=== PATIENT | male | born 1945 | race Caucasian/White ===

== ENCOUNTER 2021-01-10 19:06 | Inpatient (IN) | payer OTHER, SELFPAY ==
[2021-01-10] VITALS (9 sets, daily range): BP systolic 100–138; BP diastolic 41–70; PULSE 28–33; RESP 16–27; TEMP 36.7–37.2; O2SAT 91–95; BMI 32.1; BMI 32.8
--- NOTE | ~2021-01-10 | FL_ITS ---
EXAMINATION: XR FLUOROSCOPY WITH IMAGES CLINICAL INFORMATION: Fluoroscopy guidance for pacemaker placement. COMPARISON: Previous chest x-ray from yesterday TECHNIQUE: Fluoroscopy performed by Magaly Carmona MD. Fluoroscopy time: 247 seconds Dose: 102.58 mGy Images: 4 FINDINGS: Initial images demonstrate a left central venogram with opacification of the axillary and cephalic veins and some of the left subclavian vein which are patent. Final image demonstrates 2 pacemaker leads. One lead projects over the ventricular apex. The atrial lead is not well visualized. FL/FL guidance in OR IMPRESSION: Fluoroscopy guidance for pacemaker placement.
--- NOTE | ~2021-01-10 | CT_ITS ---
EXAMINATION: CT HEAD W/O IV CONTRAST CT CERVICAL SPINE W/O IV CONTRAST CLINICAL INFORMATION: 75-year-old male status post fall. Trauma. COMPARISON: None TECHNIQUE: Head - Contiguous axial imaging of the head was performed from the skull base to the vertex without the administration of intravenous contrast, and axial images are reconstructed at 2 mm and 5 mm slice thickness. Cervical spine - A volumetric, helical CT acquisition of the cervical spine was obtained without contrast; in addition to the standard set of axial images, multiplanar reformatted images were provided in the coronal and sagittal imaging planes. This CT examination was performed using dose optimization techniques as appropriate, variously including the following: *Automated exposure control *Adjustment of mA and/or kV according to patient size (this includes techniques or standardized protocols for targeted exams where dose is matched to indication/reason for exam; i.e. extremities or head) *Use of iterative reconstruction technique DLP: 1211 mGy-cm (total) FINDINGS: HEAD: No acute findings. No intracranial hemorrhage, extra-axial fluid collection, focal mass effect or midline shift. Atherosclerotic calcification of proximal intradural segments of vertebral arteries and cavernous carotid arteries. Mild patchy hypoattenuation in supratentorial white matter and old small lacunar infarct in the left gangliocapsular region. Findings compatible with sequela of chronic mild microangiopathy. The dawn-white matter differentiation is maintained. No acute major vessel territory infarction. Mild volume loss of brain parenchyma with commensurate prominence of ventricles and sulci; no hydrocephalus. Brainstem and cerebellum are unremarkable. The calvarium is intact. Mastoid air cells and middle ear cavities are well aerated. Temporomandibular joints are normal. Secretions within the right maxillary sinus. No air-fluid levels within paranasal sinuses. Prior ocular lens replacements. CERVICAL SPINE: No acute abnormalities in the cervical spine. The craniocervical junction is normal. The occipital condyles, dens and atlantodental articulation are intact. There is degenerative osseous spurring at the atlantodental articulation. The vertebral body heights are maintained. No fractures in anterior or posterior elements. No prevertebral soft tissue swelling. Multilevel facet osteoarthritis. The facet joints are ankylosed on the right at C2-C3. There is approximately 0.2 cm degenerative anterolisthesis of C3 on C4. At C5-C6 and C6-C7, there is severe degenerative disc disease (as manifest by severe loss of disc height, endplate irregularity, sclerosis and osteophyte formation). Mild canal stenosis caused by posterior disc osteophyte complexes at C5-C6 and C6-C7. Multilevel uncovertebral joint hypertrophy with varying degrees of neural foraminal stenosis at C3-C4, C4-C5, C5-C6 and C6-C7, worst on the left at C6-C7 and worst on the right at C4-C5 and C5-C6. Thyroid gland is normal. Interlobular septal thickening (interstitial edema) in the visualized lung apices. Foci venous gas and lower neck likely from recent intravenous line placement. CT/CT cervical spine wo con IMPRESSION: * No acute intracranial pathology. * No fractures in the degenerated cervical spine. Degenerative disc disease is severe at C5-C6 and C6-C7. * Interlobular septal thickening (interstitial edema) is present within the visualized lung apices.
--- NOTE | ~2021-01-10 | XR_ITS ---
EXAMINATION: XR CHEST CLINICAL INFORMATION: New permacath, pacemaker placement COMPARISON: None TECHNIQUE: Frontal view of the chest was obtained. FINDINGS: The lungs are hypo-expanded with increased reticular markings in both lungs, likely chronic renal disease. There are pacer electrodes in the right atrium and right ventricle. Mild spondylosis seen throughout the dorsal spine. No lytic process. XR/XR chest 1V IMPRESSION: Hypo-expanded lungs with chronic reticular interstitial markings in both lungs. No acute infiltrate seen.
--- NOTE | ~2021-01-10 | XR_ITS ---
EXAMINATION: XR CHEST CLINICAL INFORMATION: Follow-up new pacemaker lead placement COMPARISON: 01/11/2021 TECHNIQUE: Frontal view of the chest was obtained. FINDINGS: Left-sided pacemaker is present with lead tips overlying the right atrium and right ventricle. Multiple presumably external leads overlie the chest. Lung volumes are symmetric. No focal consolidation is seen. No evidence of pneumothorax, pleural effusion, or pulmonary edema. Cardiac size is within normal limits. Calcification is present at the aortic arch. No acute osseous findings are seen. XR/XR chest 1V IMPRESSION: Left-sided pacemaker lead tips overlie the right atrium and right ventricle. No acute cardiopulmonary findings.
--- NOTE | ~2021-01-10 | XR_ITS ---
EXAMINATION: PORTABLE CHEST 1 VIEW CLINICAL INFORMATION: bradycardia . COMPARISON: No recent pertinent prior studies are available for comparison. TECHNIQUE: Portable frontal view of the chest was obtained. FINDINGS: The lungs are well expanded. Chronic appearing reticular markings but no superimposed focal infiltrate, effusion, edema, or pneumothorax. Cardiac and mediastinal silhouettes are within normal limits for size with mild vascular calcification in aorta. No acute bony abnormality seen. XR/XR chest 1V IMPRESSION: No evidence of acute disease.
--- NOTE | 2021-01-10 19:16 | ECG_ITS ---
Test Reason : MARQUISE Blood Pressure : / mmHG Vent. Rate : 031 BPM Atrial Rate : 031 BPM P-R Int : 000 ms QRS Dur : 136 ms QT Int : 592 ms P-R-T Axes : 052 110 020 degrees QTc Int : 425 ms Complete heart block Possible Inferior infarct , age undetermined Abnormal ECG No previous ECGs available Referred By: Claudio Tran Electronically Signed By:EDDIE PORTILLO
--- NOTE | 2021-01-10 19:16 | ED_ITS ---
HPI - Arrhythmia/Palpitations General Chief Complaint: Arrhythmia/Palpitations Stated Complaint: LOW HEART RATE Time Seen by Provider: 01/10/21 19:16 Source: patient Mode of arrival: EMS Limitations: no limitations History of Present Illness HPI narrative: Patient's history of hypertension coronary artery disease chronic renal disease and diabetes on metoprolol 25 mg been having near-syncope episode/dizziness for last 6 months noticed heart rate of 26 about 8 weeks ago which lasted for about 24 hours with near-syncope episodes, had a Holter monitor about 6 weeks ago for 24 hours which was negative, seen media associate at [facility] plan to have pacemaker after proper diagnosis been made. Since yesterday evening patient been feeling lightheaded dizzy checked his heart rate was in 30s today just prior to arrival patient had a syncope episode fell down and hit his head to the chair and broke the chair. No chest pain no vomiting no shortness of breath no fever or chills no history of seizures patient is on Flomax and metoprolol 25 mg daily on arrival his EKG showed complete heart block with heart rate of 31 with right bundle-branch block left posterior fascicular block no acute ST T wave changes with wide QRS complexes Related Data Home Medications Medication Instructions Recorded Confirmed atorvastatin 1 tab PO DAILY 01/10/21 01/10/21 finasteride 1 tab PO DAILY 01/10/21 01/10/21 insulin glargine [Lantus Solostar 22 unit SUBCUT BEDTIME 01/10/21 01/10/21 U-100 Insulin] losartan 1 tab PO DAILY 01/10/21 01/10/21 metformin 2 tab PO BID 01/10/21 01/10/21 metoprolol tartrate 1 tab PO BID 01/10/21 01/10/21 nitroglycerin 0.4 tab SUBLINGUAL NEEDED PRN 01/10/21 01/10/21 sitagliptin [Januvia] 1 tab PO DAILY 01/10/21 01/10/21 tamsulosin 1 cap PO DAILY 01/10/21 01/10/21 Allergies Allergy/AdvReac Type Severity Reaction Status Date / Time No Known Allergies Allergy Verified 01/10/21 19:52 [No Known Allergies*] Review of Systems Review of Systems: Constitutional : No Weight loss, No Fever, No Chills ENT/Mouth : No sore throat, No Rhinorrhea Eyes: No Eye Pain, No Swelling Cardiovascular : No Chest Pain, no palpitations Respiratory : No Cough, No Sputum, no shortness of breath Gastrointestinal : no Nausea, No Vomiting, No Diarrhea, No abdominal Pain, no black stools Genitourinary : No Dysuria, No Urinary Frequency Musculoskeletal : No joint pain, No Myalgias, No Joint Swelling Skin : No Skin Lesions, No rash Neuro : No Weakness, No Numbness, ++ Dizziness, No Headache Psych : No Anxiety/Panic, No Depression Heme/Lymph: No Bruising, No Lymphadenopathy Endocrine : No Polyuria, No Polydipsia All other systems reviewed and are negative [facility] Past Medical History Medical History Diabetes High cholesterol History of acute myocardial infarction HTN (hypertension) Kidney disease, chronic, stage III (GFR 30-59 ml/min) Surgical History History of tonsillectomy Social History Social History Household Members: Spouse Household Members Other:: Housing: House Do you presently have visiting nurse or other home services: No Alcohol intake: never Smoking Status: Never smoker Use of substances other than those prescribed or required for medical reasons: No Currently Displaying Signs/Symptoms of Drug Intoxication Withdrawal: No Have you been hit, kicked, punched, or otherwise hurt by someone within the past year? If so, by whom?: No Do you feel safe in your current relationship?: No Is there a partner from a previous relationship who is making you feel unsafe now?: No Are you made to feel afraid or neglected: No Spiritual Healthcare Practices: NONE Advance Directives: No Advance Directives Information Provided: Yes Do you have thoughts of harming others: None Do you have a plan to hurt others: No Plan Recently lost weight without trying: No Nutrition Risks: No Nutritional Risk Physical Exam Vital Signs: Vital Signs: Last Vital Signs Temp 97.3 F 01/11/21 00:00 Pulse 25 L 01/11/21 00:00 Resp 24 H 01/11/21 00:00 BP 113/41 L 01/11/21 00:00 Pulse Ox 96 01/11/21 00:00 Oxygen Flow Rate 2 01/10/21 19:20 Body Mass Index 32.1 Appearance: Alert. Oriented X3. No acute distress. Eyes: PERRLA, No Nystagmus ENT: Pharynx normal. Oral Mucosa moist Neck: Normal inspection. Neck supple. CVS: Bradycardia heart rate 31 beats per minute, no murmur rub or gallop, no S3-S4, Respiratory: No respiratory distress. Equal air entry bilateral, no wheezing/rales/rhonchi Abdomen: Soft and nontender. Bowel sounds are present, no mass palpable, no CVA tenderness Skin: Skin warm and dry. Normal skin color. Normal skin turgor. Extremities: No lower extremity edema. No calf tenderness Neuro: Oriented X 3. No motor deficit. No sensory deficit.No cerebellar signs , cranial nerves II-XII intact MDM - Arrhythmia/Palpitations MDM Narrative Medical decision making narrative: Patient with syncope episode with complete heart block with blood pressure maintained last blood pressure was 113/54 pa tient denies any chest pain alert oriented x3. No response to IV atropine glucagon and calcium gluconate, Case discussed with cardiology Dr. Cavazos plan to admit to ICU and plan for pacemaker placement in the morning this time patient's vitals are stable only external pacer were applied will hold off for temporary intravenous pacemaker for now Medical Records Attestation: I reviewed the patient's medical records. Lab Data Attestation: I reviewed the patient's lab results. Result diagrams: 01/10/21 19:25 01/10/21 19:25 Labs: Lab Results 01/10/21 01/10/21 01/10/21 Range/Units 19:25 19:25 19:25 WBC 16.3 H (4.8-10.8) X10*3/uL RBC 4.28 L (4.60-5.80) X10*6/uL Hgb 13.0 L (14.0-18.0) g/dl Hct 40.4 L (42-52) % MCV 94.4 (80-98) fL MCH 30.4 (27.0-33.0) pg MCHC 32.2 (31.0-36.0) g/dl RDW 13.6 (11.0-16.0) % Plt Count 143 L (160-400) X10*3/uL MPV 12.4 (9.4-12.4) fL Immature Gran % (Auto) 1.0 H (0.0-0.4) % Neut % (Auto) 62.4 (45-73) % Lymph % (Auto) 26.7 (20-40) % [place] % (Auto) 8.4 (2-11) % Eos % (Auto) 0.9 (0-4) % Baso % (Auto) 0.6 (0-2) % Lymph # (Auto) 4.4 (1.2-4.9) X10*3/uL [place] # (Auto) 1.4 H (0.1-1.2) X10*3/uL Eos # (Auto) 0.2 (0.0-0.4) X10*3/uL Baso # (Auto) 0.1 (0.0-0.2) X10*3/uL Abs Immat Gran (auto) 0.16 H (0.00-0.03) X10*3/uL Absolute Neuts (auto) 10.2 H (2.0-8.3) X10*3/uL Absolute Nucleated RBC 0.000 (0.0-0.012) X10*3/uL Nucleated RBC % (auto) 0.0 (0.0-0.2) /100WBC PT 11.7 (10.8-13.0) SEC INR 1.0 (0.9-1.1) APTT 30.4 (24.1-38.0) SEC Sodium 135 (135-145) mmol/L Potassium 5.0 (3.3-5.1) mmol/L Chloride 101 (96-108) mmol/L Carbon Dioxide 22 (22-29) mmol/L Anion Gap 17 (12-20) BUN 35 H (9-16) mg/dL Creatinine 1.64 H (0.5-1.4) mg/dL Estim Creat Clear Calc 42.9 Estimated GFR 41 Random Glucose 345 H (60-115) mg/dL Calcium 9.0 (8.4-10.2) mg/dL Magnesium 1.9 (1.6-2.6) mg/dL Total Bilirubin (0.0-1.0) mg/dL Direct Bilirubin (0.0-0.5) mg/dL AST (5-37) U/L ALT (0-40) U/L Alkaline Phosphatase (39-117) U/L Troponin I High Sens (<3.5-35.0) ng/L B-Natriuretic Peptide (<100) pg/mL Total Protein (6.5-8.0) g/dL Albumin (3.5-5.0) g/dL COVID-19 (FELIPE) (Negative) COVID-19 Clin Com 01/10/21 01/10/21 01/10/21 Range/Units 19:25 19:25 19:25 WBC (4.8-10.8) X10*3/uL RBC (4.60-5.80) X10*6/uL Hgb (14.0-18.0) g/dl Hct (42-52) % MCV (80-98) fL MCH (27.0-33.0) pg MCHC (31.0-36.0) g/dl RDW (11.0-16.0) % Plt Count (160-400) X10*3/uL MPV (9.4-12.4) fL Immature Gran % (Auto) (0.0-0.4) % Neut % (Auto) (45-73) % Lymph % (Auto) (20-40) % [place] % (Auto) (2-11) % Eos % (Auto) (0-4) % Baso % (Auto) (0-2) % Lymph # (Auto) (1.2-4.9) X10*3/uL [place] # (Auto) (0.1-1.2) X10*3/uL Eos # (Auto) (0.0-0.4) X10*3/uL Baso # (Auto) (0.0-0.2) X10*3/uL Abs Immat Gran (auto) (0.00-0.03) X10*3/uL Absolute Neuts (auto) (2.0-8.3) X10*3/uL Absolute Nucleated RBC (0.0-0.012) X10*3/uL Nucleated RBC % (auto) (0.0-0.2) /100WBC PT (10.8-13.0) SEC INR (0.9-1.1) APTT (24.1-38.0) SEC Sodium (135-145) mmol/L Potassium (3.3-5.1) mmol/L Chloride (96-108) mmol/L Carbon Dioxide (22-29) mmol/L Anion Gap (12-20) BUN (9-16) mg/dL Creatinine (0.5-1.4) mg/dL Estim Creat Clear Calc Estimated GFR Random Glucose (60-115) mg/dL Calcium (8.4-10.2) mg/dL Magnesium (1.6-2.6) mg/dL Total Bilirubin 0.9 (0.0-1.0) mg/dL Direct Bilirubin 0.3 (0.0-0.5) mg/dL AST 37 (5-37) U/L ALT 72 H (0-40) U/L Alkaline Phosphatase 97 (39-117) U/L Troponin I High Sens 19.9 (<3.5-35.0) ng/L B-Natriuretic Peptide 399 H (<100) pg/mL Total Protein 6.9 (6.5-8.0) g/dL Albumin 4.0 (3.5-5.0) g/dL COVID-19 (FELIPE) (Negative) COVID-19 Clin Com 01/10/21 Range/Units 20:05 WBC (4.8-10.8) X10*3/uL RBC (4.60-5.80) X10*6/uL Hgb (14.0-18.0) g/dl Hct (42-52) % MCV (80-98) fL MCH (27.0-33.0) pg MCHC (31.0-36.0) g/dl RDW (11.0-16.0) % Plt Count (160-400) X10*3/uL MPV (9.4-12.4) fL Immature Gran % (Auto) (0.0-0.4) % Neut % (Auto) (45-73) % Lymph % (Auto) (20-40) % [place] % (Auto) (2-11) % Eos % (Auto) (0-4) % Baso % (Auto) (0-2) % Lymph # (Auto) (1.2-4.9) X10*3/uL [place] # (Auto) (0.1-1.2) X10*3/uL Eos # (Auto) (0.0-0.4) X10*3/uL Baso # (Auto) (0.0-0.2) X10*3/uL Abs Immat Gran (auto) (0.00-0.03) X10*3/uL Absolute Neuts (auto) (2.0-8.3) X10*3/uL Absolute Nucleated RBC (0.0-0.012) X10*3/uL Nucleated RBC % (auto) (0.0-0.2) /100WBC PT (10.8-13.0) SEC INR (0.9-1.1) APTT (24.1-38.0) SEC Sodium (135-145) mmol/L Potassium (3.3-5.1) mmol/L Chloride (96-108) mmol/L Carbon Dioxide (22-29) mmol/L Anion Gap (12-20) BUN (9-16) mg/dL Creatinine (0.5-1.4) mg/dL Estim Creat Clear Calc Estimated GFR Random Glucose (60-115) mg/dL Calcium (8.4-10.2) mg/dL Magnesium (1.6-2.6) mg/dL Total Bilirubin (0.0-1.0) mg/dL Direct Bilirubin (0.0-0.5) mg/dL AST (5-37) U/L ALT (0-40) U/L Alkaline Phosphatase (39-117) U/L Troponin I High Sens (<3.5-35.0) ng/L B-Natriuretic Peptide (<100) pg/mL Total Protein (6.5-8.0) g/dL Albumin (3.5-5.0) g/dL COVID-19 (FELIPE) Negative (Negative) COVID-19 Clin Com See Note Imaging Data CT scan - head: Radiologist's impression: CT/CT head/brain wo con IMPRESSION: * No acute intracranial pathology. * No fractures in the degenerated cervical spine. Degenerative disc disease is severe at C5-C6 and C6-C7. * Interlobular septal thickening (interstitial edema) is present within the visualized lung apices. ECG Data Attestation: I personally reviewed and interpreted this ECG as follows: Interpretation: Complete heart block with ventricular rate of 31 beats per minute wide QRS complex is no acute ischemic changes, right bundle branch block Critical Care Time Critical Care Time Critical Care Time: Yes Total Critical Care Time: 50 Attestation: I spent 50 minutes of critical care, with interventions, assessments, speaking to patient, consultants, and family. Discharge Plan Discharge Clinical Impression: CHB (complete heart block) Kidney disease, chronic, stage III (GFR 30-59 ml/min) Qualifiers: Chronic kidney disease stage 3 subtype: stage 3b (GFR 30-44) Qualified Code(s): N18.32 - Chronic kidney disease, stage 3b Patient Disposition: Admitted As Inpatient Interventions: Admission Worksheet (ED) Last Done: 01/10/21 22:54 Discharge Date/Time: 01/10/21 22:55
[2021-01-10] MEDS: Calcium Gluconate/NaCl,Iso-Osm 2 GM/100 ML PLAST..BAG IV (19:38)
[2021-01-10] MEDS: Atropine Sulfate 1 MG/10 ML SYRINGE IVPUSH (19:38)
[2021-01-10 19:53] LABS: MANUAL DIFF FLAG NO
[2021-01-10 19:56] LABS: Basophils Absolute Auto 0.1 X10*3/uL (0.0-0.2); Basophils Percent Auto 0.6 % (0-2); Eosinophils Absolute Auto 0.2 X10*3/uL (0.0-0.4); Eosinophils Percent Auto 0.9 % (0-4); Hematocrit 40.4 % (42-52); Imm Gran Abs Auto 0.16 X10*3/uL (0.00-0.03); Lymphocytes Absolute Auto 4.4 X10*3/uL (1.2-4.9); Lymphocytes Percent Auto 26.7 % (20-40); Mean Corpuscular HGB Conc 32.2 g/dl (31.0-36.0); Mean Corpuscular Hemoglobin 30.4 pg (27.0-33.0); Mean Corpuscular Volume 94.4 fL (80-98); Mean Platelet Volume 12.4 fL (9.4-12.4); Monocytes Absolute Auto 1.4 X10*3/uL (0.1-1.2); Monocytes Percent Auto 8.4 % (2-11); Neutrophils Absolute Auto 10.2 X10*3/uL (2.0-8.3); Neutrophils Percent Auto 62.4 % (45-73); Platelet Count 143 X10*3/uL (160-400); Red Blood Count 4.28 X10*6/uL (4.60-5.80); Red Cell Distribution Width 13.6 % (11.0-16.0); White Blood Count 16.3 X10*3/uL (4.8-10.8)
--- NOTE | 2021-01-10 19:57 | PC.NURSE ---
Patient arrived via ambulance in complete heart block. Patient was having shortness of breath and was placed on oxygen 2l. Pacer pads placed on patient upon arrival. Patient line and lab'd. Medicated per emar with gulcagon 1 mg, atropine 1mg and calcium gluconate 2 gm at 50 ml/hr.
[2021-01-10 20:02] LABS: Prothrombin Time 11.7 SEC (10.8-13.0)
[2021-01-10 20:05] LABS: Partial Thromboplastin Time 30.4 SEC (24.1-38.0)
[2021-01-10 20:20] LABS: Alanine Aminotransferase 72 U/L (0-40); Alkaline Phosphatase 97 U/L (39-117); Anion Gap 17 (12-20); Aspartate Amino Transferase 37 U/L (5-37); Bilirubin Direct 0.3 mg/dL (0.0-0.5); Bilirubin Total 0.9 mg/dL (0.0-1.0); Blood Urea Nitrogen 35 mg/dL (9-16); Carbon Dioxide 22 mmol/L (22-29); Chloride 101 mmol/L (96-108); Creatinine Clr Calc Pharmacy 42.9; Estimated Glomerular Filt Rate 41; Glucose Random 345 mg/dL (60-115); Magnesium 1.9 mg/dL (1.6-2.6); Sodium 135 mmol/L (135-145); Total Protein 6.9 g/dL (6.5-8.0)
[2021-01-10 20:27] LABS: Troponin-I High Sensitivity 19.9 ng/L (<3.5-35.0)
[2021-01-10 20:28] LABS: COVID-19 Test Negative (Negative)
--- NOTE | 2021-01-10 20:45 | P.HPCC_ITS ---
History of Present Illness Date of Service: 01/10/21 Chief Complaint: syncope Patient is a 75-year-old male with a past medical history of DM2 on insulin and Januvia, CKD 3, HTN and HLD who had a OH approximately 14 years ago. He takes 81 mg aspirin daily but is not otherwise anticoagulated. Patient was BIBJulieta johansen after he had a syncopal episode at home. Patient states back in July, he noticed his heart rate was very slow, in the 30s or 40s, he was asymptomatic, it happened on a few occasions and then it stopped. He noticed this because he does monitor his pulse on his wrist. He was fine for couple of months and then it started again yesterday. He states his rate was in the 30s most of the afte rnoon but then it went up to the 70s for the evening, he was afraid to laid down to go to sleep so he slept in a recliner. And then when he woke up today it was back in the 30s. He states he was sitting down, he stood up to walk to the kitchen to get himself some water to take his medication and he felt dizzy and the next thing he knew he was on the ground. His states that he passed out and hit the back of his head hit a wooden chair, breaking the chair before he hit the ground. That is when she called 911. Pt denies headache, blurry vision, chest pain, shortness of breath, abdominal pain, bloody or black stools, blood in his urine, lower extremity swelling, joint pain or fevers. Labs are significant for a white blood cell count of 16.3, platelets 143, 35, creatinine 1.6 for, glucose 345 and ALT 72. Troponin was negative and the EKG showed marked sinus bradycardia, 3rd degree block with QRS 0.14, RBBB. Covid negative. Chest x-ray showed no acute process. HR 28-31, BP 113/54, O2 94% on 2L NC, afebrile. PE revealed bilateral 1+pitting edema, no JVD, pt speaking in short sentences but otherwise comfortable. Small abrasion on lower left occipital lobe. Will get head and neck CT as well as BNP. Patient will be brought to the ICU for overnight monitoring and likely PPM to be placed tomorrow by Dr Carmona. Assessment and plan discussed and confirmed with Dr. Carmona. Review of Systems Review of Systems: Yes all other systems are reviewed and are negative Neurologic: Denies Abnormal speech present [facility] Past Medical History Medical History Diabetes High cholesterol History of acute myocardial infarction HTN (hypertension) Kidney disease, chronic, stage III (GFR 30-59 ml/min) Surgical History Surgical History History of tonsillectomy Social History Social History Household Members: Spouse Household Members Other:: Housing: House Do you presently have visiting nurse or other home services: No Alcohol intake: never Smoking Status: Never smoker service: No Current occupational status: retired [email or web address] Allergies Allergy/AdvReac Type Severity Reaction Status Date / Time No Known Allergies Allergy Verified 01/10/21 19:52 [No Known Allergies*] Active Medications: Current Medications Generic Name Dose Route Start Last Admin Trade Name Juanq PRN Reason Stop Dose Admin Calcium Gluconate 2 gm in 100 mls @ 50 mls/hr 01/10/21 19:38 01/10/21 19:38 Calcium Gluconate IV 01/10/21 21:37 50 mls/hr ONCE ONE Administration Dopamine HCl/Dextrose 400 mg in 250 mls @ 7.178 mls/hr 01/10/21 20:45 IVCONT .Q24H MISTY Protocol 2 MCG/KG/MIN Home Medications Medication Instructions Recorded Confirmed Last Taken Type atorvastatin 1 tab PO DAILY 01/10/21 01/10/21 1 Day Ago History ~01/09/21 finasteride 1 tab PO DAILY 01/10/21 01/10/21 1 Day Ago History ~01/09/21 insulin glargine [Lantus Solostar 22 unit SUBCUT BEDTIME 01/10/21 01/10/21 1 Day Ago History U-100 Insulin] ~01/09/21 losartan 1 tab PO DAILY 01/10/21 01/10/21 1 Day Ago History ~01/09/21 metformin 2 tab PO BID 01/10/21 01/10/21 01/10/21 17:00 History metoprolol tartrate 1 tab PO BID 01/10/21 01/10/21 1 Day Ago History ~01/09/21 nitroglycerin 0.4 tab SUBLINGUAL NEEDED PRN 01/10/21 01/10/21 Unknown History sitagliptin [Januvia] 1 tab PO DAILY 01/10/21 01/10/21 1 Day Ago History ~01/09/21 tamsulosin 1 cap PO DAILY 01/10/21 01/10/21 1 Day Ago History ~01/09/21 Physical Exam Vital Signs: Vital Signs: Last Vital Signs Temp 98.1 F 01/10/21 19:20 Pulse 32 L 01/10/21 19:55 Resp 17 01/10/21 19:55 BP 113/54 L 01/10/21 20:23 Pulse Ox 95 01/10/21 19:55 Oxygen Flow Rate 2 01/10/21 19:20 Body Mass Index 32.1 Const: General: cooperative, healthy appearing, comfortable and no acute distress Nutritional Appearance: obese Orientation/consciousness: patient oriented x3 Limitations: no limitations HENMT: Head: Yes normal to inspection, Yes No palpable skull fracture present, Yes atraumatic, Yes abrasion (left lower occ lobe ), No Pittman's sign, No hematoma, No laceration, No raccoon eyes, No scalp tenderness and No Temporal artery tenderness present Ears: hearing grossly normal bilaterally, TM normal on the right and left TM abnormal (cerumen impaction) Eyes: General: appearance normal, both eyes and all related structures Pupils: Equal, round and reactive pupils present EOM: EOMs intact bilaterally Neck: Neck: Yes normal visual inspection, Yes full ROM, Yes supple and No tender Resp: Effort & Inspection: abnormal respiratory pattern (Speaking in short sentences) Auscultation: clear to auscultation bilaterally Cardio: Rate: bradycardic Rhythm: regular rhythm Heart sounds: normal S1 and S2 GI: Inspection: Yes obesity Palpation (GI): Soft to palpation and nontender Neuro: General: patient oriented x3 and Unable to assess gait Cranial nerves: Yes CN's II-XII intact bilaterally and Yes Equal, round and reactive pupils present Cognition (Neuro): normal cognition Speech: No Abnormal speech present Gait exam (Neuro): Unable to assess gait Extrem: General: Yes pedal edema (1+ pitting bilaterally) Psych: Appearance: grossly normal Results Labs CBC and Chem 7: 01/11/21 05:29 01/11/21 06:25 Labs: Laboratory Results - last 24 hr 01/10/21 01/10/21 01/10/21 19:25 19:25 19:25 MCV 94.4 MCH 30.4 MCHC 32.2 RDW 13.6 Plt Count 143 L MPV 12.4 Immature Gran % (Auto) 1.0 H Neut % (Auto) 62.4 Lymph % (Auto) 26.7 [place] % (Auto) 8.4 Eos % (Auto) 0.9 Baso % (Auto) 0.6 Lymph # (Auto) 4.4 [place] # (Auto) 1.4 H Eos # (Auto) 0.2 Baso # (Auto) 0.1 Abs Immat Gran (auto) 0.16 H Absolute Neuts (auto) 10.2 H Absolute Nucleated RBC 0.000 Nucleated RBC % (auto) 0.0 PT 11.7 INR 1.0 APTT 30.4 Anion Gap 17 Estim Creat Clear Calc 42.9 Estimated GFR 41 Random Glucose 345 H Calcium 9.0 Magnesium 1.9 Total Bilirubin Direct Bilirubin AST ALT Alkaline Phosphatase Troponin I High Sens Total Protein Albumin COVID-19 (FELIPE) COVID-Mobile Ads 01/10/21 01/10/21 01/10/21 19:25 19:25 20:05 MCV MCH MCHC RDW Plt Count MPV Immature Gran % (Auto) Neut % (Auto) Lymph % (Auto) [place] % (Auto) Eos % (Auto) Baso % (Auto) Lymph # (Auto) [place] # (Auto) Eos # (Auto) Baso # (Auto) Abs Immat Gran (auto) Absolute Neuts (auto) Absolute Nucleated RBC Nucleated RBC % (auto) PT INR APTT Anion Gap Estim Creat Clear Calc Estimated GFR Random Glucose Calcium Magnesium Total Bilirubin 0.9 Direct Bilirubin 0.3 AST 37 ALT 72 H Alkaline Phosphatase 97 Troponin I High Sens 19.9 Total Protein 6.9 Albumin 4.0 COVID-19 (FELIPE) Negative COVIDFamily-Mingle See Note Imaging Radiologist's Impressions: Impressions Chest X-Ray 01/10/21 19:17 IMPRESSION: No evidence of acute disease. Assessment and Plan (1) Kidney disease, chronic, stage III (GFR 30-59 ml/min): Status: Acute (2) HTN (hypertension): Status: Acute (3) History of acute myocardial infarction: Status: Acute (4) High cholesterol: Status: Acute (5) Diabetes: Status: Acute (6) RBBB (right bundle branch block): Status: Acute (7) CHB (complete heart block): Status: Acute dobutamine drip overnight, lasix, PPM to be placed tomorrow by Dr Carmona
[2021-01-10 21:13] LABS: B Type Natriuretic Peptide 399 pg/mL (<100)
[2021-01-10] MEDS: Acetaminophen 325 MG TABLET 650 MG PO (21:26)
[2021-01-10] MEDS: Furosemide 40 MG/4 ML VIAL IVPUSH (21:27)
[2021-01-10] MEDS: DOPamine HCL/D5W 400 MG/250 ML PLAST..BAG 7.18 MG IVCONT (21:39)
[2021-01-10 22:04] LABS: Glucose Urine UA 100 MG/DL (NEG); Leukocyte Esterase Urine NEG (NEG); Nitrite Urine NEG (NEG); PH 5.5 (5.0-8.0); Specific Gravity - Urine 1.025 (1.005-1.025); Urine Blood NEG (NEG); Urine Ketones NEG (NEG); Urine Protein NEG (NEG-TRACE)
[2021-01-10 22:06] LABS: Appearance Urine CLEAR; Color Urine YELLOW
[2021-01-10] MEDS: LORazepam 2 MG/ML VIAL 0.25 MG IVPUSH (23:24)
[2021-01-11] VITALS (25 sets, daily range): BP systolic 89–153; BP diastolic 32–83; PULSE 27–105; RESP 12–27; TEMP 36.1–37.1; O2SAT 87–97; BMI 32.8
--- NOTE | 2021-01-11 02:17 | PC.NURSE ---
PT TO ICU FROM ED AT 2210 IN NO ACUTE DISTRESS. PT ALERT AND ORIENTED X3. DENIES COMPLAINTS. FOLLOWS COMMANDS. IS ANXIOUS AND WORRIED ABOUT5 SURGERY FOR PERMANENT PACEMAKER WHICH WILL BE DONE TOMORROW. LETY LORD AT BEDSIDE AND SPOKE TO PT EXPLAINING PACER INSERTION. MONITOR SHOWS COMPLETE HEART BLOCK, HR 28-32 WITH OCC WIDE COMPLEX ESCAPE BEATS. POP DAVIDSON ORDERED ATIVAN 0.25 MG IV FOR ANXIETY WHICH WAS GIVEN WITH GOOD EFFECT. ALLISON DRAINING CLEAR YELLOW URINE, 20-40 ML/HR. POP DAVIDSON AWARE OF URINE OUTPUT. DOPAMINE DRIP AT 2 MCG/KG/MIN ON ARRIVAL TO UNIT BUT THEN INCREASED TO 4 MCG ORDERED. BP BORDERLINE LOW. O2 SAT 88-94%. O2 INCREASED TO 5L VIA NC TO MAINTAIN O2 SAT >90%.
--- NOTE | 2021-01-11 05:41 | PC.NURSE ---
PT SLEPT ON AND OFF IN NAPS. PT NOTICED TO HAVE HYPOPNEA. O2 SAT RANGED FROM 87-94%. O2 TITRATED TO 5L NC. RESP RATE FLUCTUATED FROM 15-29 AND O2 SATS DROPPED WITH THE LOWER RESP RATE. PT CONTINUES TO BE ORIENTED X3. U/O IS 30-75 ML/HR. PT DENIES DIZZINES OR SHORTNESS OF BREATH AT REST. MONITOR CONTINUES TO SHOW MOBITZ 2/COMPLETE HEART BLOCK. PACER PADS ARE ON PT. HE JUST HAD A SHORT RUN OF VENTRICULAR STANDSTILL WITH 4 P WAVES NOTED WITH NO CONDUCTION. PT SLEPT THROUGH THIS. HE DENIED DIZZINESS. RHYTHM BROKE TO NSR IMMEDIATELY FOLLOWING WITH HEART RATE UP 70'S FOR A FEW MINUTES. CURRENTLY IN MOBITZ 2 HB RATE 50-[address] BRIDGES HERE AND AWARE OF RHYTHM. BP STABLE 135/73.
[2021-01-11 05:55] LABS: Basophils Absolute Auto 0.1 X10*3/uL (0.0-0.2); Basophils Percent Auto 0.6 % (0-2); Eosinophils Absolute Auto 0.1 X10*3/uL (0.0-0.4); Eosinophils Percent Auto 0.4 % (0-4); Hematocrit 41.3 % (42-52); Hemoglobin 13.6 g/dl (14.0-18.0); Imm Gran Abs Auto 0.14 X10*3/uL (0.00-0.03); Imm Gran Pct Auto 0.8 % (0.0-0.4); Lymphocytes Absolute Auto 4.2 X10*3/uL (1.2-4.9); Lymphocytes Percent Auto 23.6 % (20-40); MANUAL DIFF FLAG SCAN; Mean Corpuscular HGB Conc 32.9 g/dl (31.0-36.0); Mean Corpuscular Hemoglobin 30.9 pg (27.0-33.0); Mean Corpuscular Volume 93.9 fL (80-98); Mean Platelet Volume 12.3 fL (9.4-12.4); Monocytes Absolute Auto 1.8 X10*3/uL (0.1-1.2); Monocytes Percent Auto 10.2 % (2-11); Neutrophils Absolute Auto 11.5 X10*3/uL (2.0-8.3); Neutrophils Percent Auto 64.4 % (45-73); Platelet Count 129 X10*3/uL (160-400); Red Cell Distribution Width 13.6 % (11.0-16.0); SCAN SMEAR FLAG 1; White Blood Count 17.9 X10*3/uL (4.8-10.8)
[2021-01-11 06:06] LABS: Prothrombin Time 11.3 SEC (10.8-13.0)
[2021-01-11 06:09] LABS: Partial Thromboplastin Time 29.5 SEC (24.1-38.0)
[2021-01-11 06:29] LABS: SLIDE REVIEW VERIFIED
[2021-01-11 07:06] LABS: Anion Gap 16 (12-20); Blood Urea Nitrogen 41 mg/dL (9-16); Calcium 9.1 mg/dL (8.4-10.2); Carbon Dioxide 20 mmol/L (22-29); Chloride 105 mmol/L (96-108); Creatinine Clr Calc Pharmacy 46.6; Estimated Glomerular Filt Rate 44; Glucose Random 230 mg/dL (60-115); Phosphorus 4.1 mg/dL (2.7-4.5); Sodium 136 mmol/L (135-145)
--- NOTE | 2021-01-11 07:29 | PM.CCPN ---
Subjective Subjective Date of Service: 01/11/21 Interval History: A 75-year-old male presents due to syncope and prior to this has had a significant fatigability and weakness and exertional dyspnea and was noted to be in complete heart block with a escape mechanism represented by right bundle branch block and right axis so presumably bifascicular block and average heart rate is about 30 but periodically has pauses up to 5 seconds Underlying hypertensive and diabetic Physical Exam Vital Signs: Vital Signs: Last Vital Signs Temp 98.2 F 01/11/21 07:00 Pulse 67 01/11/21 07:00 Resp 18 01/11/21 07:00 BP 138/72 01/11/21 07:00 Pulse Ox 91 L 01/11/21 06:00 Oxygen Flow Rate 2 01/10/21 19:20 Body Mass Index 32.8 Const: Other: Awake and alert no focal neurologic issues Skin normal with no livedo no acrocyanosis and he had minimal urine output and by calculation stage II renal failure which could be driven in large part by a compromised cardiac output Chest x-ray is clear Bedside echo demonstrating globally normal systolic wall motion of the left ventricle with greater than 60% ejection fraction and no primary valve or pericardial disease Objective Data Labs CBC & Chem 7: 01/11/21 05:29 01/11/21 06:25 Labs: Laboratory Results - last 24 hr 01/10/21 01/10/21 01/10/21 19:25 19:25 19:25 WBC 16.3 H RBC 4.28 L Hgb 13.0 L Hct 40.4 L MCV 94.4 MCH 30.4 MCHC 32.2 RDW 13.6 Plt Count 143 L MPV 12.4 Immature Gran % (Auto) 1.0 H Neut % (Auto) 62.4 Lymph % (Auto) 26.7 [place] % (Auto) 8.4 Eos % (Auto) 0.9 Baso % (Auto) 0.6 Lymph # (Auto) 4.4 [place] # (Auto) 1.4 H Eos # (Auto) 0.2 Baso # (Auto) 0.1 Abs Immat Gran (auto) 0.16 H Absolute Neuts (auto) 10.2 H Absolute Nucleated RBC 0.000 Nucleated RBC % (auto) 0.0 Smear Tech's Comments PT 11.7 INR 1.0 APTT 30.4 Sodium 135 Potassium 5.0 Chloride 101 Carbon Dioxide 22 Anion Gap 17 BUN 35 H Creatinine 1.64 H Estim Creat Clear Calc 42.9 Estimated GFR 41 Random Glucose 345 H Calcium 9.0 Phosphorus Magnesium 1.9 Total Bilirubin Direct Bilirubin AST ALT Alkaline Phosphatase Troponin I High Sens B-Natriuretic Peptide Total Protein Albumin Urine Color Urine Appearance Urine pH Ur Specific [place] Urine Protein Urine Glucose (UA) Urine Ketones Urine Blood Urine Nitrite Ur Leukocyte Esterase COVID-19 (FELIPE) COVID-19 Clin Com 01/10/21 01/10/21 01/10/21 19:25 19:25 19:25 WBC RBC Hgb Hct MCV MCH MCHC RDW Plt Count MPV Immature Gran % (Auto) Neut % (Auto) Lymph % (Auto) [place] % (Auto) Eos % (Auto) Baso % (Auto) Lymph # (Auto) [place] # (Auto) Eos # (Auto) Baso # (Auto) Abs Immat Gran (auto) Absolute Neuts (auto) Absolute Nucleated RBC Nucleated RBC % (auto) Smear Tech's Comments PT INR APTT Sodium Potassium Chloride Carbon Dioxide Anion Gap BUN Creatinine Estim Creat Clear Calc Estimated GFR Random Glucose Calcium Phosphorus Magnesium Total Bilirubin 0.9 Direct Bilirubin 0.3 AST 37 ALT 72 H Alkaline Phosphatase 97 Troponin I High Sens 19.9 B-Natriuretic Peptide 399 H Total Protein 6.9 Albumin 4.0 Urine Color Urine Appearance Urine pH Ur Specific [place] Urine Protein Urine Glucose (UA) Urine Ketones Urine Blood Urine Nitrite Ur Leukocyte Esterase COVID-19 (FELIPE) COVID-19 [employer] Com 01/10/21 01/10/21 01/11/21 20:05 21:58 05:29 WBC 17.9 H RBC 4.40 L Hgb 13.6 L Hct 41.3 L MCV 93.9 MCH 30.9 MCHC 32.9 RDW 13.6 Plt Count 129 L MPV 12.3 Immature Gran % (Auto) 0.8 H Neut % (Auto) 64.4 Lymph % (Auto) 23.6 [place] % (Auto) 10.2 Eos % (Auto) 0.4 Baso % (Auto) 0.6 Lymph # (Auto) 4.2 [place] # (Auto) 1.8 H Eos # (Auto) 0.1 Baso # (Auto) 0.1 Abs Immat Gran (auto) 0.14 H Absolute Neuts (auto) 11.5 H Absolute Nucleated RBC 0.000 Nucleated RBC % (auto) 0.0 Smear Tech's Comments VERIFIED PT INR APTT Sodium Potassium Chloride Carbon Dioxide Anion Gap BUN Creatinine Estim Creat Clear Calc Estimated GFR Random Glucose Calcium Phosphorus Magnesium Total Bilirubin Direct Bilirubin AST ALT Alkaline Phosphatase Troponin I High Sens B-Natriuretic Peptide Total Protein Albumin Urine Color YELLOW Urine Appearance CLEAR Urine pH 5.5 Ur Specific [place] 1.025 Urine Protein NEG Urine Glucose (UA) 100 H Urine Ketones NEG Urine Blood NEG Urine Nitrite NEG Ur Leukocyte Esterase NEG COVID-19 (FELIPE) Negative COVID-19 Clin Com See Note 01/11/21 01/11/21 05:29 06:25 WBC RBC Hgb Hct MCV MCH MCHC RDW Plt Count MPV Immature Gran % (Auto) Neut % (Auto) Lymph % (Auto) [place] % (Auto) Eos % (Auto) Baso % (Auto) Lymph # (Auto) [place] # (Auto) Eos # (Auto) Baso # (Auto) Abs Immat Gran (auto) Absolute Neuts (auto) Absolute Nucleated RBC Nucleated RBC % (auto) Smear Tech's Comments PT 11.3 INR 1.0 APTT 29.5 Sodium 136 Potassium 5.0 Chloride 105 Carbon Dioxide 20 L Anion Gap 16 BUN 41 H Creatinine 1.53 H Estim Creat Clear Calc 46.6 Estimated GFR 44 Random Glucose 230 H Calcium 9.1 Phosphorus 4.1 Magnesium 2.0 Total Bilirubin Direct Bilirubin AST ALT Alkaline Phosphatase Troponin I High Sens B-Natriuretic Peptide Total Protein Albumin Urine Color Urine Appearance Urine pH Ur Specific [place] Urine Protein Urine Glucose (UA) Urine Ketones Urine Blood Urine Nitrite Ur Leukocyte Esterase COVID-19 (FELIPE) COVID-19 Clin Com Progress Note: A&P Assessment and plan (1) CHB (complete heart block): Status: Acute (2) RBBB (right bundle branch block): Status: Acute (3) Kidney disease, chronic, stage III (GFR 30-59 ml/min): Status: Acute (4) HTN (hypertension): Status: Acute (5) High cholesterol: Status: Acute (6) Diabetes: Status: Acute (7) Symptomatic bradycardia: Status: Acute (8) Bifascicular block: Status: Acute Assessment and Plan: Maintain the external pacing pads as safety backup currently remains on dopamine which is probably not accomplishing much at this point because his heart block is likely below the AV lillian level but going for permanent dual-chamber pacemaker today and probably will utilize Ancef as a prophylactic antibiotic
--- NOTE | 2021-01-11 07:30 | CA_ITS ---
Transthoracic Echocardiogram Patient (Last, First, Middle): Eduardo Tracy R Gender: Male Date of : 1945 Age: 75 Procedure Date: 01/11/2021 Procedure Type: Transthoracic Echocardiogram Location: ICU Height: 172.72 cm Weight: 97.98 kg BSA: 2.11 m2 Heart Rate: bpm BP: 135 / 73 mmHg Roll Forming Machine Operator: Referring MD: Suly Seo PA-C Symptoms: brian with previous [place] Study Quality: Fair ECG Rhythm: Heart block Conclusions: - The left ventricular systolic function is normal. The visually estimated ejection fraction is between 55-60%. - Evidence suggests grade II (moderate) diastolic dysfunction. - The basal inferior and basal inferolateral segments are akinetic. - No obvious valvular pathology seen on this study. Findings Left Ventricle Normal left ventricular cavity size. There is moderately increased left ventricular wall thickness. The left ventricular systolic function is normal. The visually estimated ejection fraction is between 55-60%. There is evidence of regional wall motion abnormalities. E/E prime ratio is >15, consistent with elevated filling pressures. Evidence suggests grade II (moderate) diastolic dysfunction. Wall Motion Rest Echo Findings The basal inferior and basal inferolateral segments are akinetic. Right Ventricle Normal right ventricular cavity size and systolic function. Atria The left atrium is mildly dilated. The right atrium is normal in size. Aortic Valve The aortic valve structure and function is likely normal. There is no aortic valve stenosis. There is no aortic valve regurgitation. Mitral Valve The mitral valve appears normal. There is trace mitral valve regurgitation. There is no mitral valve stenosis. Pulmonic Valve The pulmonic valve was not well visualized. Tricuspid Valve There is trace tricuspid valve regurgitation. The pulmonary artery systolic pressure is normal. Great Vessels Top normal ascending aortic size at 3.9 cm. Venous The inferior vena cava is normal in size and collapses greater than 50% with inspiration. Pericardium/Pleural There is no evidence of pericardial effusion. Prior Study Comparison No prior study available for comparison. Recommendations, Care & Conclusions No obvious valvular pathology seen on this study. Measurements 2D Linear Measurements IVSd: 1.50 0.6-0.9/0.6-1.0 cm LVIDd: 5.25 3.9-5.3/4.2-5.9 cm LVIDd Index: 2.49 2.4-3.2/2.2-3.1 cm/m2 LVIDs: 3.70 2.0-3.6 cm LVPWd: 1.52 0.7-1.1 cm Ao Root: 3.90 2.1-3.5 cm LA Diam: 3.90 2.7-3.8/3.0-4.0 cm LAIDs Index: 1.85 1.5-2.3 cm/m2 LV Mass: 437.74 67-162/88-224 g LV Mass Index: 207.46 43-95/49-115 g/m2 LVOT Diam: 2.10 3.0+(-)1.3 cm 2D Systolic Function EF 4C: 59.40 >55% EF 2C: 58.00 >55% EF BiP: 59.50 >55% Mitral Valve MV Pk E: 1.04 MV PK A: 0.67 MV Decel Time: 258.00 E/A: 1.60 E'Lateral: 7.18 E'Medial: 4.35 E/E' Med: 23.90 E/E' Lat: 14.50 PHT: 76.00 MVA PHT: 2.89 Decel [place]: 4.03 Aortic Valve AoV Pk Cristi: 1.44 AoV Mn Cristi: 0.90 AoV VTI: 0.34 AoV Pk Grad: 8.00 Aov Mn Grad: 4.00 KEILY Cont.VTI: 2.71 LVOT LVOT Pk Cristi: 1.10 LVOT Mn Cristi: 0.70 LVOT VTI: 0.27 LVOT Pk Grad: 5.00 LVOT Mn Grad: 2.00 LVOT Diam: 2.10 LVOT Area: 3.46 Diastolic Function MV Pk E: 1.04 MV Pk A: 0.67 E/A: 1.60 E'Medial: 4.35 E/E' Med: 23.90 E' Laterial: 7.18 E/E' Lat: 14.50 Tricuspid Valve TR Pk Cristi: 1.68 TR Pk Grad: 11.00 Great Vessels Aorta Ao Root-2D: 3.90 2.0-3.7 cm Ao Asc: 3.90 2.1-3.4 cm Pulmonary Valve PV Pk Cristi: 1.14 Peak PV Grad: 5.00 Updated in Other Vendor System with Status of Final Raymon Cavazos MD electronically signed on 01/11/2021 1:11:05 PM with status of Final
--- NOTE | 2021-01-11 08:41 | P.CONAN_ITS ---
[facility] Active Problems Active Problems: All Active Problems (Updated 01/11/21 @ 07:33 by Magaly vogel MD) Bifascicular block (Acute) Symptomatic bradycardia (Acute) CHB (complete heart block) (Acute) Sinus bradycardia (Acute) RBBB (right bundle branch block) (Acute) Kidney disease, chronic, stage III (GFR 30-59 ml/min) (Acute) HTN (hypertension) (Acute) History of acute myocardial infarction (Acute) High cholesterol (Acute) Diabetes (Acute) Past Medical History Medical History Diabetes High cholesterol History of acute myocardial infarction HTN (hypertension) Kidney disease, chronic, stage III (GFR 30-59 ml/min) Surgical History Surgical History History of tonsillectomy Social History Social History Household Members: Spouse Household Members Other:: Housing: House Do you presently have visiting nurse or other home services: No Alcohol intake: never Smoking Status: Never smoker Use of substances other than those prescribed or required for medical reasons: No Currently Displaying Signs/Symptoms of Drug Intoxication Withdrawal: No Have you been hit, kicked, punched, or otherwise hurt by someone within the past year? If so, by whom?: No Do you feel safe in your current relationship?: No Is there a partner from a previous relationship who is making you feel unsafe now?: No Are you made to feel afraid or neglected: No Spiritual Healthcare Practices: NONE Advance Directives: No Advance Directives Information Provided: Yes Do you have thoughts of harming others: None Do you have a plan to hurt others: No Plan Recently lost weight without trying: No Nutrition Risks: No Nutritional Risk Meds Allergies Allergy/AdvReac Type Severity Reaction Status Date / Time No Known Allergies Allergy Verified 01/10/21 19:52 [No Known Allergies*] Active Medications: Current Medications Generic Name Dose Route Start Last Admin Trade Name Freq PRN Reason Stop Dose Admin Dopamine HCl/Dextrose 400 mg in 250 mls @ 14.356 mls/hr 01/10/21 20:45 01/11/21 00:00 IVCONT 4 mcg/kg/min .[id number] MISTY 14.36 mls/hr Titration Protocol 4 MCG/KG/MIN Home Medications Medication Instructions Recorded Confirmed Last Taken Type atorvastatin 1 tab PO DAILY 01/10/21 01/10/21 1 Day Ago History ~01/09/21 finasteride 1 tab PO DAILY 01/10/21 01/10/21 1 Day Ago History ~01/09/21 insulin glargine [Lantus Solostar 22 unit SUBCUT BEDTIME 01/10/21 01/10/21 1 Day Ago History U-100 Insulin] ~01/09/21 losartan 1 tab PO DAILY 01/10/21 01/10/21 1 Day Ago History ~01/09/21 metformin 2 tab PO BID 01/10/21 01/10/21 01/10/21 17:00 History metoprolol tartrate 1 tab PO BID 01/10/21 01/10/21 1 Day Ago History ~01/09/21 nitroglycerin 0.4 tab SUBLINGUAL NEEDED PRN 01/10/21 01/10/21 Unknown History sitagliptin [Januvia] 1 tab PO DAILY 01/10/21 01/10/21 1 Day Ago History ~01/09/21 tamsulosin 1 cap PO DAILY 01/10/21 01/10/21 1 Day Ago History ~01/09/21 Exam Exam Date and Time: January 11, 2021 0841 Height,Weight and Vital Signs: Height 5 ft 8 in Weight 98 kg Last Vital Signs Temp 97.9 F 01/11/21 08:00 Pulse 71 01/11/21 08:00 Resp 24 H 01/11/21 08:00 BP 153/75 H 01/11/21 08:00 Pulse Ox 94 01/11/21 08:00 Oxygen Flow Rate 2 01/10/21 19:20 Pertinent Lab Results Pertinent Lab Results: Laboratory Tests 01/10/21 01/10/21 01/10/21 19:25 19:25 19:25 WBC 16.3 H RBC 4.28 L Hgb 13.0 L Hct 40.4 L MCV 94.4 MCH 30.4 MCHC 32.2 RDW 13.6 Plt Count 143 L MPV 12.4 Immature Gran % (Auto) 1.0 H Neut % (Auto) 62.4 Lymph % (Auto) 26.7 [place] % (Auto) 8.4 Eos % (Auto) 0.9 Baso % (Auto) 0.6 Lymph # (Auto) 4.4 [place] # (Auto) 1.4 H Eos # (Auto) 0.2 Baso # (Auto) 0.1 Abs Immat Gran (auto) 0.16 H Absolute Neuts (auto) 10.2 H Absolute Nucleated RBC 0.000 Nucleated RBC % (auto) 0.0 Smear Tech's Comments PT 11.7 INR 1.0 APTT 30.4 Sodium 135 Potassium 5.0 Chloride 101 Carbon Dioxide 22 Anion Gap 17 BUN 35 H Creatinine 1.64 H Estim Creat Clear Calc 42.9 Estimated GFR 41 Random Glucose 345 H Calcium 9.0 Phosphorus Magnesium 1.9 Total Bilirubin Direct Bilirubin AST ALT Alkaline Phosphatase Troponin I High Sens B-Natriuretic Peptide Total Protein Albumin Urine Color Urine Appearance Urine pH Ur Specific [place] Urine Protein Urine Glucose (UA) Urine Ketones Urine Blood Urine Nitrite Ur Leukocyte Esterase COVID-19 (FELIPE) COVID-[employer] 01/10/21 01/10/21 01/10/21 19:25 19:25 19:25 WBC RBC Hgb Hct MCV MCH MCHC RDW Plt Count MPV Immature Gran % (Auto) Neut % (Auto) Lymph % (Auto) [place] % (Auto) Eos % (Auto) Baso % (Auto) Lymph # (Auto) [place] # (Auto) Eos # (Auto) Baso # (Auto) Abs Immat Gran (auto) Absolute Neuts (auto) Absolute Nucleated RBC Nucleated RBC % (auto) Smear Tech's Comments PT INR APTT Sodium Potassium Chloride Carbon Dioxide Anion Gap BUN Creatinine Estim Creat Clear Calc Estimated GFR Random Glucose Calcium Phosphorus Magnesium Total Bilirubin 0.9 Direct Bilirubin 0.3 AST 37 ALT 72 H Alkaline Phosphatase 97 Troponin I High Sens 19.9 B-Natriuretic Peptide 399 H Total Protein 6.9 Albumin 4.0 Urine Color Urine Appearance Urine pH Ur Specific [place] Urine Protein Urine Glucose (UA) Urine Ketones Urine Blood Urine Nitrite Ur Leukocyte Esterase COVID-19 (FELIPE) [employer] 01/10/21 01/10/21 01/11/21 20:05 21:58 05:29 WBC 17.9 H RBC 4.40 L Hgb 13.6 L Hct 41.3 L MCV 93.9 MCH 30.9 MCHC 32.9 RDW 13.6 Plt Count 129 L MPV 12.3 Immature Gran % (Auto) 0.8 H Neut % (Auto) 64.4 Lymph % (Auto) 23.6 [place] % (Auto) 10.2 Eos % (Auto) 0.4 Baso % (Auto) 0.6 Lymph # (Auto) 4.2 [place] # (Auto) 1.8 H Eos # (Auto) 0.1 Baso # (Auto) 0.1 Abs Immat Gran (auto) 0.14 H Absolute Neuts (auto) 11.5 H Absolute Nucleated RBC 0.000 Nucleated RBC % (auto) 0.0 Smear Tech's Comments VERIFIED PT INR APTT Sodium Potassium Chloride Carbon Dioxide Anion Gap BUN Creatinine Estim Creat Clear Calc Estimated GFR Random Glucose Calcium Phosphorus Magnesium Total Bilirubin Direct Bilirubin AST ALT Alkaline Phosphatase Troponin I High Sens B-Natriuretic Peptide Total Protein Albumin Urine Color YELLOW Urine Appearance CLEAR Urine pH 5.5 Ur Specific [place] 1.025 Urine Protein NEG Urine Glucose (UA) 100 H Urine Ketones NEG Urine Blood NEG Urine Nitrite NEG Ur Leukocyte Esterase NEG COVID-19 (FELIPE) Negative COVID-19 Clin Com See Note 01/11/21 01/11/21 05:29 06:25 WBC RBC Hgb Hct MCV MCH MCHC RDW Plt Count MPV Immature Gran % (Auto) Neut % (Auto) Lymph % (Auto) [place] % (Auto) Eos % (Auto) Baso % (Auto) Lymph # (Auto) [place] # (Auto) Eos # (Auto) Baso # (Auto) Abs Immat Gran (auto) Absolute Neuts (auto) Absolute Nucleated RBC Nucleated RBC % (auto) Smear Tech's Comments PT 11.3 INR 1.0 APTT 29.5 Sodium 136 Potassium 5.0 Chloride 105 Carbon Dioxide 20 L Anion Gap 16 BUN 41 H Creatinine 1.53 H Estim Creat Clear Calc 46.6 Estimated GFR 44 Random Glucose 230 H Calcium 9.1 Phosphorus 4.1 Magnesium 2.0 Total Bilirubin Direct Bilirubin AST ALT Alkaline Phosphatase Troponin I High Sens B-Natriuretic Peptide Total Protein Albumin Urine Color Urine Appearance Urine pH Ur Specific [place] Urine Protein Urine Glucose (UA) Urine Ketones Urine Blood Urine Nitrite Ur Leukocyte Esterase COVID-19 (FELIPE) COVID-19 Clin Com Airway Mallampati Class: II TM Dist: >3cm Neck ROM: Full Assessment and Plan Assessment Anesthesia Assessment: Anesthesia Plan Discussed and Chart Reviewed Final Anesthetic Review NPO: Yes ASA Class: III and Emergency Final Preanesthetic Review: No Changes in Pt Med Stat, Meds/Allgs Chart Reviewed, Consent Obtained/Reviewed and Anes Risks/Benef Reviewed Patient Risk: Intermediate Procedure Risk: Low Assessment/Block/Sedation in SS: Assess/Block/Sedation-SS Anesthetic Plan Anesthetic Plan: MAC: Disposition: Standard PACU
--- NOTE | 2021-01-11 11:28 | PM.CNCAR ---
History of Present Illness History of Present Illness Date of Service: 01/11/21 Consult reason: other (Heart block) Chief complaint: Bradycardia with need for PPM Narrative: This is a cardiology consultation regarding complete heart block. Patient goes to [facility]. It appears that he has been having episodes of falling down for many months now. He underwent Holter monitoring that was unremarkable. He even has a plan for implantable loop recorder coming up in the next few days. In the interim, he was not feeling good and was dizzy and fall, syncope, that led to hospitalization. He was found to have complete heart block and was admitted. Overnight, he has been in varying degrees of heart block and sometimes sinus as well. Currently he seems to be in sinus rhythm with episodes of second-degree heart block. Otherwise no anginal-type chest pains. He does not have any acute shortness of breath but with moderate to severe exertion he may feel short of breath. He states that he was told to have myocardial infarction many years ago but details are not clear. He denies any history of cardiac catheterization. Review of Systems Review of Systems: Yes all other systems are reviewed and are negative Cardiovascular: Cardiovascular: Reports as per HPI, Reports no additional cardiovascular complaints, Denies acrocyanosis, Denies cool extremities, Denies painful fingertips, Denies chest pain, Denies chest pain at rest, Denies diaphoresis, Denies syncope, Denies irregular heart rhythm, Denies claudication, Denies leg edema, Reports lightheadedness, Denies palpitations and Denies dyspnea Respiratory: Respiratory: Denies dyspnea Neurologic: Denies syncope Endocrine: Endocrine: Denies palpitations [facility] Past Medical History Medical History Diabetes High cholesterol History of acute myocardial infarction HTN (hypertension) Kidney disease, chronic, stage III (GFR 30-59 ml/min) Surgical History Surgical History History of tonsillectomy Social History Social History Household Members: Spouse Household Members Other:: Housing: House Do you presently have visiting nurse or other home services: No Alcohol intake: never Smoking Status: Never smoker Use of substances other than those prescribed or required for medical reasons: No Currently Displaying Signs/Symptoms of Drug Intoxication Withdrawal: No Have you been hit, kicked, punched, or otherwise hurt by someone within the past year? If so, by whom?: No Do you feel safe in your current relationship?: No Is there a partner from a previous relationship who is making you feel unsafe now?: No Are you made to feel afraid or neglected: No Spiritual Healthcare Practices: NONE Advance Directives: No Advance Directives Information Provided: Yes Do you have thoughts of harming others: None Do you have a plan to hurt others: No Plan Recently lost weight without trying: No Nutrition Risks: No Nutritional Risk Meds Allergies Allergy/AdvReac Type Severity Reaction Status Date / Time No Known Allergies Allergy Verified 01/10/21 19:52 [No Known Allergies*] Active Medications: Current Medications Generic Name Dose Route Start Last Admin Trade Name Freq PRN Reason Stop Dose Admin Dopamine HCl/Dextrose 400 mg in 250 mls @ 14.356 mls/hr 01/10/21 20:45 01/11/21 00:00 IVCONT 4 mcg/kg/min .[id number] MISTY 14.36 mls/hr Titration Protocol 4 MCG/KG/MIN Home Medications Medication Instructions Recorded Confirmed Last Taken Type atorvastatin 1 tab PO DAILY 01/10/21 01/10/21 1 Day Ago History ~01/09/21 finasteride 1 tab PO DAILY 01/10/21 01/10/21 1 Day Ago History ~01/09/21 insulin glargine [Lantus Solostar 22 unit SUBCUT BEDTIME 01/10/21 01/10/21 1 Day Ago History U-100 Insulin] ~01/09/21 losartan 1 tab PO DAILY 01/10/21 01/10/21 1 Day Ago History ~01/09/21 metformin 2 tab PO BID 01/10/21 01/10/21 01/10/21 17:00 History metoprolol tartrate 1 tab PO BID 01/10/21 01/10/21 1 Day Ago History ~01/09/21 nitroglycerin 0.4 tab SUBLINGUAL NEEDED PRN 01/10/21 01/10/21 Unknown History sitagliptin [Januvia] 1 tab PO DAILY 01/10/21 01/10/21 1 Day Ago History ~01/09/21 tamsulosin 1 cap PO DAILY 01/10/21 01/10/21 1 Day Ago History ~01/09/21 Physical Exam Vital Signs: Vital Signs: Last Vital Signs Temp 97.9 F 01/11/21 09:59 Pulse 66 01/11/21 09:59 Resp 18 01/11/21 09:59 BP 130/73 01/11/21 09:59 Pulse Ox 95 01/11/21 09:59 Oxygen Flow Rate 2 01/10/21 19:20 Body Mass Index 32.8 Const: General: cooperative, comfortable and no acute distress Orientation/consciousness: patient oriented x3 HENMT: Other: Unremarkable Neck: Neck: Yes normal visual inspection Chest: Chest palpation & inspection: normal inspection of the chest Resp: Auscultation: clear to auscultation bilaterally, no crackles and no wheezes Cardio: Jugular venous distension: no JVD Palpation: normal PMI Heart sounds: S1 normal heart sound present, S2 normal heart sound present, no gallops, no murmurs and no rubs GI: Palpation (GI): Soft to palpation Back/Spine/Pelvis: Other: unremarkable Skin: General skin exam: no rashes or lesions noted Neuro: General: patient oriented x3 Extrem: General: Yes no clubbing, cyanosis or edema Psych: Mental Status: mental status grossly normal Results Labs and Meds Result diagrams: 01/11/21 05:29 01/11/21 06:25 Lab results: Laboratory Results - last 24 hr 01/10/21 01/10/21 01/10/21 19:25 19:25 19:25 WBC 16.3 H RBC 4.28 L Hgb 13.0 L Hct 40.4 L MCV 94.4 MCH 30.4 MCHC 32.2 RDW 13.6 Plt Count 143 L MPV 12.4 Immature Gran % (Auto) 1.0 H Neut % (Auto) 62.4 Lymph % (Auto) 26.7 Lee % (Auto) 8.4 Eos % (Auto) 0.9 Baso % (Auto) 0.6 Lymph # (Auto) 4.4 Lee # (Auto) 1.4 H Eos # (Auto) 0.2 Baso # (Auto) 0.1 Abs Immat Gran (auto) 0.16 H Absolute Neuts (auto) 10.2 H Absolute Nucleated RBC 0.000 Nucleated RBC % (auto) 0.0 Smear Tech's Comments PT 11.7 INR 1.0 APTT 30.4 Sodium 135 Potassium 5.0 Chloride 101 Carbon Dioxide 22 Anion Gap 17 BUN 35 H Creatinine 1.64 H Estim Creat Clear Calc 42.9 Estimated GFR 41 Random Glucose 345 H Calcium 9.0 Phosphorus Magnesium 1.9 Total Bilirubin Direct Bilirubin AST ALT Alkaline Phosphatase Troponin I High Sens B-Natriuretic Peptide Total Protein Albumin Urine Color Urine Appearance Urine pH Ur Specific Avery Urine Protein Urine Glucose (UA) Urine Ketones Urine Blood Urine Nitrite Ur Leukocyte Esterase COVID-19 ([facility]ELIPE) COVID-19 Epoch 01/10/21 01/10/21 01/10/21 19:25 19:25 19:25 WBC RBC Hgb Hct MCV MCH MCHC RDW Plt Count MPV Immature Gran % (Auto) Neut % (Auto) Lymph % (Auto) Lee % (Auto) Eos % (Auto) Baso % (Auto) Lymph # (Auto) Lee # (Auto) Eos # (Auto) Baso # (Auto) Abs Immat Gran (auto) Absolute Neuts (auto) Absolute Nucleated RBC Nucleated RBC % (auto) Smear Tech's Comments PT INR APTT Sodium Potassium Chloride Carbon Dioxide Anion Gap BUN Creatinine Estim Creat Clear Calc Estimated GFR Random Glucose Calcium Phosphorus Magnesium Total Bilirubin 0.9 Direct Bilirubin 0.3 AST 37 ALT 72 H Alkaline Phosphatase 97 Troponin I High Sens 19.9 B-Natriuretic Peptide 399 H Total Protein 6.9 Albumin 4.0 Urine Color Urine Appearance Urine pH Ur Specific Avery Urine Protein Urine Glucose (UA) Urine Ketones Urine Blood Urine Nitrite Ur Leukocyte Esterase COVID-19 (FELIPE) COVID-19 Epoch 01/10/21 01/10/21 01/11/21 20:05 21:58 05:29 WBC 17.9 H RBC 4.40 L Hgb 13.6 L Hct 41.3 L MCV 93.9 MCH 30.9 MCHC 32.9 RDW 13.6 Plt Count 129 L MPV 12.3 Immature Gran % (Auto) 0.8 H Neut % (Auto) 64.4 Lymph % (Auto) 23.6 Lee % (Auto) 10.2 Eos % (Auto) 0.4 Baso % (Auto) 0.6 Lymph # (Auto) 4.2 Lee # (Auto) 1.8 H Eos # (Auto) 0.1 Baso # (Auto) 0.1 Abs Immat Gran (auto) 0.14 H Absolute Neuts (auto) 11.5 H Absolute Nucleated RBC 0.000 Nucleated RBC % (auto) 0.0 Smear Tech's Comments VERIFIED PT INR APTT Sodium Potassium Chloride Carbon Dioxide Anion Gap BUN Creatinine Estim Creat Clear Calc Estimated GFR Random Glucose Calcium Phosphorus Magnesium Total Bilirubin Direct Bilirubin AST ALT Alkaline Phosphatase Troponin I High Sens B-Natriuretic Peptide Total Protein Albumin Urine Color YELLOW Urine Appearance CLEAR Urine pH 5.5 Ur Specific Avery 1.025 Urine Protein NEG Urine Glucose (UA) 100 H Urine Ketones NEG Urine Blood NEG Urine Nitrite NEG Ur Leukocyte Esterase NEG COVID-19 (FELIPE) Negative COVID-19 Clin Com See Note 01/11/21 01/11/21 05:29 06:25 WBC RBC Hgb Hct MCV MCH MCHC RDW Plt Count MPV Immature Gran % (Auto) Neut % (Auto) Lymph % (Auto) Lee % (Auto) Eos % (Auto) Baso % (Auto) Lymph # (Auto) Lee # (Auto) Eos # (Auto) Baso # (Auto) Abs Immat Gran (auto) Absolute Neuts (auto) Absolute Nucleated RBC Nucleated RBC % (auto) Smear Tech's Comments PT 11.3 INR 1.0 APTT 29.5 Sodium 136 Potassium 5.0 Chloride 105 Carbon Dioxide 20 L Anion Gap 16 BUN 41 H Creatinine 1.53 H Estim Creat Clear Calc 46.6 Estimated GFR 44 Random Glucose 230 H Calcium 9.1 Phosphorus 4.1 Magnesium 2.0 Total Bilirubin Direct Bilirubin AST ALT Alkaline Phosphatase Troponin I High Sens B-Natriuretic Peptide Total Protein Albumin Urine Color Urine Appearance Urine pH Ur Specific Avery Urine Protein Urine Glucose (UA) Urine Ketones Urine Blood Urine Nitrite Ur Leukocyte Esterase COVID-19 (FELIPE) COVID-19 Clin Com ECG Attestation: I personally reviewed and interpreted this ECG as follows: Interpretation: Admission EKG reviewed and shows complete heart block with a ventricular rate of 31/min. No prior EKGs for comparison. Imaging Radiologist's impression: Impressions Chest X-Ray 01/10/21 19:17 IMPRESSION: No evidence of acute disease. Cervical Spine CT 01/10/21 20:24 IMPRESSION: * No acute intracranial pathology. * No fractures in the degenerated cervical spine. Degenerative disc disease is severe at C5-C6 and C6-C7. * Interlobular septal thickening (interstitial edema) is present within the visualized lung apices. Head CT 01/10/21 20:24 IMPRESSION: * No acute intracranial pathology. * No fractures in the degenerated cervical spine. Degenerative disc disease is severe at C5-C6 and C6-C7. * Interlobular septal thickening (interstitial edema) is present within the visualized lung apices. Assessment and Plan (1) CHB (complete heart block): Status: Acute Patient is in complete heart block which is most likely the reason why he has been having recurrent falls and possibly syncopal episodes in the last few months. He is on a small dose of beta-saira but that does not explain the extent of conduction system disease. He has already been set up to have a pacemaker today through the mixing machine tender. That seems appropriate. 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
--- NOTE | 2021-01-11 11:59 | W.PM.OPN ---
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 manifested by syncope and symptomatic bradycardia with CHF Procedure performed was a [employer] permanent dual-chamber pacemaker insertion After sterile preparation and draping in the usual fashion I 1st did a 15 cc IV contrast injection performing a left subclavian venogram without complication Then made careful incision and dissection down to the level of the prepectoral fascia and partially creating the pocket along the plane of the prepectoral fascia and securing all bleeders then under fluoroscopic guidance I gained separate entry x2 and into the subclavian venous system passing retrograde with Seldinger technique to J-shaped guidewires to the right atrium in good position Then I used 6 [place] introducer through which I passed an active fixation right ventricular lead to the right ventricular apex with the screw was deployed noting that it was well tethered and we had excellent sensing at 10 mV no diaphragm capture at 10 volts lead impedance 630 Ohms capture threshold 0.5 volts so that lead was sewn in tethered to the floor of the pocket on the pectoral muscle then using another 6 [place] introducer I passed an active fixation right atrial lead to the right atrial appendage with screw was deployed and again well tethered excellent injury current lead impedance 900 Ohms sensing 2.9 mV capture 0.5 volts and no diaphragm capture at 10 volts so that lead was sewn in tethered to the pectoral muscle in the floor of the pocket I then completed creating the pocket along the plane of the prepectoral fascia and I fastened both wires to the 2 ports in the pacemaker generator and they were both well tethered with no change in impedance and wired generator is were placed in the pocket and the wound was closed in 3 layers covered with sterile dressing and the patient was awake comfortable without complaint removed from the table in good condition and awaiting postoperative chest x-ray
--- NOTE | 2021-01-11 12:40 | MHC.CM.PN ---
Pt is presently in the OR undergoing a dual chamber pacer placement and unavailable for CM assessment: Call placed to pt's spouse Francesca to obtain information on pt's functional status, care needs, services, etc: message left requesting a callback. It is expected that pt will return to home with spouse. A referral will be made to [facility] as a precaution for skilled RN visits (surgical site assessment/med changes). This may be cancelled if needed. CM to await callback from Francesca or pt's return to ICU following PACU stay.
[2021-01-11 17:51] LABS: Glucose, Whole Blood 234 mg/dL (60-115)
[2021-01-11] MEDS: Insulin Lispro 100 UNIT/ML 3 ML VIAL SUBCUT ×2 (18:06→21:53)
--- NOTE | 2021-01-11 20:06 | PC.NURSE ---
ASSUMED CARE AT 0700. PATIENT ALERT AND ORIENTED, THOUGH SLOW TO RESPOND, ANSWERS QUESTIONS APPROPRIATELY, FOLLOWS COMMANDS, RINGS FOR ASSISTANCE BUT INCONSISTENTLY DUE TO URINARY URGENCY. INITIALLY IN AND OUT OF SINUS RHYTHM INTO MOBITZ 2, SINUS BRADYCARDIA DIPPING INTO 30'S BUT NOT SUSTAINED, RIGHT BUNDLE BRANCH BLOCK; ON DOPAMIN GTT AT 4, WHICH WAS NOT TITRATED, PER MD. PATIENT DENIED ANY CHEST DISCOMFORT OR DIFFICULTY BREATHING, WAS ON 6 LPM NASAL CANNULA (NOT ON HOME OXYGEN), BREATHING SHALLOW BUT EASILY, DRY COUGH NOTED PATIENT REPORTED WAS ONLY OCCURING THIS MORNING ABOUT 2 HOURS, MD AWARE. PATIENT HAD ECHOCARDIOGRAM THIS MORNING. PACER PLACED ABOUT 1200 TODAY, AND PATIENT RETURNED FROM OR WITH RHYTHM ON MONITOR 100% V-PACED, GOOD SENSING AND CAPTURE; PATIENT DOES ENDORSE LIGHT-HEADEDNESS. PATIENT OOB TO CHAIR PER MD, AND PATIENT ALLISON CATHETER D/C'S PER MD. PATIENT LIGHTHEADEDNESS CONTINUED THROUGH TRANSFER AND WHILE SITTING. [id number], STANDS TO VOID, 1-ASSIST CONTACT GUARD. PATIENT USED INCENTIVE SPIROMETER WITH GOOD TECHNIQUE, 1500 CCS. LS DIM AT BASES, CONTINUED ON ROOM AIR AFTER PACER PLACEMENT WITH SPO2 90-92%. AFTER ALLISON DISCONTINED AT 1300, PATIENT WAS ABLE TO VOID IN URINAL, BUT FREQUENCY, HESITANCY, AND URGENCY EXHIBITED, WHICH PATIENT SAYS IS ONGOING FROM BEFORE HIS ADMISSION. SKIN IS INTACT EXCEPT FOR TWO ABRASIONS: BACK OF LEFT SIDE OF HEAD AND RIGHT ELBOW. PATIENT IS DIABETIC, WAS NPO THIS MORNING AND MD HAD HELD INSULIN COVERAGE, RANDOM GLU WAS 230 AND MD AWARE. GOOD APPETITE FOR LUNCH AND LATE DINNER. SLIDING SCALE STARTED THIS EVENING.
[2021-01-11 21:31] LABS: Glucose, Whole Blood 234 mg/dL (60-115)
[2021-01-11] MEDS: LORazepam 2 MG/ML VIAL 0.5 MG IVPUSH (21:53)
[2021-01-12] VITALS (11 sets, daily range): BP systolic 115–152; BP diastolic 59–90; PULSE 77–96; RESP 14–22; TEMP 36.4; O2SAT 89–99
[2021-01-12 05:33] LABS: MANUAL DIFF FLAG NO
[2021-01-12 05:36] LABS: Basophils Absolute Auto 0.1 X10*3/uL (0.0-0.2); Basophils Percent Auto 0.5 % (0-2); Eosinophils Absolute Auto 0.3 X10*3/uL (0.0-0.4); Eosinophils Percent Auto 3.3 % (0-4); Hematocrit 38.7 % (42-52); Hemoglobin 12.9 g/dl (14.0-18.0); Imm Gran Abs Auto 0.09 X10*3/uL (0.00-0.03); Imm Gran Pct Auto 0.9 % (0.0-0.4); Lymphocytes Percent Auto 28.8 % (20-40); Mean Corpuscular HGB Conc 33.3 g/dl (31.0-36.0); Mean Corpuscular Hemoglobin 30.8 pg (27.0-33.0); Mean Corpuscular Volume 92.4 fL (80-98); Mean Platelet Volume 12.1 fL (9.4-12.4); Monocytes Absolute Auto 1.2 X10*3/uL (0.1-1.2); Monocytes Percent Auto 11.3 % (2-11); Neutrophils Absolute Auto 5.8 X10*3/uL (2.0-8.3); Neutrophils Percent Auto 55.2 % (45-73); Platelet Count 100 X10*3/uL (160-400); Red Blood Count 4.19 X10*6/uL (4.60-5.80); Red Cell Distribution Width 13.4 % (11.0-16.0); White Blood Count 10.4 X10*3/uL (4.8-10.8)
[2021-01-12 05:47] LABS: Partial Thromboplastin Time 28.8 SEC (24.1-38.0)
[2021-01-12 05:57] LABS: Anion Gap 15 (12-20); Blood Urea Nitrogen 26 mg/dL (9-16); Calcium 8.6 mg/dL (8.4-10.2); Carbon Dioxide 22 mmol/L (22-29); Chloride 106 mmol/L (96-108); Creatinine Clr Calc Pharmacy 64.2; Estimated Glomerular Filt Rate > 60; Glucose Random 183 mg/dL (60-115); Magnesium 1.9 mg/dL (1.6-2.6); Phosphorus 3.1 mg/dL (2.7-4.5); Potassium 4.3 mmol/L (3.3-5.1); Sodium 139 mmol/L (135-145)
[2021-01-12] MEDS: Insulin Lispro 100 UNIT/ML 3 ML VIAL SUBCUT (07:35)
[2021-01-12 07:36] LABS: Glucose, Whole Blood 172 mg/dL (60-115)
--- NOTE | 2021-01-12 09:14 | PM.DS ---
DS: Providers Provider Date of Service: 01/12/21 Date of admission: 01/10/21 20:43 Date of discharge: 01/12/21 Primary care physician: Candido Good MD Admitting clinician: Magaly Carmona Attending physician on admission: Magaly Carmona Consults: 01/11/21 08:39 Consult to Cardiology Routine Consulting Provider: Raymon Cavazos Reason for consultation: Complete heart block Has provider been notified: Yes Attending physician on discharge: Magaly Carmona Discharging clinician: Magaly Carmona DS: Diagnosis Discharge Diagnosis (1) Kidney disease, chronic, stage III (GFR 30-59 ml/min): Status: Acute Problem details: Acute stage II renal failure resolved with restitution of AV synchrony from the permanent dual-chamber pacemaker (2) HTN (hypertension): Status: Acute Problem details: Stable in hospital currently 134/90 and will resume home medication (3) History of acute myocardial infarction: Status: Acute (4) High cholesterol: Status: Acute (5) Diabetes: Status: Acute Problem details: To resume home medication (6) RBBB (right bundle branch block): Status: Acute (7) CHB (complete heart block): Status: Acute Problem details: Resolved by insertion of permanent dual-chamber pacemaker DS: Medications Discharge Medications Home Medications: Home Medications Medication Instructions Recorded Confirmed Januvia 1 tab PO DAILY 01/10/21 01/10/21 Lantus Solostar U-100 Insulin 22 unit SUBCUT BEDTIME 01/10/21 01/10/21 atorvastatin 1 tab PO DAILY 01/10/21 01/10/21 finasteride 1 tab PO DAILY 01/10/21 01/10/21 losartan 1 tab PO DAILY 01/10/21 01/10/21 metformin 2 tab PO BID 01/10/21 01/10/21 metoprolol tartrate 1 tab PO BID 01/10/21 01/10/21 nitroglycerin 0.4 tab SUBLINGUAL NEEDED PRN 01/10/21 01/10/21 tamsulosin 1 cap PO DAILY 01/10/21 01/10/21 DS: Summary Hospital Course Hospital Course: 75-year-old male admitted for syncope but has had considerable easy fatigability weakness and and exertional dyspnea and presented in complete heart block and his escape QRS with bifascicular block morphology and therefore symptomatic bradycardia was the issue the also creating an acute stage II renal failure issue based on low cardiac output and he had a dual-chamber [employer] pacemaker placed with atrial wire in the right atrial appendage and ventricular wire in the right ventricular apex with excellent capture and sensing and is now in sinus rhythm with the more rare atrial pacing and overwhelming percentage of the time ventricular pacing but occasional has one-to-one [place] conduction Status at Discharge Cognitive/behavioral status at discharge: Excellent cognitive function Functional status at discharge: independent ambulation Overall status at discharge: patient is back to baseline Time Spent with Patient Time attestation: Total time spent providing and/or coordinating discharge services: 35 minutes Discharge coordination time: Greater than 30 minutes Specific discharge activities: Only limitation is not to stretch his left arm to use his right arm for such activity and he was instructed not to remove the dressing for 2 full weeks and not to wet the wound so all care regarding his face and head will be done at the sink and he could shower and rinse normally below the level of the wound Physical Exam Vital Signs: Vital Signs: Last Vital Signs Temp 97.6 F 01/12/21 08:00 Pulse 93 01/12/21 08:00 Resp 20 01/12/21 08:00 BP 135/66 01/12/21 08:00 Pulse Ox 94 01/12/21 08:00 Oxygen Flow Rate 2 01/10/21 19:20 Body Mass Index 32.8 Awake alert and nonfocal neurologically Good bilateral carotid upstrokes no neck vein distension no gallops or murmurs Abdomen benign soft no organomegaly Skin intact no livedo no acrocyanosis no edema Chest clear bilaterally with no adventitious sounds DS: Data Data Completed and Pending Labs on day of discharge: Laboratory Results - last 24 hr 01/11/21 01/11/21 01/12/21 17:47 21:27 05:11 WBC 10.4 RBC 4.19 L Hgb 12.9 L Hct 38.7 L MCV 92.4 MCH 30.8 MCHC 33.3 RDW 13.4 Plt Count 100 L MPV 12.1 Immature Gran % (Auto) 0.9 H Neut % (Auto) 55.2 Lymph % (Auto) 28.8 [place] % (Auto) 11.3 H Eos % (Auto) 3.3 Baso % (Auto) 0.5 Lymph # (Auto) 3.0 [place] # (Auto) 1.2 Eos # (Auto) 0.3 Baso # (Auto) 0.1 Abs Immat Gran (auto) 0.09 H Absolute Neuts (auto) 5.8 Absolute Nucleated RBC 0.000 Nucleated RBC % (auto) 0.0 PT INR APTT Sodium Potassium Chloride Carbon Dioxide Anion Gap BUN Creatinine Estim Creat Clear Calc Estimated GFR POC Glucose 234 H 234 H Random Glucose Calcium Phosphorus Magnesium 01/12/21 01/12/21 01/12/21 05:11 05:11 07:30 WBC RBC Hgb Hct MCV MCH MCHC RDW Plt Count MPV Immature Gran % (Auto) Neut % (Auto) Lymph % (Auto) [place] % (Auto) Eos % (Auto) Baso % (Auto) Lymph # (Auto) [place] # (Auto) Eos # (Auto) Baso # (Auto) Abs Immat Gran (auto) Absolute Neuts (auto) Absolute Nucleated RBC Nucleated RBC % (auto) PT 12.0 INR 1.0 APTT 28.8 Sodium 139 Potassium 4.3 Chloride 106 Carbon Dioxide 22 Anion Gap 15 BUN 26 H Creatinine 1.11 Estim Creat Clear Calc 64.2 Estimated GFR > 60 POC Glucose 172 H Random Glucose 183 H Calcium 8.6 Phosphorus 3.1 Magnesium 1.9 Discharge Plan Discharge Anticipated Discharge Date/Time: 01/12/21 09:20 Patient Disposition: Home, Self-Care Discharge Diagnosis: Complete heart block Symptomatic bradycardia Status post insertion permanent dual-chamber pacemaker Referrals: Candido Good MD [Primary Care Provider] - 1 Week Discharge Medications: Continued atorvastatin 80 mg tablet 1 tab PO DAILY RF: 0 Lantus Solostar U-100 Insulin 100 unit/mL (3 mL) insulin pen 22 unit subcut BEDTIME RF: 0 Januvia 100 mg tablet 1 tab PO DAILY RF: 0 losartan 25 mg tablet 1 tab PO DAILY RF: 0 metoprolol tartrate 25 mg tablet 1 tab PO BID RF: 0 tamsulosin 0.4 mg capsule 1 cap PO DAILY RF: 0 finasteride 5 mg tablet 1 tab PO DAILY RF: 0 metformin 500 mg tablet 2 tab PO BID RF: 0 nitroglycerin 0.4 mg tablet, sublingual 0.4 tab sublingual NEEDED PRN (Reason: Chest Pain) RF: 0 Discharge Orders: Discharge Order (Routine); Ordered 01/12/21 Ordered By: Magaly Carmona Activity on Discharge: As tolerated Stand Alone Forms: Patient Portal Discharge page Care Plan Goals: Will obey the limitations at home regarding the wound and the extended use of left arm and will see his bi data architect at [facility] after 2 weeks to remove skin adam at which point he could resume normal hygiene in the shower Health Concerns: If he has any symptoms such as palpitations or any return of that sense of fatigability or any discomfort that potentially could be related to the device he should just simply call over to the hospital looking for me Plan of Treatment: Restore his home medications for his hyperlipidemia and hypertension and diabetes Assessment: Pacemaker follow-up through [facility] and his primary bi data architect
--- NOTE | 2021-01-12 12:22 | HO.POSTANES ---
Post Anesthesia Evaluation Post Anesthesia Evaluation Vital Signs: Vital Signs Temp Pulse Resp BP Pulse Ox 01/12/21 10:00 87 20 131/75 94 01/12/21 09:00 91 20 143/90 H 94 01/12/21 08:00 97.6 F 93 20 135/66 94 01/12/21 07:00 83 17 152/89 H 95 01/12/21 06:00 83 19 136/75 89 L 01/12/21 05:00 77 16 141/73 H 89 L 01/12/21 04:00 85 18 136/74 97 01/12/21 03:00 83 19 136/79 99 01/12/21 02:00 89 18 127/78 95 01/12/21 01:00 90 14 118/59 L 94 Anesthesia: Monitored Mental Status: Awake Pain Control: Satisfactory Nausea/Vomiting: None Hydration: Adequate Anesthesia-Related Issues: No Anes. Related Issues
== END 2021-01-12 11:18 | disposition home or self-care (01) | DRG 171 ==
LOC: HO.ED 21:03 → HO.ICU 21:03
PROVIDERS: Internal Medicine Cardiovascular Disease; Admitting Provider Physician Assistant; Emergency Provider Internal Medicine; PCP Internal Medicine; Visit Provider Physician Assistant
PROC: 0JH606Z Insertion of Pacemaker, Dual Chamber into Chest Subcutaneous Tissue and Fascia, Open Approach (ICD-10-PCS; principal; 2021-01-11 09:20)
DX: I44.2 Atrioventricular block, complete (principal); E11.22 Type 2 diabetes mellitus with diabetic chronic kidney disease; I45.10 Unspecified right bundle-branch block; E78.5 Hyperlipidemia, unspecified; I25.2 Old myocardial infarction; I12.9 Hypertensive chronic kidney disease with stage 1 through stage 4 chronic kidney disease, or unspecified chronic kidney disease; N18.32 Chronic kidney disease, stage 3b; I25.10 Atherosclerotic heart disease of native coronary artery without angina pectoris; Z20.822 Contact with and (suspected) exposure to COVID-19; Z79.4 Long term (current) use of insulin; Z79.899 Other long term (current) drug therapy
CPT/HCPCS: 36415; 70450; 71045; 72125; 80048; 80076; 81003; 82947; 83735; 83880; 84100; 84484; 85025; 85610; 85730; 87635; 93005; 93306; 94002; 94003; 96365; 96366; 96375; 99285; 99291; C1785; C1892; J0461; J0610; J0690; J1265; J1610; J1940; J2060; J2370; J3010; Q9967

== ENCOUNTER 2021-08-16 12:18 | Emergency (ER) | payer OTHER, SELFPAY ==
--- NOTE | ~2021-08-16 | US_ITS ---
EXAMINATION: US VENOUS WITH DOPPLER UPPER EXTREMITY, LEFT CLINICAL INFORMATION: Swelling and erythema COMPARISON: None TECHNIQUE: Ultrasound of the upper extremity is performed using compression sonography and color and pulse Doppler flow with assessment of augmentation of flow. There is also imaging and Doppler assessment of the jugular and subclavian veins. Spectral analysis with color-flow imaging is performed. FINDINGS: Echogenic material suggesting thrombosis found within the brachial veins mid and proximal segment. The remainder of the veins otherwise are patent. Left IJ, left subclavian, left axillary, left cephalic vein, basilic, ulnar and radial and distal brachial veins otherwise are patent. US/US venous duplex UE LT IMPRESSION: Positive DVT. Thromboses of the proximal and mid left brachial vein.
--- NOTE | ~2021-08-16 | XR_ITS ---
EXAMINATION: XR CHEST CLINICAL INFORMATION: Shortness of breath COMPARISON: 01/12/2021 TECHNIQUE: Frontal view of the chest was obtained. FINDINGS: The heart is mildly enlarged. The aorta is unfolded. Patient status post median sternotomy. Left chest wall dual-lead pacemaker present. Some bibasilar scarring is again noted. No infiltrates, effusions or suspicious lung masses are seen. XR/XR chest 1V IMPRESSION: No acute intrathoracic disease.
[2021-08-16 12:22] VITALS: BP 141/63; PULSE 72; RESP 18; TEMP 36.6; O2SAT 96; BMI 30.1
[2021-08-16 18:30] LABS: MANUAL DIFF FLAG NO
[2021-08-16 18:31] LABS: Basophils Percent Auto 0.3 % (0-2); Eosinophils Absolute Auto 0.3 X10*3/uL (0.0-0.4); Eosinophils Percent Auto 2.3 % (0-4); Hematocrit 29.1 % (42.0-52.0); Hemoglobin 9.3 g/dl (14.0-18.0); Imm Gran Abs Auto 0.08 X10*3/uL (0.00-0.03); Imm Gran Pct Auto 0.7 % (0.0-0.4); Lymphocytes Absolute Auto 2.6 X10*3/uL (1.2-4.9); Lymphocytes Percent Auto 22.1 % (20-40); Mean Corpuscular Hemoglobin 29.5 pg (27.0-33.0); Mean Corpuscular Volume 92.4 fL (80.0-98.0); Monocytes Absolute Auto 1.3 X10*3/uL (0.1-1.2); Monocytes Percent Auto 11.2 % (2-11); Neutrophils Absolute Auto 7.4 x10*3/uL (2.0-8.3); Neutrophils Percent Auto 63.4 % (45-73); Platelet Count 141 X10*3/uL (160-400); Red Blood Count 3.15 X10*6/uL (4.60-5.80); Red Cell Distribution Width 13.9 % (11.0-16.0); White Blood Count 11.7 X10*3/uL (4.8-10.8)
[2021-08-16 18:58] LABS: Lactic Acid 1.2 mmol/L (0.5-2.0)
[2021-08-16 19:05] LABS: Alanine Aminotransferase 16 U/L (0-40); Albumin Level 3.6 g/dL (3.5-5.0); Alkaline Phosphatase 128 U/L (39-117); Anion Gap 14 (12-20); Aspartate Amino Transferase 16 U/L (5-37); Bilirubin Total 0.8 mg/dL (0.0-1.0); Blood Urea Nitrogen 23 mg/dL (9-16); Calcium 8.9 mg/dL (8.4-10.2); Carbon Dioxide 25 mmol/L (22-29); Chloride 104 mmol/L (96-108); Creatinine Clr Calc Pharmacy 54.2; Estimated Glomerular Filt Rate 56; Glucose Random 137 mg/dL (60-115); Potassium 4.8 mmol/L (3.3-5.1); Sodium 138 mmol/L (135-145); Total Protein 6.7 g/dL (6.5-8.0)
[2021-08-16 19:11] LABS: Troponin-I High Sensitivity 11.1 ng/L (<3.5-35.0)
[2021-08-16 20:00] LABS: COVID-19 Test Negative (Negative)
--- NOTE | 2021-08-16 20:19 | ED.GENADULT ---
HPI - General Adult General Chief complaint: Skin/Abscess/Foreign Body Stated complaint: arm swelling Time Seen by Provider: 08/16/21 16:50 Source: patient Mode of arrival: ambulatory Limitations: no limitations History of Present Illness HPI narrative: 75-year-old male who presents emergency department for evaluation of left arm swelling, redness and increased warmth x4 days. 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 He had a vein harvested from his left arm. He states that he has followed up with his providers and they did stop his Lasix recently but advised him to continue to wear compression stockings to his lower extremities. He states that on Thursday ( 4 days prior to evaluation ) he noticed redness of his left forearm. He states that gradually, the redness is proceeded to his elbow and his left arm has become swollen. He states that he has some very mild pain which she describes as a pressure/burning sensation which is 2/10. He denied fever, chills, fatigue, loss of appetite, chest pain, shortness of breath. States that he has an occasional cough. States that he still has swelling of his lower extremities despite wearing the compression stockings. The patient states that He has been taking Eliquis since his CABG. Related Data Home Medications Medication Instructions Recorded Confirmed atorvastatin 80 mg tablet 1 tab PO DAILY 01/10/21 01/10/21 finasteride 5 mg tablet 1 tab PO DAILY 01/10/21 01/10/21 insulin glargine 100 unit/mL (3 22 unit SUBCUT BEDTIME 01/10/21 01/10/21 mL) subcutaneous pen (Lantus Solostar U-100 Insulin) losartan 25 mg tablet 1 tab PO DAILY 01/10/21 01/10/21 metformin 500 mg tablet 2 tab PO BID 01/10/21 01/10/21 metoprolol tartrate 25 mg tablet 1 tab PO BID 01/10/21 01/10/21 nitroglycerin 0.4 mg sublingual 0.4 tab SUBLINGUAL NEEDED PRN 01/10/21 01/10/21 tablet sitagliptin 100 mg tablet (Januvia) 1 tab PO DAILY 01/10/21 01/10/21 tamsulosin 0.4 mg capsule 1 cap PO DAILY 01/10/21 01/10/21 Previous Rx's Medication Instructions Recorded cephalexin 500 mg capsule 500 mg PO QID 7 Days #28 cap 08/16/21 enoxaparin 120 mg/0.8 mL 130 mg (0.8667 mL) SUBCUT DAILY 7 08/16/21 subcutaneous syringe (Lovenox) Days #6.067 ml Allergies Allergy/AdvReac Type Severity Reaction Status Date / Time No Known Allergies Allergy Verified 01/10/21 19:52 [No Known Allergies*] Review of Systems Review of Systems: Yes all other systems are reviewed and are negative [facility] Past Medical History [facility] Narrative: Social history: He denies tobacco use, he rarely drinks alcohol, he denies drug use. Medical History Diabetes High cholesterol History of acute myocardial infarction HTN (hypertension) Kidney disease, chronic, stage III (GFR 30-59 ml/min) Surgical History History of tonsillectomy Social History Social History Household Members: Spouse Household Members Other:: Housing: House Do you presently have visiting nurse or other home services: No Alcohol intake: never Advance Directives: No Advance Directives Information Provided: Yes service: No Current occupational status: retired Physical Exam Vital Signs: Vital Signs: Last Vital Signs Temp 97.9 F 08/16/21 12:22 Pulse 72 08/16/21 12:22 Resp 18 08/16/21 12:22 BP 141/63 H 08/16/21 12:22 Pulse Ox 96 08/16/21 12:22 BMI result Body Mass Index 30.1 Const: General: cooperative and no acute distress Orientation/consciousness: oriented to person and oriented to place Limitations: no limitations HENMT: Head: Yes normal to inspection, Yes normocephalic and Yes atraumatic Ears: external ears normal General nose exam: Normal external nose present Face and sinus: Yes normal facial exam Mouth: Normal oral and palatal mucosa present Throat: Yes posterior oropharynx normal Eyes: General: appearance normal, both eyes and all related structures Pupils: Equal, round and reactive pupils present Neck: Neck: Yes normal visual inspection, Yes no lymphadenopathy, Yes trachea midline and Yes supple Chest: Chest palpation & inspection: normal inspection of the chest and normal palpation of entire chest wall Resp: Effort & Inspection: normal respiratory effort and able to speak in complete sentences Auscultation: clear to auscultation bilaterally Cardio: Rate: regular rate Rhythm: regular rhythm Heart sounds: S1 normal heart sound present, S2 normal heart sound present and no murmurs GI: Other: There is a small nonhealing wound in his abdomen which patient states has been there since surgery, also has a right-sided abrasion which does not appear to be infected, he states that this was secondary to medical tape. Inspection: Yes normal to inspection Palpation (GI): Soft to palpation, nontender and no guarding Auscultation: normal bowel sounds : General: Yes no CVA tenderness Back/Spine/Pelvis: Back: no CVA tenderness Skin: General skin exam: no rashes or lesions noted Neuro: General: oriented to person and oriented to place Cranial nerves: Yes CN's II-XII intact bilaterally and Yes Equal, round and reactive pupils present Cognition (Neuro): normal cognition Motor exam (neuro): 5/5 motor strength present throughout Extrem: Other: Patient's left hand and forearm are swollen to approximately 2 times the size of the right, there is erythema from the wrist to the elbow which is warm to the touch, there is some slight skin breakdown on the dorsal aspect of the distal forearm, there is no purulent drainage. The patient's extremities neurovascular intact Psych: Appearance: grossly normal Speech and movement: Normal speech and movement present Affect: normal affect Attitude: cooperative Thought process: Normal thought process present Thought content: Normal thought content present Course Course Course Narrative: 75-year-old male who presents emergency department for evaluation of 4 days of swelling of his left upper extremity with erythema increased warmth. He has had no systemic symptoms. He has had no chest pain, shortness of breath or dyspnea on exertion. The patient had a 4 vessel CABG on and is on Eliquis. He does have lower extremity swelling and this is been treated with diuretics, he is now off diuretics And is wearing compressive stockings. Differential includes was not limited to cellulitis and upper extremity DVT. 1824: Laboratory [place] [address], the patient is anemic with an H&H of 9.3 and 29 and is thrombocytopenic with a platelet count of 141. the anemia is new compared to previous values however the thrombocytopenia is old. Doppler ultrasound did reveal a thrombus of the proximal and mid left brachial veins. The patient was treated with Ancef 1 g IV for possible cellulitis. I did discuss the patient's upper extremity thrombus with the covering oncologist, Dr. Denis. he recommended that we continue the patient on Eliquis and start the patient on Lovenox 1.5 milligrams/kilogram ( 130 mg ). He also recommended patient follow-up with the marine radio installer and servicer on Thursday for further evaluation and determination of treatment. Patient was given his 1st dose a Lovenox 130 mg subcutaneously and given a prescription for Lovenox 130 mg once a day for 1 week. Will also be started on cephalexin 500 mg 3 times a day for 7 days for possible cellulitis. Patient was given printed and verbal instructions and discharged home. Medical Decision Making Lab Data Result diagrams: 08/16/21 18:24 08/16/21 18:24 Labs: Lab Results 08/16/21 08/16/21 08/16/21 Range/Units 18:24 18:24 18:24 WBC 11.7 H (4.8-10.8) X10*3/uL RBC 3.15 L (4.60-5.80) X10*6/uL Hgb 9.3 L (14.0-18.0) g/dl Hct 29.1 L (42.0-52.0) % MCV 92.4 (80.0-98.0) fL MCH 29.5 (27.0-33.0) pg MCHC 32.0 (31.0-36.0) g/dl RDW 13.9 (11.0-16.0) % Plt Count 141 L (160-400) X10*3/uL MPV 11.0 (9.4-12.4) fL Immature Gran % (Auto) 0.7 H (0.0-0.4) % Neut % (Auto) 63.4 (45-73) % Lymph % (Auto) 22.1 (20-40) % Whitman % (Auto) 11.2 H (2-11) % Eos % (Auto) 2.3 (0-4) % Baso % (Auto) 0.3 (0-2) % Lymph # (Auto) 2.6 (1.2-4.9) X10*3/uL Whitman # (Auto) 1.3 H (0.1-1.2) X10*3/uL Eos # (Auto) 0.3 (0.0-0.4) X10*3/uL Baso # (Auto) 0.0 (0.0-0.2) X10*3/uL Abs Immat Gran (auto) 0.08 H (0.00-0.03) X10*3/uL Absolute Neuts (auto) 7.4 (2.0-8.3) x10*3/uL Absolute Nucleated RBC 0.000 (0.0-0.012) X10*3/uL Nucleated RBC % (auto) 0.0 (0.0-0.2) /100WBC Sodium 138 (135-145) mmol/L Potassium 4.8 (3.3-5.1) mmol/L Chloride 104 (96-108) mmol/L Carbon Dioxide 25 (22-29) mmol/L Anion Gap 14 (12-20) BUN 23 H (9-16) mg/dL Creatinine 1.26 (0.5-1.4) mg/dL Estim Creat Clear Calc 54.2 Estimated GFR 56 Random Glucose 137 H (60-115) mg/dL Lactic Acid 1.2 (0.5-2.0) mmol/L Calcium 8.9 (8.4-10.2) mg/dL Total Bilirubin 0.8 (0.0-1.0) mg/dL AST 16 D (5-37) U/L ALT 16 (0-40) U/L Alkaline Phosphatase 128 H D (39-117) U/L Troponin I High Sens (<3.5-35.0) ng/L Total Protein 6.7 (6.5-8.0) g/dL Albumin 3.6 (3.5-5.0) g/dL COVID-19 (FELIPE) (Negative) COVID-19 Clin Com 08/16/21 08/16/21 Range/Units 18:24 19:04 WBC (4.8-10.8) X10*3/uL RBC (4.60-5.80) X10*6/uL Hgb (14.0-18.0) g/dl Hct (42.0-52.0) % MCV (80.0-98.0) fL MCH (27.0-33.0) pg MCHC (31.0-36.0) g/dl RDW (11.0-16.0) % Plt Count (160-400) X10*3/uL MPV (9.4-12.4) fL Immature Gran % (Auto) (0.0-0.4) % Neut % (Auto) (45-73) % Lymph % (Auto) (20-40) % Whitman % (Auto) (2-11) % Eos % (Auto) (0-4) % Baso % (Auto) (0-2) % Lymph # (Auto) (1.2-4.9) X10*3/uL Whitman # (Auto) (0.1-1.2) X10*3/uL Eos # (Auto) (0.0-0.4) X10*3/uL Baso # (Auto) (0.0-0.2) X10*3/uL Abs Immat Gran (auto) (0.00-0.03) X10*3/uL Absolute Neuts (auto) (2.0-8.3) x10*3/uL Absolute Nucleated RBC (0.0-0.012) X10*3/uL Nucleated RBC % (auto) (0.0-0.2) /100WBC Sodium (135-145) mmol/L Potassium (3.3-5.1) mmol/L Chloride (96-108) mmol/L Carbon Dioxide (22-29) mmol/L Anion Gap (12-20) BUN (9-16) mg/dL Creatinine (0.5-1.4) mg/dL Estim Creat Clear Calc Estimated GFR Random Glucose (60-115) mg/dL Lactic Acid (0.5-2.0) mmol/L Calcium (8.4-10.2) mg/dL Total Bilirubin (0.0-1.0) mg/dL AST (5-37) U/L ALT (0-40) U/L Alkaline Phosphatase (39-117) U/L Troponin I High Sens 11.1 (<3.5-35.0) ng/L Total Protein (6.5-8.0) g/dL Albumin (3.5-5.0) g/dL COVID-19 (FELIPE) Negative (Negative) COVID-19 Clin Com See Note Discharge Plan Discharge Clinical Impression: Cellulitis of arm, left Acute deep vein thrombosis of upper extremity Qualifiers: Affected thrombotic vein of extremity: brachial Laterality: left Qualified Code(s): I82.622 - Acute embolism and thrombosis of deep veins of left upper extremity Patient Disposition: Home, Self-Care Instructions: Cellulitis (ED), Deep Vein Thrombosis (ED) Additional Instructions: Your blood work did reveal that you are anemic and your platelet count is low, this low platelet count is not new. The duplex ultrasound of your left upper extremity did reveal a blood clot in the brachial vein of your arm. This is concerning especially since you are taking Eliquis. I discussed your presentation with our covering oncologist, Dr. Denis who recommended that we keep you on Eliquis and also start Lovenox. You were treated with Lovenox 130 mg subcutaneously this evening. You need to stay on Eliquis and give yourself Lovenox shots every evening between 8 and 9:00 p.m. until you are re-evaluated by the marine radio installer and servicer. I am also concerned that she may have an infection (cellulitis) of your left arm therefore I am prescribing Keflex (cephalexin) 500 mg 4 times a day for 7 days. If your insurance does not cover the Lovenox then you need to return to the emergency department tomorrow at 6:00 p.m., show this note to the triage nurse. You should be brought back to the [facility] side of the emergency department the provider should order Lovenox 130 mg subcutaneously. Follow-up with our on-call marine radio installer and servicer on Thursday. Please return to the emergency department if your symptoms get worse or if you develop any symptoms that are concerning to you. Prescriptions: New cephalexin 500 mg capsule 500 mg PO QID 7 Days Qty: 28 RF: 0 enoxaparin [Lovenox] 120 mg/0.8 mL syringe 130 mg subcut DAILY 7 Days Qty: 6.067 RF: 0 No Action atorvastatin 80 mg tablet 1 tab PO DAILY RF: 0 Lantus Solostar U-100 Insulin 100 unit/mL (3 mL) insulin pen 22 unit subcut BEDTIME RF: 0 Januvia 100 mg tablet 1 tab PO DAILY RF: 0 losartan 25 mg tablet 1 tab PO DAILY RF: 0 metoprolol tartrate 25 mg tablet 1 tab PO BID RF: 0 tamsulosin 0.4 mg capsule 1 cap PO DAILY RF: 0 finasteride 5 mg tablet 1 tab PO DAILY RF: 0 metformin 500 mg tablet 2 tab PO BID RF: 0 nitroglycerin 0.4 mg tablet, sublingual 0.4 tab sublingual NEEDED PRN (Reason: Chest Pain) RF: 0
[2021-08-16 20:37] LABS: Hematocrit 28.9 % (42.0-52.0); Hemoglobin 9.1 g/dl (14.0-18.0); Mean Corpuscular HGB Conc 31.5 g/dl (31.0-36.0); Mean Corpuscular Hemoglobin 29.1 pg (27.0-33.0); Mean Corpuscular Volume 92.3 fL (80.0-98.0); Mean Platelet Volume 10.9 fL (9.4-12.4); Platelet Count 141 X10*3/uL (160-400); Red Blood Count 3.13 X10*6/uL (4.60-5.80); Red Cell Distribution Width 13.9 % (11.0-16.0); White Blood Count 11.7 X10*3/uL (4.8-10.8)
[2021-08-16 20:42] LABS: INTERNATIONAL NORM RATIO 1.4 (0.9-1.1)
[2021-08-16 20:45] LABS: Partial Thromboplastin Time 44.5 SEC (24.1-38.0)
[2021-08-16] MEDS: Enoxaparin Sodium 150 MG/ML SYRINGE 130 MG SUBCUT (21:45)
--- NOTE | 2021-08-16 22:03 | PC.NURSE ---
EKG CANCELLED BY DR MITCHELL.
== END 2021-08-16 22:07 | disposition home or self-care (01) ==
PROVIDERS: Emergency Provider Emergency Medicine Emergency Medical Services; PCP Internal Medicine
DX: I82.622 Acute embolism and thrombosis of deep veins of left upper extremity (principal); L03.114 Cellulitis of left upper limb; R60.0 Localized edema; Z20.822 Contact with and (suspected) exposure to COVID-19; Z79.899 Other long term (current) drug therapy
CPT/HCPCS: 36415; 71045; 80053; 83605; 84484; 85025; 85027; 85610; 85730; 87040; 87635; 93971; 96365; 96372; 99284; J0690; J1650

== ENCOUNTER → 2021-08-20 10:39 | Outpatient (BNV) | payer OTHER, SELFPAY | PROVIDERS: PCP Internal Medicine; Visit Provider Internal Medicine Medical Oncology | DX: Z86.718 Personal history of other venous thrombosis and embolism (principal) | CPT/HCPCS: 99204; 99213; 99214 ==

== ENCOUNTER 2021-10-01 13:39 | Outpatient (REF) | payer OTHER, SELFPAY ==
--- NOTE | ~2021-10-01 | US_ITS ---
EXAMINATION: US VENOUS WITH DOPPLER UPPER EXTREMITY, LEFT CLINICAL INFORMATION: This is a 76-year-old male with history of deep vein thrombosis in the proximal mid brachial vein. COMPARISON: Comparison is made to a previous study dated 08/16/2021 which demonstrated deep vein thrombosis in the proximal and mid left brachial vein. TECHNIQUE: Ultrasound of the upper extremity is performed using compression sonography and color and pulse Doppler flow with assessment of augmentation of flow. There is also imaging and Doppler assessment of the jugular and subclavian veins. Spectral analysis with color-flow imaging is performed. FINDINGS: Respiratory variation, normal compression, and augmented flow are noted throughout the upper extremity including the axillary, brachial, cubital, and radial and ulnar veins. There is normal flow in the internal jugular and subclavian veins. There is no visible deep or superficial thrombophlebitis. US/US venous duplex UE LT IMPRESSION: No DVT demonstrated in the left upper extremity
== END 2021-10-01 13:40 | disposition home or self-care (01) ==
LOC: HO.US 13:39
PROVIDERS: PCP Internal Medicine; Visit Provider Internal Medicine Medical Oncology
DX: I82.622 Acute embolism and thrombosis of deep veins of left upper extremity (principal)
CPT/HCPCS: 93971

== ENCOUNTER 2022-05-15 12:49 | Inpatient (IN) | payer OTHER, SELFPAY ==
--- NOTE | ~2022-05-15 | CT_ITS ---
EXAMINATION: CT ANGIOGRAM HEAD CT ANGIOGRAM NECK CLINICAL INFORMATION: Reason for Exam multiple TIAs COMPARISON: Same day noncontrast head CT, CT head without contrast 01/10/2021 TECHNIQUE: Initial noncontrast wellhead pumper imaging of the head and neck was performed. Comparison is made with noncontrast head CT from earlier today. Test bolus sequences followed by intravenous administration 70 mL of Omnipaque 350. Helical imaging was performed in the axial plane from the aortic arch to the skull vertex. Delayed postcontrast imaging of the head was also performed. The data was processed at the radiologic technologist's workstation for generation of MIP sequences. Angled MIPs and volume rendered reformatted images were also generated at an offline 3D workstation. Stenoses are assessed in accordance with NASCET criteria unless otherwise indicated. DLP: 1438 mGy-cm This CT examination was performed using dose optimization techniques as appropriate, variously including the following: *Automated exposure control. *Adjustment of mA and/or kV according to patient size (this includes techniques or standardized protocols for targeted exams where dose is matched to indication/reason for exam; i.e. extremities or head). *Use of iterative reconstruction technique. FINDINGS: CT Head: There is no evidence of acute intracranial hemorrhage or edematous territorial infarction. A few foci of hypoattenuation in the periventricular and deep white matter are consistent with mild microangiopathy. Chronic lacunar infarct in the left basal ganglia. Corbett-white matter differentiation is preserved. Proportional prominence of the ventricles and sulcal spaces. No evidence for obstructive hydrocephalus. No abnormal mass effect or midline shift. No extra-axial fluid collections. No pathologic intra-axial enhancement or regional oligemia. No acute soft tissue or osseous abnormalities. Minimal scattered paranasal sinus mucosal thickening. CT Neck: The thyroid gland and remaining cervical soft tissues are within normal limits. Moderate to severe multilevel cervical spondylosis. Small retrodental pannus. Periapical lucency involving the left maxillary lateral incisor. CT Upper Chest: The visualized lung apices and upper mediastinum are within normal limits. Median sternotomy wires. Partially visualized left chest wall pacemaker leads. Neck CTA: Aortic Arch: Normal contour and caliber. Classic 3 vessel branching pattern of the aortic arch. Great Vessel Origins: No significant stenosis of the branch origins. Evaluation of the proximal arch vessels in the upper chest is limited due to motion. Right Common Carotid Artery: No focal stenosis or occlusion. Cervical Right Internal Carotid Artery: Calcific atherosclerotic disease of the carotid bulb and proximal internal carotid artery causing less than 50% stenosis. Multifocal calcified atherosclerotic disease of the distal cervical right ICA without significant stenosis. Left Common Carotid Artery: No focal stenosis or occlusion. Cervical Left Internal Carotid Artery: Mild calcific atherosclerotic disease of the carotid bulb and proximal internal carotid artery without flow-limiting stenosis. There is also calcified atherosclerotic disease of the distal cervical left ICA without significant narrowing. Cervical Right Vertebral Artery: No focal stenosis or occlusion. Cervical Left Vertebral Artery: The vessel origin is not well visualized and may be moderately stenotic related to atherosclerotic disease. No focal stenosis or occlusion. Brain CTA: Intracranial Internal Carotid Arteries: Calcific atherosclerotic disease of the intracranial internal carotid arteries without occlusion or flow-limiting stenosis. Right Anterior Cerebral Artery: Normal A1 segment. Normal opacification of the distal CLAUDIO segments. Left Anterior Cerebral Artery: Normal A1 segment. Normal opacification of the distal CLAUDIO segments. Anterior Communicating Artery: Normal. Right Middle Cerebral Artery: Normal M1 segment of the MCA without focal stenosis or occlusion. Normal arborization of the distal segments. Left Middle Cerebral Artery: Normal M1 segment of the MCA without focal stenosis or occlusion. Normal arborization of the distal segments. Right Vertebral Artery: Multifocal calcified atherosclerosis without significant vessel narrowing. Left Vertebral Artery: Calcified atherosclerosis of the proximal V4 segment. No significant arterial narrowing. Basilar Artery: Normal without focal stenosis or occlusion. Normal appearance of the proximal superior cerebellar arteries. Right Posterior Cerebral Artery: Normal P1 segment. Normal opacification of the distal PRODUCT ARCHITECT segments. Left Posterior Cerebral Artery: Normal P1 segment. Normal opacification of the distal PRODUCT ARCHITECT segments. Normal opacification of the superior sagittal, straight, transverse, and sigmoid sinuses. CT/CT angio head neck IMPRESSION: No arterial high grade stenosis or large vessel occlusion in the head or neck.
--- NOTE | ~2022-05-15 | CT_ITS ---
EXAMINATION: CT HEAD WITHOUT CONTRAST (STROKE PROTOCOL) CLINICAL INFORMATION: Stroke protocol. Abnormal speech. COMPARISON: Previous head CT January 2021. TECHNIQUE: Contiguous axial imaging was performed from the skull base to vertex without intravenous administration of contrast. This CT examination was performed using dose optimization techniques as appropriate, variously including the following: *Automated exposure control *Adjustment of mA and/or kV according to patient size (this includes techniques or standardized protocols for targeted exams where dose is matched to indication/reason for exam; i.e. extremities or head) *Use of iterative reconstruction technique DLP: 655 mGy-cm. FINDINGS: There is no evidence of an extra-axial collection. There is no evidence of intra-axial or extra-axial hemorrhage. The ventricles and extra-axial CSF spaces are slightly prominent suggestive of mild generalized atrophy. There is nonspecific periventricular white matter disease. There may be an old small left basal ganglia lacunar infarct. This is unchanged. No mass, mass effect or acute infarct is seen. There is atherosclerotic disease. Review of bone windows is normal. No skull fracture is seen. Visualized paranasal sinuses, mastoid air cells and middle ears are clear. CT/CT head for stroke IMPRESSION: Mild generalized atrophy and nonspecific periventricular white matter disease. This critical result was discussed with Dr. Bains at 1348 hours on 05/15/2022. It was ascertained that the content and urgency of the report was understood at the time of direct communication.
[2022-05-15 12:59] VITALS: BP 134/72; PULSE 76; RESP 16; TEMP 36.6; O2SAT 96; BMI 29.9
[2022-05-15 15:04] VITALS: BP 125/77; PULSE 75; RESP 22; O2SAT 96
--- NOTE | 2022-05-15 15:31 | ECG_ITS ---
Test Reason : weakness Blood Pressure : / mmHG Vent. Rate : 065 BPM Atrial Rate : 065 BPM P-R Int : 260 ms QRS Dur : 190 ms QT Int : 492 ms P-R-T Axes : 032 -69 090 degrees QTc Int : 511 ms Atrial-sensed ventricular-paced rhythm with prolonged AV conduction Abnormal ECG When compared with ECG of 10-JAN-2021 19:13, Atrial-sensed ventricular-paced rhythm is now Present Referred By: Nathaly Queen Electronically Signed By:RULA STANLEY
--- NOTE | 2022-05-15 15:32 | ED_ITS ---
HPI - General Adult General Chief complaint: General Medical Stated complaint: quest of stroke Time Seen by Provider: 05/15/22 14:47 Source: patient Mode of arrival: ambulatory Limitations: no limitations History of Present Illness HPI narrative: Patient comes to the emergency room accompanied by his complaining of 2 episodes of difficulty finding words, slurred speech, had right arm numbness and tingling. Patient states that the 1st time that this happened was 2 weeks ago while they were in a restaurant. Patient states that his symptoms resolved within an hour prior to leaving the restaurant. Patient was asymptomatic for 2 weeks. Then this morning at 01:00 (14 hours ago), patient was in the couch, had numbness and tingling of his right arm, patient was trying to sleep. Patient was sitting in the couch, his went to check on him and tried talking to him. Patient's noticed that the patient had significantly slurred speech and had difficulty finding words. Patient decided to sleep it off. Later this morning, patient woke up without any symptoms. By this time, patient has no neurological symptoms or deficits. Patient does have a significant cardiac history. Patient states that approximately 2 weeks ago he was at [place], an ultrasound of his carotids were done, states that he was told that his carotid arteries are clean. Patient states that he is taking 2 baby aspirins daily. Patient mentioned that 2 months ago he was taken off Eliquis. Patient was taking it for a DVT in his right upper extremity. Related Data Home Medications Medication Instructions Recorded Confirmed atorvastatin 80 mg tablet 1 tab PO DAILY 01/10/21 05/15/22 finasteride 5 mg tablet 1 tab PO DAILY 01/10/21 05/15/22 insulin glargine 100 unit/mL (3 22 unit subcut BEDTIME 01/10/21 05/15/22 mL) subcutaneous pen (Lantus Solostar U-100 Insulin) metformin 500 mg tablet 2 tab PO BIDAC 01/10/21 05/15/22 metoprolol tartrate 25 mg tablet 1 tab PO BID 01/10/21 05/15/22 sitagliptin 100 mg tablet (Januvia) 1 tab PO DAILY 01/10/21 05/15/22 tamsulosin 0.4 mg capsule 1 cap PO DAILY 01/10/21 05/15/22 aspirin 81 mg tablet 81 mg PO BID 08/20/21 05/15/22 ascorbic acid (vitamin C) 500 mg 500 mg PO DAILY 02/10/22 05/15/22 tablet (Vitamin C) Previous Rx's Medication Instructions Recorded ferrous sulfate 142 mg (45 mg 142 mg PO BID #60 tabs 04/07/22 iron) tablet,extended release (Slow Fe) Allergies Allergy/AdvReac Type Severity Reaction Status Date / Time No Known Allergies Allergy Verified 02/10/22 14:31 [No Known Allergies*] Review of Systems Review of Systems: Constitutional : No Weight loss, No Fever, No Chills, No Night Sweats, No Fatigue, No Malaise ENT/Mouth : No Hearing loss, No Ear Pain, No Nasal Congestion, No Sinus Pain, No Hoarseness, No sore throat, No Rhinorrhea, No Swallowing Difficulty Eyes: No Eye Pain, No Swelling, No Redness, No Foreign Body, No Discharge, No Vision Changes Cardiovascular : No Chest Pain, No SOB, No Dyspnea on Exertion, No Orthopnea, No Edema, No Palpitations Respiratory : No Cough, No Sputum, No Wheezing, No Smoke Exposure, No Dyspnea Gastrointestinal : No Nausea, No Vomiting, No Diarrhea, No Constipation, No abdominal Pain, No Hematochezia, No Melena Genitourinary : no irregular bleeding, No Dysuria, No Urinary Frequency, No Hematuria, No Urinary Incontinence, No Urgency, No Flank Pain, No Urinary Flow Changes, No Hesitancy Musculoskeletal : No joint pain, No Myalgias, No Joint Swelling Skin : No Skin Lesions, No rash Neuro : Over the last 2 weeks, patient has had intermittent difficulty finding words, slurred speech, numbness tingling and weakness in the right upper extrem ity, and headaches Psych : No Anxiety/Panic, No Depression, No SI/HI/AH/VH, No Social Issues, Heme/Lymph: No Bruising, No Bleeding,No Lymphadenopathy Endocrine : No Polyuria, No Polydipsia, No Temperature Intolerance [facility] Past Medical History Medical History (Updated 05/15/22 @ 18:29 by Nathaly Queen MD) CHB (complete heart block) Deep vein thrombosis (DVT) of axillary vein of left upper extremity Diabetes High cholesterol History of acute myocardial infarction HTN (hypertension) Kidney disease, chronic, stage III (GFR 30-59 ml/min) Surgical History History of tonsillectomy S/P quadruple vessel bypass Family History Family History Mother Breast cancer metastasized to brain Diabetes Sister Diabetes Brother Diabetes Sister Diabetes Sister Diabetes Brother Diabetes Maternal Uncle Diabetes Maternal Aunt Diabetes Maternal Aunt Diabetes Maternal Uncle Diabetes Social History Social History (Updated 02/10/22 @ 14:31 by Abbi Ruiz CMA) Household Members: Spouse Household Members Other:: Housing: House Are you a primary critical care clinical nurse specialist to a significant other at home: No Do you presently have visiting nurse or other home services: No Alcohol intake: never Patient Tobacco Use Status: Never used Tobacco Advance Directives: No Advance Directives Information Provided: No service: Yes ([employer]) Current occupational status: retired Physical Exam ED Vital Signs: Vital Signs - 24 hr 05/15/22 12:59 05/15/22 15:04 05/15/22 16:35 Temperature 98 F 98.5 F Pulse Rate 76 75 67 Respiratory Rate 16 22 H 16 Blood Pressure 134/72 125/77 145/71 H Pulse Oximetry 96 96 95 Oxygen Delivery Method Room Air Room Air BMI result Body Mass Index 29.9 Const Other: Appearance: Alert. Oriented X3. No acute distress. Eyes: Pupils equal, round and reactive to light. ENT: Pharynx normal. Neck: Normal inspection. Neck supple. No lymph nodes noted. No crepitus CVS: Normal heart rate and rhythm. Pulses normal. Normal S1 and S2 Respiratory: No respiratory distress. Breath sounds normal. No Wheezing. No rales Abdomen: Soft and nontender. No rigidity. No distention. Skin: Skin warm and dry. Normal skin color. Normal skin turgor. Extremities: No lower extremity edema. No Lacerations. No Rash Neuro: Oriented X 3. No motor deficit. No sensory deficit. Moving all extremities. No slurred speech. CN 2 through 12 grossly intact Psych: calm, cooperative, normal affect NIH Stroke Scale Level of Consciousness: Alert Level of Consciousness Questions: Answers both questions correctly Level of Consciousness Commands: Performs both tasks correctly Best Gaze: Normal Visual: No visual loss Facial Palsy: Normal Motor Arm (Right): No drift Motor Arm (Left): No drift Motor Leg (Right): No drift Motor Leg (Left): No drift Limb Ataxia: Absent Sensory: Normal Best Language: No aphasia Dysarthia: Normal Extinction and Inattention: No abnormality Score: 0 Course Course Course Narrative: At this time, patient does not have any symptoms. NIH score is 0 for stroke. Given his history, seems that patient has been having multiple TIAs. Head CT which was done in the waiting room is relatively negative. However, I discussed with the patient that he needs more workup and admission. Patient agrees with plan Of patient's labs are pending. There were no acute abnormalities on patient's labs. CTA of head and neck is still pending. Patient remains asymptomatic. I discussed the patient with Dr. Cortez, patient being admitted for further evaluation Medical Decision Making Lab Data Result diagrams: 05/15/22 16:07 05/15/22 16:07 Labs: Lab Results 05/15/22 05/15/22 05/15/22 Range/Units 16:01 16:07 16:07 WBC 10.3 (4.8-10.8) X10*3/uL RBC 4.22 L (4.60-5.80) X10*6/uL Hgb 12.6 L (14.0-18.0) g/dl Hct 38.3 L (42.0-52.0) % MCV 90.8 (80.0-98.0) fL MCH 29.9 (27.0-33.0) pg MCHC 32.9 (31.0-36.0) g/dl RDW 14.2 (11.0-16.0) % Plt Count 108 L (160-400) X10*3/uL MPV 11.2 (9.4-12.4) fL Immature Gran % (Auto) 0.8 H (0.0-0.4) % Neut % (Auto) 53.6 (45-73) % Lymph % (Auto) 31.0 (20-40) % [place] % (Auto) 12.0 H (2-11) % Eos % (Auto) 1.7 (0-4) % Baso % (Auto) 0.9 (0-2) % Lymph # (Auto) 3.2 (1.2-4.9) X10*3/uL [place] # (Auto) 1.2 (0.1-1.2) X10*3/uL Eos # (Auto) 0.2 (0.0-0.4) X10*3/uL Baso # (Auto) 0.1 (0.0-0.2) X10*3/uL Abs Immat Gran (auto) 0.08 H (0.00-0.03) X10*3/uL Absolute Neuts (auto) 5.5 (2.0-8.3) x10*3/uL Absolute Nucleated RBC 0.000 (0.0-0.012) X10*3/uL Nucleated RBC % (auto) 0.0 (0.0-0.2) /100WBC PT 11.4 (10.0-13.1) SEC INR 1.0 (0.9-1.1) Sodium (135-145) mmol/L Potassium (3.3-5.1) mmol/L Chloride (96-108) mmol/L Carbon Dioxide (22-29) mmol/L Anion Gap (12-20) BUN (9-16) mg/dL Creatinine (0.5-1.4) mg/dL Estim Creat Clear Calc Estimated GFR Random Glucose (60-115) mg/dL Calcium (8.4-10.2) mg/dL Total Bilirubin (0.0-1.0) mg/dL Direct Bilirubin (0.0-0.5) mg/dL AST (5-37) U/L ALT (0-40) U/L Alkaline Phosphatase (39-117) U/L Troponin I High Sens (<3.5-35.0) ng/L Total Protein (6.5-8.0) g/dL Albumin (3.5-5.0) g/dL Urine Color Urine Appearance Urine pH (5.0-9.0) Ur Specific [place] (1.005-1.025) Urine Protein (Neg-Trace) mg/dL Urine Glucose (UA) (Negative) mg/dL Urine Ketones (Negative) mg/dL Urine Blood (Negative) Urine Nitrite (Negative) Ur Leukocyte Esterase (Negative) Urine RBC (0-2) /HPF Urine WBC (0-5) /HPF Ur Squamous Epith Cells (0-2) /HPF Urine Bacteria (None Seen) Hyaline Casts (0-2) /LPF COVID-19 (FELIPE) Negative (Negative) COVID-19 Clin Com See Note 05/15/22 05/15/22 05/15/22 Range/Units 16:07 16:07 16:44 WBC (4.8-10.8) X10*3/uL RBC (4.60-5.80) X10*6/uL Hgb (14.0-18.0) g/dl Hct (42.0-52.0) % MCV (80.0-98.0) fL MCH (27.0-33.0) pg MCHC (31.0-36.0) g/dl RDW (11.0-16.0) % Plt Count (160-400) X10*3/uL MPV (9.4-12.4) fL Immature Gran % (Auto) (0.0-0.4) % Neut % (Auto) (45-73) % Lymph % (Auto) (20-40) % [place] % (Auto) (2-11) % Eos % (Auto) (0-4) % Baso % (Auto) (0-2) % Lymph # (Auto) (1.2-4.9) X10*3/uL [place] # (Auto) (0.1-1.2) X10*3/uL Eos # (Auto) (0.0-0.4) X10*3/uL Baso # (Auto) (0.0-0.2) X10*3/uL Abs Immat Gran (auto) (0.00-0.03) X10*3/uL Absolute Neuts (auto) (2.0-8.3) x10*3/uL Absolute Nucleated RBC (0.0-0.012) X10*3/uL Nucleated RBC % (auto) (0.0-0.2) /100WBC PT (10.0-13.1) SEC INR (0.9-1.1) Sodium 137 (135-145) mmol/L Potassium 4.5 (3.3-5.1) mmol/L Chloride 104 (96-108) mmol/L Carbon Dioxide 23 (22-29) mmol/L Anion Gap 15 (12-20) BUN 18 H (9-16) mg/dL Creatinine 1.09 (0.5-1.4) mg/dL Estim Creat Clear Calc 61.6 Estimated GFR > 60 Random Glucose 222 H D (60-115) mg/dL Calcium 9.0 (8.4-10.2) mg/dL Total Bilirubin 0.9 (0.0-1.0) mg/dL Direct Bilirubin 0.3 (0.0-0.5) mg/dL AST 15 (5-37) U/L ALT 15 (0-40) U/L Alkaline Phosphatase 77 (39-117) U/L Troponin I High Sens 21.8 D (<3.5-35.0) ng/L Total Protein 6.9 (6.5-8.0) g/dL Albumin 3.8 (3.5-5.0) g/dL Urine Color Yellow Urine Appearance Clear Urine pH 5.5 (5.0-9.0) Ur Specific [place] 1.010 (1.005-1.025) Urine Protein Negative (Neg-Trace) mg/dL Urine Glucose (UA) Negative (Negative) mg/dL Urine Ketones Negative (Negative) mg/dL Urine Blood Negative (Negative) Urine Nitrite Negative (Negative) Ur Leukocyte Esterase Trace H (Negative) Urine RBC 0-2 (0-2) /HPF Urine WBC 0-5 (0-5) /HPF Ur Squamous Epith Cells 0-2 (0-2) /HPF Urine Bacteria None Seen (None Seen) Hyaline Casts 0-2 (0-2) /LPF COVID-19 (FELIPE) (Negative) COVID-19 Clin Com Discharge Plan Discharge Clinical Impression: Brain TIA Patient Disposition: Admitted As Inpatient Prescriptions: No Action atorvastatin 80 mg tablet 1 tab PO DAILY insulin glargine [Lantus Solostar U-100 Insulin] 100 unit/mL (3 mL) insulin pen 22 unit subcut BEDTIME Januvia 100 mg tablet 1 tab PO DAILY metoprolol tartrate 25 mg tablet 1 tab PO BID tamsulosin 0.4 mg capsule 1 cap PO DAILY finasteride 5 mg tablet 1 tab PO DAILY metformin 500 mg tablet 2 tab PO BIDAC aspirin 81 mg Tablet 81 mg PO BID ascorbic acid (vitamin C) [Vitamin C] 500 mg Tablet 500 mg PO DAILY Slow Fe 142 mg (45 mg iron) Tablet Extended Release 142 mg PO BID Qty: 60 4RF
[2022-05-15 16:17] LABS: Hemoglobin 12.6 g/dl (14.0-18.0); PLT CLUMP 1; SCAN SMEAR FLAG 1
[2022-05-15 16:19] LABS: Basophils Absolute Auto 0.1 X10*3/uL (0.0-0.2); Basophils Percent Auto 0.9 % (0-2); Eosinophils Absolute Auto 0.2 X10*3/uL (0.0-0.4); Eosinophils Percent Auto 1.7 % (0-4); Hematocrit 38.3 % (42.0-52.0); Imm Gran Abs Auto 0.08 X10*3/uL (0.00-0.03); Imm Gran Pct Auto 0.8 % (0.0-0.4); Lymphocytes Absolute Auto 3.2 X10*3/uL (1.2-4.9); Mean Corpuscular HGB Conc 32.9 g/dl (31.0-36.0); Mean Corpuscular Hemoglobin 29.9 pg (27.0-33.0); Mean Corpuscular Volume 90.8 fL (80.0-98.0); Mean Platelet Volume 11.2 fL (9.4-12.4); Monocytes Absolute Auto 1.2 X10*3/uL (0.1-1.2); Neutrophils Absolute Auto 5.5 x10*3/uL (2.0-8.3); Neutrophils Percent Auto 53.6 % (45-73); Red Blood Count 4.22 X10*6/uL (4.60-5.80); Red Cell Distribution Width 14.2 % (11.0-16.0)
[2022-05-15 16:22] LABS: Prothrombin Time 11.4 SEC (10.0-13.1)
[2022-05-15 16:23] LABS: Platelet Count 108 X10*3/uL (160-400); White Blood Count 10.3 X10*3/uL (4.8-10.8)
[2022-05-15 16:24] LABS: MANUAL DIFF FLAG NO
[2022-05-15 16:35] VITALS: BP 145/71; PULSE 67; RESP 16; TEMP 36.9; O2SAT 95
[2022-05-15 16:39] LABS: Alanine Aminotransferase 15 U/L (0-40); Albumin Level 3.8 g/dL (3.5-5.0); Alkaline Phosphatase 77 U/L (39-117); Anion Gap 15 (12-20); Aspartate Amino Transferase 15 U/L (5-37); Bilirubin Direct 0.3 mg/dL (0.0-0.5); Bilirubin Total 0.9 mg/dL (0.0-1.0); Blood Urea Nitrogen 18 mg/dL (9-16); Carbon Dioxide 23 mmol/L (22-29); Chloride 104 mmol/L (96-108); Creatinine Clr Calc Pharmacy 61.6; Estimated Glomerular Filt Rate > 60; Glucose Random 222 mg/dL (60-115); Potassium 4.5 mmol/L (3.3-5.1); Sodium 137 mmol/L (135-145); Total Protein 6.9 g/dL (6.5-8.0)
[2022-05-15 16:40] LABS: Troponin-I High Sensitivity 21.8 ng/L (<3.5-35.0)
--- NOTE | 2022-05-15 16:40 | PHA.MEDREC ---
Pharmacy Consult ? Medication Reconciliation Pharmacy has completed the medication reconciliation. Patient's had list of medication. List matched claim history. Pat Cobian, WilmanD
[2022-05-15 16:41] LABS: COVID-19 Test Negative (Negative)
[2022-05-15 16:58] LABS: Appearance Urine Clear; Color Urine Yellow; Glucose Urine UA Negative (Negative); Leukocyte Esterase Urine Trace (Negative); Nitrite Urine Negative (Negative); PH 5.5 (5.0-9.0); Urine Blood Negative (Negative); Urine Ketones Negative (Negative); Urine Protein Negative (Neg-Trace)
[2022-05-15 17:07] LABS: Bacteria Urine None Seen (None Seen); Hyaline Casts Urine 0-2 /LPF (0-2); RBC Urine 0-2 /HPF (0-2); Squamous Epithelial Cell Urine 0-2 /HPF (0-2); WBC Urine 0-5 /HPF (0-5)
--- NOTE | 2022-05-15 18:37 | P.HPHOSP_ITS ---
History of Present Illness Date of Service: 05/15/22 Attending physician on admission: Ashlee Cortez Chief Complaint: Word-finding difficulty 76-year-old gentleman with past medical history of diabetes mellitus on insulin and Januvia, chronic kidney disease stage III, hypertension, hyperlipidemia, history of coronary artery disease presented to [facility] With 2 episodes of transient neurological deficit 1st episode happened 2 weeks ago while patient was in restaurant with his when he had difficulty finding words associated with slow speech and right arm numbness and tingling symptom lasted within an hour and resolved without any treatment patient remained asymptomatic for last 2 weeks 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 are as prior to presentation to the ER patient was sitting on the couch noted to have right arm numbness and tingling his went to check on him and she noted that patient had C slurred speech and difficulty finding word patient decided to sleep it off patient woke up this morning without recurrent symptoms but decided to come to the emergency room for further evaluation and treatment, of note patient recently stopped Eliquis after 6 months use for a DVT of upper extremity patient recently had a carotid artery ultrasound 2 weeks ago at [facility] and was told that is carotid arteries are clean, at present patient offers no acute complaints of headache dizziness weakness numbness, speech impairment a CT head in the emergency room was unremarkable patient is currently undergoing head and neck CTA. 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 no dizziness CVS no chest pain, no palpitation GI no nausea, no vomiting Skin no rash Yes all other systems are reviewed and are negative [facility] Medical History CHB (complete heart block) Deep vein thrombosis (DVT) of axillary vein of left upper extremity Diabetes High cholesterol History of acute myocardial infarction HTN (hypertension) Kidney disease, chronic, stage III (GFR 30-59 ml/min) Family History Mother Breast cancer metastasized to brain Diabetes Sister Diabetes Brother Diabetes Sister Diabetes Sister Diabetes Brother Diabetes Maternal Uncle Diabetes Maternal Aunt Diabetes Maternal Aunt Diabetes Maternal Uncle Diabetes Surgical History History of tonsillectomy S/P quadruple vessel bypass Social History Household Members: Spouse Household Members Other:: Housing: House Are you a primary director of career resources to a significant other at home: No Do you presently have visiting nurse or other home services: No Alcohol intake: never Patient Tobacco Use Status: Never used Tobacco Advance Directives: No Advance Directives Information Provided: No service: Yes ([employer]) Current occupational status: retired Meds Allergies Allergy/AdvReac Type Severity Reaction Status Date / Time No Known Allergies Allergy Verified 02/10/22 14:31 [No Known Allergies*] Active Medications: Current Medications Acetaminophen (Acetaminophen 325 Mg Tablet) 650 mg PO Q6H PRN PRN Reason: Pain, Mild (Pain Scale 1-3) Ascorbic Acid (Ascorbic Acid 500 Mg Tablet) 500 mg PO DAILY [facility] Atorvastatin Calcium (Atorvastatin Calcium 80 Mg Tablet) 80 mg PO DAILY [facility] Dextrose (Dextrose 50 % 25 Gm/50 Ml Syringe) 25 gm IVPUSH Q15M PRN; Protocol PRN Reason: per Hypoglycemia Standing Ord. Finasteride (Finasteride 5 Mg Tablet) 5 mg PO DAILY [facility] Glucose (Glucose Gel 15 Gm Gel..Gram.) 15 gm PO Q15M PRN; Protocol PRN Reason: per Hypoglycemia Standing Ord. Insulin Human Lispro (Insulin Lispro 100 Unit/Ml 3 Ml Vial) 0 unit SUBCUT QIDACHS [facility]; Protocol Melatonin (Melatonin 3 Mg Tablet) 3 mg PO BEDTIME PRN PRN Reason: Insomnia Metoprolol Tartrate (Metoprolol Tartrate 25 Mg Tablet) 25 mg PO BID [facility]; Protocol Non-Formulary Medication (Aspirin) 81 mg PO BID [facility] Non-Formulary Medication (Ferrous Sulfate [Slow Fe]) 142 mg PO BID [facility] Ondansetron HCl (Ondansetron Hcl 4 Mg/2 Ml Vial) 4 mg IVPUSH Q8H PRN PRN Reason: Nausea and Vomiting Pharmacy Consult (Consult Rx Perform Med Rec) 1 each MISCELLANE ONCE PRN PRN Reason: Consult order Sitagliptin Phosphate (Sitagliptin Phosphate 100 Mg Tablet) 100 mg PO DAILY [facility] Sodium Chloride (0.9 % Sodium Chloride Flush 3 Ml Syringe) 3 ml IVFLUSH QSHIFT [facility] Tamsulosin HCl (Tamsulosin Hcl 0.4 Mg Capsule) 0.4 mg PO DAILY [facility] Home Medications Medication Instructions Recorded Confirmed Last Taken Type atorvastatin 80 mg tablet 1 tab PO DAILY 01/10/21 05/15/22 05/15/22 History finasteride 5 mg tablet 1 tab PO DAILY 01/10/21 05/15/22 05/15/22 History insulin glargine 100 unit/mL (3 22 unit subcut BEDTIME 01/10/21 05/15/22 05/14/22 History mL) subcutaneous pen (Lantus Solostar U-100 Insulin) metformin 500 mg tablet 2 tab PO BIDAC 01/10/21 05/15/22 05/15/22 History metoprolol tartrate 25 mg tablet 1 tab PO BID 01/10/21 05/15/22 05/15/22 History sitagliptin 100 mg tablet (Januvia) 1 tab PO DAILY 01/10/21 05/15/22 05/15/22 History tamsulosin 0.4 mg capsule 1 cap PO DAILY 01/10/21 05/15/22 05/15/22 History aspirin 81 mg tablet 81 mg PO BID 08/20/21 05/15/22 05/15/22 History ascorbic acid (vitamin C) 500 mg 500 mg PO DAILY 02/10/22 05/15/22 05/15/22 History tablet (Vitamin C) Physical Exam Vital Signs and Narrative: Vital Signs: Last Vital Signs Temp 98.5 F 05/15/22 16:35 Pulse 67 05/15/22 16:35 Resp 16 05/15/22 16:35 BP 145/71 H 05/15/22 16:35 Pulse Ox 95 05/15/22 16:35 O2 Del Method 05/15/22 16:35 BMI result Body Mass Index 29.9 Const: Other: General awake ,alert x 3, in no acute distress. HEENT:PERRLA ,EOMI Neck supple no JVD. CVS regular rate rhythm, Respiratory lungs clear to auscultation, no respiratory distress, no wheeze, no rhonchi. Gastrointestinal abdomen soft, nontender, bowel sounds audible, no guarding , no rigidity. Extremities no edema. Neuro nonfocal , moving all 4 extremity, speech clear. Skin no rash Psych appropriate affect Results Labs CBC and Chem 7: 05/15/22 16:07 05/15/22 16:07 Labs: Laboratory Results - last 24 hr 05/15/22 05/15/22 05/15/22 16:01 16:07 16:07 MCV 90.8 MCH 29.9 MCHC 32.9 RDW 14.2 Plt Count 108 L MPV 11.2 Immature Gran % (Auto) 0.8 H Neut % (Auto) 53.6 Lymph % (Auto) 31.0 [place] % (Auto) 12.0 H Eos % (Auto) 1.7 Baso % (Auto) 0.9 Lymph # (Auto) 3.2 [place] # (Auto) 1.2 Eos # (Auto) 0.2 Baso # (Auto) 0.1 Abs Immat Gran (auto) 0.08 H Absolute Neuts (auto) 5.5 Absolute Nucleated RBC 0.000 Nucleated RBC % (auto) 0.0 PT 11.4 INR 1.0 Anion Gap Estim Creat Clear Calc Estimated GFR Random Glucose Calcium Total Bilirubin Direct Bilirubin AST ALT Alkaline Phosphatase Total Protein Albumin Urine Color Urine Appearance Urine pH Ur Specific [place] Urine Protein Urine Glucose (UA) Urine Ketones Urine Blood Urine Nitrite Ur Leukocyte Esterase Urine RBC Urine WBC Ur Squamous Epith Cells Urine Bacteria Hyaline Casts COVID-19 (FELIPE) Negative COVID-19 Clin Com See Note 05/15/22 05/15/22 16:07 16:44 MCV MCH MCHC RDW Plt Count MPV Immature Gran % (Auto) Neut % (Auto) Lymph % (Auto) [place] % (Auto) Eos % (Auto) Baso % (Auto) Lymph # (Auto) [place] # (Auto) Eos # (Auto) Baso # (Auto) Abs Immat Gran (auto) Absolute Neuts (auto) Absolute Nucleated RBC Nucleated RBC % (auto) PT INR Anion Gap 15 Estim Creat Clear Calc 61.6 Estimated GFR > 60 Random Glucose 222 H D Calcium 9.0 Total Bilirubin 0.9 Direct Bilirubin 0.3 AST 15 ALT 15 Alkaline Phosphatase 77 Total Protein 6.9 Albumin 3.8 Urine Color Yellow Urine Appearance Clear Urine pH 5.5 Ur Specific [place] 1.010 Urine Protein Negative Urine Glucose (UA) Negative Urine Ketones Negative Urine Blood Negative Urine Nitrite Negative Ur Leukocyte Esterase Trace H Urine RBC 0-2 Urine WBC 0-5 Ur Squamous Epith Cells 0-2 Urine Bacteria None Seen Hyaline Casts 0-2 COVID-19 (FELIPE) COVID-19 Clin Com Imaging Radiologist's Impressions: Impressions Head CT 05/15/22 13:28 IMPRESSION: Mild generalized atrophy and nonspecific periventricular white matter disease. This critical result was discussed with Dr. Bains at 1348 hours on 05/15/2022. It was ascertained that the content and urgency of the report was understood at the time of direct communication. Assessment and Plan (1) Brain TIA: Status: Acute (2) HTN (hypertension): Status: Acute (3) High cholesterol: Status: Acute (4) Diabetes: Status: Acute Plan 76-year-old gentleman with past medical history significant for coronary artery disease status post CABG, history of hypertension, diabetes mellitus type 2, chronic kidneys disease stage III, hyperlipidemia, recently diagnose left upper extremity DVT for is stopped using Eliquis 2 months ago, history of complete heart block status post pacemaker placement presented to [facility] with 2 episodes of transient ischemic attack with right upper extremity numbness tingling and word-finding difficulty with slurred speech both episodes resolved without treatment patient presented to ER today for further evaluation and treatment. TIA All symptoms of slurred speech work finding and right upper extremity numbness tingling resolved 1st episode happened 2 weeks ago, PCP ordered carotid ultrasound at [facility] as per patient it was a negative study Second episode happened 14 hours prior to presentation, CT head negative Continue close neuro checks, continue aspirin and statin Due to multiple risk factors for stroke including hypertension hyperlipidemia and diabetes CTA head and neck obtained report pending Neuro eval History of upper extremity DVT Stopped Eliquis couple months ago currently on aspirin b.i.d. Diabetes mellitus type 2 on insulin continue Lantus dose reduced, continue Januvia added insulin sliding scale and diabetic diet Coronary artery disease stable denies chest pain continue home meds History of complete heart block status post pacemaker placement continue tele monitor, EKG showed prolonged QTC, atrial sensed ventricular paced rhythm with prolonged AV conduction will review EKG with cardio DVT prophylaxis with Lovenox Code status full code Patient will need 2 night inpatient stay due to recurrent episode of neurological deficit with slurred speech and weakness will need further workup in neuro evaluation. Quality Stroke Does the patient have a stroke diagnosis?: No VTE Prior VTE?: No VTE Risk Level:: Medical - moderate - high VTE Device Contraindication: Treatment Not Indicated VTE Drug Contraindication: N/A - Med Ordered
[2022-05-15] MEDS: iohexoL 350 MG/ML 100 ML INFUS..BTL IV (18:47)
[2022-05-15 18:48] LABS: Glucose, Whole Blood 109 mg/dL (60-115)
[2022-05-15 20:34] LABS: Glucose, Whole Blood 227 mg/dL (60-115)
[2022-05-15] MEDS: Insulin Lispro 100 UNIT/ML 3 ML VIAL SUBCUT (20:37)
[2022-05-15] MEDS: Metoprolol Tartrate 25 MG TABLET PO (20:37)
[2022-05-15] MEDS: Insulin Glargine,Hum.rec.anlog 100 UNIT/ML 10 ML VIAL 16 UNIT SUBCUT (20:38)
[2022-05-15 20:39] VITALS: BP 135/93; PULSE 70; RESP 18; O2SAT 96
[2022-05-15 23:30] VITALS: BP 147/77; PULSE 63; RESP 16; TEMP 36.3; O2SAT 94
[2022-05-16] VITALS (7 sets, daily range): BP systolic 123–153; BP diastolic 66–83; PULSE 57–88; RESP 14–24; TEMP 36.1–37; O2SAT 94–98; BMI 32.8
[2022-05-16 07:12] LABS: Glucose, Whole Blood 145 mg/dL (60-115)
--- NOTE | 2022-05-16 08:36 | PC.NURSE ---
Dr. Velasquez notified about patients HR of [address] Velasquez instructed to give medication.
--- NOTE | 2022-05-16 08:52 | PC.NURSE ---
Dr. Velasquez notified about patients low platelet count and aspirin
[2022-05-16] MEDS: Ascorbic Acid 500 MG TABLET PO (08:54)
[2022-05-16] MEDS: Tamsulosin HCL 0.4 MG CAPSULE PO (08:54)
[2022-05-16] MEDS: Ferrous Sulfate 324 MG TABLET.DR PO (08:54)
[2022-05-16] MEDS: Atorvastatin Calcium 80 MG TABLET PO (08:55)
[2022-05-16] MEDS: Metoprolol Tartrate 25 MG TABLET PO ×2 (08:55→20:09)
[2022-05-16] MEDS: 0.9 % Sodium Chloride Flush 3 ML SYRINGE IVFLUSH ×3 (08:55→22:01)
[2022-05-16] MEDS: SITagliptin Phosphate 100 MG TABLET PO (08:57)
[2022-05-16] MEDS: Finasteride 5 MG TABLET PO (08:57)
--- NOTE | 2022-05-16 11:55 | PM.NEUROCN ---
History of Present Illness Data of Consult Service Date: 05/16/22 Primary Care Provider: Candido Good III, MD [facility] Reason for consult: Slurred speech and numbness 76 years old man with underlying history of right bundle branch block anemia and hypertension who came to hospital with ?TIAs?. He said that the 1st episode happened 2 weeks ago and then he had 2 more episodes. He reported that during the episode his speech was slurred and he had some numbness on right side of his body in specially in arm. Each episode lasted few minutes. There was no confusion or headache. Review of Systems Review of Systems: No recent cold or flu-like illness or headache PMFSH Past Medical History Medical History CHB (complete heart block) Deep vein thrombosis (DVT) of axillary vein of left upper extremity Diabetes High cholesterol History of acute myocardial infarction HTN (hypertension) Kidney disease, chronic, stage III (GFR 30-59 ml/min) Family History Family History Mother Breast cancer metastasized to brain Diabetes Sister Diabetes Brother Diabetes Sister Diabetes Sister Diabetes Brother Diabetes Maternal Uncle Diabetes Maternal Aunt Diabetes Maternal Aunt Diabetes Maternal Uncle Diabetes Surgical History Surgical History History of tonsillectomy S/P quadruple vessel bypass Social History Social History Household Members: Spouse Household Members Other:: Housing: House Are you a primary care aid to a significant other at home: No Do you presently have visiting nurse or other home services: No Alcohol intake: never Patient Tobacco Use Status: Never used Tobacco Advance Directives: No Advance Directives Information Provided: No 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 Meds Allergies Allergy/AdvReac Type Severity Reaction Status Date / Time No Known Allergies Allergy Verified 02/10/22 14:31 [No Known Allergies*] Active Medications: Current Medications Acetaminophen (Acetaminophen 325 Mg Tablet) 650 mg PO Q6H PRN PRN Reason: Pain, Mild (Pain Scale 1-3) Ascorbic Acid (Ascorbic Acid 500 Mg Tablet) 500 mg PO DAILY [facility] Last Admin: 05/16/22 08:54 Dose: 500 mg Aspirin (Aspirin 81 Mg Tab.Chew) 81 mg PO BID [facility] Last Admin: 05/16/22 11:50 Dose: Not Given Atorvastatin Calcium (Atorvastatin Calcium 80 Mg Tablet) 80 mg PO DAILY [facility] Last Admin: 05/16/22 08:55 Dose: 80 mg Dextrose (Dextrose 50 % 25 Gm/50 Ml Syringe) 25 gm IVPUSH Q15M PRN; Protocol PRN Reason: per Hypoglycemia Standing Ord. Ferrous Sulfate (Ferrous Sulfate 324 Mg Tablet.Dr) 324 mg PO DAILY [facility] Last Admin: 05/16/22 08:54 Dose: 324 mg Finasteride (Finasteride 5 Mg Tablet) 5 mg PO DAILY [facility] Last Admin: 05/16/22 08:57 Dose: 5 mg Glucose (Glucose Gel 15 Gm Gel..Gram.) 15 gm PO Q15M PRN; Protocol PRN Reason: per Hypoglycemia Standing Ord. Insulin Glargine (Insulin Glargine,Hum.Rec.Anlog 100 Unit/Ml 10 Ml Vial) 16 unit SUBCUT BEDTIME [facility] Last Admin: 05/15/22 20:38 Dose: 16 unit Insulin Human Lispro (Insulin Lispro 100 Unit/Ml 3 Ml Vial) 0 unit SUBCUT QIDACHS [facility]; Protocol Last Admin: 05/16/22 07:15 Dose: Not Given Melatonin (Melatonin 3 Mg Tablet) 3 mg PO BEDTIME PRN PRN Reason: Insomnia Metoprolol Tartrate (Metoprolol Tartrate 25 Mg Tablet) 25 mg PO BID [facility]; Protocol Last Admin: 05/16/22 08:55 Dose: 25 mg Ondansetron HCl (Ondansetron Hcl 4 Mg/2 Ml Vial) 4 mg IVPUSH Q8H PRN PRN Reason: Nausea and Vomiting Pharmacy Consult (Consult Rx Perform Med Rec) 1 each MISCELLANE ONCE PRN PRN Reason: Consult order Sitagliptin Phosphate (Sitagliptin Phosphate 100 Mg Tablet) 100 mg PO DAILY [facility] Last Admin: 05/16/22 08:57 Dose: 100 mg Sodium Chloride (0.9 % Sodium Chloride Flush 3 Ml Syringe) 3 ml IVFLUSH QSHIFT [facility] Last Admin: 05/16/22 08:55 Dose: 3 ml Tamsulosin HCl (Tamsulosin Hcl 0.4 Mg Capsule) 0.4 mg PO DAILY [facility] Last Admin: 05/16/22 08:54 Dose: 0.4 mg Home Medications Medication Instructions Recorded Confirmed Last Taken Type atorvastatin 80 mg tablet 1 tab PO DAILY 01/10/21 05/15/22 05/15/22 History finasteride 5 mg tablet 1 tab PO DAILY 01/10/21 05/15/22 05/15/22 History insulin glargine 100 unit/mL (3 22 unit subcut BEDTIME 01/10/21 05/15/22 05/14/22 History mL) subcutaneous pen (Lantus Solostar U-100 Insulin) metformin 500 mg tablet 2 tab PO BIDAC 01/10/21 05/15/22 05/15/22 History metoprolol tartrate 25 mg tablet 1 tab PO BID 01/10/21 05/15/22 05/15/22 History sitagliptin 100 mg tablet (Januvia) 1 tab PO DAILY 01/10/21 05/15/22 05/15/22 History tamsulosin 0.4 mg capsule 1 cap PO DAILY 01/10/21 05/15/22 05/15/22 History aspirin 81 mg tablet 81 mg PO BID 08/20/21 05/15/22 05/15/22 History ascorbic acid (vitamin C) 500 mg 500 mg PO DAILY 02/10/22 05/15/22 05/15/22 History tablet (Vitamin C) Physical Exam Vital Signs: Vital Signs: Last Vital Signs Temp 97.9 F 05/16/22 10:27 Pulse 60 05/16/22 10:27 Resp 14 05/16/22 10:27 BP 136/83 05/16/22 10:27 Pulse Ox 98 05/16/22 10:27 O2 Del Method 05/16/22 10:27 BMI result Body Mass Index 29.9 Neuro: Other: He is alert and awake with normal spontaneity of speech fluency comprehension and anxious affect. There is mild head and speech tremor and mild hand tremor. [id number] testing revealed tremor. Deep tendon reflexes are absent with flexor plantars. Pupils are equal and reactive to light and extraocular muscles are intact. Visual flores are full to confrontation. Face is symmetrical. Tongue is midline. Results Labs CBC & Chem 7: 05/15/22 16:07 05/15/22 16:07 Labs: Short CBC 05/15/22 Range/Units 16:07 WBC 10.3 (4.8-10.8) X10*3/uL Hgb 12.6 L (14.0-18.0) g/dl Hct 38.3 L (42.0-52.0) % Plt Count 108 L (160-400) X10*3/uL BMP 05/15/22 16:07 Sodium 137 Potassium 4.5 Chloride 104 Carbon Dioxide 23 BUN 18 H Creatinine 1.09 Calcium 9.0 Liver Function 05/15/22 Range/Units 16:07 Total Bilirubin 0.9 (0.0-1.0) mg/dL Direct Bilirubin 0.3 (0.0-0.5) mg/dL AST 15 (5-37) U/L ALT 15 (0-40) U/L Alkaline Phosphatase 77 (39-117) U/L Albumin 3.8 (3.5-5.0) g/dL Urine 05/15/22 Range/Units 16:44 Urine Color Yellow Urine Appearance Clear Urine pH 5.5 (5.0-9.0) Ur Specific [place] 1.010 (1.005-1.025) Urine Protein Negative (Neg-Trace) mg/dL Urine Glucose (UA) Negative (Negative) mg/dL Mild diffuse cerebral atrophy and mild microvascular ischemic changes with no significant vascular stenosis noted on CTA. Assessment and Plan (1) Tremor: Status: Acute (2) Brain TIA: Status: Acute 76 years old man with reported few episodes of slurred speech and right-sided numbness. His examination revealed speech and body tremor, which probably was old. He denied any use of alcohol in the past. Tremor might be genetic type. These type of symptoms can come from vascular disease resulting in microvascular ischemic lesions. Mainstay of management is anti-platelet agent, blood pressure control and statin. If he was on baby aspirin daily, I would suggest clopidogrel 75 mg for few weeks and then going back to 1 of these agents. And noncontrast MRI of brain can help to figure out if he had any acute lesions. Procedures Date of Service Date of Service: 05/16/22
[2022-05-16 13:28] LABS: Glucose, Whole Blood 113 mg/dL (60-115)
--- NOTE | 2022-05-16 16:17 | HO.PM.IMPN ---
Subjective Subjective Date of Service: 05/16/22 Interval History: tia Review of Systems seems improving denies any chest pain or sob or abd pain Physical Exam Vital Signs: Vital Signs: Last Vital Signs Temp 97.9 F 05/16/22 10:27 Pulse 60 05/16/22 10:27 Resp 14 05/16/22 10:27 BP 136/83 05/16/22 10:27 Pulse Ox 98 05/16/22 10:27 O2 Del Method 05/16/22 10:27 BMI result Body Mass Index 29.9 Appearance: Alert.? Oriented X3.? not in distress.? cvs: [id number], [id number] , no murmur res: clear to auscultation ,no rhonchii or wheezing abd: no rebound or guarding ,nt, bs present. ext pulses present , no cyanosis. neuro: axo3 , nonfocal. Objective Data Active Medications Acetaminophen (Acetaminophen 325 Mg Tablet) 650 mg PO Q6H PRN PRN Reason: Pain, Mild (Pain Scale 1-3) Ascorbic Acid (Ascorbic Acid 500 Mg Tablet) 500 mg PO DAILY REPLACED BY [facility] Last Admin: 05/16/22 08:54 Dose: 500 mg Documented By: JACKY Aspirin (Aspirin 81 Mg Tab.Chew) 81 mg PO BID REPLACED BY [facility] Last Admin: 05/16/22 11:50 Dose: Not Given Documented By: KRISTIE Non-Admin Reason: low platelets Atorvastatin Calcium (Atorvastatin Calcium 80 Mg Tablet) 80 mg PO DAILY REPLACED BY [facility] Last Admin: 05/16/22 08:55 Dose: 80 mg Documented By: JACKY Dextrose (Dextrose 50 % 25 Gm/50 Ml Syringe) 25 gm IVPUSH Q15M PRN; Protocol PRN Reason: per Hypoglycemia Standing Ord. Ferrous Sulfate (Ferrous Sulfate 324 Mg Tablet.) 324 mg PO DAILY REPLACED BY [facility] Last Admin: 05/16/22 08:54 Dose: 324 mg Documented By: JACKY Finasteride (Finasteride 5 Mg Tablet) 5 mg PO DAILY REPLACED BY [facility] Last Admin: 05/16/22 08:57 Dose: 5 mg Documented By: JACKY Glucose (Glucose Gel 15 Gm Gel..Gram.) 15 gm PO Q15M PRN; Protocol PRN Reason: per Hypoglycemia Standing Ord. Insulin Glargine (Insulin Glargine,Hum.Rec.Anlog 100 Unit/Ml 10 Ml Vial) 16 unit SUBCUT BEDTIME REPLACED BY [facility] Last Admin: 05/15/22 20:38 Dose: 16 unit Documented By: JUS Insulin Human Lispro (Insulin Lispro 100 Unit/Ml 3 Ml Vial) 0 unit SUBCUT QIDACHS REPLACED BY [facility]; Protocol Last Admin: 05/16/22 13:33 Dose: Not Given Documented By: KRISTIE Non-Admin Reason: No Insulin Coverage Melatonin (Melatonin 3 Mg Tablet) 3 mg PO BEDTIME PRN PRN Reason: Insomnia Metoprolol Tartrate (Metoprolol Tartrate 25 Mg Tablet) 25 mg PO BID REPLACED BY [facility]; Protocol Last Admin: 05/16/22 08:55 Dose: 25 mg Documented By: JACKY Ondansetron HCl (Ondansetron Hcl 4 Mg/2 Ml Vial) 4 mg IVPUSH Q8H PRN PRN Reason: Nausea and Vomiting Pharmacy Consult (Consult Rx Perform Med Rec) 1 each MISCELLANE ONCE PRN PRN Reason: Consult order Sitagliptin Phosphate (Sitagliptin Phosphate 100 Mg Tablet) 100 mg PO DAILY REPLACED BY [facility] Last Admin: 05/16/22 08:57 Dose: 100 mg Documented By: JACKY Sodium Chloride (0.9 % Sodium Chloride Flush 3 Ml Syringe) 3 ml IVFLUSH QSHIFT REPLACED BY [facility] Last Admin: 05/16/22 08:55 Dose: 3 ml Documented By: JACKY Tamsulosin HCl (Tamsulosin Hcl 0.4 Mg Capsule) 0.4 mg PO DAILY REPLACED BY [facility] Last Admin: 05/16/22 08:54 Dose: 0.4 mg Documented By: JACKY Labs CBC & Chem 7: 05/15/22 16:07 05/15/22 16:07 Labs: Laboratory Results - last 24 hr 05/15/22 05/15/22 05/15/22 16:01 16:07 16:07 MCV 90.8 MCH 29.9 MCHC 32.9 RDW 14.2 Plt Count 108 L MPV 11.2 Immature Gran % (Auto) 0.8 H Neut % (Auto) 53.6 Lymph % (Auto) 31.0 [place] % (Auto) 12.0 H Eos % (Auto) 1.7 Baso % (Auto) 0.9 Lymph # (Auto) 3.2 [place] # (Auto) 1.2 Eos # (Auto) 0.2 Baso # (Auto) 0.1 Abs Immat Gran (auto) 0.08 H Absolute Neuts (auto) 5.5 Absolute Nucleated RBC 0.000 Nucleated RBC % (auto) 0.0 PT 11.4 INR 1.0 Anion Gap Estim Creat Clear Calc Estimated GFR POC Glucose Random Glucose Calcium Total Bilirubin Direct Bilirubin AST ALT Alkaline Phosphatase Total Protein Albumin Urine Color Urine Appearance Urine pH Ur Specific [place] Urine Protein Urine Glucose (UA) Urine Ketones Urine Blood Urine Nitrite Ur Leukocyte Esterase Urine RBC Urine WBC Ur Squamous Epith Cells Urine Bacteria Hyaline Casts COVID-19 (FELIPE) Negative COVID-19 Clin Com See Note 05/15/22 05/15/22 05/15/22 16:07 16:44 18:44 MCV MCH MCHC RDW Plt Count MPV Immature Gran % (Auto) Neut % (Auto) Lymph % (Auto) [place] % (Auto) Eos % (Auto) Baso % (Auto) Lymph # (Auto) [place] # (Auto) Eos # (Auto) Baso # (Auto) Abs Immat Gran (auto) Absolute Neuts (auto) Absolute Nucleated RBC Nucleated RBC % (auto) PT INR Anion Gap 15 Estim Creat Clear Calc 61.6 Estimated GFR > 60 POC Glucose 109 Random Glucose 222 H D Calcium 9.0 Total Bilirubin 0.9 Direct Bilirubin 0.3 AST 15 ALT 15 Alkaline Phosphatase 77 Total Protein 6.9 Albumin 3.8 Urine Color Yellow Urine Appearance Clear Urine pH 5.5 Ur Specific [place] 1.010 Urine Protein Negative Urine Glucose (UA) Negative Urine Ketones Negative Urine Blood Negative Urine Nitrite Negative Ur Leukocyte Esterase Trace H Urine RBC 0-2 Urine WBC 0-5 Ur Squamous Epith Cells 0-2 Urine Bacteria None Seen Hyaline Casts 0-2 COVID-19 (FELIPE) COVID-19 Clin Com 05/15/22 05/16/22 05/16/22 20:31 07:08 13:22 MCV MCH MCHC RDW Plt Count MPV Immature Gran % (Auto) Neut % (Auto) Lymph % (Auto) [place] % (Auto) Eos % (Auto) Baso % (Auto) Lymph # (Auto) [place] # (Auto) Eos # (Auto) Baso # (Auto) Abs Immat Gran (auto) Absolute Neuts (auto) Absolute Nucleated RBC Nucleated RBC % (auto) PT INR Anion Gap Estim Creat Clear Calc Estimated GFR POC Glucose 227 H 145 H 113 Random Glucose Calcium Total Bilirubin Direct Bilirubin AST ALT Alkaline Phosphatase Total Protein Albumin Urine Color Urine Appearance Urine pH Ur Specific [place] Urine Protein Urine Glucose (UA) Urine Ketones Urine Blood Urine Nitrite Ur Leukocyte Esterase Urine RBC Urine WBC Ur Squamous Epith Cells Urine Bacteria Hyaline Casts COVID-19 (FELIPE) COVID-19 Clin Com Assessment and Plan (1) Brain TIA: Status: Acute (2) Abnormal EKG: Status: Acute Plan 76-year-old gentleman with past medical history significant for coronary artery disease status post CABG, history of hypertension, diabetes mellitus type 2, chronic kidneys disease stage III, hyperlipidemia, recently diagnose left upper extremity DVT for is stopped using Eliquis 2 months ago, history of complete heart block status post pacemaker placement presented to [facility] with 2 episodes of transient ischemic attack with right upper extremity numbness tingling and word-finding difficulty with slurred speech both episodes resolved without treatment patient presented to ER today for further evaluation and treatment. TIA All symptoms of slurred speech work finding and right upper extremity numbness tingling resolved 1st episode happened 2 weeks ago, PCP ordered carotid ultrasound at [place] as per patient it was a negative study Second episode happened 14 hours prior to presentation, CT head negative Continue close neuro checks, continue aspirin and statin Due to multiple risk factors for stroke including hypertension hyperlipidemia and diabetes CTA head and neck noted and reviewed by neuro. Neuro eval noted -added plavix ( for few weeks ), mri can not be done to pacemaker information is not available. Pt eval History of upper extremity DVT Stopped Eliquis couple months ago currently on aspirin b.i.d. Diabetes mellitus type 2 on insulin continue Lantus dose reduced, continue Januvia added insulin sliding scale and diabetic diet Coronary artery disease stable denies chest pain continue home meds History of complete heart block status post pacemaker placement continue tele monitor, EKG showed prolonged QTC, atrial sensed ventricular paced rhythm with prolonged AV conduction will review EKG with cardio DVT prophylaxis with Lovenox Code status full code need for inaptient: tia workup, abnormal cardiac recoding/ekg ( has hx of chb)-cardiology eval and workup Quality Stroke Does the patient have a stroke diagnosis?: No VTE Prior VTE?: No VTE Risk Level:: Medical - moderate - high VTE Device Contraindication: Treatment Not Indicated VTE Drug Contraindication: N/A - Med Ordered
[2022-05-16] MEDS: Famotidine 20 MG TABLET PO (16:50)
[2022-05-16] MEDS: Clopidogrel Bisulfate 75 MG TABLET PO (16:50)
[2022-05-16 17:56] LABS: Glucose, Whole Blood 180 mg/dL (60-115)
[2022-05-16] MEDS: Insulin Lispro 100 UNIT/ML 3 ML VIAL SUBCUT ×2 (18:14→20:09)
[2022-05-16 20:05] LABS: Glucose, Whole Blood 224 mg/dL (60-115)
[2022-05-16] MEDS: Insulin Glargine,Hum.rec.anlog 100 UNIT/ML 10 ML VIAL 16 UNIT SUBCUT (20:09)
[2022-05-17 03:28] VITALS: BP 118/61; PULSE 64; RESP 20; TEMP 37; O2SAT 96
[2022-05-17 07:32] VITALS: BP 107/69; PULSE 62; RESP 20; TEMP 36.3; O2SAT 96
[2022-05-17 07:41] LABS: Glucose, Whole Blood 148 mg/dL (60-115)
[2022-05-17 08:02] LABS: Glucose, Whole Blood 165 mg/dL (60-115)
[2022-05-17 08:13] LABS: Hematocrit 42.7 % (42.0-52.0); Hemoglobin 14.4 g/dl (14.0-18.0); Mean Corpuscular HGB Conc 33.7 g/dl (31.0-36.0); Mean Corpuscular Hemoglobin 30.6 pg (27.0-33.0); Mean Corpuscular Volume 90.9 fL (80.0-98.0); Mean Platelet Volume 11.2 fL (9.4-12.4); Platelet Count 114 X10*3/uL (160-400); Red Cell Distribution Width 14.3 % (11.0-16.0); White Blood Count 10.5 X10*3/uL (4.8-10.8)
--- NOTE | 2022-05-17 08:36 | MHC.CM.PN ---
CM met with Patient at bedside. 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 Home no services is the goal and CM has initiated and will follow for dc planning. Patient has received Covid vax X4 and his PCP is Dr. Candido Good.
[2022-05-17] MEDS: Insulin Lispro 100 UNIT/ML 3 ML VIAL SUBCUT ×3 (08:46→17:38)
[2022-05-17] MEDS: Famotidine 20 MG TABLET PO (08:47)
[2022-05-17] MEDS: Ferrous Sulfate 324 MG TABLET.DR PO (08:47)
[2022-05-17] MEDS: 0.9 % Sodium Chloride Flush 3 ML SYRINGE IVFLUSH ×2 (08:47→17:38)
[2022-05-17] MEDS: Ascorbic Acid 500 MG TABLET PO (08:47)
[2022-05-17] MEDS: SITagliptin Phosphate 100 MG TABLET PO (08:47)
[2022-05-17] MEDS: Aspirin 81 MG TAB.CHEW PO (08:47)
[2022-05-17] MEDS: Atorvastatin Calcium 80 MG TABLET PO (08:47)
[2022-05-17] MEDS: Finasteride 5 MG TABLET PO (08:47)
[2022-05-17] MEDS: Clopidogrel Bisulfate 75 MG TABLET PO (08:48)
[2022-05-17] MEDS: Metoprolol Tartrate 25 MG TABLET PO (08:48)
[2022-05-17] MEDS: Tamsulosin HCL 0.4 MG CAPSULE PO (08:48)
[2022-05-17 10:20] VITALS: BP 107/69; PULSE 62; O2SAT 96
--- NOTE | 2022-05-17 10:52 | PM.DS ---
DS: Providers Provider Date of Service: 05/17/22 Date of admission: 05/15/22 18:31 Primary care physician: Candido Good III, MD Consults: 05/15/22 18:36 Consult to Neurology Routine Consulting Provider: [facility] Reason for consultation: tia Has provider been notified: No DS: Diagnosis Discharge Diagnosis (1) Brain TIA: Status: Acute (2) Abnormal EKG: Status: Acute (3) Thrombocytopenia: Status: Acute (4) Anemia: Status: Acute DS: Summary Hospital Course Hospital Course: 76-year-old gentleman with past medical history of diabetes mellitus on insulin and Januvia, chronic kidney disease stage III, hypertension, hyperlipidemia, history of coronary artery disease presented to [facility] With 2 episodes of transient neurological deficit 1st episode happened 2 weeks ago while patient was in restaurant with his when he had difficulty finding words associated with slow speech and right arm numbness and tingling symptom lasted within an hour and resolved without any treatment patient remained asymptomatic for last 2 weeks 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 are as prior to presentation to the ER patient was sitting on the couch noted to have right arm numbness and tingling his went to check on him and she noted that patient had C slurred speech and difficulty finding word patient decided to sleep it off patient woke up this morning without recurrent symptoms but decided to come to the emergency room for further evaluation and treatment, of note patient recently stopped Eliquis after 6 months use for a DVT of upper extremity patient recently had a carotid artery ultrasound 2 weeks ago at [place] and was told that is carotid arteries are clean, at present patient offers no acute complaints of headache dizziness weakness numbness, speech impairment a CT head in the emergency room was unremarkable patient is currently undergoing head and neck CTA. Hospital course: possible TIA -seems symptoms improved now on neurologically at his baseline. Seen by neurology: Possible TIA -recommended to add Plavix (for few weeks)in addition to aspirin-and follow-up outpatient with Neurology for further use of dual antiplatelet therapy adjustment. Monitor CBC closely while patient on dual antiplatelet therapy because has anemia/thrombocytopenia. Patient MRI needed to be done outpatient once his pacemaker information is available with PCP/neurology. plan: Continue aspirin and Plavix until seen by Neurology and then in few weeks patient might need adjustment to 1 antiplatelet agent. he was asprin bid -we will switch to daily since now on dual antiplatelet therapy and has anemia/thrombocytopenia. Monitor CBC closely while patient on dual antiplatelet therapy because has anemia/thrombocytopenia. MRI requested while inpatient but patient currently defers MRI outpatient with pcp /neurology. If any new symptom of weakness numbness or any new neurological issues please go to nearest emergency room for further evaluation. Above management discussed with the patient in detail length she understand and in agreement with the above plan, time spent 50 minutes and 50% time spent on counseling. Time Spent with Patient Time attestation: Total time spent providing and/or coordinating discharge services: Discharge coordination time: Greater than 30 minutes Quality: Safe Use of Opioids Does Pt have an Active Cancer Diagnosis on the Problem List?: No Quality: Stroke Does the patient have a stroke diagnosis?: Yes Reason for No Anti-thrombotic at DC: N/A - Med Ordered Reason for No Anticoagulant at DC: N/A - Med Ordered Reason Not Initiating IV-Tpa: Drug treatment not indicated Reason for No Anti-thrombotic by Day Two: N/A - Med Ordered Reason for No Statin at DC: N/A - Med Ordered Physical Exam Vital Signs: Vital Signs: Last Vital Signs Temp 97.4 F 05/17/22 07:32 Pulse 62 05/17/22 10:20 Resp 20 05/17/22 07:32 BP 107/69 05/17/22 10:20 Pulse Ox 96 05/17/22 10:20 O2 Del Method 05/17/22 07:32 BMI result Body Mass Index 32.8 Appearance: Alert.? Oriented X3.? not in distress.? cvs: rrr, [id number] , no murmur res: clear to auscultation ,no rhonchii or wheezing abd: no rebound or guarding ,nt, bs present. ext pulses present , no cyanosis. neuro: axo3 , nonfocal. DS: Data Data Completed and Pending Completed studies during hospitalization [Text1]: Procedures Insertion of Pacemaker Lead into Right Atrium, Percutaneous Approach (01/10/21) Insertion of Pacemaker Lead into Right Ventricle, Percutaneous Approach (01/10/21) Insertion of Pacemaker, Dual Chamber into Chest Subcutaneous Tissue and Fascia, Open Approach (01/10/21) Labs on day of discharge: Laboratory Results - last 24 hr 05/16/22 05/16/22 05/16/22 13:22 17:52 20:03 WBC RBC Hgb Hct MCV MCH MCHC RDW Plt Count MPV Absolute Nucleated RBC Nucleated RBC % (auto) POC Glucose 113 180 H 224 H 05/17/22 05/17/22 05/17/22 07:37 07:44 07:57 WBC 10.5 RBC 4.70 Hgb 14.4 Hct 42.7 MCV 90.9 MCH 30.6 MCHC 33.7 RDW 14.3 Plt Count 114 L MPV 11.2 Absolute Nucleated RBC 0.000 Nucleated RBC % (auto) 0.0 POC Glucose 148 H 165 H Additional Comments Additional comments: CT/CT angio head neck IMPRESSION: ? No arterial high grade stenosis or large vessel occlusion in the head or neck. ? CT/CT head for stroke IMPRESSION: Mild generalized atrophy and nonspecific periventricular white matter disease. Discharge Plan Discharge Patient Disposition: Home, Self-Care Discharge Diagnosis: TIA Referrals: Candido Good III, MD [Primary Care Provider] - 1 Week Sofia Pedersen MD [Physician] - 2 Weeks (follow up outpatiently) Discharge Medications: New clopidogrel 75 mg Tablet 75 mg PO DAILY Qty: 30 0RF aspirin 81 mg Tablet,Chewable 81 mg PO DAILY Qty: 30 0RF omeprazole 20 mg capsule,delayed release(DR/EC) 20 mg PO DAILY Qty: 30 0RF Continued atorvastatin 80 mg tablet 1 tab PO DAILY insulin glargine [Lantus Solostar U-100 Insulin] 100 unit/mL (3 mL) insulin pen 22 unit subcut BEDTIME Januvia 100 mg tablet 1 tab PO DAILY metoprolol tartrate 25 mg tablet 1 tab PO BID tamsulosin 0.4 mg capsule 1 cap PO DAILY finasteride 5 mg tablet 1 tab PO DAILY metformin 500 mg tablet 2 tab PO BIDAC ascorbic acid (vitamin C) [Vitamin C] 500 mg Tablet 500 mg PO DAILY Slow Fe 142 mg (45 mg iron) Tablet Extended Release 142 mg PO BID Qty: 60 4RF Discontinued aspirin 81 mg Tablet 81 mg PO BID Discharge Orders: Discharge Order (Routine); Ordered 05/17/22 Ordered By: Joe Llamas Diet: Advance to usual diet Activity on Discharge: As tolerated Stand Alone Forms: Patient Portal Discharge page Other Ambulatory Orders: Complete Blood Count no Diff (Routine) Timeframe: 1 Week Facility: [facility] - Location: Laboratory Ordered By: Markell Velasquez Care Plan Goals: possible TIA -seems symptoms improved now on neurologically at his baseline. Seen by neurology: Possible TIA -recommended to add Plavix (for few weeks)in addition to aspirin-and follow-up outpatient with Neurology for further use of dual antiplatelet therapy adjustment. Monitor CBC closely while patient on dual antiplatelet therapy because has anemia/thrombocytopenia. patient wants to go home and do MRI outpatient . Health Concerns: If any new symptom of weakness numbness or any new neurological issues please go to nearest emergency room for further evaluation. Plan of Treatment: Continue aspirin and Plavix until seen by Neurology and then in few weeks patient might need adjustment to 1 antiplatelet agent. Monitor CBC closely while patient on dual antiplatelet therapy because has anemia/thrombocytopenia. Assessment: as above. Discharge Date/Time: 05/17/22 18:20
[2022-05-17 11:11] VITALS: BP 100/60; PULSE 60; RESP 20; TEMP 36.4; O2SAT 93
[2022-05-17 11:17] LABS: Glucose, Whole Blood 154 mg/dL (60-115)
[2022-05-17 15:36] VITALS: BP 121/57; PULSE 66; RESP 17; TEMP 37.1; O2SAT 98
[2022-05-17 16:02] LABS: Glucose, Whole Blood 169 mg/dL (60-115)
--- NOTE | 2022-05-17 16:30 | P.PNIM_ITS ---
Subjective Subjective Date of Service: 05/17/22 Interval History: tia Review of Systems seems improving Physical Exam Vital Signs: Vital Signs: Last Vital Signs Temp 98.7 F 05/17/22 15:36 Pulse 66 05/17/22 15:36 Resp 17 05/17/22 15:36 BP 121/57 L 05/17/22 15:36 Pulse Ox 98 05/17/22 15:36 O2 Del Method 05/17/22 15:36 BMI result Body Mass Index 32.8 Objective Data Active Medications Acetaminophen (Acetaminophen 325 Mg Tablet) 650 mg PO Q6H PRN PRN Reason: Pain, Mild (Pain Scale 1-3) Ascorbic Acid (Ascorbic Acid 500 Mg Tablet) 500 mg PO DAILY [facility] Last Admin: 05/17/22 08:47 Dose: 500 mg Documented By: OSVALDO Aspirin (Aspirin 81 Mg Tab.Chew) 81 mg PO DAILY [facility] Last Admin: 05/17/22 08:47 Dose: 81 mg Documented By: OSVALDO Atorvastatin Calcium (Atorvastatin Calcium 80 Mg Tablet) 80 mg PO DAILY [facility] Last Admin: 05/17/22 08:47 Dose: 80 mg Documented By: OSVALDO Clopidogrel Bisulfate (Clopidogrel Bisulfate 75 Mg Tablet) 75 mg PO DAILY [facility] Last Admin: 05/17/22 08:48 Dose: 75 mg Documented By: OSVALDO Dextrose (Dextrose 50 % 25 Gm/50 Ml Syringe) 25 gm IVPUSH Q15M PRN; Protocol PRN Reason: per Hypoglycemia Standing Ord. Famotidine (Famotidine 20 Mg Tablet) 20 mg PO DAILY [facility] Last Admin: 05/17/22 08:47 Dose: 20 mg Documented By: OSVALDO Ferrous Sulfate (Ferrous Sulfate 324 Mg Tablet.Dr) 324 mg PO DAILY [facility] Last Admin: 05/17/22 08:47 Dose: 324 mg Documented By: OSVALDO Finasteride (Finasteride 5 Mg Tablet) 5 mg PO DAILY [facility] Last Admin: 05/17/22 08:47 Dose: 5 mg Documented By: OSVALDO Glucose (Glucose Gel 15 Gm Gel..Gram.) 15 gm PO Q15M PRN; Protocol PRN Reason: per Hypoglycemia Standing Ord. Insulin Glargine (Insulin Glargine,Hum.Rec.Anlog 100 Unit/Ml 10 Ml Vial) 16 unit SUBCUT BEDTIME [facility] Last Admin: 05/16/22 20:09 Dose: 16 unit Documented By: DALJIT Insulin Human Lispro (Insulin Lispro 100 Unit/Ml 3 Ml Vial) 0 unit SUBCUT QIDACHS [facility]; Protocol Last Admin: 05/17/22 12:39 Dose: 2 unit Documented By: UNIQUE Melatonin (Melatonin 3 Mg Tablet) 3 mg PO BEDTIME PRN PRN Reason: Insomnia Metoprolol Tartrate (Metoprolol Tartrate 25 Mg Tablet) 25 mg PO BID [facility]; Protocol Last Admin: 05/17/22 08:48 Dose: 25 mg Documented By: OSVALDO Ondansetron HCl (Ondansetron Hcl 4 Mg/2 Ml Vial) 4 mg IVPUSH Q8H PRN PRN Reason: Nausea and Vomiting Pharmacy Consult (Consult Rx Perform Med Rec) 1 each MISCELLANE ONCE PRN PRN Reason: Consult order Sitagliptin Phosphate (Sitagliptin Phosphate 100 Mg Tablet) 100 mg PO DAILY [facility] Last Admin: 05/17/22 08:47 Dose: 100 mg Documented By: OSVALDO Sodium Chloride (0.9 % Sodium Chloride Flush 3 Ml Syringe) 3 ml IVFLUSH QSHIFT [facility] Last Admin: 05/17/22 08:47 Dose: 3 ml Documented By: OSVALDO Tamsulosin HCl (Tamsulosin Hcl 0.4 Mg Capsule) 0.4 mg PO DAILY [facility] Last Admin: 05/17/22 08:48 Dose: 0.4 mg Documented By: OSVALDO Labs CBC & Chem 7: 05/17/22 07:44 05/15/22 16:07 Labs: Laboratory Results - last 24 hr 05/16/22 05/16/22 05/17/22 17:52 20:03 07:37 MCV MCH MCHC RDW Plt Count MPV Absolute Nucleated RBC Nucleated RBC % (auto) POC Glucose 180 H 224 H 148 H 05/17/22 05/17/22 05/17/22 07:44 07:57 11:09 MCV 90.9 MCH 30.6 MCHC 33.7 RDW 14.3 Plt Count 114 L MPV 11.2 Absolute Nucleated RBC 0.000 Nucleated RBC % (auto) 0.0 POC Glucose 165 H 154 H 05/17/22 15:57 MCV MCH MCHC RDW Plt Count MPV Absolute Nucleated RBC Nucleated RBC % (auto) POC Glucose 169 H Quality Stroke Does the patient have a stroke diagnosis?: Yes Reason for No Anti-thrombotic by Day Two: N/A - Med Ordered VTE Prior VTE?: No VTE Risk Level:: Medical - moderate - high VTE Device Contraindication: Treatment Not Indicated VTE Drug Contraindication: N/A - Med Ordered
== END 2022-05-17 18:20 | disposition home or self-care (01) | DRG 47 ==
LOC: HO.ED 18:29 → HO.EDOVER 18:36 → HO.IMC 05-16 18:05
PROVIDERS: Admitting Provider Hospitalist; Emergency Provider Emergency Medicine; PCP Internal Medicine; Visit Provider Internal Medicine
DX: G45.9 Transient cerebral ischemic attack, unspecified (principal); I44.2 Atrioventricular block, complete; E11.22 Type 2 diabetes mellitus with diabetic chronic kidney disease; I12.9 Hypertensive chronic kidney disease with stage 1 through stage 4 chronic kidney disease, or unspecified chronic kidney disease; N18.30 Chronic kidney disease, stage 3 unspecified; I25.2 Old myocardial infarction; E78.00 Pure hypercholesterolemia, unspecified; I25.10 Atherosclerotic heart disease of native coronary artery without angina pectoris; R25.1 Tremor, unspecified; R94.31 Abnormal electrocardiogram [ECG] [EKG]; Z20.822 Contact with and (suspected) exposure to COVID-19; Z86.718 Personal history of other venous thrombosis and embolism; Z95.0 Presence of cardiac pacemaker; Z79.4 Long term (current) use of insulin; Z79.02 Long term (current) use of antithrombotics/antiplatelets; Z79.82 Long term (current) use of aspirin; Z79.84 Long term (current) use of oral hypoglycemic drugs; Z79.899 Other long term (current) drug therapy
CPT/HCPCS: 36415; 70450; 70496; 70498; 80048; 80076; 81001; 81003; 82947; 84484; 85025; 85027; 85610; 87635; 93005; 97161; 99219; 99285; Q9967

== ENCOUNTER 2022-07-01 15:15 | Emergency (ER) | payer OTHER, SELFPAY ==
--- NOTE | 2022-07-01 | ECG_ITS ---
Test Reason : ? stroke Blood Pressure : / mmHG Vent. Rate : 084 BPM Atrial Rate : 084 BPM P-R Int : 000 ms QRS Dur : 192 ms QT Int : 454 ms P-R-T Axes : 000 -73 087 degrees QTc Int : 536 ms Ventricular-paced rhythm Abnormal ECG When compared with ECG of 15-MAY-2022 16:28, Vent. rate has increased BY 19 BPM Referred By: Nathaly Queen Electronically Signed By:OSEI LUTZ MD
--- NOTE | ~2022-07-01 | CT_ITS ---
EXAMINATION: CT HEAD WITHOUT CONTRAST CLINICAL INFORMATION: TIA COMPARISON: CT head 05/15/2022 TECHNIQUE: Contiguous axial imaging was performed from the skull base to vertex without intravenous administration of contrast. Coronal and sagittal reformatted images are performed at the CT scanner. [This CT examination was performed using dose optimization techniques as appropriate, variously including the following: *Automated exposure control *Adjustment of mA and/or kV according to patient size (this includes techniques or standardized protocols for targeted exams where dose is matched to indication/reason for exam; i.e. extremities or head) *Use of iterative reconstruction technique] DLP: 675 mGy-cm. FINDINGS: There is no evidence of acute intracranial hemorrhage or acute territorial infarction. Old small lacunar ganglia lacunar infarct. No abnormal mass-effect or midline shift is seen. Corbett to white matter differentiation is well preserved. No extra-axial fluid collections are identified. There is generalized global volume loss. There is moderate prominence of the ventricles and the sulci . There is mild hypodensity of the periventricular white matter due to chronic small vessel ischemic disease. There are vascular calcifications of the internal carotid arteries bilaterally. There is no osseous abnormality. The mastoid air cells and visualized portions of the paranasal sinuses are well-aerated. CT/CT head/brain wo IV con IMPRESSION: No acute intracranial pathology.
[2022-07-01 15:32] VITALS: BP 138/63; BP 180/100; PULSE 60; PULSE 81; RESP 16; TEMP 36.8; O2SAT 96; BMI 31.2
--- NOTE | 2022-07-01 15:34 | MHC.STROKE ---
Addendum entered by Shefali Jerry RN 07/01/22 16:19: I WALKED THE PATIENT TO THE BATHROOM, GAIT STEADY, NO RETURN OF SYMPTOMS. I CALLED DR PINEDO AND HE SAW THE PATIENT ON 05/16/22 WHEN HE WAS IN [facility], THEN IN THE OFFICE 06/10/22. I PUT THE OFFICE NOTE WITH DR HUFF AND PUT IT IN THE CHART. IT DOES REFER TO AN MRI AT [place] IN SEP 2021. DR PINEDO WILL SEE HIM AGAIN IN THE OFFICE, I INSTRUCTED THE TO CALL. HE WILL RECEIVE A CT HEAD, LABS PENDING, OBSERVE FOR ANY RETURN OF SYMPTOMS AND THEN IT WILL BE DECIDED IF HE CAN BE DISCHARGED HOME. HE HAS CHRONIC MICROVASCULAR DISEASE AND IS ON DUAL ANTIPLATELET THERAPY. MONITOR BP, GLUCOSE, AND MAINTAIN CURRENT ACTIVITY LEVEL. HE DID PASS THE SWALLOW SCREEN. AND I ANSWERED ALL OF THEIR QUESTIONS. THE IS CONCERNED ABOUT THE SLURRED SPEECH AND THE LEFT LEG WEAKNESS. I DID PROVIDE REASSURANCE THAT THESE SYMPTOMS RESOLVED AND COMMENDED HER FOR CALLING 911. SHE NEEDS SUPPORT AND ENCOURAGEMENT. I DID REASSURE HER AND HER AND SHE WILL TAKE ALL MEDICATIONS PRESCRIBED AND FOLLOW UP WITH DR. PINEDO INSTRUCTED. Original Note: 1508 EMS PRE-NOTIFICATION CALLED IN STROKE ALERT TIA, SYMPTOMS RESOLVED. ONSET 1415 DIZZINESS, APHASIA, LEFT SIDED WEAKNESS WHILE LEAVING CARDIAC REHAB AT [facility]. ARRIVED 1515. SEEN BY PROVIDER NIHAA = 0 SYMPTOMS RESOLVED. HE HAD A SIMILAR EPISODE 05/15/22 ALTHOUGH HIS RIGHT SIDE WAS WEAK, ALSO HAD APHASIA, SLURRED SPEECH. AT THAT TIME HE HAD A CT AND CTA H/N. HE HAD A SIGNIFICANT PMH. CHB PACEMAKER, BBB, HTN, HLD, CRF, ANEMIA, DVT, TIA'S. I WILL CONTINUE TO FOLLOW.
[2022-07-01 15:37] LABS: Glucose, Whole Blood 119 mg/dL (60-115)
[2022-07-01 15:48] LABS: Basophils Absolute Auto 0.1 X10*3/uL (0.0-0.2); Basophils Percent Auto 0.8 % (0-2); Eosinophils Absolute Auto 0.2 X10*3/uL (0.0-0.4); Eosinophils Percent Auto 2.4 % (0-4); Hematocrit 41.2 % (42.0-52.0); Hemoglobin 13.7 g/dl (14.0-18.0); INTERNATIONAL NORM RATIO 0.9 (0.9-1.1); Imm Gran Abs Auto 0.09 X10*3/uL (0.00-0.03); Lymphocytes Absolute Auto 2.8 X10*3/uL (1.2-4.9); Lymphocytes Percent Auto 30.6 % (20-40); MANUAL DIFF FLAG SCAN; Mean Corpuscular HGB Conc 33.3 g/dl (31.0-36.0); Mean Corpuscular Hemoglobin 31.1 pg (27.0-33.0); Mean Corpuscular Volume 93.4 fL (80.0-98.0); Monocytes Absolute Auto 0.9 X10*3/uL (0.1-1.2); Monocytes Percent Auto 9.7 % (2-11); Neutrophils Absolute Auto 5.1 x10*3/uL (2.0-8.3); Neutrophils Percent Auto 55.5 % (45-73); PLT CLUMP 1; Prothrombin Time 10.7 SEC (10.0-13.1); Red Blood Count 4.41 X10*6/uL (4.60-5.80); Red Cell Distribution Width 13.5 % (11.0-16.0); SCAN SMEAR FLAG 1
[2022-07-01 15:52] LABS: White Blood Count 9.2 X10*3/uL (4.8-10.8)
--- NOTE | 2022-07-01 16:03 | ED_ITS ---
HPI - Neuro Symptoms/Deficit General Chief Complaint: Stroke Stated Complaint: STROKE ALERT, APHAGIA,DIZZY,L LEG WEAK EARLIER Time Seen by Provider: 07/01/22 15:23 Source: patient, family and EMS Mode of arrival: EMS Limitations: no limitations History of Present Illness HPI Narrative: Patient comes to the emergency room complaining of 1 episode of aphasia that started around 14:15, self resolved within 10 minutes. By the time patient arrived to emergency room, he was asymptomatic and remains so. Patient has been evaluated for TIAs in the past. Patient takes Plavix and aspirin daily, complaint with his medication. Related Data Home Medications Medication Instructions Recorded Confirmed atorvastatin 80 mg tablet 1 tab PO DAILY 01/10/21 05/15/22 finasteride 5 mg tablet 1 tab PO DAILY 01/10/21 05/15/22 insulin glargine 100 unit/mL (3 22 unit subcut BEDTIME 01/10/21 05/15/22 mL) subcutaneous pen (Lantus Solostar U-100 Insulin) metformin 500 mg tablet 2 tab PO BIDAC 01/10/21 05/15/22 metoprolol tartrate 25 mg tablet 1 tab PO BID 01/10/21 05/15/22 sitagliptin 100 mg tablet (Januvia) 1 tab PO DAILY 01/10/21 05/15/22 tamsulosin 0.4 mg capsule 1 cap PO DAILY 01/10/21 05/15/22 ascorbic acid (vitamin C) 500 mg 500 mg PO DAILY 02/10/22 05/15/22 tablet (Vitamin C) Previous Rx's Medication Instructions Recorded ferrous sulfate 142 mg (45 mg 142 mg PO BID #60 tabs 04/07/22 iron) tablet,extended release (Slow Fe) aspirin 81 mg chewable tablet 81 mg PO DAILY #30 tabs 05/17/22 clopidogrel 75 mg tablet 75 mg PO DAILY #30 tabs 05/17/22 omeprazole 20 mg capsule,delayed 20 mg PO DAILY #30 caps 05/17/22 release Allergies Allergy/AdvReac Type Severity Reaction Status Date / Time No Known Allergies Allergy Verified 02/10/22 14:31 [No Known Allergies*] Review of Systems Review of Systems: Constitutional : No Weight loss, No Fever, No Chills, No Night Sweats, No Fatigue, No Malaise ENT/Mouth : No Hearing loss, No Ear Pain, No Nasal Congestion, No Sinus Pain, No Hoarseness, No sore throat, No Rhinorrhea, No Swallowing Difficulty Eyes: No Eye Pain, No Swelling, No Redness, No Foreign Body, No Discharge, No Vision Changes Cardiovascular : No Chest Pain, No SOB, No Dyspnea on Exertion, No Orthopnea, No Edema, No Palpitations Respiratory : No Cough, No Sputum, No Wheezing, No Smoke Exposure, No Dyspnea Gastrointestinal : No Nausea, No Vomiting, No Diarrhea, No Constipation, No abdominal Pain, No Hematochezia, No Melena Genitourinary : no irregular bleeding, No Dysuria, No Urinary Frequency, No Hematuria, No Urinary Incontinence, No Urgency, No Flank Pain, No Urinary Flow Changes, No Hesitancy Musculoskeletal : No joint pain, No Myalgias, No Joint Swelling Skin : No Skin Lesions, No rash Neuro : No Weakness, No Numbness, No Paresthesias, No Loss of Consciousness, no headache, patient states that he had sudden onset of dizziness, Ghias she lightheadedness, left-sided weakness and difficulty speaking, symptoms lasted for 10 minutes Psych : No Anxiety/Panic, No Depression, No SI/HI/AH/VH, No Social Issues, Heme/Lymph: No Bruising, No Bleeding,No Lymphadenopathy Endocrine : No Polyuria, No Polydipsia, No Temperature Intolerance PMFSH Past Medical History Medical History Abnormal EKG CHB (complete heart block) Deep vein thrombosis (DVT) of axillary vein of left upper extremity Diabetes High cholesterol History of acute myocardial infarction HTN (hypertension) Kidney disease, chronic, stage III (GFR 30-59 ml/min) Surgical History History of tonsillectomy S/P quadruple vessel bypass Family History Family History Mother Breast cancer metastasized to brain Diabetes Sister Diabetes Brother Diabetes Sister Diabetes Sister Diabetes Brother Diabetes Maternal Uncle Diabetes Maternal Aunt Diabetes Maternal Aunt Diabetes Maternal Uncle Diabetes Social History Social History Household Members: Spouse Household Members Other:: Housing: House Are you a primary healthcare customer service to a significant other at home: No Do you presently have visiting nurse or other home services: No Alcohol intake: current Alcohol intake frequency: holidays/special occasions only Patient Tobacco Use Status: Never used Tobacco Use of substances other than those prescribed or required for medical reasons: No Advance Directives: No Advance Directives Information Provided: Yes service: Yes ([employer]) Current occupational status: retired Physical Exam Vital Signs: Vital Signs: Last Vital Signs Temp 98.2 F 07/01/22 15:32 Pulse 72 07/01/22 16:40 Resp 18 07/01/22 16:40 BP 143/71 H 07/01/22 16:40 Pulse Ox 94 07/01/22 16:40 O2 Del Method 07/01/22 16:40 BMI result Body Mass Index 31.2 Const: Other: Appearance: Alert. Oriented X3. No acute distress. Eyes: Pupils equal, round and reactive to light. ENT: Pharynx normal. Neck: Normal inspection. Neck supple. No lymph nodes noted. No crepitus CVS: Normal heart rate and rhythm. Pulses normal. Normal S1 and S2 Respiratory: No respiratory distress. Breath sounds normal. No Wheezing. No rales Abdomen: Soft and nontender. No rigidity. No distention. Skin: Skin warm and dry. Normal skin color. Normal skin turgor. Extremities: No lower extremity edema. No Lacerations. No Rash Neuro: Oriented X 3. No motor deficit. No sensory deficit. Moving all extremities. No slurred speech. CN 2 through 12 grossly intact Psych: calm, cooperative, normal affect Course Course Course Narrative: NIH score is 0 Patient had a CTA done on May 15, no acute abnormalities. An MRI was not done because patient has a pacemakerJai Meehan from the stroke team is at bedside, who discussed the patient with Dr. Pedersen who is familiar with Mr. Tracy. On patient's prior admission, patient had a thorough workup. The diagnosis at this time is chronic microvascular disease, patient is already on aspirin and Plavix, no need for further workup if today's CT scan is unremarkable, at this time no need to do a CTA CT scan does not show any acute abnormalities, old lacunar infarcts. Patient is aware that he tested positive for COVID-19. Patient and his had a cough approximately 2-3 weeks ago. Patient states that he thought it was a regular cold and he no longer has any upper respiratory symptoms, patient feeling well otherwise. At this time patient is out of the window of treatment for paxlovid MDM - Neuro Symptoms/Deficit Lab Data Result diagrams: 07/01/22 15:25 07/01/22 16:35 Labs: Lab Results 07/01/22 07/01/22 07/01/22 Range/Units 15:25 15:25 15:25 WBC 9.2 (4.8-10.8) X10*3/uL RBC 4.41 L (4.60-5.80) X10*6/uL Hgb 13.7 L (14.0-18.0) g/dl Hct 41.2 L (42.0-52.0) % MCV 93.4 (80.0-98.0) fL MCH 31.1 (27.0-33.0) pg MCHC 33.3 (31.0-36.0) g/dl RDW 13.5 (11.0-16.0) % Plt Count 99 L (160-400) X10*3/uL MPV 11.9 (9.4-12.4) fL Immature Gran % (Auto) 1.0 H (0.0-0.4) % Neut % (Auto) 55.5 (45-73) % Lymph % (Auto) 30.6 (20-40) % [place] % (Auto) 9.7 (2-11) % Eos % (Auto) 2.4 (0-4) % Baso % (Auto) 0.8 (0-2) % Lymph # (Auto) 2.8 (1.2-4.9) X10*3/uL [place] # (Auto) 0.9 (0.1-1.2) X10*3/uL Eos # (Auto) 0.2 (0.0-0.4) X10*3/uL Baso # (Auto) 0.1 (0.0-0.2) X10*3/uL Abs Immat Gran (auto) 0.09 H (0.00-0.03) X10*3/uL Absolute Neuts (auto) 5.1 (2.0-8.3) x10*3/uL Absolute Nucleated RBC 0.000 (0.0-0.012) X10*3/uL Nucleated RBC % (auto) 0.0 (0.0-0.2) /100WBC Smear Tech's Comments VERIFIED PT 10.7 (10.0-13.1) SEC INR 0.9 (0.9-1.1) Sodium (135-145) mmol/L Potassium (3.3-5.1) mmol/L Chloride (96-108) mmol/L Carbon Dioxide (22-29) mmol/L Anion Gap (12-20) BUN (9-16) mg/dL Creatinine (0.5-1.4) mg/dL Estim Creat Clear Calc Estimated GFR POC Glucose (60-115) mg/dL Random Glucose (60-115) mg/dL Calcium (8.4-10.2) mg/dL Magnesium (1.6-2.6) mg/dL Total Bilirubin (0.0-1.0) mg/dL Direct Bilirubin (0.0-0.5) mg/dL AST (5-37) U/L ALT (0-40) U/L Alkaline Phosphatase (39-117) U/L Troponin I High Sens 7.8 D (<3.5-35.0) ng/L Total Protein (6.5-8.0) g/dL Albumin (3.5-5.0) g/dL Urine Color Urine Appearance Urine pH (5.0-9.0) Ur Specific [place] (1.005-1.025) Urine Protein (Neg-Trace) mg/dL Urine Glucose (UA) (Negative) mg/dL Urine Ketones (Negative) mg/dL Urine Blood (Negative) Urine Nitrite (Negative) Ur Leukocyte Esterase (Negative) Urine RBC (0-2) /HPF Urine WBC (0-5) /HPF Ur Squamous Epith Cells (0-2) /HPF Urine Bacteria (None Seen) Hyaline Casts (0-2) /LPF Urine Opiates Screen (Not Detect) Urine Fentanyl Screen (Not Detect) Ur Barbiturates Screen (Not Detect) Ur Phencyclidine Scrn (Not Detect) Ur Amphetamines Screen (Not Detect) U Benzodiazepines Scrn (Not Detect) Urine Cocaine Screen (Not Detect) U Marijuana (THC) Screen (Not Detect) Ethyl Alcohol mg/dL COVID-19 (FELIPE) (Negative) COVID-19 Clin Com 07/01/22 07/01/22 07/01/22 Range/Units 15:33 15:45 16:35 WBC (4.8-10.8) X10*3/uL RBC (4.60-5.80) X10*6/uL Hgb (14.0-18.0) g/dl Hct (42.0-52.0) % MCV (80.0-98.0) fL MCH (27.0-33.0) pg MCHC (31.0-36.0) g/dl RDW (11.0-16.0) % Plt Count (160-400) X10*3/uL MPV (9.4-12.4) fL Immature Gran % (Auto) (0.0-0.4) % Neut % (Auto) (45-73) % Lymph % (Auto) (20-40) % [place] % (Auto) (2-11) % Eos % (Auto) (0-4) % Baso % (Auto) (0-2) % Lymph # (Auto) (1.2-4.9) X10*3/uL [place] # (Auto) (0.1-1.2) X10*3/uL Eos # (Auto) (0.0-0.4) X10*3/uL Baso # (Auto) (0.0-0.2) X10*3/uL Abs Immat Gran (auto) (0.00-0.03) X10*3/uL Absolute Neuts (auto) (2.0-8.3) x10*3/uL Absolute Nucleated RBC (0.0-0.012) X10*3/uL Nucleated RBC % (auto) (0.0-0.2) /100WBC Smear Tech's Comments PT (10.0-13.1) SEC INR (0.9-1.1) Sodium 141 (135-145) mmol/L Potassium 4.5 (3.3-5.1) mmol/L Chloride 105 (96-108) mmol/L Carbon Dioxide 25 (22-29) mmol/L Anion Gap 16 (12-20) BUN 24 H (9-16) mg/dL Creatinine 1.17 (0.5-1.4) mg/dL Estim Creat Clear Calc 58.6 Estimated GFR > 60 POC Glucose 119 H (60-115) mg/dL Random Glucose 133 H D (60-115) mg/dL Calcium 9.6 D (8.4-10.2) mg/dL Magnesium 1.9 (1.6-2.6) mg/dL Total Bilirubin 0.7 (0.0-1.0) mg/dL Direct Bilirubin 0.3 (0.0-0.5) mg/dL AST 18 (5-37) U/L ALT 16 (0-40) U/L Alkaline Phosphatase 80 (39-117) U/L Troponin I High Sens (<3.5-35.0) ng/L Total Protein 7.4 (6.5-8.0) g/dL Albumin 4.2 (3.5-5.0) g/dL Urine Color Urine Appearance Urine pH (5.0-9.0) Ur Specific [place] (1.005-1.025) Urine Protein (Neg-Trace) mg/dL Urine Glucose (UA) (Negative) mg/dL Urine Ketones (Negative) mg/dL Urine Blood (Negative) Urine Nitrite (Negative) Ur Leukocyte Esterase (Negative) Urine RBC (0-2) /HPF Urine WBC (0-5) /HPF Ur Squamous Epith Cells (0-2) /HPF Urine Bacteria (None Seen) Hyaline Casts (0-2) /LPF Urine Opiates Screen (Not Detect) Urine Fentanyl Screen (Not Detect) Ur Barbiturates Screen (Not Detect) Ur Phencyclidine Scrn (Not Detect) Ur Amphetamines Screen (Not Detect) U Benzodiazepines Scrn (Not Detect) Urine Cocaine Screen (Not Detect) U Marijuana (THC) Screen (Not Detect) Ethyl Alcohol < 10 mg/dL COVID-19 (FELIPE) Positive A (Negative) COVID-19 Clin Com See Note 07/01/22 07/01/22 Range/Units 17:45 17:45 WBC (4.8-10.8) X10*3/uL RBC (4.60-5.80) X10*6/uL Hgb (14.0-18.0) g/dl Hct (42.0-52.0) % MCV (80.0-98.0) fL MCH (27.0-33.0) pg MCHC (31.0-36.0) g/dl RDW (11.0-16.0) % Plt Count (160-400) X10*3/uL MPV (9.4-12.4) fL Immature Gran % (Auto) (0.0-0.4) % Neut % (Auto) (45-73) % Lymph % (Auto) (20-40) % [place] % (Auto) (2-11) % Eos % (Auto) (0-4) % Baso % (Auto) (0-2) % Lymph # (Auto) (1.2-4.9) X10*3/uL [place] # (Auto) (0.1-1.2) X10*3/uL Eos # (Auto) (0.0-0.4) X10*3/uL Baso # (Auto) (0.0-0.2) X10*3/uL Abs Immat Gran (auto) (0.00-0.03) X10*3/uL Absolute Neuts (auto) (2.0-8.3) x10*3/uL Absolute Nucleated RBC (0.0-0.012) X10*3/uL Nucleated RBC % (auto) (0.0-0.2) /100WBC Smear Tech's Comments PT (10.0-13.1) SEC INR (0.9-1.1) Sodium (135-145) mmol/L Potassium (3.3-5.1) mmol/L Chloride (96-108) mmol/L Carbon Dioxide (22-29) mmol/L Anion Gap (12-20) BUN (9-16) mg/dL Creatinine (0.5-1.4) mg/dL Estim Creat Clear Calc Estimated GFR POC Glucose (60-115) mg/dL Random Glucose (60-115) mg/dL Calcium (8.4-10.2) mg/dL Magnesium (1.6-2.6) mg/dL Total Bilirubin (0.0-1.0) mg/dL Direct Bilirubin (0.0-0.5) mg/dL AST (5-37) U/L ALT (0-40) U/L Alkaline Phosphatase (39-117) U/L Troponin I High Sens (<3.5-35.0) ng/L Total Protein (6.5-8.0) g/dL Albumin (3.5-5.0) g/dL Urine Color Yellow Urine Appearance Clear Urine pH 6.0 (5.0-9.0) Ur Specific [place] <= 1.005 (1.005-1.025) Urine Protein Negative (Neg-Trace) mg/dL Urine Glucose (UA) Negative (Negative) mg/dL Urine Ketones Negative (Negative) mg/dL Urine Blood Negative (Negative) Urine Nitrite Negative (Negative) Ur Leukocyte Esterase Trace H (Negative) Urine RBC 0-2 (0-2) /HPF Urine WBC 0-5 (0-5) /HPF Ur Squamous Epith Cells 0-2 (0-2) /HPF Urine Bacteria None Seen (None Seen) Hyaline Casts 0-2 (0-2) /LPF Urine Opiates Screen Not Detected (Not Detect) Urine Fentanyl Screen Not Detected (Not Detect) Ur Barbiturates Screen Not Detected (Not Detect) Ur Phencyclidine Scrn Not Detected (Not Detect) Ur Amphetamines Screen Not Detected (Not Detect) U Benzodiazepines Scrn Not Detected (Not Detect) Urine Cocaine Screen Not Detected (Not Detect) U Marijuana (THC) Screen Not Detected (Not Detect) Ethyl Alcohol mg/dL COVID-19 (FELIPE) (Negative) COVID-19 Clin Com NIH Stroke Scale Level of Consciousness: Alert Level of Consciousness Questions: Answers both questions correctly Level of Consciousness Commands: Performs both tasks correctly Best Gaze: Normal Visual: No visual loss Facial Palsy: Normal Motor Arm (Right): No drift Motor Arm (Left): No drift Motor Leg (Right): No drift Motor Leg (Left): No drift Limb Ataxia: Absent Sensory: Normal Best Language: No aphasia Dysarthia: Normal Extinction and Inattention: No abnormality Score: 0 Discharge Plan Discharge Clinical Impression: COVID-19, History of TIAs Patient Disposition: Home, Self-Care Instructions: COVID-19 (Coronavirus Disease 2019) (ED), Transient Ischemic Attack (ED) Additional Instructions: Please follow-up with your primary care physician tomorrow. If you have any worsening or new symptoms, please return to the emergency room or call 911 Prescriptions: No Action atorvastatin 80 mg tablet 1 tab PO DAILY insulin glargine [Lantus Solostar U-100 Insulin] 100 unit/mL (3 mL) insulin pen 22 unit subcut BEDTIME Januvia 100 mg tablet 1 tab PO DAILY metoprolol tartrate 25 mg tablet 1 tab PO BID tamsulosin 0.4 mg capsule 1 cap PO DAILY finasteride 5 mg tablet 1 tab PO DAILY metformin 500 mg tablet 2 tab PO BIDAC ascorbic acid (vitamin C) [Vitamin C] 500 mg Tablet 500 mg PO DAILY Slow Fe 142 mg (45 mg iron) Tablet Extended Release 142 mg PO BID Qty: 60 4RF clopidogrel 75 mg Tablet 75 mg PO DAILY Qty: 30 0RF aspirin 81 mg Tablet,Chewable 81 mg PO DAILY Qty: 30 0RF omeprazole 20 mg capsule,delayed release(DR/EC) 20 mg PO DAILY Qty: 30 0RF
[2022-07-01 16:06] LABS: COVID-19 Test Positive (Negative)
[2022-07-01 16:07] LABS: Troponin-I High Sensitivity 7.8 ng/L (<3.5-35.0)
[2022-07-01 16:18] LABS: Mean Platelet Volume 11.9 fL (9.4-12.4); Platelet Count 99 X10*3/uL (160-400); SLIDE REVIEW VERIFIED
[2022-07-01 16:40] VITALS: BP 143/71; PULSE 72; RESP 18; O2SAT 94
--- NOTE | 2022-07-01 16:42 | PC.NURSE ---
Pt is alert and oriented, speaking in complete clear sentences, skin WDP. No neuro deficits noted at this time. at bedside.
[2022-07-01 17:04] LABS: Alanine Aminotransferase 16 U/L (0-40); Albumin Level 4.2 g/dL (3.5-5.0); Alkaline Phosphatase 80 U/L (39-117); Anion Gap 16 (12-20); Aspartate Amino Transferase 18 U/L (5-37); Bilirubin Direct 0.3 mg/dL (0.0-0.5); Bilirubin Total 0.7 mg/dL (0.0-1.0); Blood Urea Nitrogen 24 mg/dL (9-16); Calcium 9.6 mg/dL (8.4-10.2); Carbon Dioxide 25 mmol/L (22-29); Chloride 105 mmol/L (96-108); Creatinine Clr Calc Pharmacy 58.6; Estimated Glomerular Filt Rate > 60; Ethanol < 10 mg/dL; Glucose Random 133 mg/dL (60-115); Magnesium 1.9 mg/dL (1.6-2.6); Potassium 4.5 mmol/L (3.3-5.1); Sodium 141 mmol/L (135-145); Total Protein 7.4 g/dL (6.5-8.0)
[2022-07-01 17:52] LABS: Appearance Urine Clear; Color Urine Yellow; Glucose Urine UA Negative (Negative); Leukocyte Esterase Urine Trace (Negative); Nitrite Urine Negative (Negative); Specific Gravity - Urine <= 1.005 (1.005-1.025); UMIC TRIGGER UACC YES; Urine Blood Negative (Negative); Urine Ketones Negative (Negative); Urine Protein Negative (Neg-Trace)
[2022-07-01 17:54] LABS: Bacteria Urine None Seen (None Seen); Hyaline Casts Urine 0-2 /LPF (0-2); RBC Urine 0-2 /HPF (0-2); Squamous Epithelial Cell Urine 0-2 /HPF (0-2); WBC Urine 0-5 /HPF (0-5)
[2022-07-01 18:06] LABS: Amphetamine Screen Urine Not Detected (Not Detect); Barbiturates, Urine Not Detected (Not Detect); Benzodiazepines Screen Urine Not Detected (Not Detect); Cannabinoid Screen Urine Not Detected (Not Detect); Cocaine Screen Urine Not Detected (Not Detect); Fentanyl, urine Not Detected (Not Detect); Opiate Screen Urine Not Detected (Not Detect); Phencyclidine Screen Urine Not Detected (Not Detect)
[2022-07-01 19:34] VITALS: BP 148/77; PULSE 70; RESP 18; TEMP 36.9; O2SAT 97
== END 2022-07-01 19:42 | disposition home or self-care (01) ==
PROVIDERS: Emergency Provider Emergency Medicine; PCP Internal Medicine
DX: U07.1 COVID-19 (principal); R29.700 NIHSS score 0; R05.9 Cough, unspecified; R51.9 Headache, unspecified; R07.89 Other chest pain; Z79.899 Other long term (current) drug therapy
CPT/HCPCS: 70450; 80048; 80076; 80307; 81001; 82077; 82947; 83735; 84484; 85025; 85610; 87635; 93005; 99285

== ENCOUNTER 2024-05-28 12:04 | Emergency (ER) | payer BC, SELFPAY ==
--- NOTE | ~2024-05-28 | XR_ITS ---
EXAMINATION: XR CHEST CLINICAL INFORMATION: Weakness. COMPARISON: Chest radiograph dated 08/16/2021. TECHNIQUE: 2 views of the chest were obtained. FINDINGS: No focal airspace consolidation. No pleural effusion or pneumothorax. Stable cardiomediastinal silhouette. Sternal wires and left chest wall pacer in unchanged position. XR/XR chest 2V IMPRESSION: No acute cardiopulmonary findings. Electronically signed by: Beltran Malone MD 05/28/2024 02:16 PM EDT
--- NOTE | ~2024-05-28 | XR_ITS ---
EXAMINATION: XR ELBOW, RIGHT CLINICAL INFORMATION: Right elbow pain with movement. COMPARISON: None available. TECHNIQUE: AP, lateral, and oblique views of the right elbow. FINDINGS: Corticated ossification adjacent to the medial epicondyle measuring up to 0.5 cm, consistent with a remote avulsion injury. No acute fracture. No dislocation. Tiny ulnotrochlear marginal osteophytes. No osseous erosion. No significant joint effusion. Mild posterior soft tissue swelling. XR/XR elbow RT 2V IMPRESSION: 1. Mild posterior soft tissue swelling. No acute fracture or dislocation. 2. Mild ulnotrochlear osteoarthritis. 3. Remote avulsion injury at the medial epicondyle. Electronically signed by: Beltran Malone MD 05/28/2024 02:27 PM EDT
[2024-05-28 12:07] VITALS: BP 116/53; PULSE 78; RESP 18; TEMP 36.2; O2SAT 97; BMI 30.4
--- NOTE | 2024-05-28 12:07 | ED_ITS ---
HPI - General Adult General Chief complaint: General Medical Stated complaint: Knee problems Time Seen by Provider: 05/28/24 12:36 Source: patient, family and RN notes reviewed Mode of arrival: ambulatory Limitations: no limitations History of Present Illness ED Provider: Irma Chan PA-C HPI narrative: This is a 78-year-old male, with a history of TIA, OK, CKD, are BB, on Eliquis, who presents emergency department with complaints of atraumatic right arm pain/redness, and lower extremity weakness for the last 3-4 days. Patient states that over the last 3-4 days he has noticed some increased pain in his right elbow which causes him difficulty getting him self out of the chair. He reports generalized weakness. He denies any fevers, chills, headaches, dizziness, blurred vision, chest pain, shortness of breath, abdominal pain, nausea, vomiting or diarrhea. He denies any numbness, tingling. He denies any recent falls. MD complaint: Right arm pain Onset (ago): day(s) Associated symptoms: denies other symptoms Treatments prior to arrival: none Related Data Home Medications ?Medication ?Instructions ?Recorded ?Confirmed atorvastatin 80 mg tablet 1 tab PO DAILY 01/10/21 02/08/24 finasteride 5 mg tablet 1 tab PO DAILY 01/10/21 02/08/24 insulin glargine 100 unit/mL (3 22 unit subcut BEDTIME 01/10/21 02/08/24 mL) subcutaneous pen (Lantus Solostar U-100 Insulin) metformin 500 mg tablet 2 tab PO BIDAC 01/10/21 02/08/24 metoprolol tartrate 25 mg tablet 1 tab PO BID 01/10/21 02/08/24 sitagliptin phosphate 100 mg 1 tab PO DAILY 01/10/21 02/08/24 tablet (Januvia) tamsulosin 0.4 mg capsule 1 cap PO DAILY 01/10/21 02/08/24 apixaban 5 mg tablet (Eliquis) 5 mg PO BID 02/09/23 02/08/24 Previous Rx's ?Medication ?Instructions ?Recorded aspirin 81 mg chewable tablet 81 mg PO DAILY #30 tabs 05/17/22 ferrous sulfate 140 mg (45 mg 140 mg PO DAILY #90 tabs 08/06/23 iron) tablet,extended release (Slow Release Iron) ascorbic acid (vitamin C) 500 mg 500 mg PO DAILY #60 tabs 09/09/23 tablet (Vitamin C) cephalexin 250 mg capsule 250 mg PO QID 5 days #20 caps 05/28/24 doxycycline hyclate 100 mg tablet 100 mg PO BID 5 days #10 tabs 05/28/24 Allergies Allergy/AdvReac Type Severity Reaction Status Date / Time No Known Allergies Allergy Verified 05/28/24 12:13 [No Known Allergies*] Review of Systems 2 Review of Systems: Yes all other systems are reviewed and are negative Constitutional: Constitutional: Reports as per [facility] Past Medical History Attestation statement: The following information was validated with the patient. 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 CHB (complete heart block) History of acute myocardial infarction Diabetes High cholesterol HTN (hypertension) Kidney disease, chronic, stage III (GFR 30-59 ml/min) Surgical History S/P quadruple vessel bypass History of tonsillectomy Family History Family History Mother Breast cancer metastasized to brain Diabetes Sister Diabetes Brother Diabetes Sister Diabetes Sister Diabetes Brother Diabetes Maternal Uncle Diabetes Maternal Aunt Diabetes Maternal Aunt Diabetes Maternal Uncle Diabetes Social History Social History Household Members: Spouse Household Members Other:: Housing: House Are you a primary career resource specialist to a significant other at home: No Do you presently have visiting nurse or other home services: No Alcohol intake: current Alcohol intake frequency: holidays/special occasions only Patient Tobacco Use Status: Never used Tobacco Advance Directives: No Advance Directives Information Provided: No Do you have a plan to hurt others: No 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 Physical Exam ED Vital Signs: Vital Signs - 24 hr 05/28/24 12:07 05/28/24 14:19 Temperature 97.2 F 97.9 F Pulse Rate 78 78 Respiratory Rate 18 16 Blood Pressure 116/53 L 106/44 L Pulse Oximetry 97 96 Oxygen Delivery Method Room Air Room Air BMI result Body Mass Index 30.4 Const General: cooperative, comfortable and no acute distress Orientation/consciousness: patient oriented x3 Limitations: no limitations HENMT Head: Yes normal to inspection, Yes normocephalic and Yes atraumatic Ears: hearing grossly normal bilaterally General nose exam: Normal external nose present Face and sinus: Yes normal facial exam Mouth: Normal oral and palatal mucosa present, oropharynx normal and moist mucous membranes Throat: Yes posterior oropharynx normal Eyes General: appearance normal, both eyes and all related structures Eyelids: Yes eyelids normal Conjunctivae: conjunctivae normal Sclerae: sclerae normal Pupils: Equal, round and reactive pupils present EOM: EOMs intact bilaterally Neck Neck: Yes normal visual inspection, Yes full ROM, Yes no lymphadenopathy and Yes no meningeal signs Lymphatic: no lymphadenopathy noted Chest Chest palpation & inspection: normal inspection of the chest Resp Effort & Inspection: normal respiratory effort and able to speak in complete sentences Auscultation: clear to auscultation bilaterally, no crackles, no rales, no rhonchi and no wheezes Cardio Rate: regular rate Rhythm: regular rhythm Heart sounds: S1 normal heart sound present and S2 normal heart sound present GI Inspection: Yes normal to inspection Skin General skin exam: no rashes or lesions noted Trauma: no lacerations or abrasions Wounds: no wounds Neuro General: patient oriented x3, moves all extremities, no meningeal signs and CN's II-XI intact bilaterally Cranial nerves: Yes CN's II-XII intact bilaterally and Yes Equal, round and reactive pupils present Cognition (Neuro): normal cognition Gait exam (Neuro): Normal gait present Motor exam (neuro): 5/5 motor strength present throughout, Pronator motor function not present and no tremor noted Coordination: [id number] test normal Romberg Test: Negative Extrem Other: Right olecranon, is erythematous, edematous, with mild faint erythema spreading proximally 8 8 cm circumferentially. Full range of motion of the arm without difficulty. Strong radial pulse. Sensation intact. No open wounds, no bony step-off or deformity noted. No peripheral edema. No calf tenderness. General: Yes normal to inspection Right upper extremity: normal to inspection Left upper extremity: normal to inspection Right lower extremity: normal to inspection Left lower extremity: normal to inspection NIH Stroke Scale Internal: Initial- Upon Arrival Time: 12:11 Level of Consciousness: Alert Level of Consciousness Questions: Answers both questions correctly Level of Consciousness Commands: Performs both tasks correctly Best Gaze: Normal Visual: No visual loss Facial Palsy: Normal Motor Arm (Right): No drift Motor Arm (Left): No drift Motor Leg (Right): No drift Motor Leg (Left): No drift Limb Ataxia: Absent Sensory: Normal Best Language: No aphasia Dysarthia: Normal Extinction and Inattention: No abnormality Score: 0 Course Course Course Narrative: This is a rapid medical exam performed by Aundrea Camargo NP: Additional HPI, ROS, PE not included below will be deferred to primary provider. Patient is a 78-year-old male with history of afib, OK, DM, HTN, anemia, high cholesterol, CKD stage III, TIA, pacemaker presenting to the emergency department with complaint of bilateral knee pain, right arm soreness for the past 3 days. Denies fevers. BP 99/65 in triage, states BP was 101 systolic this am. NIHSS 0. Specifies right arm pain to elbow with movement. Plan: labs, viral swabs, tick panel, xray Reevaluation(s) Reevaluation #1: Labs returned, patient does have leukocytosis at 15.3, with left shift, chemistry revealing hyperglycemia at 2:48 a.m., creatinine 1.36, slightly above his baseline which is at 1.2. Urine with moderate leuk esterases however does appear to be contaminated, he has no urinary complaints. EKG similar to previous EKGs on file. Elbow x-ray shows soft tissue swelling, with mild ulnar trochlear osteoarthritis, and remote avulsion injury at the medial epicondyle. He had no trauma or injury to his elbow, this is likely a chronic finding. Discussed findings with patient and , outlined area of erythema on exam. Symptoms consistent with cellulitis, discharged on Keflex and doxycycline. Given strict return precautions. He understands and agrees with plan. Patient stable for discharge. Time: 15:22 Medical Decision Making Medical Decision Making MDM Narrative: This is a 78-year-old male, with a history of TIA, OK, CKD, complete heart block, who presents emergency department with complaints of right arm pain, redness for the last 3-4 days. On arrival, he is nontoxic appearing, vital signs within normal limits. Patient also reporting some generalized weakness in his lower extremities. He is alert and oriented x4, NIH score of 0. No focal deficits on examination. Differential diagnoses include cellulitis, septic arthritis-unlikely, bursitis, UTI, pneumonia, ACS-unlikely. He has no chest pain or shortness for breath. Plan: Labs, EKG, chest x-ray, elbow x-ray, urine Differential Diagnosis Differential Diagnoses: The differential diagnosis associated with the presentation includes See above Admission/Observation Consideration of admission/observation: Escalation of care including admission/observation considered Lab Data MDM Lab Attestation statement: I reviewed the patient's lab results. See course comment 05/28/24 12:46 05/28/24 12:46 Labs: Lab Results 05/28/24 Range/Units 12:46 WBC 15.3 H (4.8-10.8) X10*3/uL RBC 3.95 L (4.60-5.80) X10*6/uL Hgb 12.1 L (14.0-18.0) g/dl Hct 35.9 L (42.0-52.0) % MCV 90.9 (80.0-98.0) fL MCH 30.6 (27.0-33.0) pg MCHC 33.7 (31.0-36.0) g/dl RDW 13.2 (11.0-16.0) % Plt Count 155 L D (160-400) X10*3/uL MPV 11.1 (9.4-12.4) fL Immature Gran % (Auto) 0.9 H (0.0-0.4) % Neut % (Auto) 62.1 (45-73) % Lymph % (Auto) 18.1 L (20-40) % [place] % (Auto) 16.6 H (2-11) % Eos % (Auto) 1.8 (0-4) % Baso % (Auto) 0.5 (0-2) % Lymph # (Auto) 2.8 (1.2-4.9) X10*3/uL [place] # (Auto) 2.6 H (0.1-1.2) X10*3/uL Eos # (Auto) 0.3 (0.0-0.4) X10*3/uL Baso # (Auto) 0.1 (0.0-0.2) X10*3/uL Abs Immat Gran (auto) 0.14 H (0.00-0.03) X10*3/uL Absolute Neuts (auto) 9.5 H (2.0-8.3) x10*3/uL Absolute Nucleated RBC 0.000 (0.0-0.012) X10*3/uL Nucleated RBC % (auto) 0.0 (0.0-0.2) /100WBC Smear Tech's Comments VERIFIED Sodium 135 (135-145) mmol/L Potassium 4.8 (3.3-5.1) mmol/L Chloride 103 (96-108) mmol/L Carbon Dioxide 22 (22-29) mmol/L Anion Gap 15 (12-20) BUN 25 H (9-16) mg/dL Creatinine 1.36 (0.5-1.4) mg/dL Estim Creat Clear Calc 48.1 Estimated GFR 51 Random Glucose 248 H (60-115) mg/dL Calcium 9.3 (8.4-10.2) mg/dL Magnesium 1.9 (1.6-2.6) mg/dL Total Bilirubin 0.7 (0.0-1.0) mg/dL AST 15 (5-37) U/L ALT 14 (0-40) U/L Alkaline Phosphatase 98 (39-117) U/L Troponin I High Sens 9.7 (<3.5-35.0) ng/L Total Protein 7.3 (6.5-8.0) g/dL Albumin 3.7 (3.5-5.0) g/dL Urine Color Dark Yellow Urine Appearance Clear Urine pH 5.5 (5.0-9.0) Ur Specific [place] >= 1.030 H (1.005-1.025) Urine Protein 30 (1+) H (Neg-Trace) mg/dL Urine Glucose (UA) 100 H (Negative) mg/dL Urine Ketones Trace (Negative) mg/dL Urine Blood Negative (Negative) Urine Nitrite Negative (Negative) Ur Leukocyte Esterase Moderate (2+) H (Negative) Urine RBC 0-2 (0-2) /HPF Urine WBC 11-20 H (0-5) /HPF Ur Squamous Epith Cells 6-10 (0-2) /HPF Urine Bacteria Trace (None Seen) Hyaline Casts 6-10 (0-2) /LPF Influenza Type A (PCR) NEGATIVE (Negative) Influenza Type B (PCR) NEGATIVE (Negative) RSV RNA Qual (PCR) NEGATIVE (Negative) SARS-CoV-2 RNA (RT-PCR) NEGATIVE (Negative) Independent Interpretation I performed an independent interpretation of an: EKG Interpretation: EKG ventricular paced rhythm at 79 beats per minute, QT QTC 454/520, no ST elevation or depression. Radiology Impression Discussion of test interpretation with radiology: I have reviewed the radiologist's reading. Radiologist Impression: XR/XR elbow RT 2V IMPRESSION: 1. Mild posterior soft tissue swelling. No acute fracture or dislocation. 2. Mild ulnotrochlear osteoarthritis. 3. Remote avulsion injury at the medial epicondyle. Electronically signed by: Beltran Malone MD 05/28/2024 02:27 PM EDT RP Dictated By: Beltran Malone MD Independent Historian Clinical information obtained from an independent historian. History obtained from or confirmed by: Spouse Discharge Plan Discharge Clinical Impression: Cellulitis Patient Disposition: Home, Self-Care Instructions: Cellulitis (ED) Additional Instructions: Eduardo has evidence of a skin infection on the right side of his arm. Your chest x-ray does not show any pneumonia, your elbow x-ray shows soft tissue swelling, as well as osteoarthritis. There is also a bony fragment in your elbow however this does not appear to be a new injury or related to your symptoms. Please take prescribed antibiotics as directed. Finish the entire course even if your symptoms improve. You may take Tylenol as needed for pain. Please follow-up with the primary care physician regarding this visit, please return if any new or worsening symptoms occur including but not limited to chest pain, shortness of breath, changes in mentation, fevers not responding to Tylenol, worsening pain in your right elbow, worsening redness/swelling in the elbow. We also tested you for tick-borne illnesses, this does take several days for it to return, if these are positive we will give you a call. Prescriptions: New doxycycline hyclate 100 mg tablet 100 mg PO BID 5 Days Qty: 10 0RF cephalexin 250 mg capsule 250 mg PO QID 5 Days Qty: 20 0RF No Action Slow Release Iron 140 mg (45 mg iron) Tablet Extended Release 140 mg PO DAILY Qty: 90 4RF atorvastatin 80 mg tablet 1 tab PO DAILY insulin glargine [Lantus Solostar U-100 Insulin] 100 unit/mL (3 mL) insulin pen 22 unit subcut BEDTIME Januvia 100 mg tablet 1 tab PO DAILY metoprolol tartrate 25 mg tablet 1 tab PO BID tamsulosin 0.4 mg capsule 1 cap PO DAILY finasteride 5 mg tablet 1 tab PO DAILY metformin 500 mg tablet 2 tab PO BIDAC Eliquis 5 mg tablet 5 mg PO BID ascorbic acid (vitamin C) [Vitamin C] 500 mg Tablet 500 mg PO DAILY Qty: 60 4RF aspirin 81 mg Tablet,Chewable 81 mg PO DAILY Qty: 30 0RF Interventions: ED Discharge Assessment Last Done: 05/28/24 15:18 Discharge Date/Time: 05/28/24 15:20 Print Language: Vietnamese
[2024-05-28 13:01] LABS: Basophils Absolute Auto 0.1 X10*3/uL (0.0-0.2); Basophils Percent Auto 0.5 % (0-2); Eosinophils Absolute Auto 0.3 X10*3/uL (0.0-0.4); Eosinophils Percent Auto 1.8 % (0-4); Hematocrit 35.9 % (42.0-52.0); Hemoglobin 12.1 g/dl (14.0-18.0); Imm Gran Abs Auto 0.14 X10*3/uL (0.00-0.03); Imm Gran Pct Auto 0.9 % (0.0-0.4); Lymphocytes Absolute Auto 2.8 X10*3/uL (1.2-4.9); Lymphocytes Percent Auto 18.1 % (20-40); MANUAL DIFF FLAG SCAN; Mean Corpuscular HGB Conc 33.7 g/dl (31.0-36.0); Mean Corpuscular Hemoglobin 30.6 pg (27.0-33.0); Mean Corpuscular Volume 90.9 fL (80.0-98.0); Mean Platelet Volume 11.1 fL (9.4-12.4); Monocytes Absolute Auto 2.6 X10*3/uL (0.1-1.2); Monocytes Percent Auto 16.6 % (2-11); Neutrophils Absolute Auto 9.5 x10*3/uL (2.0-8.3); Neutrophils Percent Auto 62.1 % (45-73); Platelet Count 155 X10*3/uL (160-400); Red Blood Count 3.95 X10*6/uL (4.60-5.80); Red Cell Distribution Width 13.2 % (11.0-16.0); SCAN SMEAR FLAG 1; White Blood Count 15.3 X10*3/uL (4.8-10.8)
[2024-05-28 13:03] LABS: Appearance Urine Clear; Color Urine Dark Yellow; Glucose Urine UA 100 mg/dL (Negative); Leukocyte Esterase Urine Moderate (2+) (Negative); Nitrite Urine Negative (Negative); PH 5.5 (5.0-9.0); Specific Gravity - Urine >= 1.030 (1.005-1.025); UMIC TRIGGER UACC YES; Urine Blood Negative (Negative); Urine Ketones Trace mg/dL (Negative); Urine Protein 30 (1+) mg/dL (Neg-Trace)
[2024-05-28 13:16] LABS: Bacteria Urine Trace (None Seen); RBC Urine 0-2 /HPF (0-2); UACC Culture Trigger YES
[2024-05-28 13:18] LABS: SLIDE REVIEW VERIFIED
[2024-05-28 13:25] LABS: Alanine Aminotransferase 14 U/L (0-40); Albumin Level 3.7 g/dL (3.5-5.0); Alkaline Phosphatase 98 U/L (39-117); Anion Gap 15 (12-20); Aspartate Amino Transferase 15 U/L (5-37); Bilirubin Total 0.7 mg/dL (0.0-1.0); Blood Urea Nitrogen 25 mg/dL (9-16); Calcium 9.3 mg/dL (8.4-10.2); Carbon Dioxide 22 mmol/L (22-29); Chloride 103 mmol/L (96-108); Creatinine Clr Calc Pharmacy 48.1; Estimated Glomerular Filt Rate 51; Glucose Random 248 mg/dL (60-115); Magnesium 1.9 mg/dL (1.6-2.6); Potassium 4.8 mmol/L (3.3-5.1); Sodium 135 mmol/L (135-145); Total Protein 7.3 g/dL (6.5-8.0)
[2024-05-28 13:37] LABS: Influenza A PCR NEGATIVE (Negative); Influenza B PCR NEGATIVE (Negative); Resp Syncy Virus RNA Qual PCR NEGATIVE (Negative); SARS COV2 PCR INHOUSE NEGATIVE (Negative)
--- NOTE | 2024-05-28 13:54 | ECG_ITS ---
Test Reason : WEAKNESS Blood Pressure : / mmHG Vent. Rate : 079 BPM Atrial Rate : 340 BPM P-R Int : 000 ms QRS Dur : 188 ms QT Int : 454 ms P-R-T Axes : 000 -69 092 degrees QTc Int : 520 ms Ventricular-paced rhythm Abnormal ECG When compared with ECG of 01-JUL-2022 15:40, Vent. rate has decreased BY 5 BPM Referred By: Irma Chan Electronically Signed By:RULA STANLEY
[2024-05-28 14:00] LABS: Troponin-I High Sensitivity 9.7 ng/L (<3.5-35.0)
[2024-05-28 14:19] VITALS: BP 106/44; PULSE 78; RESP 16; TEMP 36.6; O2SAT 96
[2024-05-28 15:18] VITALS: BP 106/44; PULSE 78; RESP 16; TEMP 36.6; O2SAT 96
[2024-05-30 22:29] LABS: A. Phagocytphilium DNA,RT-PCR NOT DETECTED (NOT DETECTED); Babesia Microti DNA, RT-PCR NOT DETECTED (NOT DETECTED); Borrelia Miyamotoi,DNA RT-PCR NOT DETECTED (NOT DETECTED); E.Chaffeensis DNA RT-PCR NOT DETECTED (NOT DETECTED); Lyme(Borrelia ssp)DNA RT-PCR NOT DETECTED (NOT DETECTED)
== END 2024-05-28 15:20 | disposition home or self-care (01) ==
PROVIDERS: Physician Assistant Medical; Registered Nurse Emergency; Emergency Provider Emergency Medicine; PCP Internal Medicine
DX: L03.113 Cellulitis of right upper limb (principal); M79.601 Pain in right arm; E11.22 Type 2 diabetes mellitus with diabetic chronic kidney disease; I12.9 Hypertensive chronic kidney disease with stage 1 through stage 4 chronic kidney disease, or unspecified chronic kidney disease; N18.30 Chronic kidney disease, stage 3 unspecified; I82.622 Acute embolism and thrombosis of deep veins of left upper extremity; Z79.01 Long term (current) use of anticoagulants; Z79.899 Other long term (current) drug therapy; R29.700 NIHSS score 0; Z03.818 Encounter for observation for suspected exposure to other biological agents ruled out
CPT/HCPCS: 0241U; 36415; 71046; 73070; 80053; 81001; 81003; 83735; 84484; 85025; 87086; 87468; 87469; 87478; 87484; 87798; 93005; 99283; 99284

== ENCOUNTER 2024-05-31 16:56 | Emergency (ER) | payer BC, SELFPAY ==
--- NOTE | ~2024-05-31 | CT_ITS ---
EXAMINATION: CT HEAD WITHOUT CONTRAST CLINICAL INFORMATION: Leg weakness. Slow speech COMPARISON: CT head dated July 01, 2022. TECHNIQUE: Contiguous axial imaging was performed from the skull base to vertex without intravenous administration of contrast. This CT examination was performed using dose optimization techniques as appropriate, variously including the following: *Automated exposure control *Adjustment of mA and/or kV according to patient size (this includes techniques or standardized protocols for targeted exams where dose is matched to indication/reason for exam; i.e. extremities or head) *Use of iterative reconstruction technique DLP: 703 mGy-cm FINDINGS: There is no acute intracranial hemorrhage. There is no evidence of acute/subacute cerebral or cerebellar infarction. There is mild microvascular ischemic change. There is no midline shift or mass effect. No extra-axial fluid collection. The ventricles are normal in size. The orbits are within normal limits. The calvarium is intact. Visualized paranasal sinuses are clear. Mastoid air cells are well aerated. CT/CT head/brain wo IV con IMPRESSION: No acute intracranial pathology. Mild microvascular ischemic change. Electronically signed by: Liban Sosa DO 06/02/2024 04:19 PM EDT
[2024-05-31 17:50] VITALS: BP 119/60; PULSE 80; RESP 18; TEMP 36.9; O2SAT 97; BMI 29.8
[2024-05-31 18:52] LABS: Basophils Absolute Auto 0.1 X10*3/uL (0.0-0.2); Basophils Percent Auto 0.5 % (0-2); Eosinophils Absolute Auto 0.2 X10*3/uL (0.0-0.4); Eosinophils Percent Auto 1.6 % (0-4); Hematocrit 34.5 % (42.0-52.0); Hemoglobin 11.9 g/dl (14.0-18.0); Imm Gran Abs Auto 0.21 X10*3/uL (0.00-0.03); Imm Gran Pct Auto 1.4 % (0.0-0.4); Lymphocytes Absolute Auto 3.2 X10*3/uL (1.2-4.9); Lymphocytes Percent Auto 20.5 % (20-40); MANUAL DIFF FLAG SCAN; Mean Corpuscular HGB Conc 34.5 g/dl (31.0-36.0); Mean Corpuscular Volume 89.8 fL (80.0-98.0); Mean Platelet Volume 11.8 fL (9.4-12.4); Monocytes Absolute Auto 2.1 X10*3/uL (0.1-1.2); Monocytes Percent Auto 13.5 % (2-11); Neutrophils Absolute Auto 9.6 x10*3/uL (2.0-8.3); Neutrophils Percent Auto 62.5 % (45-73); Platelet Count 166 X10*3/uL (160-400); Red Blood Count 3.84 X10*6/uL (4.60-5.80); Red Cell Distribution Width 13.4 % (11.0-16.0); SCAN SMEAR FLAG 1; White Blood Count 15.4 X10*3/uL (4.8-10.8)
[2024-05-31 19:18] LABS: Erythrocyte Sedimentation Rate 88 MM/HR (0-15)
[2024-05-31 19:19] LABS: Alanine Aminotransferase 16 U/L (0-40); Albumin Level 3.4 g/dL (3.5-5.0); Alkaline Phosphatase 87 U/L (39-117); Anion Gap 11 (12-20); Aspartate Amino Transferase 14 U/L (5-37); Bilirubin Total 0.7 mg/dL (0.0-1.0); Blood Urea Nitrogen 22 mg/dL (9-16); C Reactive Protein 6.41 mg/dL (< or = 0.50); Calcium 9.5 mg/dL (8.4-10.2); Carbon Dioxide 24 mmol/L (22-29); Chloride 101 mmol/L (96-108); Creatinine Clr Calc Pharmacy 61.8; Estimated Glomerular Filt Rate > 60; Glucose Random 203 mg/dL (60-115); Magnesium 1.6 mg/dL (1.6-2.6); Potassium 5.3 mmol/L (3.3-5.1); Sodium 131 mmol/L (135-145)
[2024-05-31 20:03] LABS: SLIDE REVIEW VERIFIED
[2024-05-31 20:27] VITALS: BP 117/61; PULSE 80; RESP 16; TEMP 37.1; O2SAT 97
--- NOTE | 2024-05-31 20:42 | ED_ITS ---
HPI - Extremity Injury (Lower) General Chief Complaint: Extremity Injury, Lower Stated Complaint: unable to stand ,pain in both his knees Time Seen by Provider: 05/31/24 22:25 Source: patient and family () Mode of arrival: ambulatory Limitations: no limitations History of Present Illness ED Provider: Dr. Johan Sawyer HPI Narrative: 78-year-old male, with a history of TIA, [place], CKD, right bundle-branch block, DVT on Eliquis, myocardial infarction, thrombocytopenia who presents emergency department with complaint of bilateral knee pain and unable to stand and walk secondary to pain. His states that patient was had difficulty getting out of a chair and walking to the bathroom in his symptoms have gotten worse. Patient was seen here in the emergency department on 05/28/2024 (3 days prior) for right elbow soft tissue swelling and cellulitis. He was treated with doxycycline 100 mg b.i.d. x5 days and cephalexin 250 mg 4 times a day for 5 days. Patient states that the swelling and erythema of his elbow is improved significantly. He states he did have a fever last night of 100.2 degrees F. he denied cough, chest pain, shortness of breath or dyspnea on exertion. He denied nausea, vomiting or diarrhea. He denied rash, myalgias or arthralgias. He was not noted any recent tick bites. Related Data Home Medications ?Medication ?Instructions ?Recorded ?Confirmed atorvastatin 80 mg tablet 80 mg PO DAILY 01/10/21 06/01/24 finasteride 5 mg tablet 5 mg PO DAILY 01/10/21 06/01/24 insulin glargine 100 unit/mL (3 24 unit subcut BEDTIME 01/10/21 06/01/24 mL) subcutaneous pen (Lantus Solostar U-100 Insulin) metformin 500 mg tablet 2 tab PO BIDAC 01/10/21 06/01/24 metoprolol tartrate 25 mg tablet 25 mg PO BID 01/10/21 06/01/24 sitagliptin phosphate 100 mg 100 mg PO DAILY 01/10/21 06/01/24 tablet (Januvia) tamsulosin 0.4 mg capsule 0.8 mg PO DAILY 01/10/21 06/01/24 apixaban 5 mg tablet (Eliquis) 5 mg PO BID 02/09/23 06/01/24 losartan 25 mg tablet 25 mg PO DAILY 06/01/24 06/01/24 Previous Rx's ?Medication ?Instructions ?Recorded aspirin 81 mg chewable tablet 81 mg PO DAILY #30 tabs 05/17/22 ferrous sulfate 140 mg (45 mg 140 mg PO DAILY #90 tabs 08/06/23 iron) tablet,extended release (Slow Release Iron) ascorbic acid (vitamin C) 500 mg 500 mg PO DAILY #60 tabs 09/09/23 tablet (Vitamin C) doxycycline hyclate 100 mg tablet 100 mg PO BID 5 days #10 tabs 05/28/24 Allergies Allergy/AdvReac Type Severity Reaction Status Date / Time No Known Allergies Allergy Verified 05/31/24 17:53 [No Known Allergies*] Review of Systems 2 Review of Systems: Yes all other systems are reviewed and are negative [facility] Past Medical History [facility] Narrative: Social history: He was in his is here in the emergency department with him. He denies tobacco, alcohol and drug use. 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 CHB (complete heart block) History of acute myocardial infarction Diabetes High cholesterol HTN (hypertension) Kidney disease, chronic, stage III (GFR 30-59 ml/min) Surgical History S/P quadruple vessel bypass History of tonsillectomy Family History Family History Mother Breast cancer metastasized to brain Diabetes Sister Diabetes Brother Diabetes Sister Diabetes Sister Diabetes Brother Diabetes Maternal Uncle Diabetes Maternal Aunt Diabetes Maternal Aunt Diabetes Maternal Uncle Diabetes Social History Social History Household Members: Spouse Household Members Other:: Housing: House Are you a primary rn patient care to a significant other at home: No Do you presently have visiting nurse or other home services: No Alcohol intake: current Alcohol intake frequency: holidays/special occasions only Patient Tobacco Use Status: Never used Tobacco Smoked in Last 30 Days: No Use of substances other than those prescribed or required for medical reasons: No Advance Directives: No Advance Directives Information Provided: Yes service: Yes ([employer]) Current occupational status: retired Physical Exam 2 Vital Signs: Vital Signs: Last Vital Signs Temp 97.7 F 06/01/24 15:55 Pulse 70 06/01/24 15:55 Resp 20 06/01/24 15:55 BP 118/53 L 06/01/24 15:55 Pulse Ox 97 06/01/24 15:55 O2 Del Method Room Air 06/01/24 15:55 BMI result Body Mass Index 29.8 Vital signs did reveal an elevated blood pressure of 145/71 otherwise unremarkable Exam: General: Awake, alert in no distress Head: Normocephalic, atraumatic EENT: PERRL, Lids normal, sclera normal, conjunctiva normal, nose normal , ears normal, throat without erythema or exudates Neck: Supple, no adenopathy Lung: breath sounds symmetric, no wheezing, rales or rhonchi Chest: symmetric movement, nontender Heart: regular rate and rhythm, normal S1, S2 no murmurs or rubs Abdomen: soft, non-tender, nondistended, normal bowel sounds Back: no vertebral tenderness, no CVAT Extremities: Joint exam: Patient's right elbow revealed no increased warmth, there is a blue skin marker area which is large and there is no erythema noted or increased warmth noted within this blue marked area. Patient has no increased warmth over his fingers, wrists, elbows, feet, ankles or knees. Patient does have pain with flexion and extension of both knees. Neuro: General: Awake alert, no distress, normal saline Strength: Patient was able to hold both upper and lower extremities against gravity without any difficulty Cerebellar: Good [id number]-wshh-to-finger, limited heel to stoner secondary to pain in his knees, gait the patient was able to stand but appears to be unstable, he can take several steps but has difficulty secondary to his pain Psych: Pleasant, cooperative Course Course Course Narrative: Rapid medical exam performed by Cecy Franz PA-C. 78-year-old male presents with bilateral knee pain over the past few days. Patient states his knees have been extremely painful, he is having difficulty maneuvering position changes on his own. On exam, patient able to flex and extend from both knees, no overlying swelling or erythema. No fevers. To note, patient was recently treated for right elbow cellulitis, and had a tick panel obtained. He denies knowledge of being recently bitten by a tick. We will repeat screening labs and the tick panel, I reviewed the results, dependent upon his bacterial load, the testing could have yield a false negative Medications Administered Generic Name Dose Route Start Last Admin Trade Name Shannon PRN Reason Stop Dose Admin Apixaban 5 mg 06/01/24 09:00 06/01/24 08:55 Apixaban 5 Mg Tablet PO 5 mg BID MISTY Administration Ascorbic Acid 500 mg 06/01/24 09:00 06/01/24 08:56 Ascorbic Acid 500 Mg Tablet PO 500 mg DAILY MISTY Administration Aspirin 81 mg 06/01/24 09:00 06/01/24 08:57 Aspirin 81 Mg Tab.Chew PO 81 mg DAILY MISTY Administration Atorvastatin Calcium 80 mg 06/01/24 09:00 06/01/24 08:57 Atorvastatin Calcium 80 Mg Tablet PO 80 mg DAILY MISTY Administration Cephalexin HCl 250 mg 06/01/24 09:00 06/01/24 16:38 Cephalexin 250 Mg Capsule PO 06/03/24 23:59 250 mg QID MISTY Administration Doxycycline Monohydrate 100 mg 06/01/24 09:00 06/01/24 08:56 Doxycycline Monohydrate 100 Mg Capsule PO 06/09/24 08:59 100 mg BID MISTY Administration Finasteride 5 mg 06/01/24 09:00 06/01/24 09:38 Finasteride 5 Mg Tablet PO 5 mg DAILY MISTY Administration Insulin Glargine 24 unit 06/01/24 02:15 06/01/24 03:49 Insulin Glargine,Hum.Rec.Anlog 100 Unit/Ml 10 Ml Vial SUBCUT 24 unit BEDTIME MISTY Administration Losartan Potassium 25 mg 06/01/24 09:00 06/01/24 08:56 Losartan Potassium 25 Mg Tablet PO 25 mg DAILY MISTY Administration Protocol Metformin HCl 1,000 mg 06/01/24 08:00 06/01/24 16:38 Metformin Hcl 1,000 Mg Tablet PO 1,000 mg BIDWM MISTY Administration Metoprolol Tartrate 25 mg 06/01/24 02:15 06/01/24 08:57 Metoprolol Tartrate 25 Mg Tablet PO 25 mg BID MISTY Administration Protocol Sitagliptin Phosphate 100 mg 06/01/24 09:00 06/01/24 08:57 Sitagliptin Phosphate 100 Mg Tablet PO 100 mg DAILY MISTY Administration Tamsulosin HCl 0.4 mg 06/01/24 17:30 06/01/24 16:38 Tamsulosin Hcl 0.4 Mg Capsule PO 0.4 mg DAILY@1730 [facility] Administration Discontinued Medications Generic Name Dose Route Start Last Admin Trade Name Shannon PRN Reason Stop Dose Admin Apixaban 5 mg 06/01/24 02:05 06/01/24 03:49 Apixaban 5 Mg Tablet PO 06/01/24 02:06 5 mg ONCE ONE Administration Doxycycline Monohydrate 100 mg 06/01/24 09:00 06/01/24 08:56 Doxycycline Monohydrate 100 Mg Capsule PO 06/03/24 23:59 Not Given BID [facility] Prednisone 40 mg 05/31/24 22:58 05/31/24 23:49 Prednisone 20 Mg Tablet PO 05/31/24 22:59 40 mg ONCE ONE Administration Medical Decision Making Medical Decision Making [facility] Narrative: 78-year-old male, with a history of TIA, [place], CKD, right bundle-branch block, DVT on Eliquis, myocardial infarction, thrombocytopenia who presents emergency department with complaint of bilateral knee pain and unable to stand and walk secondary to pain x2 days to the point where he is having difficulty walking to the bathroom. Patient was seen 3 days prior and diagnosed with a right elbow cellulitis which is significantly improved on doxycycline and Keflex. Patient did have a fever of 100.2 degrees F last night. Patient has not noted any recent tick bites. Vital signs were unremarkable. Physical examination did reveal pain with movement of his knee joints bilaterally and difficulty standing and walking. There was no erythema or increased warmth to the right elbow. Neurologic exam was otherwise nonfocal. Differential diagnosis: ?Includes but is not limited to inflammatory arthritis, reactive arthritis, tick-borne illness, electrolyte abnormalities, anemia Course: 02:17 Start physician observation My interpretation patient's laboratory evaluation is as follows: Elevated WBC 20489 with elevated monocytes of 13.5 %. Chronic normocytic anemia with an H&H of 11.9 and 34.5. Normal platelet count of a 147637. Sodium was low 131. Potassium high 5.3. BUN elevated 22 with a normal creatinine of 1.05. Glucose elevated 203. CRP elevated 6.41. ESR elevated 88. The patient's tick-borne illness panel from 05/28/2024 was negative. Patient's presentation is consistent with a inflammatory arthritis from unclear etiology. I will start the patient on prednisone 40 mg once a day for 5 days taper by 1 pill every 2 days. I will also continue the patient's doxycycline for 8 more days. Patient's medications were reconciled in ordered by me. Since the patient is unable to walk, the patient will be placed in physician observation for PT evaluation and case management in the morning. At the end of my shift, the patient's care was turned over to my colleague, Dr. Marc Ellsworth. Admission/Observation Consideration of admission/observation: Escalation of care including admission/observation considered (yes) Lab Data [facility] Lab Attestation statement: I reviewed the patient's lab results. 05/31/24 18:13 05/31/24 18:13 Labs: Lab Results 05/31/24 06/01/24 06/01/24 Range/Units 18:13 03:44 07:43 WBC 15.4 H (4.8-10.8) X10*3/uL RBC 3.84 L (4.60-5.80) X10*6/uL Hgb 11.9 L (14.0-18.0) g/dl Hct 34.5 L (42.0-52.0) % MCV 89.8 (80.0-98.0) fL MCH 31.0 (27.0-33.0) pg MCHC 34.5 (31.0-36.0) g/dl RDW 13.4 (11.0-16.0) % Plt Count 166 (160-400) X10*3/uL MPV 11.8 (9.4-12.4) fL Immature Gran % (Auto) 1.4 H (0.0-0.4) % Neut % (Auto) 62.5 (45-73) % Lymph % (Auto) 20.5 (20-40) % Mcintosh % (Auto) 13.5 H (2-11) % Eos % (Auto) 1.6 (0-4) % Baso % (Auto) 0.5 (0-2) % Lymph # (Auto) 3.2 (1.2-4.9) X10*3/uL Mcintosh # (Auto) 2.1 H (0.1-1.2) X10*3/uL Eos # (Auto) 0.2 (0.0-0.4) X10*3/uL Baso # (Auto) 0.1 (0.0-0.2) X10*3/uL Abs Immat Gran (auto) 0.21 H (0.00-0.03) X10*3/uL Absolute Neuts (auto) 9.6 H (2.0-8.3) x10*3/uL Absolute Nucleated RBC 0.000 (0.0-0.012) X10*3/uL Nucleated RBC % (auto) 0.0 (0.0-0.2) /100WBC Smear Tech's Comments VERIFIED ESR 88 H (0-15) MM/HR Sodium 131 L (135-145) mmol/L Potassium 5.3 H (3.3-5.1) mmol/L Chloride 101 (96-108) mmol/L Carbon Dioxide 24 (22-29) mmol/L Anion Gap 11 L (12-20) BUN 22 H (9-16) mg/dL Creatinine 1.05 (0.5-1.4) mg/dL Estim Creat Clear Calc 61.8 Estimated GFR > 60 POC Glucose 267 H 283 H (60-115) mg/dL Random Glucose 203 H (60-115) mg/dL Calcium 9.5 (8.4-10.2) mg/dL Magnesium 1.6 (1.6-2.6) mg/dL Total Bilirubin 0.7 (0.0-1.0) mg/dL AST 14 (5-37) U/L ALT 16 (0-40) U/L Alkaline Phosphatase 87 (39-117) U/L C-Reactive Protein 6.41 H (< or = 0.50) mg/dL Total Protein 7.0 (6.5-8.0) g/dL Albumin 3.4 L (3.5-5.0) g/dL COVID-19 (FELIPE) (Negative) COVID-19 Clin Com 06/01/24 06/01/24 Range/Units 10:56 11:54 WBC (4.8-10.8) X10*3/uL RBC (4.60-5.80) X10*6/uL Hgb (14.0-18.0) g/dl Hct (42.0-52.0) % MCV (80.0-98.0) fL MCH (27.0-33.0) pg MCHC (31.0-36.0) g/dl RDW (11.0-16.0) % Plt Count (160-400) X10*3/uL MPV (9.4-12.4) fL Immature Gran % (Auto) (0.0-0.4) % Neut % (Auto) (45-73) % Lymph % (Auto) (20-40) % Mcintosh % (Auto) (2-11) % Eos % (Auto) (0-4) % Baso % (Auto) (0-2) % Lymph # (Auto) (1.2-4.9) X10*3/uL Mcintosh # (Auto) (0.1-1.2) X10*3/uL Eos # (Auto) (0.0-0.4) X10*3/uL Baso # (Auto) (0.0-0.2) X10*3/uL Abs Immat Gran (auto) (0.00-0.03) X10*3/uL Absolute Neuts (auto) (2.0-8.3) x10*3/uL Absolute Nucleated RBC (0.0-0.012) X10*3/uL Nucleated RBC % (auto) (0.0-0.2) /100WBC Smear Tech's Comments ESR (0-15) MM/HR Sodium (135-145) mmol/L Potassium (3.3-5.1) mmol/L Chloride (96-108) mmol/L Carbon Dioxide (22-29) mmol/L Anion Gap (12-20) BUN (9-16) mg/dL Creatinine (0.5-1.4) mg/dL Estim Creat Clear Calc Estimated GFR POC Glucose 262 H (60-115) mg/dL Random Glucose (60-115) mg/dL Calcium (8.4-10.2) mg/dL Magnesium (1.6-2.6) mg/dL Total Bilirubin (0.0-1.0) mg/dL AST (5-37) U/L ALT (0-40) U/L Alkaline Phosphatase (39-117) U/L C-Reactive Protein (< or = 0.50) mg/dL Total Protein (6.5-8.0) g/dL Albumin (3.5-5.0) g/dL COVID-19 (FELIPE) Negative (Negative) COVID-19 Clin Com See Note Independent Historian Clinical information obtained from an independent historian. History obtained from or confirmed by: Spouse Prescription Management I considered prescription management with: Antibiotic Discharge Plan Discharge Clinical Impression: Inflammatory arthritis, Unable to ambulate, Cellulitis of right elbow Prescriptions: No Action Slow Release Iron 140 mg (45 mg iron) Tablet Extended Release 140 mg PO DAILY Qty: 90 4RF atorvastatin 80 mg tablet 80 mg PO DAILY insulin glargine [Lantus Solostar U-100 Insulin] 100 unit/mL (3 mL) insulin pen 24 unit subcut BEDTIME Januvia 100 mg tablet 100 mg PO DAILY metoprolol tartrate 25 mg tablet 25 mg PO BID tamsulosin 0.4 mg capsule 0.8 mg PO DAILY finasteride 5 mg tablet 5 mg PO DAILY metformin 500 mg tablet 2 tab PO BIDAC Eliquis 5 mg tablet 5 mg PO BID ascorbic acid (vitamin C) [Vitamin C] 500 mg Tablet 500 mg PO DAILY Qty: 60 4RF aspirin 81 mg Tablet,Chewable 81 mg PO DAILY Qty: 30 0RF doxycycline hyclate 100 mg tablet 100 mg PO BID 5 Days Qty: 10 0RF losartan 25 mg tablet 25 mg PO DAILY Print Language: Ukrainian
[2024-05-31 22:28] VITALS: BP 137/62; PULSE 80; RESP 15; TEMP 36.9; O2SAT 96
--- NOTE | 2024-05-31 22:44 | MHC.EDTECH ---
at this time this tech assisted the pt out of his clothes and into a hospital gown, and placed him on the phototypesetting equipment monitor due to his report of weakness in his legs
[2024-05-31] MEDS: predniSONE 20 MG TABLET 40 MG PO (23:49)
[2024-06-01] VITALS (14 sets, daily range): BP systolic 118–145; BP diastolic 53–84; PULSE 69–82; RESP 13–25; TEMP 36.5–36.9; O2SAT 95–97
[2024-06-01 03:49] LABS: Glucose, Whole Blood 267 mg/dL (60-115)
[2024-06-01] MEDS: Metoprolol Tartrate 25 MG TABLET PO ×3 (03:49→21:50)
[2024-06-01] MEDS: Apixaban 5 MG TABLET PO ×3 (03:49→21:52)
[2024-06-01] MEDS: Insulin Glargine,Hum.rec.anlog 100 UNIT/ML 10 ML VIAL 24 UNIT SUBCUT ×2 (03:49→21:54)
[2024-06-01 07:47] LABS: Glucose, Whole Blood 283 mg/dL (60-115)
[2024-06-01] MEDS: metFORMIN HCl 1,000 MG TABLET 1000 MG PO ×2 (08:55→16:38)
[2024-06-01] MEDS: Ascorbic Acid 500 MG TABLET PO (08:56)
[2024-06-01] MEDS: Doxycycline Monohydrate 100 MG CAPSULE PO ×2 (08:56→21:49)
[2024-06-01] MEDS: Losartan Potassium 25 MG TABLET PO (08:56)
[2024-06-01] MEDS: cephALEXin 250 MG CAPSULE PO ×4 (08:56→21:51)
[2024-06-01] MEDS: Aspirin 81 MG TAB.CHEW PO (08:57)
[2024-06-01] MEDS: Atorvastatin Calcium 80 MG TABLET PO (08:57)
[2024-06-01] MEDS: SITagliptin Phosphate 100 MG TABLET PO (08:57)
[2024-06-01] MEDS: Finasteride 5 MG TABLET PO (09:38)
[2024-06-01 11:20] LABS: COVID-19 Test Negative (Negative); IDNOW Serial# 08D9AD1C
--- NOTE | 2024-06-01 11:26 | PHA.MEDREC ---
Addendum entered by Rah Moore 06/01/24 11:33: Reviewed Original Note: Pharmacy Consult ? Medication Reconciliation Pharmacy has completed the medication reconciliation. Spoke to patient to confirm med list. Patient had a list of medications. Patient states the Dr told him to stop taking Cephalexin 250 mg. Lantus is 24 units at bedtime
[2024-06-01 11:57] LABS: Glucose, Whole Blood 262 mg/dL (60-115)
--- NOTE | 2024-06-01 13:22 | MHC.CM.ED ---
Received case management consult overnight. Patient came to the ER due knee pain. Work up indicated inflammatory arthritis. Physical therapy eval completed. Short term rehab is recommended. Met with patient in regards to discharge planning. Patient lives with his , ambulates independently and had no services prior to coming to the hospital. PCP verified. Patient has a HCP at [facility]. T/W is attempting to obtain a copy. Patient is unsure if he wants to go to STR or home home with VNA. Patient will speak to his and have an answer for CM. List of facilities contracted with patient's insurance provided at this time. Patient aware CM will need 2-3 choices if STR is the choice. Continue to monitor for d/c needs.
[2024-06-01] MEDS: Tamsulosin HCL 0.4 MG CAPSULE PO (16:38)
--- NOTE | 2024-06-01 17:02 | PC.NURSE ---
Pt resting in bed, at bedside. Denies pain or complaints today. Reports feeling overall well. Plan per CM is STR.
[2024-06-01 17:03] LABS: A. Phagocytphilium DNA,RT-PCR NOT DETECTED (NOT DETECTED); Babesia Microti DNA, RT-PCR NOT DETECTED (NOT DETECTED); Borrelia Miyamotoi,DNA RT-PCR NOT DETECTED (NOT DETECTED); E.Chaffeensis DNA RT-PCR NOT DETECTED (NOT DETECTED); Lyme(Borrelia ssp)DNA RT-PCR NOT DETECTED (NOT DETECTED)
--- NOTE | 2024-06-01 19:12 | MHC.CM.ED ---
CM met with patient and his . They are agreeable to STR at this time. They would like something close. CM explained that referrals would be made locally that accept their insurance and then they could choose from any bed offers obtained. Pt has commercial Blue Cross HMO, not medicare. Pt worked for the [employer]. Has pension, not social security. They are aware that the insurance will need to authorize the rehab and that can take 24-48 hours. They are aware that the patient will remain in the ED. Referrals placed. CM will follow for discharge planning.
[2024-06-01 21:58] LABS: Glucose, Whole Blood 195 mg/dL (60-115)
[2024-06-02] VITALS (7 sets, daily range): BP systolic 112–150; BP diastolic 51–86; PULSE 66–88; RESP 16–18; TEMP 36.5–37.1; O2SAT 94–96
--- NOTE | 2024-06-02 07:00 | PC.NURSE ---
Report taken from Rosemarie Trevizo RN
[2024-06-02 07:55] LABS: Glucose, Whole Blood 206 mg/dL (60-115)
[2024-06-02] MEDS: Doxycycline Monohydrate 100 MG CAPSULE PO ×2 (08:36→21:22)
[2024-06-02] MEDS: metFORMIN HCl 1,000 MG TABLET 1000 MG PO ×2 (08:37→17:50)
[2024-06-02] MEDS: Metoprolol Tartrate 25 MG TABLET PO ×2 (08:37→21:22)
[2024-06-02] MEDS: Ascorbic Acid 500 MG TABLET PO (08:37)
[2024-06-02] MEDS: Apixaban 5 MG TABLET PO ×2 (08:37→21:23)
[2024-06-02] MEDS: cephALEXin 250 MG CAPSULE PO ×4 (08:37→21:22)
[2024-06-02] MEDS: Losartan Potassium 25 MG TABLET PO (08:37)
[2024-06-02] MEDS: SITagliptin Phosphate 100 MG TABLET PO (08:38)
[2024-06-02] MEDS: Aspirin 81 MG TAB.CHEW PO (08:38)
[2024-06-02] MEDS: Atorvastatin Calcium 80 MG TABLET PO (08:38)
--- NOTE | 2024-06-02 08:52 | MHC.CM.ED ---
Addendum entered by Susan Desai 06/02/24 09:13: Anticipated patient will be tranfer to [facility] via BLS tomorrow 06/03 at 3pm. Jojo ACOSTA booked. Med [facility] with chart. Patient, Francesca, Carly NUNEZ and Antonella LYONS aware. Original Note: Patient remains in ER. [facility] is able to offer a bed. This is 1st choice. [facility] has been asked to obtain insurance auth. Continue to monitor for d/c needs.
--- NOTE | 2024-06-02 09:42 | PC.NURSE ---
Per CM: [facility] tomorrow at 15:00
[2024-06-02] MEDS: Finasteride 5 MG TABLET PO (10:16)
[2024-06-02 13:21] LABS: Glucose, Whole Blood 179 mg/dL (60-115)
[2024-06-02] MEDS: Tamsulosin HCL 0.4 MG CAPSULE PO (17:50)
[2024-06-02 18:37] LABS: Glucose, Whole Blood 248 mg/dL (60-115)
--- NOTE | 2024-06-02 19:00 | PC.NURSE ---
Report given to Vaishali Arellano RN
--- NOTE | 2024-06-02 19:05 | PC.NURSE ---
received report from Carly Werner RN, assume care of pt at this time
[2024-06-02 20:50] LABS: Glucose, Whole Blood 281 mg/dL (60-115)
[2024-06-02] MEDS: Insulin Glargine,Hum.rec.anlog 100 UNIT/ML 10 ML VIAL 24 UNIT SUBCUT (21:23)
--- NOTE | 2024-06-02 23:45 | PC.NURSE ---
pt resting quietly on stretcher, eyes closed, resp with ease, no s/s of acute distress
[2024-06-03 06:14] VITALS: BP 119/65; PULSE 81; RESP 15; TEMP 37.1; O2SAT 93
--- NOTE | 2024-06-03 07:02 | PC.NURSE ---
report given to Mary NUNEZ
[2024-06-03 07:09] LABS: Glucose, Whole Blood 204 mg/dL (60-115)
[2024-06-03] MEDS: Losartan Potassium 25 MG TABLET PO (08:40)
[2024-06-03] MEDS: Finasteride 5 MG TABLET PO (08:40)
[2024-06-03] MEDS: Aspirin 81 MG TAB.CHEW PO (08:40)
[2024-06-03] MEDS: Apixaban 5 MG TABLET PO (08:40)
[2024-06-03] MEDS: Metoprolol Tartrate 25 MG TABLET PO (08:40)
[2024-06-03] MEDS: metFORMIN HCl 1,000 MG TABLET 1000 MG PO ×2 (08:40→17:00)
[2024-06-03] MEDS: Ascorbic Acid 500 MG TABLET PO (08:40)
[2024-06-03] MEDS: Doxycycline Monohydrate 100 MG CAPSULE PO (08:40)
[2024-06-03] MEDS: Atorvastatin Calcium 80 MG TABLET PO (08:40)
[2024-06-03] MEDS: cephALEXin 250 MG CAPSULE PO ×3 (08:40→17:00)
[2024-06-03 08:43] VITALS: BP 116/61; PULSE 85; RESP 16; TEMP 36.1; O2SAT 93
--- NOTE | 2024-06-03 08:50 | MHC.EDTECH ---
Patient had urine on the floor and he was wet with urine. Patient was clean and given breakfast.
[2024-06-03] MEDS: SITagliptin Phosphate 100 MG TABLET PO (09:02)
--- NOTE | 2024-06-03 09:27 | PC.NURSE ---
patient sat up this morning and at breakfast, medicated per NOV, takes meds whole with water. plan is to go to [facility] today at 1500. patient aware of plan. VSS, respirations equal and unlabored, skin dry and intact.
--- NOTE | 2024-06-03 15:13 | PC.NURSE ---
Report given to Nora (nurse) at [facility]
[2024-06-03 15:40] LABS: Glucose, Whole Blood 172 mg/dL (60-115)
[2024-06-03 15:41] VITALS: BP 112/63; PULSE 64; RESP 15; TEMP 36.2; O2SAT 97
--- NOTE | 2024-06-03 15:52 | MHC.EDTECH ---
This pct assumed care of Patient at 1500 ,vitals taken blood sugar check ,Patient was given a late lunch ate 100 % of meal and drank 360 ml fluids .
--- NOTE | 2024-06-03 16:28 | PC.NURSE ---
this nurse obtained report at 1500 from [facility], the patient is discharging back to [facility] via [facility]- [facility] already called report, pt a&o at this time, sitting up eating, pt denies pain/discomfort, vss, will continue to monitor
[2024-06-03] MEDS: Tamsulosin HCL 0.4 MG CAPSULE PO (17:00)
--- NOTE | 2024-06-03 17:02 | PC.NURSE ---
pt was medicated per orders, pt awaiting [facility] ride to facility, denies pain/discomfort, vss
[2024-06-03 17:21] VITALS: BP 114/68; PULSE 68; RESP 15; TEMP 36.2; O2SAT 98
== END 2024-06-03 17:22 | disposition other institution (70) ==
PROVIDERS: Physician Assistant Medical; Emergency Provider Emergency Medicine Emergency Medical Services; PCP Internal Medicine
DX: M17.0 Bilateral primary osteoarthritis of knee (principal); L03.113 Cellulitis of right upper limb; R26.81 Unsteadiness on feet; R47.02 Dysphasia; E11.9 Type 2 diabetes mellitus without complications; Z79.4 Long term (current) use of insulin; Z79.899 Other long term (current) drug therapy; Z11.52 Encounter for screening for COVID-19; Z86.718 Personal history of other venous thrombosis and embolism; Z79.01 Long term (current) use of anticoagulants
CPT/HCPCS: 36415; 70450; 80053; 82947; 83735; 85025; 85652; 86140; 87468; 87469; 87478; 87484; 87635; 87798; 97162; 99285

== ENCOUNTER 2024-09-06 17:07 | Inpatient (IN) | payer BC, SELFPAY ==
--- NOTE | ~2024-09-06 | XR_ITS ---
CLINICAL HISTORY: redness and swelling 3 view right elbow Comparison: CR/SR - XR ELBOW RT 2V - 05/28/24 12:32 EDT Findings: No acute fractures. Normal alignment. Mild degenerative changes of the elbow joint. Small enthesophyte of the posterior elbow. No joint effusion. No radiopaque foreign body. IMPRESSION: 1. No acute findings This document has been electronically signed by: Ana M Damon MD on 09/06/2024 19:04:45
--- NOTE | ~2024-09-06 | XR_ITS ---
CLINICAL HISTORY: fall 3 views of the right foot. COMPARISON: None FINDINGS: No ankle joint effusion. Atherosclerotic vascular calcifications. Normal tarsometatarsal alignment. Small ossification present along the lateral proximal aspect of the navicular with sharp margins, seen only on the AP imaging. No radiopaque foreign body. IMPRESSION: 1. Small ossification along the lateral aspect of the navicular suspicious for acute avulsion injury. By location this could represent an accessory ossicle however margins appear sharp favoring an acute avulsion injury. Recommend correlation with prior imaging, clinical history and point tenderness. This document has been electronically signed by: Carlos Alvarado MD on 09/08/2024 19:46:19
--- NOTE | ~2024-09-06 | CT_ITS ---
CLINICAL HISTORY: fall CT head without contrast Comparison: 06/02/2024 Findings: No new intra-axial mass, midline shift, hydrocephalus, or acute hemorrhage. No significant atrophy-like change or white matter disease. The visualized paranasal sinuses and mastoid air cells are normal. The orbits are within normal limits. No skull fracture. IMPRESSION: 1. No acute intracranial findings This document has been electronically signed by: Spencer Anderson MD on 09/08/2024 21:03:20
--- NOTE | ~2024-09-06 | XR_ITS ---
CLINICAL HISTORY: cough 1 view chest x-ray Comparison: 01/12/2021 Findings: There is left upper lobe consolidation with left pleural effusion, possible pneumonia or atelectasis. Normal size heart. No acute fracture. IMPRESSION: 1. Left upper lobe consolidation with left pleural effusion, differential considerations noted. This document has been electronically signed by: Spencer Anderson MD on 09/07/2024 19:33:57
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
--- NOTE | ~2024-09-06 | XR_ITS ---
CLINICAL HISTORY: redness and swelling 3 view left elbow Comparison: None Findings: Bones intact. No dislocations. There are calcifications adjacent to the medial epicondyle. No joint effusion. There is soft tissue edema of the elbow. No radiopaque foreign body. IMPRESSION: No acute fracture or aggressive lesion. This document has been electronically signed by: Ana M Damon MD on 09/06/2024 19:02:35
--- NOTE | 2024-09-06 18:05 | ED_ITS ---
HPI - General Adult General Chief complaint: General Medical Stated complaint: R/O Septic bursitis, sent by primary Time Seen by Provider: 09/06/24 20:47 Source: patient Limitations: no limitations History of Present Illness ED Provider: Cecy Leavitt PA-C HPI narrative: 78-year-old male with a history of diabetes, hyperlipidemia, hypertension, prior STEMI, chronic kidney disease, underlying global weakness with gait instability, chronic olecranon bilateral bursitis, presents with concerned for septic bursitis. Patient has had bursitis of both elbows for months. He was seen by his primary care provider today, they felt he needed a rule out for septic effusions. Patient denies pain, redness, swelling of the regions no fevers. In addition, his is concerned because his weakness is progressing. Patient can not get himself out of bed, up out of a chair. He needs assistance with all activities of daily living. Patient has been in and out of rehab over the past several months. Related Data Home Medications ?Medication ?Instructions ?Recorded ?Confirmed atorvastatin 80 mg tablet 80 mg PO DAILY 01/10/21 09/07/24 finasteride 5 mg tablet 5 mg PO DAILY 01/10/21 09/07/24 insulin glargine 100 unit/mL (3 24 unit subcut BEDTIME 01/10/21 09/07/24 mL) subcutaneous pen (Lantus Solostar U-100 Insulin) metformin 500 mg tablet 2 tab PO BIDAC 01/10/21 09/07/24 metoprolol tartrate 25 mg tablet 25 mg PO BID 01/10/21 09/07/24 sitagliptin phosphate 100 mg 100 mg PO DAILY 01/10/21 09/07/24 tablet (Januvia) apixaban 5 mg tablet (Eliquis) 5 mg PO BID 02/09/23 09/07/24 losartan 25 mg tablet 25 mg PO DAILY 06/01/24 09/07/24 Previous Rx's ?Medication ?Instructions ?Recorded aspirin 81 mg chewable tablet 81 mg PO DAILY #30 tabs 05/17/22 Allergies Allergy/AdvReac Type Severity Reaction Status Date / Time Seasonal Allergies Allergy Runny Nose Verified 09/08/24 08:17 Review of Systems 2 Review of Systems: Yes all other systems are reviewed and are negative Constitutional: Constitutional: Denies fatigue, Denies fever(s) and Reports weakness Cardiovascular: Cardiovascular: Denies chest pain and Denies dyspnea Respiratory: Respiratory: Denies cough and Denies dyspnea Gastrointestinal: Gastrointestinal: Denies abdominal pain, Denies diarrhea, Denies nausea and Denies vomiting Musculoskeletal: Musculoskeletal: Denies arthralgias and Denies joint swelling Integumentary/Breasts: Skin/Breast: Denies erythema Neurologic: Reports weakness Endocrine: Endocrine: Denies fatigue PMFSH Past Medical History Attestation statement: The following information was validated with the patient. 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 CHB (complete heart block) History of acute myocardial infarction Diabetes High cholesterol HTN (hypertension) Kidney disease, chronic, stage III (GFR 30-59 ml/min) Surgical History S/P quadruple vessel bypass History of tonsillectomy Family History Family History Mother Breast cancer metastasized to brain Diabetes Sister Diabetes Brother Diabetes Sister Diabetes Sister Diabetes Brother Diabetes Maternal Uncle Diabetes Maternal Aunt Diabetes Maternal Aunt Diabetes Maternal Uncle Diabetes Social History Social History Household Members: Spouse Household Members Other:: Housing: House Are you a primary patient centered care specialist to a significant other at home: No Do you presently have visiting nurse or other home services: No Alcohol intake: current Alcohol intake frequency: does not drink Patient Tobacco Use Status: Never used Tobacco Smoked in Last 30 Days: No Use of substances other than those prescribed or required for medical reasons: No Have you been hit, kicked, punched, or otherwise hurt by someone within the past year? If so, by whom?: No Do you feel safe in your current relationship?: Yes Is there a partner from a previous relationship who is making you feel unsafe now?: No Are you made to feel afraid or neglected: No [employer] Healthcare Practices: Evangelical Advance Directives: No Advance Directives Information Provided: No Do you have a plan to hurt others: No Plan Recently lost weight without trying: Yes How much weight loss: 14-23 pounds Eating poorly because of decreased appetite: Yes Nutrition screen score: 5 Nutrition Risks: Poor intake 0-25% >4 days Poor oral hygiene: No service: Yes Current occupational status: retired Physical Exam ED Vital Signs: Vital Signs - 24 hr 09/07/24 18:31 09/07/24 20:04 09/07/24 20:35 Temperature 101.5 F H 101.3 F H Pulse Rate 78 79 Respiratory Rate 16 18 Blood Pressure 123/58 L 122/69 Pulse Oximetry 94 Oxygen Delivery Method Room Air BMI result Body Mass Index 28.6 Const Other: Alert well-appearing Orientation/consciousness: patient oriented x3 Resp Effort & Inspection: normal respiratory effort Cardio Other: Normal peripheral perfusion Skin Other: Warm dry no rash Neuro Other: Patient's movements are slow and rigid, he has an underlying subtle resting tremor. General: patient oriented x3, no focal motor deficits and CN's II-XI intact bilaterally Extrem Other: Bilateral pronounced bursa bilateral elbows, some degree of erythema that appears chronic, the regions are not any warmer than the rest of the extremity, he has full flexion and extension from both elbows, the bursa are non tender to palpation Psych Other: Calm cooperative, somewhat of a flat affect Course Course Course Narrative: This is a rapid medical exam performed by Aundrea Camargo NP: Additional HPI, ROS, PE not included below will be deferred to primary provider. Patient is a 78-year-old male with history of afib, AR, DM, HTN, anemia, high cholesterol, CKD stage III, TIA, pacemaker presenting to the ED stating that his PCP sent him to rule out septic bursitis of left elbow. Unable to visualize in triage r/t multiple layers of clothing. Plan: labs, xrays Reevaluation(s) Reevaluation #1: 09/07/2024 0700 Aracelis Casillas PA-C ----> Observation continues. Case management continues to follow. Confirmed that neurology is aware of the consult being placed. Reevaluation #2: Patient is an overflow, he is pending PT case management. He just spiked a temperature 101.5 initiating sepsis protocol, repeating his labs, adding blood cultures, lactic acid, chest x-ray and viral swab. Giving Tylenol IV fluid and starting ceftriaxone. Nursing staff states the patient was complaining of a cough. He does not require weight based IV fluid resuscitation given his blood pressure is stable. We will give gentle fluid hydration, I see he has had an echo within the past few years his EF is preserved at 55-60% I have independently reviewed the following tests: Labs: No additional elevation in white blood cell count, no change in electrolytes, magnesium subtly low we will give p.o. magnesium, lactic acid 1.7, viral panel negative Chest x-ray:IMPRESSION: 1. Left upper lobe consolidation with left pleural effusion, differential considerations noted. This document has been electronically signed by: Spencer Anderson MD on 09/07/2024 19:33:57 Adding additional antibiotic coverage, the patient will be admitted. Covering with doxy instead of azithromycin given he has cardiac disease as well. I am d/c seeing the oral doxy, I was covering for suspect cellulitis, which again I have already classified that he has chronic olecranon bursitis, this is not the source of his fever clearly, his white count from yesterday was likely from this developing pneumonia. His pressures also down trending, when compared to yesterday. His fevers not responding to the Tylenol, however he can not have Toradol given his underlying chronic kidney disease Time: 18:37 Reevaluation #3: Any fluids and also medical I was called from staff in the overflow area as the patient had a witnessed fall by staff. Both the geotechnical laboratory technician and nurse witnessed the patient fall onto his right side. There was no head strike. He was of right hip pain but denies any pain to me. There is no shortening or rotation of the right lower extremity. He does have some guarding on palpation of the right hip. Plan for x-ray of the right hip and CT scan of the brain given the patient is on Eliquis. The patient is admitted, so the admitting team was also made aware of the fall Time: 17:33 Medications Administered Generic Name Dose Route Start Last Admin Trade Name Freq PRN Reason Stop Dose Admin Apixaban 5 mg 09/07/24 21:00 09/08/24 08:34 Apixaban 5 Mg Tablet PO 5 mg BID MISTY Administration Aspirin 81 mg 09/08/24 09:00 09/08/24 08:35 Aspirin 81 Mg Tab.Chew PO 81 mg DAILY MISTY Administration Atorvastatin Calcium 80 mg 09/08/24 09:00 09/08/24 08:36 Atorvastatin Calcium 80 Mg Tablet PO 80 mg DAILY MISTY Administration Finasteride 5 mg 09/08/24 09:00 09/08/24 08:36 Finasteride 5 Mg Tablet PO 5 mg DAILY MISTY Administration Doxycycline Hyclate 100 mg/ 250 mls @ 166.67 mls/hr 09/08/24 08:00 09/08/24 09:17 Sodium Chloride IV Infused Q12H MISTY Infusion Insulin Glargine 19 unit 09/07/24 21:00 09/07/24 21:30 Insulin Glargine,Hum.Rec.Anlog 100 Unit/Ml 10 Ml Vial SUBCUT 19 unit BEDTIME [facility] Administration Insulin Human Lispro 0 unit 09/07/24 21:00 09/08/24 16:58 Insulin Lispro 100 Unit/Ml 3 Ml Vial SUBCUT 2 unit QIDACHS [facility] Administration Protocol Losartan Potassium 25 mg 09/08/24 09:00 09/08/24 08:35 Losartan Potassium 25 Mg Tablet PO 25 mg DAILY [facility] Administration Protocol Metoprolol Tartrate 25 mg 09/07/24 21:00 09/08/24 08:35 Metoprolol Tartrate 25 Mg Tablet PO 25 mg BID [facility] Administration Protocol Sodium Chloride 3 ml 09/08/24 00:00 09/08/24 16:46 0.9 % Sodium Chloride Flush 3 Ml Syringe IVFLUSH 3 ml QSHIFT [facility] Administration Discontinued Medications Generic Name Dose Route Start Last Admin Trade Name Freq PRN Reason Stop Dose Admin Acetaminophen 975 mg 09/07/24 18:34 09/07/24 18:59 Acetaminophen 325 Mg Tablet PO 09/07/24 18:35 975 mg ONCE ONE Administration Ceftriaxone Sodium 2 gm 09/07/24 18:34 09/07/24 18:56 Ceftriaxone Sodium 2 Gm Vial IVPUSH 09/07/24 18:35 2 gm ONCE ONE Administration Doxycycline Monohydrate 100 mg 09/06/24 22:01 09/06/24 22:14 Doxycycline Monohydrate 100 Mg Capsule PO 09/06/24 22:02 100 mg ONCE ONE Administration Doxycycline Monohydrate 100 mg 09/07/24 16:40 09/07/24 16:57 Doxycycline Monohydrate 100 Mg Capsule PO 09/07/24 16:41 100 mg ONCE ONE Administration Sodium Chloride 500 mls @ 500 mls/hr 09/07/24 18:34 09/07/24 19:49 Ns IV 09/07/24 19:33 Infused .Q1H ONE Infusion Doxycycline Hyclate 100 mg/ 250 mls @ 166.67 mls/hr 09/07/24 20:14 09/07/24 21:24 Sodium Chloride IV 09/07/24 21:43 Not Given ONCE ONE Sodium Chloride 1,000 mls @ 999 mls/hr 09/07/24 20:30 09/07/24 22:48 Ns IV 09/07/24 21:30 Infused .Q1H1M MISTY Infusion Magnesium Sulfate 2 gm in 50 mls @ 25 mls/hr 09/07/24 20:27 09/07/24 23:43 Magnesium Sulfate/H2o IV 09/07/24 22:26 Infused ONCE ONE Infusion Doxycycline Hyclate 100 mg/ 250 mls @ 166.67 mls/hr 09/07/24 22:56 09/08/24 02:59 Sodium Chloride IV 09/08/24 00:25 Infused ONCE ONE Infusion Metformin HCl 1,000 mg 09/07/24 16:45 09/07/24 16:57 Metformin Hcl 1,000 Mg Tablet PO 1,000 mg BIDAC MISTY Administration Medical Decision Making Medical Decision Making MDM Narrative: 78-year-old male with a history of diabetes, hyperlipidemia, hypertension, prior STEMI, chronic kidney disease, underlying global weakness with gait instability, chronic olecranon bilateral bursitis, presents with concerned for septic bursitis. Patient has had bursitis of both elbows for months. He was seen by his primary care provider today, they felt he needed a rule out for septic effusions. Patient denies pain, redness, swelling of the regions no fevers. In addition, his is concerned because his weakness is progressing. Patient can not get himself out of bed, up out of a chair. He needs assistance with all activities of daily living. Patient has been in and out of rehab over the past several months. Problem: Age, diabetes, chronic kidney disease History: Per patient I have considered the following differential diagnoses: Acute on chronic bursitis, septic effusion, cellulitis, new diagnosis of Parkinson's Plan: In regard to the upper extremity complaint, I believe the bursa to be chronically inflamed. There was no evidence of septic effusion, x-rays were obtained of bilateral elbows, he has arthritis, there are no joint effusions. Screening labs including inflammatory markers were obtained from triage. He has a slight leukocytosis, his inflammatory markers are elevated, it could be just secondary to the inflammation, to err on the side of caution I am covering with doxycycline. To note again, he has no pain it would be odd for him to have an infection in the absence of pain. Given his age I am still covering with doxycycline. In regard to the weakness, the patient does have exam findings that are suspicious for potential Parkinson's, I spoke with the inpatient team, if we hold him as physician labs he can have a neurology consult in the morning. We will hold for case management PT in place a neurology consult. I have independently reviewed the following tests: Labs: Slight leukocytosis, not anemic, inflammatory markers are elevated, no electrolyte abnormality noted. X-ray right elbow: Findings: No acute fractures. Normal alignment. Mild degenerative changes of the elbow joint. Small enthesophyte of the posterior elbow. No joint effusion. No radiopaque foreign body. IMPRESSION: 1. No acute findings This document has been electronically signed by: Ana M Damon MD on 09/06/2024 19:04:45 X-ray left elbow:Findings: Bones intact. No dislocations. There are calcifications adjacent to the medial epicondyle. No joint effusion. There is soft tissue edema of the elbow. No radiopaque foreign body. IMPRESSION: No acute fracture or aggressive lesion. This document has been electronically signed by: Ana M Damon MD on 09/06/2024 19:02:35 Lab Data 09/08/24 05:25 09/08/24 05:25 Labs: Lab Results 09/06/24 09/07/24 09/07/24 Range/Units 18:30 16:36 18:47 WBC 13.8 H 12.6 H (4.8-10.8) X10*3/uL RBC 3.70 L 3.78 L (4.60-5.80) X10*6/uL Hgb 10.3 L 10.4 L (14.0-18.0) g/dl Hct 31.4 L 31.8 L (42.0-52.0) % MCV 84.9 84.1 (80.0-98.0) fL MCH 27.8 27.5 (27.0-33.0) pg MCHC 32.8 32.7 (31.0-36.0) g/dl RDW 16.5 H 16.4 H (11.0-16.0) % Plt Count 192 185 (160-400) X10*3/uL MPV 10.8 10.7 (9.4-12.4) fL Immature Gran % (Auto) 0.7 H 0.7 H (0.0-0.4) % Neut % (Auto) 69.2 67.0 (45-73) % Lymph % (Auto) 16.5 L 18.9 L (20-40) % [place] % (Auto) 11.9 H 10.6 (2-11) % Eos % (Auto) 1.1 2.2 (0-4) % Baso % (Auto) 0.6 0.6 (0-2) % Lymph # (Auto) 2.3 2.4 (1.2-4.9) X10*3/uL [place] # (Auto) 1.6 H 1.3 H (0.1-1.2) X10*3/uL Eos # (Auto) 0.2 0.3 (0.0-0.4) X10*3/uL Baso # (Auto) 0.1 0.1 (0.0-0.2) X10*3/uL Abs Immat Gran (auto) 0.09 H 0.09 H (0.00-0.03) X10*3/uL Absolute Neuts (auto) 9.6 H 8.4 H (2.0-8.3) x10*3/uL Absolute Nucleated RBC 0.000 0.000 (0.0-0.012) X10*3/uL Nucleated RBC % (auto) 0.0 0.0 (0.0-0.2) /100WBC Smear Tech's Comments VERIFIED ESR 90 H (0-15) MM/HR Sodium 136 134 L (135-145) mmol/L Potassium 4.8 4.8 (3.3-5.1) mmol/L Chloride 105 103 (96-108) mmol/L Carbon Dioxide 23 20 L (22-29) mmol/L Anion Gap 13 16 (12-20) BUN 22 H 16 (9-16) mg/dL Creatinine 0.89 0.79 (0.5-1.4) mg/dL Estim Creat Clear Calc 71.5 80.5 Estimated GFR > 60 > 60 POC Glucose 204 H (60-115) mg/dL Random Glucose 197 H 197 H (60-115) mg/dL Lactic Acid 1.7 (0.5-2.0) mmol/L Calcium 8.4 D 8.2 L (8.4-10.2) mg/dL Magnesium 1.5 L (1.6-2.6) mg/dL Total Bilirubin 0.5 0.5 (0.0-1.0) mg/dL AST 16 24 (5-37) U/L ALT 7 11 (0-40) U/L Alkaline Phosphatase 82 83 (39-117) U/L C-Reactive Protein 8.65 H (< or = 0.50) mg/dL Total Protein 6.9 6.8 (6.5-8.0) g/dL Albumin 3.1 L 2.9 L (3.5-5.0) g/dL Influenza Type A (PCR) (Negative) Influenza Type B (PCR) (Negative) RSV RNA Qual (PCR) (Negative) SARS-CoV-2 RNA (RT-PCR) (Negative) 09/07/24 09/07/24 Range/Units 18:56 20:57 WBC (4.8-10.8) X10*3/uL RBC (4.60-5.80) X10*6/uL Hgb (14.0-18.0) g/dl Hct (42.0-52.0) % MCV (80.0-98.0) fL MCH (27.0-33.0) pg MCHC (31.0-36.0) g/dl RDW (11.0-16.0) % Plt Count (160-400) X10*3/uL MPV (9.4-12.4) fL Immature Gran % (Auto) (0.0-0.4) % Neut % (Auto) (45-73) % Lymph % (Auto) (20-40) % [place] % (Auto) (2-11) % Eos % (Auto) (0-4) % Baso % (Auto) (0-2) % Lymph # (Auto) (1.2-4.9) X10*3/uL [place] # (Auto) (0.1-1.2) X10*3/uL Eos # (Auto) (0.0-0.4) X10*3/uL Baso # (Auto) (0.0-0.2) X10*3/uL Abs Immat Gran (auto) (0.00-0.03) X10*3/uL Absolute Neuts (auto) (2.0-8.3) x10*3/uL Absolute Nucleated RBC (0.0-0.012) X10*3/uL Nucleated RBC % (auto) (0.0-0.2) /100WBC Smear Tech's Comments ESR (0-15) MM/HR Sodium (135-145) mmol/L Potassium (3.3-5.1) mmol/L Chloride (96-108) mmol/L Carbon Dioxide (22-29) mmol/L Anion Gap (12-20) BUN (9-16) mg/dL Creatinine (0.5-1.4) mg/dL Estim Creat Clear Calc Estimated GFR POC Glucose 206 H (60-115) mg/dL Random Glucose (60-115) mg/dL Lactic Acid (0.5-2.0) mmol/L Calcium (8.4-10.2) mg/dL Magnesium (1.6-2.6) mg/dL Total Bilirubin (0.0-1.0) mg/dL AST (5-37) U/L ALT (0-40) U/L Alkaline Phosphatase (39-117) U/L C-Reactive Protein (< or = 0.50) mg/dL Total Protein (6.5-8.0) g/dL Albumin (3.5-5.0) g/dL Influenza Type A (PCR) NEGATIVE (Negative) Influenza Type B (PCR) NEGATIVE (Negative) RSV RNA Qual (PCR) NEGATIVE (Negative) SARS-CoV-2 RNA (RT-PCR) NEGATIVE (Negative) Discharge Plan Discharge Clinical Impression: Bilateral olecranon bursitis, Weakness, Sepsis, Pneumonia Patient Disposition: Admitted As Inpatient Interventions: Admission Worksheet (ED) Last Done: 09/08/24 16:12
[2024-09-06 18:10] VITALS: BP 115/46; PULSE 79; RESP 16; TEMP 37; O2SAT 94; BMI 28.6
[2024-09-06 18:40] LABS: Basophils Absolute Auto 0.1 X10*3/uL (0.0-0.2); Basophils Percent Auto 0.6 % (0-2); Eosinophils Absolute Auto 0.2 X10*3/uL (0.0-0.4); Eosinophils Percent Auto 1.1 % (0-4); Hematocrit 31.4 % (42.0-52.0); Hemoglobin 10.3 g/dl (14.0-18.0); Imm Gran Abs Auto 0.09 X10*3/uL (0.00-0.03); Imm Gran Pct Auto 0.7 % (0.0-0.4); Lymphocytes Absolute Auto 2.3 X10*3/uL (1.2-4.9); Lymphocytes Percent Auto 16.5 % (20-40); MANUAL DIFF FLAG SCAN; Mean Corpuscular HGB Conc 32.8 g/dl (31.0-36.0); Mean Corpuscular Hemoglobin 27.8 pg (27.0-33.0); Mean Corpuscular Volume 84.9 fL (80.0-98.0); Mean Platelet Volume 10.8 fL (9.4-12.4); Monocytes Absolute Auto 1.6 X10*3/uL (0.1-1.2); Monocytes Percent Auto 11.9 % (2-11); Neutrophils Absolute Auto 9.6 x10*3/uL (2.0-8.3); Neutrophils Percent Auto 69.2 % (45-73); Platelet Count 192 X10*3/uL (160-400); Red Cell Distribution Width 16.5 % (11.0-16.0); SCAN SMEAR FLAG 1; White Blood Count 13.8 X10*3/uL (4.8-10.8)
[2024-09-06 19:01] LABS: SLIDE REVIEW VERIFIED
[2024-09-06 19:10] LABS: Alanine Aminotransferase 7 U/L (0-40); Albumin Level 3.1 g/dL (3.5-5.0); Alkaline Phosphatase 82 U/L (39-117); Anion Gap 13 (12-20); Aspartate Amino Transferase 16 U/L (5-37); Bilirubin Total 0.5 mg/dL (0.0-1.0); Blood Urea Nitrogen 22 mg/dL (9-16); C Reactive Protein 8.65 mg/dL (< or = 0.50); Calcium 8.4 mg/dL (8.4-10.2); Carbon Dioxide 23 mmol/L (22-29); Chloride 105 mmol/L (96-108); Creatinine Clr Calc Pharmacy 71.5; Estimated Glomerular Filt Rate > 60; Glucose Random 197 mg/dL (60-115); Potassium 4.8 mmol/L (3.3-5.1); Sodium 136 mmol/L (135-145); Total Protein 6.9 g/dL (6.5-8.0)
[2024-09-06 19:56] LABS: Erythrocyte Sedimentation Rate 90 MM/HR (0-15)
[2024-09-06 21:20] VITALS: BP 124/60; PULSE 80; RESP 16; TEMP 36.5; O2SAT 96
[2024-09-06] MEDS: Doxycycline Monohydrate 100 MG CAPSULE PO (22:14)
--- NOTE | 2024-09-06 23:06 | PC.NURSE ---
pt changed over to hospital attire, fall risk socks in place, urinal at the bedside and call wheeler.
[2024-09-07] VITALS (8 sets, daily range): BP systolic 117–137; BP diastolic 58–69; PULSE 78–82; RESP 16–18; TEMP 37.2–38.6; O2SAT 93–95
--- NOTE | 2024-09-07 00:09 | PC.NURSE ---
Report given to RN, pt being taken to overflow, belonging list completed.
--- NOTE | 2024-09-07 09:15 | PHA.MEDREC ---
Pharmacy Consult ? Medication Reconciliation Pharmacy has completed the medication reconciliation. Spoke with patient who was able to name medications, frequencies and doses without being lead. OF NOTE: Eliquis, finasteride, metformin and metoprolol are overdue for refill however patient confirms to be taking them.
--- NOTE | 2024-09-07 10:15 | MHC.CM.PN ---
Patient sent to ER by PCP. The DX was assess left elbow for septic arthritis. Per ER provider no septic arthritis. S/S indicating possible Parkinsons disease noted. A Neurology consult and a PT eval have been ordered and are pending.
[2024-09-07 16:39] LABS: Glucose, Whole Blood 204 mg/dL (60-115)
[2024-09-07] MEDS: Doxycycline Monohydrate 100 MG CAPSULE PO (16:57)
[2024-09-07] MEDS: metFORMIN HCl 1,000 MG TABLET 1000 MG PO (16:57)
--- NOTE | 2024-09-07 16:59 | PC.NURSE ---
POC 204. NO SS. Per POP Castro, stick to ordered metformin and lantus tonight
[2024-09-07] MEDS: 0.9 % Sodium Chloride 500 ML IV (18:48)
[2024-09-07] MEDS: cefTRIAXone sodium 2 GM VIAL IVPUSH (18:56)
[2024-09-07] MEDS: Acetaminophen 325 MG TABLET 975 MG PO (18:59)
[2024-09-07 19:04] LABS: MANUAL DIFF FLAG NO
[2024-09-07 19:16] LABS: Basophils Absolute Auto 0.1 X10*3/uL (0.0-0.2); Basophils Percent Auto 0.6 % (0-2); Eosinophils Absolute Auto 0.3 X10*3/uL (0.0-0.4); Eosinophils Percent Auto 2.2 % (0-4); Hematocrit 31.8 % (42.0-52.0); Hemoglobin 10.4 g/dl (14.0-18.0); Imm Gran Abs Auto 0.09 X10*3/uL (0.00-0.03); Imm Gran Pct Auto 0.7 % (0.0-0.4); Lymphocytes Absolute Auto 2.4 X10*3/uL (1.2-4.9); Lymphocytes Percent Auto 18.9 % (20-40); Mean Corpuscular HGB Conc 32.7 g/dl (31.0-36.0); Mean Corpuscular Hemoglobin 27.5 pg (27.0-33.0); Mean Corpuscular Volume 84.1 fL (80.0-98.0); Mean Platelet Volume 10.7 fL (9.4-12.4); Monocytes Absolute Auto 1.3 X10*3/uL (0.1-1.2); Monocytes Percent Auto 10.6 % (2-11); Neutrophils Absolute Auto 8.4 x10*3/uL (2.0-8.3); Platelet Count 185 X10*3/uL (160-400); Red Blood Count 3.78 X10*6/uL (4.60-5.80); Red Cell Distribution Width 16.4 % (11.0-16.0); White Blood Count 12.6 X10*3/uL (4.8-10.8)
--- NOTE | 2024-09-07 19:19 | PC.NURSE ---
pt slept much of the morning and then had a family visit. this afternoon, pt had a couple episodes of coughing. when asked about it, this nurse also noticed that pt was warm. tempt taken 101.5 rectally. Gloria LORD notified and orders placed. 2 IVs placed bilat forearms. cultures drawn and labs drawn. abx given and fluids infusing. charge nurse in ED made aware of pts condition in overflow.
[2024-09-07 19:21] LABS: Lactic Acid 1.7 mmol/L (0.5-2.0)
[2024-09-07 19:24] LABS: Alanine Aminotransferase 11 U/L (0-40); Albumin Level 2.9 g/dL (3.5-5.0); Alkaline Phosphatase 83 U/L (39-117); Anion Gap 16 (12-20); Aspartate Amino Transferase 24 U/L (5-37); Bilirubin Total 0.5 mg/dL (0.0-1.0); Blood Urea Nitrogen 16 mg/dL (9-16); Calcium 8.2 mg/dL (8.4-10.2); Carbon Dioxide 20 mmol/L (22-29); Chloride 103 mmol/L (96-108); Creatinine Clr Calc Pharmacy 80.5; Estimated Glomerular Filt Rate > 60; Glucose Random 197 mg/dL (60-115); Magnesium 1.5 mg/dL (1.6-2.6); Potassium 4.8 mmol/L (3.3-5.1); Sodium 134 mmol/L (135-145); Total Protein 6.8 g/dL (6.5-8.0)
[2024-09-07 19:44] LABS: Influenza A PCR NEGATIVE (Negative); Influenza B PCR NEGATIVE (Negative); Resp Syncy Virus RNA Qual PCR NEGATIVE (Negative); SARS COV2 PCR INHOUSE NEGATIVE (Negative)
--- NOTE | 2024-09-07 20:08 | PC.NURSE ---
IVF and ABX completed, VSS, rectal temp 101.3 after tylenol. provider made aware
[2024-09-07 21:01] LABS: Glucose, Whole Blood 206 mg/dL (60-115)
[2024-09-07] MEDS: Magnesium Sulfate/H2O 2 GM/50 ML PIGGYBACK IV (21:29)
[2024-09-07] MEDS: 0.9 % Sodium Chloride 1,000 ML 999 ML IV (21:29)
[2024-09-07] MEDS: Metoprolol Tartrate 25 MG TABLET PO (21:30)
[2024-09-07] MEDS: Insulin Glargine,Hum.rec.anlog 100 UNIT/ML 10 ML VIAL 19 UNIT SUBCUT (21:30)
[2024-09-07] MEDS: Insulin Lispro 100 UNIT/ML 3 ML VIAL SUBCUT (21:30)
[2024-09-07] MEDS: Apixaban 5 MG TABLET PO (21:30)
--- NOTE | 2024-09-07 22:24 | PM.IMHP ---
History of Present Illness Date of Service: 09/07/24 Chief Complaint: Cough, fever This has a 78-year-old male with pertinent history of TIA, insulin-dependent diabetes mellitus, CKD stage 3, hypertension, hyperlipidemia, coronary artery disease, BPH, DVT on Eliquis who initially presented to the ER on 09/06 for evaluation of progressive weakness. He was pending case management in the ER when he developed fever and cough. Imaging with left-sided pneumonia. Patient met sepsis criteria and IV antibiotics initiated. Hospital medicine team consulted for admission. Patient states he has had cough for the last 2 days. It is productive with yellowish sputum production. States he has been progressively weak over the last few days and he is unable to perform activities of his daily living. Patient has had chronic olecranon bursitis and there was concern for septic bursitis which was ruled out in the ER. He was given IV ceftriaxone and doxycycline in the ER for left-sided pneumonia. Admits chills but denies palpitations, chest pain, abdominal pain, changes in urinary or bowel habits. Review of Systems Constitutional: Constitutional: Reports chills, Reports fatigue, Reports fever(s), Reports malaise, Reports poor appetite and Reports weakness Cardiovascular: Cardiovascular: Reports dyspnea on exertion Respiratory: Respiratory: Reports cough and Reports dyspnea on exertion Gastrointestinal: Gastrointestinal: Reports no additional gastrointestinal complaints Genitourinary: Genitourinary: Reports no additional male genitourinary complaints Neurologic: Reports weakness Endocrine: Endocrine: Reports fatigue [facility] 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 CHB (complete heart block) History of acute myocardial infarction Diabetes High cholesterol HTN (hypertension) Kidney disease, chronic, stage III (GFR 30-59 ml/min) Family History Mother Breast cancer metastasized to brain Diabetes Sister Diabetes Brother Diabetes Sister Diabetes Sister Diabetes Brother Diabetes Maternal Uncle Diabetes Maternal Aunt Diabetes Maternal Aunt Diabetes Maternal Uncle Diabetes Surgical History S/P quadruple vessel bypass History of tonsillectomy Social History Household Members: Spouse Household Members Other:: Housing: House Are you a primary critical care clinical nurse specialist to a significant other at home: No Do you presently have visiting nurse or other home services: No Alcohol intake: current Alcohol intake frequency: does not drink Patient Tobacco Use Status: Never used Tobacco Smoked in Last 30 Days: No Use of substances other than those prescribed or required for medical reasons: No Advance Directives: No Advance Directives Information Provided: No Do you have a plan to hurt others: No Plan service: Yes ([employer]) Current occupational status: retired [employer] Allergies Allergy/AdvReac Type Severity Reaction Status Date / Time No Known Allergies Allergy Verified 09/06/24 18:11 [No Known Allergies*] Active Medications: Current Medications Apixaban (Apixaban 5 Mg Tablet) 5 mg PO BID [facility] Last Admin: 09/07/24 21:30 Dose: 5 mg Aspirin (Aspirin 81 Mg Tab.Chew) 81 mg PO DAILY [facility] Atorvastatin Calcium (Atorvastatin Calcium 80 Mg Tablet) 80 mg PO DAILY [facility] Ceftriaxone Sodium (Ceftriaxone Sodium 1 Gm Vial) 1 gm IVPUSH Q24H [facility] Finasteride (Finasteride 5 Mg Tablet) 5 mg PO DAILY [facility] Glucose (Glucose Gel 15 Gm Gel..Gram.) 15 gm PO Q15M PRN; Protocol PRN Reason: per Hypoglycemia Standing Ord. Dextrose (D10) 250 mls @ 750 mls/hr IV Q15M PRN; Protocol PRN Reason: per Hypoglycemia Standing Ord. Magnesium Sulfate (Magnesium Sulfate/H2o) 2 gm in 50 mls @ 25 mls/hr IV ONCE ONE Stop: 09/07/24 22:26 Last Admin: 09/07/24 21:29 Dose: 25 mls/hr Doxycycline Hyclate 100 mg/ (Sodium Chloride) 250 mls @ 166.67 mls/hr IV Q12H [facility] Insulin Glargine (Insulin Glargine,Hum.Rec.Anlog 100 Unit/Ml 10 Ml Vial) 19 unit SUBCUT BEDTIME [facility] Last Admin: 09/07/24 21:30 Dose: 19 unit Insulin Human Lispro (Insulin Lispro 100 Unit/Ml 3 Ml Vial) 0 unit SUBCUT QIDACHS [facility]; Protocol Last Admin: 09/07/24 21:30 Dose: 4 unit Losartan Potassium (Losartan Potassium 25 Mg Tablet) 25 mg PO DAILY [facility]; Protocol Metoprolol Tartrate (Metoprolol Tartrate 25 Mg Tablet) 25 mg PO BID [facility]; Protocol Last Admin: 09/07/24 21:30 Dose: 25 mg Home Medications ?Medication ?Instructions ?Recorded ?Confirmed ?Last Taken ?Type atorvastatin 80 mg tablet 80 mg PO DAILY 01/10/21 09/07/24 05/15/22 History finasteride 5 mg tablet 5 mg PO DAILY 01/10/21 09/07/24 05/15/22 History insulin glargine 100 unit/mL (3 24 unit subcut BEDTIME 01/10/21 09/07/24 05/14/22 History mL) subcutaneous pen (Lantus Solostar U-100 Insulin) metformin 500 mg tablet 2 tab PO BIDAC 01/10/21 09/07/24 05/15/22 History metoprolol tartrate 25 mg tablet 25 mg PO BID 01/10/21 09/07/24 05/15/22 History sitagliptin phosphate 100 mg 100 mg PO DAILY 01/10/21 09/07/24 05/15/22 History tablet (Januvia) apixaban 5 mg tablet (Eliquis) 5 mg PO BID 02/09/23 09/07/24 Unknown History losartan 25 mg tablet 25 mg PO DAILY 06/01/24 09/07/24 Unknown History Physical Exam Vital Signs and Narrative: Vital Signs: Last Vital Signs Temp 101.3 F H 09/07/24 20:04 Pulse 79 09/07/24 20:35 Resp 18 09/07/24 20:35 BP 122/69 09/07/24 20:35 Pulse Ox 94 09/07/24 20:04 O2 Del Method Room Air 09/07/24 20:04 BMI result Body Mass Index 28.6 Elderly male lying in bed in no distress Neck supple, no JVD Regular rate and rhythm, S1-S2 heard Left-sided crackles present Abdomen soft nontender, no guarding, no rigidity Patient is awake, alert and oriented x3 ; no focal motor deficit Psych: Normal mood No pedal edema Results Labs 09/07/24 18:47 09/07/24 18:47 Labs: Laboratory Results - last 24 hr 09/07/24 09/07/24 09/07/24 16:36 18:47 18:56 MCV 84.1 MCH 27.5 MCHC 32.7 RDW 16.4 H Plt Count 185 MPV 10.7 Immature Gran % (Auto) 0.7 H Neut % (Auto) 67.0 Lymph % (Auto) 18.9 L Starke % (Auto) 10.6 Eos % (Auto) 2.2 Baso % (Auto) 0.6 Lymph # (Auto) 2.4 Starke # (Auto) 1.3 H Eos # (Auto) 0.3 Baso # (Auto) 0.1 Abs Immat Gran (auto) 0.09 H Absolute Neuts (auto) 8.4 H Absolute Nucleated RBC 0.000 Nucleated RBC % (auto) 0.0 Anion Gap 16 Estim Creat Clear Calc 80.5 Estimated GFR > 60 POC Glucose 204 H Random Glucose 197 H Lactic Acid 1.7 Calcium 8.2 L Magnesium 1.5 L Total Bilirubin 0.5 AST 24 ALT 11 Alkaline Phosphatase 83 Total Protein 6.8 Albumin 2.9 L Influenza Type A (PCR) NEGATIVE Influenza Type B (PCR) NEGATIVE RSV RNA Qual (PCR) NEGATIVE SARS-CoV-2 RNA (RT-PCR) NEGATIVE 09/07/24 20:57 MCV MCH MCHC RDW Plt Count MPV Immature Gran % (Auto) Neut % (Auto) Lymph % (Auto) Starke % (Auto) Eos % (Auto) Baso % (Auto) Lymph # (Auto) Starke # (Auto) Eos # (Auto) Baso # (Auto) Abs Immat Gran (auto) Absolute Neuts (auto) Absolute Nucleated RBC Nucleated RBC % (auto) Anion Gap Estim Creat Clear Calc Estimated GFR POC Glucose 206 H Random Glucose Lactic Acid Calcium Magnesium Total Bilirubin AST ALT Alkaline Phosphatase Total Protein Albumin Influenza Type A (PCR) Influenza Type B (PCR) RSV RNA Qual (PCR) SARS-CoV-2 RNA (RT-PCR) Assessment and Plan (1) Sepsis: Status: Acute (2) Pneumonia: Status: Acute Plan This has a 78-year-old male with pertinent history of TIA, insulin-dependent diabetes mellitus, CKD stage 3, hypertension, hyperlipidemia, coronary artery disease, BPH, DVT on Eliquis who initially presented to the ER on 09/06 for evaluation of progressive weakness. Developed sepsis due to pneumonia on 09/07 #. Sepsis due to left-sided pneumonia: Resuscitated with IV crystalloids. Lactic acid and blood culture obtained. Initiating IV ceftriaxone and IV doxycycline. Sputum culture pending #. Progressive debility and weakness: Obtaining B12. Appreciate PT eval. Neurology consulted from the ER to rule out reversible etiology #. Insulin-dependent diabetes mellitus: Initiating basal plus insulin regimen #. History of DVT: On Eliquis #. CAD/TIA: On aspirin and high-intensity statin #. BPH: On finasteride #. Hypertension: Continue home antihypertensives DVT prophylaxis: Eliquis Full code. Discussed with patient at bedside Admit as inpatient and will require two night minimum hospital stay for IV antibiotics (as above), which is not possible in a lesser acute setting. Quality Stroke Does the patient have a stroke diagnosis?: No VTE Prior VTE?: No VTE Risk Level:: Medical - moderate - high VTE Device Contraindication: Treatment Not Indicated VTE Drug Contraindication: N/A - Med Ordered
--- NOTE | 2024-09-07 22:42 | PC.NURSE ---
pt feels coolers to touch, oral temp now 98.9, face no longer flushed
[2024-09-07] MEDS: Doxycycline Hyclate 100 MG in 0.9 % Sodium Chloride 250 ML 166.67 MG IV (23:55)
[2024-09-08] VITALS (8 sets, daily range): BP systolic 116–166; BP diastolic 56–76; PULSE 60–106; RESP 16–18; TEMP 36.3–38.6; O2SAT 94–97; BMI 28.6
--- NOTE | 2024-09-08 04:27 | PC.NURSE ---
1 assist to the bathroom w/ walker for BM. ambulated well. assist back to bed
[2024-09-08 05:36] LABS: MANUAL DIFF FLAG NO
[2024-09-08 05:38] LABS: Basophils Absolute Auto 0.1 X10*3/uL (0.0-0.2); Basophils Percent Auto 0.6 % (0-2); Eosinophils Absolute Auto 0.4 X10*3/uL (0.0-0.4); Eosinophils Percent Auto 3.2 % (0-4); Hematocrit 30.7 % (42.0-52.0); Hemoglobin 9.8 g/dl (14.0-18.0); Imm Gran Pct Auto 0.9 % (0.0-0.4); Lymphocytes Absolute Auto 2.1 X10*3/uL (1.2-4.9); Lymphocytes Percent Auto 18.2 % (20-40); Mean Corpuscular HGB Conc 31.9 g/dl (31.0-36.0); Mean Corpuscular Hemoglobin 26.9 pg (27.0-33.0); Mean Corpuscular Volume 84.3 fL (80.0-98.0); Mean Platelet Volume 10.4 fL (9.4-12.4); Monocytes Absolute Auto 1.2 X10*3/uL (0.1-1.2); Monocytes Percent Auto 10.8 % (2-11); Neutrophils Absolute Auto 7.6 x10*3/uL (2.0-8.3); Neutrophils Percent Auto 66.3 % (45-73); Platelet Count 160 X10*3/uL (160-400); Red Blood Count 3.64 X10*6/uL (4.60-5.80); Red Cell Distribution Width 16.3 % (11.0-16.0); White Blood Count 11.4 X10*3/uL (4.8-10.8)
[2024-09-08 05:54] LABS: Anion Gap 12 (12-20); Blood Urea Nitrogen 15 mg/dL (9-16); Calcium 7.9 mg/dL (8.4-10.2); Carbon Dioxide 21 mmol/L (22-29); Chloride 106 mmol/L (96-108); Creatinine Clr Calc Pharmacy 77.6; Estimated Glomerular Filt Rate > 60; Glucose Random 191 mg/dL (60-115); Potassium 4.4 mmol/L (3.3-5.1); Sodium 135 mmol/L (135-145)
[2024-09-08 06:21] LABS: Vitamin B12 296 pg/mL (200-900)
[2024-09-08 07:25] LABS: Glucose, Whole Blood 160 mg/dL (60-115)
[2024-09-08] MEDS: 0.9 % Sodium Chloride Flush 3 ML SYRINGE IVFLUSH ×2 (07:49→16:46)
[2024-09-08] MEDS: Doxycycline Hyclate 100 MG in 0.9 % Sodium Chloride 250 ML 166.67 MG IV ×2 (07:50→20:05)
[2024-09-08] MEDS: Insulin Lispro 100 UNIT/ML 3 ML VIAL SUBCUT ×4 (07:51→21:23)
[2024-09-08] MEDS: Apixaban 5 MG TABLET PO ×2 (08:34→21:23)
[2024-09-08] MEDS: Aspirin 81 MG TAB.CHEW PO (08:35)
[2024-09-08] MEDS: Metoprolol Tartrate 25 MG TABLET PO ×2 (08:35→21:23)
[2024-09-08] MEDS: Losartan Potassium 25 MG TABLET PO (08:35)
[2024-09-08] MEDS: Atorvastatin Calcium 80 MG TABLET PO (08:36)
[2024-09-08] MEDS: Finasteride 5 MG TABLET PO (08:36)
--- NOTE | 2024-09-08 09:20 | MHC.CM.PN ---
Patient was unavailable, CM spoke with /HCP/Francesca at [phone]. Patient lives in a house with his , was active with [facility], and uses a walker to assist with mobility. Home/resume said services is the goal and CM has initiated and will follow for dc planning. PCP is Dr. Candido Good and Son/Yasmany will transport to home.
--- NOTE | 2024-09-08 10:48 | P.CNNE_ITS ---
History of Present Illness Data of Consult Service Date: 09/08/24 Primary Care Provider: Candido Good III, MD HPI Reason for consult: Difficulty walking 78 years old man with underlying history of cerebral atrophy and microvascular disease being treated for infection and complaining of lethargy and difficulty walking. I was asked to see if he had Parkinson's disease. I had seen him in the past for possible seizure disorder. 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 He also suffered from renal insufficiency. Review of Systems 2 Review of Systems: Recent cough and lethargy PMFSH Past Medical History 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 CHB (complete heart block) History of acute myocardial infarction Diabetes High cholesterol HTN (hypertension) Kidney disease, chronic, stage III (GFR 30-59 ml/min) Family History Family History Mother Breast cancer metastasized to brain Diabetes Sister Diabetes Brother Diabetes Sister Diabetes Sister Diabetes Brother Diabetes Maternal Uncle Diabetes Maternal Aunt Diabetes Maternal Aunt Diabetes Maternal Uncle Diabetes Surgical History Surgical History S/P quadruple vessel bypass History of tonsillectomy Social History Social History Household Members: Spouse Household Members Other:: Housing: House Are you a primary career resource specialist to a significant other at home: No Do you presently have visiting nurse or other home services: No Alcohol intake: current Alcohol intake frequency: does not drink Patient Tobacco Use Status: Never used Tobacco Smoked in Last 30 Days: No Use of substances other than those prescribed or required for medical reasons: No Have you been hit, kicked, punched, or otherwise hurt by someone within the past year? If so, by whom?: No Do you feel safe in your current relationship?: Yes Is there a partner from a previous relationship who is making you feel unsafe now?: No Are you made to feel afraid or neglected: No Adventism Healthcare Practices: Yarsanism Advance Directives: No Advance Directives Information Provided: No Do you have a plan to hurt others: No Plan Recently lost weight without trying: Yes How much weight loss: 14-23 pounds Eating poorly because of decreased appetite: Yes Nutrition screen score: 5 Nutrition Risks: Poor intake 0-25% >4 days Poor oral hygiene: No service: Yes Current occupational status: retired Meds Allergies Allergy/AdvReac Type Severity Reaction Status Date / Time Seasonal Allergies Allergy Runny Nose Verified 09/08/24 08:17 Active Medications: Current Medications Acetaminophen (Acetaminophen 325 Mg Tablet) 650 mg PO Q6H PRN PRN Reason: Pain, Mild 1-3,fever,headache Apixaban (Apixaban 5 Mg Tablet) 5 mg PO BID [facility] Last Admin: 09/08/24 08:34 Dose: 5 mg Aspirin (Aspirin 81 Mg Tab.Chew) 81 mg PO DAILY [facility] Last Admin: 09/08/24 08:35 Dose: 81 mg Atorvastatin Calcium (Atorvastatin Calcium 80 Mg Tablet) 80 mg PO DAILY [facility] Last Admin: 09/08/24 08:36 Dose: 80 mg Calcium Carbonate (Calcium Carbonate 750 Mg Tab.Chew) 750 mg PO Q4H PRN PRN Reason: Heartburn Ceftriaxone Sodium (Ceftriaxone Sodium 1 Gm Vial) 1 gm IVPUSH Q24H [facility] Finasteride (Finasteride 5 Mg Tablet) 5 mg PO DAILY [facility] Last Admin: 09/08/24 08:36 Dose: 5 mg Glucose (Glucose Gel 15 Gm Gel..Gram.) 15 gm PO Q15M PRN; Protocol PRN Reason: per Hypoglycemia Standing Ord. Dextrose (D10) 250 mls @ 750 mls/hr IV Q15M PRN; Protocol PRN Reason: per Hypoglycemia Standing Ord. Doxycycline Hyclate 100 mg/ (Sodium Chloride) 250 mls @ 166.67 mls/hr IV Q12H [facility] Last Infusion: 09/08/24 09:17 Dose: Infused Insulin Glargine (Insulin Glargine,Hum.Rec.Anlog 100 Unit/Ml 10 Ml Vial) 19 unit SUBCUT BEDTIME [facility] Last Admin: 09/07/24 21:30 Dose: 19 unit Insulin Human Lispro (Insulin Lispro 100 Unit/Ml 3 Ml Vial) 0 unit SUBCUT QIDACHS [facility]; Protocol Last Admin: 09/08/24 07:51 Dose: 2 unit Losartan Potassium (Losartan Potassium 25 Mg Tablet) 25 mg PO DAILY [facility]; Protocol Last Admin: 09/08/24 08:35 Dose: 25 mg Magnesium Hydroxide (Milk Of Magnesia 30 Ml Oral.Susp) 30 ml PO DAILY PRN PRN Reason: Constipation Melatonin (Melatonin 3 Mg Tablet) 6 mg PO BEDTIME PRN PRN Reason: Insomnia Metoprolol Tartrate (Metoprolol Tartrate 25 Mg Tablet) 25 mg PO BID [facility]; Protocol Last Admin: 09/08/24 08:35 Dose: 25 mg Ondansetron HCl (Ondansetron Hcl 4 Mg/2 Ml Vial) 4 mg IVPUSH Q8H PRN PRN Reason: Nausea and Vomiting Sodium Chloride (0.9 % Sodium Chloride Flush 3 Ml Syringe) 3 ml IVFLUSH QSHIFT [facility] Last Admin: 09/08/24 07:49 Dose: 3 ml Home Medications ?Medication ?Instructions ?Recorded ?Confirmed ?Last Taken ?Type atorvastatin 80 mg tablet 80 mg PO DAILY 01/10/21 09/07/24 05/15/22 History finasteride 5 mg tablet 5 mg PO DAILY 01/10/21 09/07/24 05/15/22 History insulin glargine 100 unit/mL (3 24 unit subcut BEDTIME 01/10/21 09/07/24 05/14/22 History mL) subcutaneous pen (Lantus Solostar U-100 Insulin) metformin 500 mg tablet 2 tab PO BIDAC 01/10/21 09/07/24 05/15/22 History metoprolol tartrate 25 mg tablet 25 mg PO BID 01/10/21 09/07/24 05/15/22 History sitagliptin phosphate 100 mg 100 mg PO DAILY 01/10/21 09/07/24 05/15/22 History tablet (Januvia) apixaban 5 mg tablet (Eliquis) 5 mg PO BID 02/09/23 09/07/24 Unknown History losartan 25 mg tablet 25 mg PO DAILY 06/01/24 09/07/24 Unknown History Physical Exam 2 Vital Signs: Vital Signs: Last Vital Signs Temp 97.4 F 09/08/24 04:28 Pulse 100 09/08/24 08:35 Resp 16 09/08/24 04:28 BP 166/56 H 09/08/24 08:35 Pulse Ox 94 09/08/24 04:28 O2 Del Method Room Air 09/08/24 04:28 BMI result Body Mass Index 28.6 Neuro: Other: He is alert and awake with normal spontaneity of speech fluency comprehension and affect. He recognize me. He was following commands. Visual flores are full. Face was symmetrical. No significant bradykinesia was noted. No cogwheeling rigidity was noted. No significant tremor was noted. He was able to get up though slowly in holding my hand stand up and was able to take couple of steps but feeling unsteady. Speech was normal. Results Labs 09/08/24 05:25 09/08/24 05:25 Labs: Short CBC 09/07/24 09/08/24 Range/Units 18:47 05:25 WBC 12.6 H 11.4 H (4.8-10.8) X10*3/uL Hgb 10.4 L 9.8 L (14.0-18.0) g/dl Hct 31.8 L 30.7 L (42.0-52.0) % Plt Count 185 160 (160-400) X10*3/uL BMP 09/07/24 09/08/24 18:47 05:25 Sodium 134 L 135 Potassium 4.8 4.4 Chloride 103 106 Carbon Dioxide 20 L 21 L BUN 16 15 Creatinine 0.79 0.82 Calcium 8.2 L 7.9 L Liver Function 09/07/24 Range/Units 18:47 Total Bilirubin 0.5 (0.0-1.0) mg/dL AST 24 (5-37) U/L ALT 11 (0-40) U/L Alkaline Phosphatase 83 (39-117) U/L Albumin 2.9 L (3.5-5.0) g/dL Head CT revealed moderately severe diffuse cerebral atrophy and microvascular ischemic changes. Assessment and Plan (1) Weakness: Status: Acute Probably infection related weakness and difficulty walking in his 78 years old man with underlying cerebral atrophy and microvascular disease of brain. I do not see overt parkinsonian symptoms. Treatment of underlying disease is recommended. Procedures Date of Service Date of Service: 09/08/24
[2024-09-08 11:45] LABS: Glucose, Whole Blood 152 mg/dL (60-115)
--- NOTE | 2024-09-08 11:57 | HO.PM.IMPN ---
Subjective Subjective Date of Service: 09/08/24 Interval History: seen and examined this morning follow up for pneumonia denies cough; weakness somewhat improved; no dyspnea had fever yesterday Review of Systems Review of Systems: Yes all other systems are reviewed and are negative Constitutional Constitutional: Denies chills and Denies fever(s) Cardiovascular Cardiovascular: Denies chest pain and Denies palpitations Respiratory Respiratory: Reports cough Endocrine Endocrine: Denies palpitations Physical Exam Vital Signs: Vital Signs: Last Vital Signs Temp 99.2 F 09/08/24 11:25 Pulse 86 09/08/24 11:25 Resp 16 09/08/24 11:25 BP 129/58 L 09/08/24 11:25 Pulse Ox 95 09/08/24 11:25 O2 Del Method Room Air 09/08/24 11:25 BMI result Body Mass Index 28.6 Const: General: cooperative, comfortable, no acute distress, alert and awake Nutritional Appearance: average body habitus Orientation/consciousness: patient oriented x3 Resp: Effort & Inspection: normal respiratory effort, able to speak in complete sentences, no respiratory distress and no use of accessory muscles Cardio: Rate: regular rate GI: Inspection: No distended Palpation (GI): Soft to palpation Neuro: General: patient oriented x3, moves all extremities and CN's II-XI intact bilaterally Extrem: General: Yes no pedal edema Objective Data Active Medications Acetaminophen (Acetaminophen 325 Mg Tablet) 650 mg PO Q6H PRN PRN Reason: Pain, Mild 1-3,fever,headache Apixaban (Apixaban 5 Mg Tablet) 5 mg PO BID [facility] Last Admin: 09/08/24 08:34 Dose: 5 mg Documented By: WON Aspirin (Aspirin 81 Mg Tab.Chew) 81 mg PO DAILY [facility] Last Admin: 09/08/24 08:35 Dose: 81 mg Documented By: WON Atorvastatin Calcium (Atorvastatin Calcium 80 Mg Tablet) 80 mg PO DAILY [facility] Last Admin: 09/08/24 08:36 Dose: 80 mg Documented By: WON Calcium Carbonate (Calcium Carbonate 750 Mg Tab.Chew) 750 mg PO Q4H PRN PRN Reason: Heartburn Ceftriaxone Sodium (Ceftriaxone Sodium 1 Gm Vial) 1 gm IVPUSH Q24H [facility] Finasteride (Finasteride 5 Mg Tablet) 5 mg PO DAILY [facility] Last Admin: 09/08/24 08:36 Dose: 5 mg Documented By: WON Glucose (Glucose Gel 15 Gm Gel..Gram.) 15 gm PO Q15M PRN; Protocol PRN Reason: per Hypoglycemia Standing Ord. Dextrose (D10) 250 mls @ 750 mls/hr IV Q15M PRN; Protocol PRN Reason: per Hypoglycemia Standing Ord. Doxycycline Hyclate 100 mg/ (Sodium Chloride) 250 mls @ 166.67 mls/hr IV Q12H [facility] Last Infusion: 09/08/24 09:17 Dose: Infused Documented By: WON Insulin Glargine (Insulin Glargine,Hum.Rec.Anlog 100 Unit/Ml 10 Ml Vial) 19 unit SUBCUT BEDTIME [facility] Last Admin: 09/07/24 21:30 Dose: 19 unit Documented By: ISAIAH Insulin Human Lispro (Insulin Lispro 100 Unit/Ml 3 Ml Vial) 0 unit SUBCUT QIDACHS [facility]; Protocol Last Admin: 09/08/24 11:48 Dose: 2 unit Documented By: WON Losartan Potassium (Losartan Potassium 25 Mg Tablet) 25 mg PO DAILY [facility]; Protocol Last Admin: 09/08/24 08:35 Dose: 25 mg Documented By: WON Magnesium Hydroxide (Milk Of Magnesia 30 Ml Oral.Susp) 30 ml PO DAILY PRN PRN Reason: Constipation Melatonin (Melatonin 3 Mg Tablet) 6 mg PO BEDTIME PRN PRN Reason: Insomnia Metoprolol Tartrate (Metoprolol Tartrate 25 Mg Tablet) 25 mg PO BID [facility]; Protocol Last Admin: 09/08/24 08:35 Dose: 25 mg Documented By: WON Ondansetron HCl (Ondansetron Hcl 4 Mg/2 Ml Vial) 4 mg IVPUSH Q8H PRN PRN Reason: Nausea and Vomiting Sodium Chloride (0.9 % Sodium Chloride Flush 3 Ml Syringe) 3 ml IVFLUSH QSHIFT [facility] Last Admin: 09/08/24 07:49 Dose: 3 ml Documented By: WON Labs 09/08/24 05:25 09/08/24 05:25 Labs: Laboratory Results - last 24 hr 09/07/24 09/07/24 09/07/24 16:36 18:47 18:56 MCV 84.1 MCH 27.5 MCHC 32.7 RDW 16.4 H Plt Count 185 MPV 10.7 Immature Gran % (Auto) 0.7 H Neut % (Auto) 67.0 Lymph % (Auto) 18.9 L Cache % (Auto) 10.6 Eos % (Auto) 2.2 Baso % (Auto) 0.6 Lymph # (Auto) 2.4 Cache # (Auto) 1.3 H Eos # (Auto) 0.3 Baso # (Auto) 0.1 Abs Immat Gran (auto) 0.09 H Absolute Neuts (auto) 8.4 H Absolute Nucleated RBC 0.000 Nucleated RBC % (auto) 0.0 Anion Gap 16 Estim Creat Clear Calc 80.5 Estimated GFR > 60 POC Glucose 204 H Random Glucose 197 H Lactic Acid 1.7 Calcium 8.2 L Magnesium 1.5 L Total Bilirubin 0.5 AST 24 ALT 11 Alkaline Phosphatase 83 Total Protein 6.8 Albumin 2.9 L Vitamin B12 Influenza Type A (PCR) NEGATIVE Influenza Type B (PCR) NEGATIVE RSV RNA Qual (PCR) NEGATIVE SARS-CoV-2 RNA (RT-PCR) NEGATIVE 09/07/24 09/08/24 09/08/24 20:57 05:25 07:21 MCV 84.3 MCH 26.9 L MCHC 31.9 RDW 16.3 H Plt Count 160 MPV 10.4 Immature Gran % (Auto) 0.9 H Neut % (Auto) 66.3 Lymph % (Auto) 18.2 L Cache % (Auto) 10.8 Eos % (Auto) 3.2 Baso % (Auto) 0.6 Lymph # (Auto) 2.1 Cache # (Auto) 1.2 Eos # (Auto) 0.4 Baso # (Auto) 0.1 Abs Immat Gran (auto) 0.10 H Absolute Neuts (auto) 7.6 Absolute Nucleated RBC 0.000 Nucleated RBC % (auto) 0.0 Anion Gap 12 Estim Creat Clear Calc 77.6 Estimated GFR > 60 POC Glucose 206 H 160 H Random Glucose 191 H Lactic Acid Calcium 7.9 L Magnesium Total Bilirubin AST ALT Alkaline Phosphatase Total Protein Albumin Vitamin B12 296 Influenza Type A (PCR) Influenza Type B (PCR) RSV RNA Qual (PCR) SARS-CoV-2 RNA (RT-PCR) 09/08/24 11:41 MCV MCH MCHC RDW Plt Count MPV Immature Gran % (Auto) Neut % (Auto) Lymph % (Auto) Cache % (Auto) Eos % (Auto) Baso % (Auto) Lymph # (Auto) Cache # (Auto) Eos # (Auto) Baso # (Auto) Abs Immat Gran (auto) Absolute Neuts (auto) Absolute Nucleated RBC Nucleated RBC % (auto) Anion Gap Estim Creat Clear Calc Estimated GFR POC Glucose 152 H Random Glucose Lactic Acid Calcium Magnesium Total Bilirubin AST ALT Alkaline Phosphatase Total Protein Albumin Vitamin B12 Influenza Type A (PCR) Influenza Type B (PCR) RSV RNA Qual (PCR) SARS-CoV-2 RNA (RT-PCR) Assessment and Plan (1) Pneumonia: Status: Acute Plan This has a 78-year-old male with pertinent history of TIA, insulin-dependent diabetes mellitus, CKD stage 3, hypertension, hyperlipidemia, coronary artery disease, BPH, DVT on Eliquis who initially presented to the ER on 09/06 for evaluation of progressive weakness. Developed sepsis due to pneumonia on 09/07 Sepsis due to left-sided pneumonia: met criteria with fever and white count. lactic acid normal continue IV ceftriaxone and IV doxycycline. Sputum culture pending blood cultures pending Progressive debility and weakness: B12 296 PT eval - home vs STR seen by neurology - no further work up needed weakness likely due to acute illness hypomagnesemia received IV magnesium Insulin-dependent diabetes mellitus: Initiating basal plus insulin regimen hold metformin, januvia History of DVT: continue Eliquis CAD/TIA: On aspirin and high-intensity statin chronic olectronon bursitis right elbow xray - no effusion or acute findings left elbow with - soft tissue swelling of the elbow outpatient follow up BPH: continue finasteride chronic iron def anemia H/h above transfusion threshold no evidence of acute bleed previously on iron suppplementation Hypertension: Continue metoprolol, losartan DVT prophylaxis: Eliquis Full code Requires ongoing inpatient stay for IV antibiotics (as above), which is not possible in a lesser acute setting. Quality Stroke Does the patient have a stroke diagnosis?: No VTE Prior VTE?: No VTE Risk Level:: Medical - moderate - high VTE Device Contraindication: Treatment Not Indicated VTE Drug Contraindication: N/A - Med Ordered
[2024-09-08 17:04] LABS: Glucose, Whole Blood 161 mg/dL (60-115)
--- NOTE | 2024-09-08 17:30 | PC.NURSE ---
Addendum entered by Peyton Penn 09/08/24 17:51: Pt also had yellow socks on all day and at time of incident, curtain was open, and there was adequate lighting. Original Note: Pt eating dinner while sitting on side of bed as he had been eating his meals all day (prefers to sit up right on side to eat). Tech was standing nearby patient with the patient next door. This RN was in front of patient area. Pt reached to grab his urinal next to his walker (in front of his food) and became off balance (per pt), fell out of the bed onto his right hip/ bottom. No head hit or LOC, was talking right away. Bed alarm and button were within reach. Patient seemed more confused than earlier. No obvious deformities to lower extremities, no rotation or shortening. Denies any CP, SOB or dizziness. Reports he thought he could reach it but became off balance. Vitals assessed and BGL all WNL. Providers alerted of situation. RN and tech able to get pt back into bed.
--- NOTE | 2024-09-08 17:32 | PC.NURSE ---
Pt neg for slurred speech, unilateral weakness in arms or legs (overall weak which has been ongoing), no facial droop.
--- NOTE | 2024-09-08 17:52 | PC.NURSE ---
[employer] alerted as well. Correct forms filled out. Pt remains alert and oriented, denying any complaints at this time. Will be taken to Xray shortly.
--- NOTE | 2024-09-08 18:39 | PC.NURSE ---
Pt feels warm to the touch, rectal temp assessed and is 101.5, medicated per MAR
[2024-09-08] MEDS: Acetaminophen 325 MG TABLET 650 MG PO (18:41)
[2024-09-08 19:47] LABS: Glucose, Whole Blood 260 mg/dL (60-115)
[2024-09-08] MEDS: cefTRIAXone sodium 1 GM VIAL IVPUSH (20:05)
[2024-09-08] MEDS: Insulin Glargine,Hum.rec.anlog 100 UNIT/ML 10 ML VIAL 19 UNIT SUBCUT (21:23)
[2024-09-09 03:29] VITALS: BP 130/72; PULSE 84; RESP 18; TEMP 37; O2SAT 94
[2024-09-09 07:05] VITALS: BP 123/58; PULSE 83; RESP 18; TEMP 36.8; O2SAT 94
[2024-09-09 07:23] LABS: Glucose, Whole Blood 146 mg/dL (60-115)
--- NOTE | 2024-09-09 07:51 | PM.EVENT ---
Event Note Date of Service: 09/09/24 Event Note: Patient is a 78-year-old man admitted to hospital for evaluation and treatment of pneumonia While in hospital, foot x-rays revealed small avulsion fracture of the medial navicular bone of the right foot Patient should be placed in a boot to be worn while weight-bearing Elevate to prevent/relieve swelling No further acute orthopedic intervention indicated at this time Patient may follow-up in our office outpatient upon discharge Continue with all other recommendations per Medicine Time Spent With Patient Time: Total time managing care of this patient today ____ minutes.
[2024-09-09] MEDS: Doxycycline Hyclate 100 MG in 0.9 % Sodium Chloride 250 ML 166.67 MG IV ×2 (08:35→20:12)
[2024-09-09] MEDS: Aspirin 81 MG TAB.CHEW PO (08:36)
[2024-09-09] MEDS: Apixaban 5 MG TABLET PO ×2 (08:36→19:59)
[2024-09-09] MEDS: Metoprolol Tartrate 25 MG TABLET PO ×2 (08:36→19:59)
[2024-09-09] MEDS: Losartan Potassium 25 MG TABLET PO (08:37)
[2024-09-09] MEDS: Finasteride 5 MG TABLET PO (08:37)
[2024-09-09] MEDS: Atorvastatin Calcium 80 MG TABLET PO (08:37)
[2024-09-09 08:39] VITALS: BP 123/58; PULSE 83; O2SAT 94
[2024-09-09] MEDS: 0.9 % Sodium Chloride Flush 3 ML SYRINGE IVFLUSH ×3 (08:49→20:02)
[2024-09-09 09:06] LABS: Hematocrit 30.7 % (42.0-52.0); Hemoglobin 9.7 g/dl (14.0-18.0); Mean Corpuscular HGB Conc 31.6 g/dl (31.0-36.0); Mean Corpuscular Hemoglobin 26.9 pg (27.0-33.0); Mean Platelet Volume 10.8 fL (9.4-12.4); Platelet Count 180 X10*3/uL (160-400); Red Blood Count 3.61 X10*6/uL (4.60-5.80); Red Cell Distribution Width 16.4 % (11.0-16.0); White Blood Count 13.2 X10*3/uL (4.8-10.8)
[2024-09-09 09:30] LABS: Anion Gap 11 (12-20); Blood Urea Nitrogen 13 mg/dL (9-16); Carbon Dioxide 21 mmol/L (22-29); Chloride 106 mmol/L (96-108); Creatinine Clr Calc Pharmacy 75.8; Estimated Glomerular Filt Rate > 60; Glucose Random 221 mg/dL (60-115); Potassium 4.3 mmol/L (3.3-5.1); Sodium 134 mmol/L (135-145)
--- NOTE | 2024-09-09 10:26 | MHC.CM.PN ---
PT recommending STR. CM reviewed recommendation w/ patient, who is agreeable to STR. Preference to [facility]. They have offered a bed and are going for auth. Will likely be ready for dc tomorrow. CM will continue to follow.
[2024-09-09 11:14] LABS: Glucose, Whole Blood 248 mg/dL (60-115)
[2024-09-09] MEDS: Insulin Lispro 100 UNIT/ML 3 ML VIAL SUBCUT ×3 (11:24→22:06)
--- NOTE | 2024-09-09 13:08 | HO.PM.IMPN ---
Subjective Subjective Date of Service: 09/09/24 Interval History: seen and examined this morning follow up for pneumonia Had fall last evening, hematoma right hip, imaging right foot showing avulsion fracture, pt denies pain has no specific complaints at the moment Review of Systems Review of Systems: Yes all other systems are reviewed and are negative Constitutional Constitutional: Denies chills and Denies fever(s) Cardiovascular Cardiovascular: Denies chest pain Physical Exam Vital Signs: Vital Signs: Last Vital Signs Temp 98.2 F 09/09/24 07:05 Pulse 83 09/09/24 08:39 Resp 18 09/09/24 07:05 BP 123/58 L 09/09/24 08:39 Pulse Ox 94 09/09/24 08:39 O2 Del Method Room Air 09/09/24 07:05 BMI result Body Mass Index 28.6 Const: General: cooperative, comfortable, no acute distress, alert and awake Nutritional Appearance: average body habitus Orientation/consciousness: patient oriented x3 Resp: Effort & Inspection: normal respiratory effort, able to speak in complete sentences, no respiratory distress and no use of accessory muscles Cardio: Rate: regular rate GI: Inspection: No distended Palpation (GI): Soft to palpation Skin: Other: bruise right hip Neuro: General: patient oriented x3, moves all extremities and CN's II-XI intact bilaterally Extrem: General: Yes no pedal edema Objective Data Active Medications Acetaminophen (Acetaminophen 325 Mg Tablet) 650 mg PO Q6H PRN PRN Reason: Pain, Mild 1-3,fever,headache Last Admin: 09/08/24 18:41 Dose: 650 mg Documented By: WON Apixaban (Apixaban 5 Mg Tablet) 5 mg PO BID [facility] Last Admin: 09/09/24 08:36 Dose: 5 mg Documented By: GEM Aspirin (Aspirin 81 Mg Tab.Chew) 81 mg PO DAILY [facility] Last Admin: 09/09/24 08:36 Dose: 81 mg Documented By: GEM Atorvastatin Calcium (Atorvastatin Calcium 80 Mg Tablet) 80 mg PO DAILY [facility] Last Admin: 09/09/24 08:37 Dose: 80 mg Documented By: GEM Calcium Carbonate (Calcium Carbonate 750 Mg Tab.Chew) 750 mg PO Q4H PRN PRN Reason: Heartburn Ceftriaxone Sodium (Ceftriaxone Sodium 1 Gm Vial) 1 gm IVPUSH Q24H [facility] Last Admin: 09/08/24 20:05 Dose: 1 gm Documented By: MANUELA Finasteride (Finasteride 5 Mg Tablet) 5 mg PO DAILY [facility] Last Admin: 09/09/24 08:37 Dose: 5 mg Documented By: GEM Glucose (Glucose Gel 15 Gm Gel..Gram.) 15 gm PO Q15M PRN; Protocol PRN Reason: per Hypoglycemia Standing Ord. Dextrose (D10) 250 mls @ 750 mls/hr IV Q15M PRN; Protocol PRN Reason: per Hypoglycemia Standing Ord. Doxycycline Hyclate 100 mg/ (Sodium Chloride) 250 mls @ 166.67 mls/hr IV Q12H [facility] Last Infusion: 09/09/24 10:23 Dose: Infused Documented By: GEM Insulin Glargine (Insulin Glargine,Hum.Rec.Anlog 100 Unit/Ml 10 Ml Vial) 19 unit SUBCUT BEDTIME [facility] Last Admin: 09/08/24 21:23 Dose: 19 unit Documented By: MANUELA Insulin Human Lispro (Insulin Lispro 100 Unit/Ml 3 Ml Vial) 0 unit SUBCUT QIDACHS [facility]; Protocol Last Admin: 09/09/24 11:24 Dose: 4 unit Documented By: GEM Losartan Potassium (Losartan Potassium 25 Mg Tablet) 25 mg PO DAILY [facility]; Protocol Last Admin: 09/09/24 08:37 Dose: 25 mg Documented By: GEM Magnesium Hydroxide (Milk Of Magnesia 30 Ml Oral.Susp) 30 ml PO DAILY PRN PRN Reason: Constipation Melatonin (Melatonin 3 Mg Tablet) 6 mg PO BEDTIME PRN PRN Reason: Insomnia Metoprolol Tartrate (Metoprolol Tartrate 25 Mg Tablet) 25 mg PO BID [facility]; Protocol Last Admin: 09/09/24 08:36 Dose: 25 mg Documented By: GEM Ondansetron HCl (Ondansetron Hcl 4 Mg/2 Ml Vial) 4 mg IVPUSH Q8H PRN PRN Reason: Nausea and Vomiting Sodium Chloride (0.9 % Sodium Chloride Flush 3 Ml Syringe) 3 ml IVFLUSH QSHIFT [facility] Last Admin: 09/09/24 08:49 Dose: 3 ml Documented By: GEM Labs 09/09/24 08:55 09/09/24 08:55 Labs: Laboratory Results - last 24 hr 09/08/24 09/08/24 09/09/24 16:47 19:38 07:09 MCV MCH MCHC RDW Plt Count MPV Absolute Nucleated RBC Nucleated RBC % (auto) Anion Gap Estim Creat Clear Calc Estimated GFR POC Glucose 161 H 260 H 146 H Random Glucose Calcium 09/09/24 09/09/24 08:55 11:08 MCV 85.0 MCH 26.9 L MCHC 31.6 RDW 16.4 H Plt Count 180 MPV 10.8 Absolute Nucleated RBC 0.000 Nucleated RBC % (auto) 0.0 Anion Gap 11 L Estim Creat Clear Calc 75.8 Estimated GFR > 60 POC Glucose 248 H Random Glucose 221 H Calcium 8.0 L Microbiology Microbiology Results: Microbiology 09/07/24 18:56 Blood Culture - Preliminary Blood - Venous No growth after 24 hours. 09/07/24 18:47 Blood Culture - Preliminary Blood - Venous No growth after 24 hours. Assessment and Plan (1) Pneumonia: Status: Acute (2) Sepsis: Status: Acute Plan This has a 78-year-old male with pertinent history of TIA, insulin-dependent diabetes mellitus, CKD stage 3, hypertension, hyperlipidemia, coronary artery disease, BPH, DVT on Eliquis who initially presented to the ER on 09/06 for evaluation of progressive weakness. Developed sepsis due to pneumonia on 09/07. had mechanical fall 1/2 resulting in bruising to right hip and possible navicular avulsion injury Sepsis due to left-sided pneumonia: met criteria with fever and white count. lactic acid normal continue IV ceftriaxone and IV doxycycline. blood cultures negative to date possible avulsion fracture of right foot pt denies pain and ambulating ortho rec offloading boot for long distances right hip bruising from mechanical fall follow CBC generalized weakness B12 296 PT eval - STR seen by neurology - no further work up needed weakness likely due to acute illness hypomagnesemia received IV magnesium, will check follow up Insulin-dependent diabetes mellitus: Initiating basal plus insulin regimen hold metformin, januvia History of DVT: continue Eliquis CAD/TIA: On aspirin and high-intensity statin chronic olectronon bursitis right elbow xray - no effusion or acute findings left elbow with - soft tissue swelling of the elbow outpatient follow up with ortho BPH: continue finasteride chronic iron def anemia H/h above transfusion threshold previously on iron supplementation Hypertension: Continue metoprolol, losartan DVT prophylaxis: Alvin Full code Requires ongoing inpatient stay for IV antibiotics (as above), which is not possible in a lesser acute setting. Quality Stroke Does the patient have a stroke diagnosis?: No VTE Prior VTE?: No VTE Risk Level:: Medical - moderate - high VTE Device Contraindication: Treatment Not Indicated VTE Drug Contraindication: N/A - Med Ordered
[2024-09-09 14:03] LABS: Magnesium 1.6 mg/dL (1.6-2.6)
--- NOTE | 2024-09-09 14:59 | MHC.CLN ---
RE: CONSULT PT WITH NONSIGNIFICANT 9% WT LOSS X 6 MONTHS PT REMAINS OVER WT FOR HT CURRENTLY WITH ACUTE ILLNESS PNA WITH POOR PO INTAKE DIET RX: 2000DM-APPROPRIATE RECOMMEND ADDING ENSURE MAX BID TO INCREASE KCALS SUPP PROVIDES 300KCALS, 60 G PROTEIN CONTINUE TO MONITOR PO INTAKE
[2024-09-09 15:12] VITALS: BP 125/60; PULSE 80; RESP 14; TEMP 37.4; O2SAT 94
[2024-09-09 16:09] LABS: Glucose, Whole Blood 269 mg/dL (60-115)
[2024-09-09 19:24] VITALS: BP 130/60; PULSE 79; RESP 16; TEMP 36.1; O2SAT 95
[2024-09-09] MEDS: cefTRIAXone sodium 1 GM VIAL IVPUSH (20:03)
[2024-09-09 21:00] LABS: Glucose, Whole Blood 206 mg/dL (60-115)
[2024-09-09] MEDS: Insulin Glargine,Hum.rec.anlog 100 UNIT/ML 10 ML VIAL 24 UNIT SUBCUT (22:06)
[2024-09-09 23:25] VITALS: BP 129/64; PULSE 82; RESP 17; TEMP 36; O2SAT 96
[2024-09-10 03:01] VITALS: BP 137/61; PULSE 59; RESP 16; TEMP 36.6; O2SAT 94
[2024-09-10 07:17] VITALS: BP 114/58; PULSE 97; RESP 18; TEMP 36.6; O2SAT 94
[2024-09-10 07:27] LABS: Glucose, Whole Blood 164 mg/dL (60-115)
[2024-09-10] MEDS: Insulin Lispro 100 UNIT/ML 3 ML VIAL SUBCUT ×2 (07:38→11:42)
[2024-09-10] MEDS: Doxycycline Hyclate 100 MG in 0.9 % Sodium Chloride 250 ML 166.67 MG IV (07:38)
[2024-09-10] MEDS: Atorvastatin Calcium 80 MG TABLET PO (09:36)
[2024-09-10] MEDS: Aspirin 81 MG TAB.CHEW PO (09:36)
[2024-09-10] MEDS: Apixaban 5 MG TABLET PO (09:36)
[2024-09-10] MEDS: Finasteride 5 MG TABLET PO (09:37)
[2024-09-10] MEDS: Metoprolol Tartrate 25 MG TABLET PO (09:37)
[2024-09-10] MEDS: Losartan Potassium 25 MG TABLET PO (09:37)
[2024-09-10 11:15] LABS: Glucose, Whole Blood 233 mg/dL (60-115)
--- NOTE | 2024-09-10 11:26 | PM.DS ---
DS: Providers Provider Date of Service: 09/10/24 Date of admission: 09/07/24 22:23 Date of discharge: 09/10/24 Primary care physician: Candido Good III, MD Consults: 09/06/24 22:34 Consult to Neurology Stat Consulting Provider: [facility] Reason for consultation: quesion new dx of Parkinson's Has provider been notified: Yes 09/08/24 09:54 Consult to Neurology Routine Consulting Provider: [facility] Reason for consultation: progressive weakness Has provider been notified: No 09/09/24 07:01 Consult to Orthopedics Routine Consulting Provider: [facility] Reason for consultation: avulsion fracture right foot Has provider been notified: No DS: Diagnosis Discharge Diagnosis (1) Pneumonia: Status: Acute (2) Sepsis: Status: Acute DS: Summary Hospital Course Hospital Course: History of presenting illness: Date of Service: 09/07/24 Chief Complaint: Cough, fever This has a 78-year-old male with pertinent history of TIA, insulin-dependent diabetes mellitus, CKD stage 3, hypertension, hyperlipidemia, coronary artery disease, BPH, DVT on Eliquis who initially presented to the ER on 09/06 for evaluation of progressive weakness. He was pending case management in the ER when he developed fever and cough. Imaging with left-sided pneumonia. Patient met sepsis criteria and IV antibiotics initiated. Hospital medicine team consulted for admission. Patient states he has had cough for the last 2 days. It is productive with yellowish sputum production. States he has been progressively weak over the last few days and he is unable to perform activities of his daily living. Patient has had chronic olecranon bursitis and there was concern for septic bursitis which was ruled out in the ER. He was given IV ceftriaxone and doxycycline in the ER for left-sided pneumonia. Admits chills but denies palpitations, chest pain, abdominal pain, changes in urinary or bowel habits. Hospital course: 78-year-old male with pertinent history of TIA, insulin-dependent diabetes mellitus, CKD stage 3, hypertension, hyperlipidemia, coronary artery disease, BPH, DVT on Eliquis who initially presented to the ER on 09/06 for evaluation of progressive weakness and admitted to hospital with a diagnosis of sepsis due to pneumonia, had mechanical fall 1/2 resulting in bruising to right hip and possible navicular avulsion injury right foot Sepsis due to left-sided pneumonia treated with IV ceftriaxone and IV doxycycline, blood culture showed no growth, patient improved clinically WBC trended down , afebrile, tolerating diet therefore being discharged to rehab facility on by mouth antibiotic to finish a total 5 day course of antibiotics, recommend to continue cough medications. possible avulsion fracture of right foot, patient denies pain with ambulation seen by orthopaedic surgery they recommend offloading boots for long distances. right hip bruising from mechanical fall stable hematocrit continue analgesics. generalized weakness likely due to infection, hypo magnesemia repleted, seen by PT they recommend short-term rehab, seen by Neurology no further workup needed weakness likely due to acute illness, Recommend ensure 1 can t.i.d. Insulin-dependent diabetes mellitus recommend to resume all home medications including metformin, Januvia and basal insulin. History of DVT recommend to continue Eliquis CAD/TIA On aspirin and high-intensity statin chronic olectronon bursitis , right elbow xray showed no effusion or acute findings, left elbow with soft tissue swelling of the elbow, outpatient follow up with ortho. BPH: continue finasteride chronic iron def anemia H/h above transfusion threshold previously on iron supplementation Hypertension: Continue metoprolol, and losartan. Time Attestation Discharge Coordination Time (in mins): 40 Quality: Safe Use of Opioids Does Pt have an Active Cancer Diagnosis on the Problem List?: No Quality: Stroke Does the patient have a stroke diagnosis?: No Physical Exam Vital Signs: Vital Signs: Last Vital Signs Temp 98 F 09/10/24 07:17 Pulse 97 09/10/24 07:17 Resp 18 09/10/24 07:17 BP 114/58 L 09/10/24 07:17 Pulse Ox 94 09/10/24 07:17 O2 Del Method Room Air 09/10/24 07:17 BMI result Body Mass Index 28.6 Const: Other: General awake ,jeovanny rt x 3, in no acut e distress. HEENT :PERRLA ,EOMI Neck supple no JVD. C VS regular rate r hythm, Respiratory lungs basilar rho nchi , no respirat ory distress, no r ales Gastrointesti nal abdomen soft, non tender, bowel sounds audible, no guarding , no rig idity. Extremities no edema. Neuro n on focal , moving all 4 extremity, s peech clear. Right hip bruise Psych appropriate affect DS: Data Data Completed and Pending Completed studies during hospitalization [Text1]: Procedures Insertion of Pacemaker Lead into Right Atrium, Percutaneous Approach (01/10/21) Insertion of Pacemaker Lead into Right Ventricle, Percutaneous Approach (01/10/21) Insertion of Pacemaker, Dual Chamber into Chest Subcutaneous Tissue and Fascia, Open Approach (01/10/21) Labs on day of discharge: Laboratory Results - last 24 hr 09/09/24 09/09/24 09/09/24 08:55 16:03 20:52 POC Glucose 269 H 206 H Magnesium 1.6 09/10/24 09/10/24 07:15 11:07 POC Glucose 164 H 233 H Magnesium Preliminary micro results at discharge 09/07/24 18:56 Blood Culture - Preliminary Blood - Venous No growth after 48 hours. 09/07/24 18:47 Blood Culture - Preliminary Blood - Venous No growth after 48 hours. Discharge Plan Discharge Anticipated Discharge Date/Time: 09/10/24 11:23 Patient Disposition: Xfer SNF Discharge Diagnosis: Sepsis due to pneumonia Referrals: Candido Good III, MD [Primary Care Provider] - 1 Week Discharge Medications: New cefuroxime axetil 500 mg tablet 500 mg PO Q12H Qty: 6 0RF doxycycline monohydrate 100 mg capsule 100 mg PO BID Qty: 4 0RF dextromethorphan-guaifenesin [Robitussin Cough-Chest Aj DM] 5-100 mg/5 mL liquid 10 ml PO Q8H Qty: 500 0RF Rx Instructions: x 3 days Continued atorvastatin 80 mg tablet 80 mg PO DAILY insulin glargine [Lantus Solostar U-100 Insulin] 100 unit/mL (3 mL) insulin pen 24 unit subcut BEDTIME Januvia 100 mg tablet 100 mg PO DAILY metoprolol tartrate 25 mg tablet 25 mg PO BID finasteride 5 mg tablet 5 mg PO DAILY metformin 500 mg tablet 2 tab PO BIDAC Eliquis 5 mg tablet 5 mg PO BID aspirin 81 mg Tablet,Chewable 81 mg PO DAILY Qty: 30 0RF losartan 25 mg tablet 25 mg PO DAILY Discharge Orders: Discharge Order (Routine); Ordered 09/10/24 Ordered By: Ashlee Cortez Diet: ensure tid Activity on Discharge: As tolerated Stand Alone Forms: Patient Portal Discharge page Print Language: Citizen Of [place] Care Plan Goals: Pneumonia take Ceftin x3 days and doxycycline x2 days Cough medication Ensure can t.i.d. Health Concerns: Diabetes mellitus DVT on Eliquis Plan of Treatment: Outpatient follow-up with primary care physician call for appointment Assessment: As above
--- NOTE | 2024-09-10 11:38 | MHC.CM.PN ---
Per MD patient medically cleared for dc to [facility] has obtained auth. S transport scheduled for 3pm. Patient, , MD and RN aware.
[2024-09-10] MEDS: guaiFENesin DM 200/20/10 ML 10 ML SYRUP PO (12:16)
== END 2024-09-10 15:26 | disposition skilled nursing facility (03) | DRG 720 ==
LOC: HO.ED 09-07 20:20 → HO.EDOVER 09-07 22:27 → HO.S3 09-08 17:12
PROVIDERS: Physician Assistant Medical; Registered Nurse Emergency; Admitting Provider Student in an Organized Health Care Education/Training Program; Emergency Provider Emergency Medicine; PCP Internal Medicine; Visit Provider Hospitalist
DX: A41.9 Sepsis, unspecified organism (principal); J18.9 Pneumonia, unspecified organism; E11.22 Type 2 diabetes mellitus with diabetic chronic kidney disease; D50.9 Iron deficiency anemia, unspecified; E78.5 Hyperlipidemia, unspecified; E83.42 Hypomagnesemia; G31.9 Degenerative disease of nervous system, unspecified; I12.9 Hypertensive chronic kidney disease with stage 1 through stage 4 chronic kidney disease, or unspecified chronic kidney disease; N40.0 Benign prostatic hyperplasia without lower urinary tract symptoms; I25.10 Atherosclerotic heart disease of native coronary artery without angina pectoris; M70.22 Olecranon bursitis, left elbow; M70.21 Olecranon bursitis, right elbow; S92.251A Displaced fracture of navicular [scaphoid] of right foot, initial encounter for closed fracture; W19.XXXA Unspecified fall, initial encounter; N18.30 Chronic kidney disease, stage 3 unspecified; Z86.718 Personal history of other venous thrombosis and embolism; Z20.822 Contact with and (suspected) exposure to COVID-19; Z79.01 Long term (current) use of anticoagulants; Z79.4 Long term (current) use of insulin; Z79.82 Long term (current) use of aspirin; Z79.84 Long term (current) use of oral hypoglycemic drugs; Z79.899 Other long term (current) drug therapy
CPT/HCPCS: 0241U; 36415; 70450; 71045; 73070; 73502; 73630; 80048; 80053; 82607; 82947; 83605; 83735; 85025; 85027; 85652; 86140; 87040; 97110; 97116; 97162; 99285; J0696; J3475

== ENCOUNTER → 2024-09-06 18:12 | Outpatient (BNV) | payer BC, SELFPAY | PROVIDERS: PCP Internal Medicine; Visit Provider Nuclear Medicine | DX: M70.21 Olecranon bursitis, right elbow (principal); M70.22 Olecranon bursitis, left elbow | CPT/HCPCS: 73080 ==

== ENCOUNTER → 2024-09-07 18:34 | Outpatient (BNV) | payer BC, SELFPAY | PROVIDERS: Emergency Provider Emergency Medicine; PCP Internal Medicine; Visit Provider Specialist | DX: R05.9 Cough, unspecified (principal) | CPT/HCPCS: 71045 ==

== ENCOUNTER 2024-09-07 22:23 | Outpatient (BNV) | payer BC, SELFPAY | END 2024-09-08 19:20 | PROVIDERS: Admitting Provider Student in an Organized Health Care Education/Training Program; Emergency Provider Emergency Medicine; PCP Internal Medicine; Visit Provider Radiology Diagnostic Radiology | DX: R53.1 Weakness (principal); W19.XXXA Unspecified fall, initial encounter | CPT/HCPCS: 70450; 73502; 73630 ==

== ENCOUNTER → 2024-09-07 22:23 | Outpatient (BNV) | payer BC, SELFPAY | PROVIDERS: Admitting Provider Student in an Organized Health Care Education/Training Program; Emergency Provider Emergency Medicine; PCP Internal Medicine; Visit Provider Student in an Organized Health Care Education/Training Program | DX: A41.9 Sepsis, unspecified organism (principal); J18.9 Pneumonia, unspecified organism; R53.1 Weakness; E83.42 Hypomagnesemia | CPT/HCPCS: 99223; 99232; 99239 ==

== ENCOUNTER → 2024-09-07 22:23 | Outpatient (BNV) | payer BC, SELFPAY | PROVIDERS: Admitting Provider Student in an Organized Health Care Education/Training Program; Emergency Provider Emergency Medicine; PCP Internal Medicine; Visit Provider Psychiatry & Neurology Neurology | DX: R53.1 Weakness (principal); G31.9 Degenerative disease of nervous system, unspecified | CPT/HCPCS: 99222 ==

== ENCOUNTER 2024-09-16 10:31 | Outpatient (REF) | payer BC, SELFPAY ==
--- NOTE | ~2024-09-16 | XR_ITS ---
EXAMINATION: XR FOOT 3 OR MORE VIEWS RIGHT HISTORY: S92.351A - Displaced fracture of fifth metatarsal bone, right foot, init... COMPARISON: Comparison is made with the prior examination dated 09/08/2024. FINDINGS: Three views of the right foot are submitted. Osseous mineralization is normal. Again seen is a tiny osseous density adjacent to the medial navicular bone which could represent an accessory ossicle or possibly a fracture fragment. The appearance is unchanged. The joint spaces are preserved. The vascular calcifications. XR/XR foot RT min 3V IMPRESSION: Tiny osseous density adjacent to the medial aspect of the navicular without change which could represent an accessory ossicle or possibly a fracture fragment. Clinical correlation is recommended. Electronically signed by: Luis Antonio Camejo MD 09/20/2024 09:47 AM EST
== END 2024-09-16 10:32 | disposition home or self-care (01) ==
LOC: HO.HOSX 10:31
DX: S92.351A Displaced fracture of fifth metatarsal bone, right foot, initial encounter for closed fracture (principal)
CPT/HCPCS: 73630

== ENCOUNTER 2024-09-16 14:14 | Outpatient (AMB) | payer BC, SELFPAY ==
--- NOTE | 2024-09-16 14:33 | A.OFFVIS_ITS ---
Vital Signs 09/16/24 14:35 Height 5 ft 8 in Weight 180 lb BMI 27.4 Intake Visit Reasons: FC - RT foot avulsion fx Intake Note: Eduardo 79 yr old male presents today for a new patient visit for his right foot. States he fell and doesn't recall DOI. States he was seen somewhere not sure if it was at his rehab home or at urgent care. Currently states he has no pain, numbness or tingling in toes. He was given a cam walker boot as needed but interferes with his mobility. He states due to his injury he is currently in a wheel chair . Roller Pneumatic: Roller Pneumatic Present (LIZ Núñez) Allergies Seasonal Allergies Allergy (Verified 09/16/24 14:36) Runny Nose HPI HPI FC - RT foot avulsion fx: Details: Eduardo 79 yr old male presents today for a new patient visit for his right foot. States he fell and doesn't recall DOI. Injury was confirmed on x-rays while the patient was admitted to the hospital, and he was placed in a walking boot at that time. States he was seen somewhere not sure if it was at his rehab home or at urgent care. Currently states he has no pain, numbness or tingling in toes. He was given a cam walker boot as needed but interferes with his mobility. He states due to his injury he is currently in a wheel chair . [facility] 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 CHB (complete heart block) History of acute myocardial infarction Diabetes High cholesterol HTN (hypertension) Kidney disease, chronic, stage III (GFR 30-59 ml/min) Surgical History S/P quadruple vessel bypass History of tonsillectomy Family History Mother Breast cancer metastasized to brain Diabetes Sister Diabetes Brother Diabetes Sister Diabetes Sister Diabetes Brother Diabetes Maternal Uncle Diabetes Maternal Aunt Diabetes Maternal Aunt Diabetes Maternal Uncle Diabetes Social History (Updated 09/16/24 @ 14:36 by SAHIL Garnica) Household Members: Spouse Household Members Other:: Housing: House Are you a primary ocular care technician to a significant other at home: No Do you presently have visiting nurse or other home services: No Alcohol intake: current Alcohol intake frequency: does not drink Patient Tobacco Use Status: Never used Tobacco service: Yes Current occupational status: retired Current occupation: rt hand Physical Exam Vital Signs: BMI result Body Mass Index 27.4 Extrem Other: Patient's R foot normal to inspection No erythema, ecchymosis, edema noted No lacerations, abrasions, open areas No evidence of infection Patient reports no tenderness to palpation of the right foot, lateral malleolus, medial malleolus, or any other aspect of the right foot and ankle Patient is able to dorsiflex and plantar flex the right foot fully and without difficulty Patient is able to who flex and extend the digits of the right foot without difficulty Distal sensation intact Capillary refill brisk Office Procedures AMB Fracture Care Details: Right navicular avulsion fracture Fracture Billing Code: Fracture Billing Code Results Reviewed Results Reviewed: X-rays obtained in the office today and independently reviewed by me, Elia Ponce PA-C, demonstrate nondisplaced avulsion fracture of the navicular bone of the right foot that appears chronic. No acute fracture or other bony abnormality noted. Assessment & Plan Assessment & Plan (1) Avulsion fracture of navicular bone of left foot: Code(s): S92.252A - Displaced fracture of navicular [scaphoid] of left foot, initial encounter for closed fracture Category: Medical Plan 1. Navicular bone avulsion fracture of right foot Unknown date of injury, chronic in appearance No pain or other symptoms at this time At this time, patient is educated that he can come out of the walking boot he has been wearing, and can weight bear in walk as tolerated Patient was educated that if he begins to experience increased pain in the right foot, he should go back to wearing the boot call us for another appointment Patient was amenable to this plan Patient will follow-up as needed with any acute concerns Orders: Orders XR foot RT min 3V 09/16/24 S92.351A - Displaced fracture of fifth metatarsal bone, right foot, initial encounter for closed fracture Coding Level of Care Code New Pt Level 3 (95081) Diagnoses Avulsion fracture of navicular bone of left foot S92.252A CPT Codes Fracture Care - Fracture Billing Code: Fracture Billing Code ([id number])
[2024-09-16 14:35] VITALS: BMI 27.4
== END 2024-09-16 14:54 | disposition home or self-care (01) ==
PROVIDERS: PCP Internal Medicine
DX: S92.252A Displaced fracture of navicular [scaphoid] of left foot, initial encounter for closed fracture (principal)
CPT/HCPCS: 99203

== ENCOUNTER → 2024-09-16 14:19 | Outpatient (BNV) | payer BC, SELFPAY | PROVIDERS: Visit Provider Radiology Diagnostic Radiology | DX: S92.351A Displaced fracture of fifth metatarsal bone, right foot, initial encounter for closed fracture (principal) | CPT/HCPCS: 73630 ==

== ENCOUNTER 2025-02-08 11:25 | Outpatient (REF) | payer BC, SELFPAY ==
--- NOTE | ~2025-02-08 | XR_ITS ---
Exam: 2 view bilateral knees. Technique: AP and lateral x-rays lower extremity joint, bilateral INDICATION: Knee pain. COMPARISON: None. Findings: LEFT KNEE: There is moderate arterial vascular calcification in the lower leg. There is moderate medial compartment and mild lateral compartment joint space narrowing. There are small marginal osteophytes involving the medial compartment and intercondylar tubercles. There is likely a joint effusion. RIGHT KNEE: There is mild to moderate narrowing of the medial and lateral joint spaces. Small marginal osteophytes are present in the lateral compartment, intercondylar notch, and tibial spines. There is probably a joint effusion. There is dense arterial vascular calcification in the lower leg. XR/XR Knee Sebastian 1or 2V IMPRESSION: Left knee demonstrates mild to moderate osteoarthritis most advanced in the medial compartment with suspected joint effusion. Right knee demonstrates [id number] osteoarthritis with suspected joint effusion. Arterial vascular calcifications are present in the bilateral lower extremities. Electronically signed by: Juan Manuel San MD 02/08/2025 02:43 PM EDT
--- OUTSIDE RECORDS SUMMARY | 2025-02-08 12:23 | XMS_ITS | Encounter Summary ---
Author Organization [facility] Address [address] [place] [address] Care Team Providers Care Field Agronomist Name Role Phone Candido Good MD Primary Care Provider [phone] Reason for Visit * Reason Comments Home Health Certification [facility] Health Certification order# [id number] 10/18/24 to 12/16/24 Encounter Details Date Type Department Care Team (Late Contact Info) Description 11/14/2024 Billing Patient Not Present Adult Medicine [address] [phone] Candido Good MD [address] [place] [id number] Social History Tobacco Use Types Packs/Day Years Used Date Smoking Tobacco: Never Smokeless Tobacco: Never Alcohol Use Standard Drinks/Week Comments No 0 (1 standard drink = 0.6 oz pur e alcohol) Sex and Gender Information Value Date Recorded Sex Assigned at Male 11/14/2024 11:02 AM EDT Legal Sex Male 7:56 PM EST Gender Identity Male 11/14/2024 11:02 AM EDT Sexual Orientation Straight 11/14/2024 11 :02 AM EDT documented as of this encounter Plan of Treatment Upcoming Encounters Date Type Department Care Team (Late st Contact Info) Description 02/24/2025 1:30 PM EDT Ancillary Procedure [facility] [address] [place] [phone] 03/29/2025 11:30 AM EDT Office Visit Vascular Surgery - [place] [address] [place] [address] Roya Hardy MD [address] [facility] [address] [place] [address] 05/11/2025 1:00 PM EDT Office Visit Adult [facility] [address] [place] [address] Candido Good MD [address] [place] [id number] 06/26/2025 2:40 PM EDT Office Visit [facility] [address] [facility] [address] [place] [phone] Traci Smith NP 300 [facility] [address] [place] [address] 12/14/2025 11:00 AM EDT Ancillary Procedure [facility] [address] [facility] [address] [place] [phone] documented as of this encounter Visit Diagnoses Not on filedocumented in this encounter Care Teams Field Agronomist Relationship Specialty Start Date End Date Candido Good MD [address] [place] [phone] PCP - General Internal Medicine 03/13/20 documented as of this encounter
== END 2025-02-08 11:26 | disposition home or self-care (01) ==
LOC: HO.XRAY 11:25
PROVIDERS: PCP Internal Medicine; Visit Provider Psychiatry & Neurology Neurology
DX: M25.561 Pain in right knee (principal); M25.562 Pain in left knee
CPT/HCPCS: 73560

== ENCOUNTER → 2025-02-08 12:05 | Outpatient (BNV) | payer BC, SELFPAY | PROVIDERS: PCP Internal Medicine; Visit Provider Radiology Diagnostic Radiology | DX: R91.8 Other nonspecific abnormal finding of lung field (principal) | CPT/HCPCS: 71045 ==

== ENCOUNTER 2025-02-08 21:29 | Inpatient (IN) | payer BC, SELFPAY ==
--- NOTE | 2025-02-08 | ECG_ITS ---
Test Reason : WEAKNESS Blood Pressure : */* mmHG Vent. Rate : 85 BPM Atrial Rate : 85 BPM P-R Int : 256 ms QRS Dur : 182 ms QT Int : 448 ms P-R-T Axes : * -77 79 degrees QTcB Int : 533 ms Atrial-sensed ventricular-paced rhythm with prolonged AV conduction Abnormal ECG When compared with ECG of 28-May-2024 13:51, Vent. rate has increased by 6 bpm Referred By: Generic ED Physician Electronically Signed By: EDDIE PORTILLO
--- NOTE | ~2025-02-08 | XR_ITS ---
CLINICAL HISTORY: fever 1 view chest x-ray Comparison: CR - XR CHEST 1V - 09/07/24 19:03 EST Findings: There is likely a small left pleural effusion. Ill-defined opacity at the left lung base. Cardiomegaly similar to prior. Left subclavian dual chamber pacer. Osteopenia. No acute fracture. IMPRESSION: Ill-defined left lung base opacity and probable small left pleural effusion. Infectious etiology possible. Follow-up as needed. This document has been electronically signed by: Anton Kaur MD on 02/08/2025 23:21:59
[2025-02-08 21:57] VITALS: BP 119/51; BP 134/56; PULSE 94; PULSE 96; RESP 18; TEMP 39.5; O2SAT 95; BMI 26.4
[2025-02-08] MEDS: SODIUM CHLORIDE 2361 ML IV (22:23)
[2025-02-08 22:24] LABS: MANUAL DIFF FLAG NO
[2025-02-08 22:26] LABS: Basophils Absolute Auto 0.1 X10*3/uL (0.0-0.2); Basophils Percent Auto 0.7 % (0-2); Eosinophils Absolute Auto 0.1 X10*3/uL (0.0-0.4); Eosinophils Percent Auto 0.4 % (0-4); Hematocrit 25.4 % (42.0-52.0); Hemoglobin 7.8 g/dl (14.0-18.0); Imm Gran Abs Auto 0.08 X10*3/uL (0.00-0.03); Imm Gran Pct Auto 0.7 % (0.0-0.4); Lymphocytes Absolute Auto 1.7 X10*3/uL (1.2-4.9); Lymphocytes Percent Auto 14.8 % (20-40); Mean Corpuscular HGB Conc 30.7 g/dl (31.0-36.0); Mean Corpuscular Hemoglobin 22.9 pg (27.0-33.0); Mean Corpuscular Volume 74.7 fL (80.0-98.0); Mean Platelet Volume 9.9 fL (9.4-12.4); Monocytes Absolute Auto 0.9 X10*3/uL (0.1-1.2); Neutrophils Absolute Auto 8.8 x10*3/uL (2.0-8.3); Neutrophils Percent Auto 75.4 % (45-73); Platelet Count 282 X10*3/uL (160-400); Red Cell Distribution Width 17.4 % (11.0-16.0); White Blood Count 11.7 X10*3/uL (4.8-10.8)
[2025-02-08] MEDS: cefTRIAXone sodium 1 GM VIAL IVPUSH (22:26)
[2025-02-08] MEDS: Acetaminophen 325 MG TABLET 975 MG PO (22:26)
[2025-02-08 22:42] LABS: Alanine Aminotransferase 13 U/L (0-40); Albumin Level 2.7 g/dL (3.5-5.0); Alkaline Phosphatase 101 U/L (39-117); Anion Gap 15 (12-20); Aspartate Amino Transferase 31 U/L (5-37); Bilirubin Total 0.5 mg/dL (0.0-1.0); Blood Urea Nitrogen 17 mg/dL (9-16); Calcium 8.5 mg/dL (8.4-10.2); Carbon Dioxide 24 mmol/L (22-29); Chloride 101 mmol/L (96-108); Estimated Glomerular Filt Rate > 60; Glucose Random 183 mg/dL (60-115); Potassium 4.8 mmol/L (3.3-5.1); Sodium 135 mmol/L (135-145); Total Protein 7.6 g/dL (6.5-8.0)
[2025-02-08 22:45] LABS: Lactic Acid 3.9 mmol/L (0.5-2.0)
[2025-02-08 22:51] LABS: Troponin-I High Sensitivity 15.8 ng/L (<3.5-35.0)
[2025-02-08 22:57] VITALS: BP 92/42; PULSE 84
[2025-02-08 23:12] VITALS: BP 100/36; PULSE 81
[2025-02-08 23:32] VITALS: BP 102/44; PULSE 82; RESP 20; TEMP 38.3; O2SAT 95
--- NOTE | 2025-02-08 23:37 | PC.NURSE ---
IVF noted to still be running, rectal temp taken 101.0, bp 102/44, 19RR, 85HR, and 95% O2 sat. pt used urinal and urine sample collected. pt in no notable distress at this time. plan of care ongoing
[2025-02-08 23:45] LABS: Appearance Urine Cloudy; Color Urine Dark Yellow; Glucose Urine UA Negative (Negative); Leukocyte Esterase Urine Large (3+) (Negative); Nitrite Urine Positive (Negative); UMIC TRIGGER UACC YES; Urine Blood Trace (Negative); Urine Ketones Trace mg/dL (Negative); Urine Protein 30 (1+) mg/dL (Neg-Trace)
[2025-02-08 23:47] LABS: Bacteria Urine 4+ (None Seen); RBC Urine 0-2 /HPF (0-2); UACC Culture Trigger YES; WBC Urine >50 /HPF (0-5)
[2025-02-09] VITALS (18 sets, daily range): BP systolic 88–124; BP diastolic 42–58; PULSE 70–83; RESP 14–23; TEMP 36.3–37.1; O2SAT 94–96; BMI 26.7
[2025-02-09] MEDS: Azithromycin 500 MG in 0.9 % Sodium Chloride 250 ML 125 MG IV (00:19)
[2025-02-09 00:20] LABS: OBS Int Ctl Valid YES; OBS1 NEGATIVE (NEGATIVE)
[2025-02-09 00:21] LABS: Influenza A PCR NEGATIVE (Negative); Influenza B PCR NEGATIVE (Negative); Resp Syncy Virus RNA Qual PCR NEGATIVE (Negative); SARS COV2 PCR INHOUSE NEGATIVE (Negative)
[2025-02-09 00:23] LABS: Reflex Lactate? Lactic Acid Added
--- NOTE | 2025-02-09 00:25 | ED_ITS ---
HPI - Weakness General Chief complaint: Weakness Stated complaint: NEW WEAKNESS X5DAY PER EMS Time Seen by Provider: 02/08/25 22:16 Source: patient and family Mode of arrival: ambulatory Limitations: no limitations History of Present Illness ED Provider: Dr. Nathaly Queen HPI Narrative: Patient comes to the emergency room complaining of weakness. Patient states it has been about 5 days. Patient reports that he usually ambulates with a walker but today he was not able to ambulate at all. Patient denies any chest pain or shortness of breath, no nausea vomiting or diarrhea, no fever at home until now. Patient denies hematuria or dysuria. Related Data Home Medications ?Medication ?Instructions ?Recorded ?Confirmed atorvastatin 80 mg tablet 80 mg PO DAILY 01/10/21 09/07/24 finasteride 5 mg tablet 5 mg PO DAILY 01/10/21 09/07/24 insulin glargine 100 unit/mL (3 24 unit subcut BEDTIME 01/10/21 09/07/24 mL) subcutaneous pen (Lantus Solostar U-100 Insulin) metformin 500 mg tablet 2 tab PO BIDAC 01/10/21 09/07/24 metoprolol tartrate 25 mg tablet 25 mg PO BID 01/10/21 09/07/24 sitagliptin phosphate 100 mg 100 mg PO DAILY 01/10/21 09/07/24 tablet (Januvia) apixaban 5 mg tablet (Eliquis) 5 mg PO BID 02/09/23 09/07/24 losartan 25 mg tablet 25 mg PO DAILY 06/01/24 09/07/24 Previous Rx's ?Medication ?Instructions ?Recorded aspirin 81 mg chewable tablet 81 mg PO DAILY #30 tabs 05/17/22 cefuroxime axetil 500 mg tablet 500 mg PO Q12H #6 tabs 09/10/24 dextromethorphan-guaifenesin 5 10 ml PO Q8H #500 mL 09/10/24 mg-100 mg/5 mL oral liquid (Robitussin Cough-Chest Congestion DM) doxycycline monohydrate 100 mg 100 mg PO BID #4 caps 09/10/24 capsule ferrous sulfate 140 mg (45 mg See Rx Instructions .Route 10/26/24 iron) tablet,extended release .COMPLEX #90 tabs (Slow Release Iron) Allergies Allergy/AdvReac Type Severity Reaction Status Date / Time Seasonal Allergies Allergy Runny Nose Verified 02/08/25 22:00 Review of Systems 2 Review of Systems: Constitutional : No Weight loss, No Fever, No Chills, No Night Sweats, complaining of fatigue, generalized weakness ENT/Mouth : No Hearing loss, No Ear Pain, No Nasal Congestion, No Sinus Pain, No Hoarseness, No sore throat, No Rhinorrhea, No Swallowing Difficulty Eyes: No Eye Pain, No Swelling, No Redness, No Foreign Body, No Discharge, No Vision Changes Cardiovascular : No Chest Pain, No SOB, No Dyspnea on Exertion, No Orthopnea, No Edema, No Palpitations Respiratory : No Cough, No Sputum, No Wheezing, No Smoke Exposure, No Dyspnea Gastrointestinal : No Nausea, No Vomiting, No Diarrhea, No Constipation, No abdominal Pain, No Hematochezia, No Melena Genitourinary : no irregular bleeding, No Dysuria, No Urinary Frequency, No Hematuria, No Urinary Incontinence, No Urgency, No Flank Pain, No Urinary Flow Changes, No Hesitancy Musculoskeletal : No joint pain, No Myalgias, No Joint Swelling Skin : No Skin Lesions, No rash Neuro : No Weakness, No Numbness, No Paresthesias, No Loss of Consciousness, No Dizziness, No Headache Psych : No Anxiety/Panic, No Depression, No SI/HI/AH/VH, No Social Issues, Heme/Lymph: No Bruising, No Bleeding,No Lymphadenopathy Endocrine : No Polyuria, No Polydipsia, No Temperature Intolerance PMFSH Past Medical History Medical History Parkinsons Afib Abnormal EKG Deep vein thrombosis (DVT) of axillary vein of left upper extremity CHB (complete heart block) History of acute myocardial infarction Diabetes High cholesterol HTN (hypertension) Kidney disease, chronic, stage III (GFR 30-59 ml/min) Surgical History Hx of CABG S/P quadruple vessel bypass History of tonsillectomy Family History Family History Mother Breast cancer metastasized to brain Diabetes Sister Diabetes Brother Diabetes Sister Diabetes Sister Diabetes Brother Diabetes Maternal Uncle Diabetes Maternal Aunt Diabetes Maternal Aunt Diabetes Maternal Uncle Diabetes Social History Social History (Updated 09/16/24 @ 14:36 by SAHIL Garnica) Household Members: Spouse Household Members Other:: Housing: House Are you a primary medicare sales representative to a significant other at home: No Do you presently have visiting nurse or other home services: No Alcohol intake: current Alcohol intake frequency: does not drink Patient Tobacco Use Status: Never used Tobacco Smoked in Last 30 Days: No Use of substances other than those prescribed or required for medical reasons: No Advance Directives: Yes Advance Directives on File: Yes Advance Directives Date on File: 06/01/24 Do you have a plan to hurt others: No Plan service: Yes Current occupational status: retired Current occupation: rt hand Physical Exam 2 Vital Signs: Vital Signs: Last Vital Signs Temp 101.0 F H 02/08/25 23:32 Pulse 83 02/09/25 00:17 Resp 17 02/09/25 00:17 BP 96/43 L 02/09/25 00:17 Pulse Ox 95 02/09/25 00:17 O2 Del Method Room Air 02/09/25 00:17 BMI result Body Mass Index 26.4 Const: Other: Appearance: Alert. Oriented X3. No acute distress. Patient's seems weak, has trouble sitting up by himself, needs help. Eyes: Pupils equal, round and reactive to light. ENT: Pharynx normal. Neck: Normal inspection. Neck supple. No lymph nodes noted. No crepitus CVS: Normal heart rate and rhythm. Pulses normal. Normal S1 and S2 Respiratory: No respiratory distress. Breath sounds normal. No Wheezing. No rales Abdomen: Soft and nontender. No rigidity. No distention. Skin: Skin warm and dry. Pale skin color. Normal skin turgor. On his buttocks, patient has a stage I pressure ulcer, does not seem to be infected. Extremities: No lower extremity edema. No Lacerations. No Rash Neuro: Oriented X 3. No motor deficit. No sensory deficit. Moving all extremities. No slurred speech. CN 2 through 12 grossly intact Psych: calm, cooperative, normal affect Course Course Course Narrative: On arrival, I was informed by the patient's nurse that the patient's has a rectal temperature of 103.1 degrees. Patient's blood pressure is stable, wanting 10/51, heart rate 94, oxygen saturation 95% on room air. Patient main complaint is weakness, denies chest pain or shortness of breath, occasional cough but is chronic in nature. No abdominal pain, no flank pain, no hematuria or dysuria I reviewed patient's records, patient has been here before for urinary tract infections that started out symptomatically as weakness Patient is empirically getting IV fluids, ceftriaxone All of patient's labs and imaging pending Medications Administered Generic Name Dose Route Start Last Admin Trade Name Freq PRN Reason Stop Dose Admin Azithromycin 500 mg/ Sodium 250 mls @ 125 mls/hr 02/09/25 00:06 02/09/25 00:19 Chloride IV 02/09/25 02:05 125 mls/hr ONCE ONE Administration Discontinued Medications Generic Name Dose Route Start Last Admin Trade Name Freq PRN Reason Stop Dose Admin Acetaminophen 975 mg 02/08/25 22:19 02/08/25 22:26 Acetaminophen 325 Mg Tablet PO 02/08/25 22:20 975 mg ONCE ONE Administration Ceftriaxone Sodium 1 gm 02/08/25 22:18 02/08/25 22:26 Ceftriaxone Sodium 1 Gm Vial IVPUSH 02/08/25 22:19 1 gm ONCE ONE Administration Sodium Chloride 2,361 mls @ 2,361 mls/hr 02/08/25 22:18 02/09/25 00:16 Ns 30 ml/kg infuse over 1 hr (2361 ml) 02/08/25 23:17 Infused IV Infusion .Q1H STA Medical Decision Making Medical Decision Making [facility] Narrative: My interpretation of labs: Patient's white blood cell count 11.7, hemoglobin 7.8. Reviewing patient's hemoglobin, it has steadily been dropping since at least August of 2024. Patient is on Eliquis. Platelet count 282. Electrolytes do not show any significant abnormality, glucose slightly elevated at 183, lactic acid 3.9, troponin negative. Urinalysis positive for UTI, stool occult blood test is heme negative, serology negative for influenza RSV and COVID Chest x-ray shows possible small pleural effusion, small opacity questionably. Given that the patient has been complaining of a bit of cough, patient will also be covered with azithromycin, patient already received ceftriaxone. Patient does report shortness of breath and gradually increased weakness. Given that patient has history of cardiac bypass, patient gradually becoming more anemic and fatigued. I discussed with the patient the risks and benefits of getting a blood transfusion. Patient and his will like to proceed with a blood transfusion. Consent signed. Patient will be receiving initially 1 unit of blood. I discussed the patient with our hospitalist Dr. Ramirez, patient being admitted Differential Diagnosis Differential Diagnoses: The differential diagnosis associated with the presentation includes (UTI, anemia, pneumonia) Admission/Observation Consideration of admission/observation: Escalation of care including admission/observation considered Consult Healthcare Provider Management of the patient was discussed with: Hospitalist Lab Data MDM Lab Attestation statement: I reviewed the patient's lab results. 02/08/25 22:14 02/08/25 22:14 Labs: Lab Results 02/08/25 02/08/25 02/08/25 Range/Units 22:14 23:32 23:37 WBC 11.7 H (4.8-10.8) X10*3/uL RBC 3.40 L (4.60-5.80) X10*6/uL Hgb 7.8 L (14.0-18.0) g/dl Hct 25.4 L (42.0-52.0) % MCV 74.7 L (80.0-98.0) fL MCH 22.9 L (27.0-33.0) pg MCHC 30.7 L (31.0-36.0) g/dl RDW 17.4 H (11.0-16.0) % Plt Count 282 D (160-400) X10*3/uL MPV 9.9 (9.4-12.4) fL Immature Gran % (Auto) 0.7 H (0.0-0.4) % Neut % (Auto) 75.4 H (45-73) % Lymph % (Auto) 14.8 L (20-40) % [place] % (Auto) 8.0 (2-11) % Eos % (Auto) 0.4 (0-4) % Baso % (Auto) 0.7 (0-2) % Lymph # (Auto) 1.7 (1.2-4.9) X10*3/uL [place] # (Auto) 0.9 (0.1-1.2) X10*3/uL Eos # (Auto) 0.1 (0.0-0.4) X10*3/uL Baso # (Auto) 0.1 (0.0-0.2) X10*3/uL Abs Immat Gran (auto) 0.08 H (0.00-0.03) X10*3/uL Absolute Neuts (auto) 8.8 H (2.0-8.3) x10*3/uL Absolute Nucleated RBC 0.000 (0.0-0.012) X10*3/uL Nucleated RBC % (auto) 0.0 (0.0-0.2) /100WBC Sodium 135 (135-145) mmol/L Potassium 4.8 (3.3-5.1) mmol/L Chloride 101 (96-108) mmol/L Carbon Dioxide 24 (22-29) mmol/L Anion Gap 15 (12-20) BUN 17 H (9-16) mg/dL Creatinine 0.85 (0.5-1.4) mg/dL Estim Creat Clear Calc 67.0 Estimated GFR > 60 Random Glucose 183 H (60-115) mg/dL Lactic Acid 3.9 H* (0.5-2.0) mmol/L Calcium 8.5 D (8.4-10.2) mg/dL Total Bilirubin 0.5 (0.0-1.0) mg/dL AST 31 (5-37) U/L ALT 13 (0-40) U/L Alkaline Phosphatase 101 (39-117) U/L Troponin I High Sens 15.8 D (<3.5-35.0) ng/L Total Protein 7.6 (6.5-8.0) g/dL Albumin 2.7 L (3.5-5.0) g/dL Urine Color Dark Yellow Urine Appearance Cloudy Urine pH 5.0 (5.0-9.0) Ur Specific [place] 1.020 (1.005-1.025) Urine Protein 30 (1+) H (Neg-Trace) mg/dL Urine Glucose (UA) Negative (Negative) mg/dL Urine Ketones Trace (Negative) mg/dL Urine Blood Trace H (Negative) Urine Nitrite Positive H (Negative) Ur Leukocyte Esterase Large (3+) H (Negative) Urine RBC 0-2 (0-2) /HPF Urine WBC >50 H (0-5) /HPF Ur Squamous Epith Cells 3-5 (0-2) /HPF Urine Bacteria 4+ (None Seen) Hyaline Casts 3-5 (0-2) /LPF Stool Occult Blood (NEGATIVE) Influenza Type A (PCR) NEGATIVE (Negative) Influenza Type B (PCR) NEGATIVE (Negative) RSV RNA Qual (PCR) NEGATIVE (Negative) SARS-CoV-2 RNA (RT-PCR) NEGATIVE (Negative) 02/09/25 Range/Units 00:16 WBC (4.8-10.8) X10*3/uL RBC (4.60-5.80) X10*6/uL Hgb (14.0-18.0) g/dl Hct (42.0-52.0) % MCV (80.0-98.0) fL MCH (27.0-33.0) pg MCHC (31.0-36.0) g/dl RDW (11.0-16.0) % Plt Count (160-400) X10*3/uL MPV (9.4-12.4) fL Immature Gran % (Auto) (0.0-0.4) % Neut % (Auto) (45-73) % Lymph % (Auto) (20-40) % [place] % (Auto) (2-11) % Eos % (Auto) (0-4) % Baso % (Auto) (0-2) % Lymph # (Auto) (1.2-4.9) X10*3/uL [place] # (Auto) (0.1-1.2) X10*3/uL Eos # (Auto) (0.0-0.4) X10*3/uL Baso # (Auto) (0.0-0.2) X10*3/uL Abs Immat Gran (auto) (0.00-0.03) X10*3/uL Absolute Neuts (auto) (2.0-8.3) x10*3/uL Absolute Nucleated RBC (0.0-0.012) X10*3/uL Nucleated RBC % (auto) (0.0-0.2) /100WBC Sodium (135-145) mmol/L Potassium (3.3-5.1) mmol/L Chloride (96-108) mmol/L Carbon Dioxide (22-29) mmol/L Anion Gap (12-20) BUN (9-16) mg/dL Creatinine (0.5-1.4) mg/dL Estim Creat Clear Calc Estimated GFR Random Glucose (60-115) mg/dL Lactic Acid (0.5-2.0) mmol/L Calcium (8.4-10.2) mg/dL Total Bilirubin (0.0-1.0) mg/dL AST (5-37) U/L ALT (0-40) U/L Alkaline Phosphatase (39-117) U/L Troponin I High Sens (<3.5-35.0) ng/L Total Protein (6.5-8.0) g/dL Albumin (3.5-5.0) g/dL Urine Color Urine Appearance Urine pH (5.0-9.0) Ur Specific [place] (1.005-1.025) Urine Protein (Neg-Trace) mg/dL Urine Glucose (UA) (Negative) mg/dL Urine Ketones (Negative) mg/dL Urine Blood (Negative) Urine Nitrite (Negative) Ur Leukocyte Esterase (Negative) Urine RBC (0-2) /HPF Urine WBC (0-5) /HPF Ur Squamous Epith Cells (0-2) /HPF Urine Bacteria (None Seen) Hyaline Casts (0-2) /LPF Stool Occult Blood NEGATIVE (NEGATIVE) Influenza Type A (PCR) (Negative) Influenza Type B (PCR) (Negative) RSV RNA Qual (PCR) (Negative) SARS-CoV-2 RNA (RT-PCR) (Negative) Independent Interpretation I performed an independent interpretation of an: Plain X-Ray Interpretation: There is likely a small left pleural effusion. Ill-defined opacity at the left lung base. Cardiomegaly similar to prior. Left subclavian dual chamber pacer. Osteopenia. No acute fracture. IMPRESSION: Ill-defined left lung base opacity and probable small left pleural effusion. Infectious etiology possible. Follow-up as needed Critical Care Time Critical Care Time Critical Care Time: Yes Total Critical Care Time: 75 Attestation: I have personally provided critical care time. Time includes review of lab data, radiology results, discussion with consultants, and monitoring for potential decompensation. Intervention performed as documented. Discharge Plan Discharge Clinical Impression: UTI (urinary tract infection), Anemia, Pneumonia Patient Disposition: Admitted As Inpatient Prescriptions: No Action atorvastatin 80 mg tablet 80 mg PO DAILY insulin glargine [Lantus Solostar U-100 Insulin] 100 unit/mL (3 mL) insulin pen 24 unit subcut BEDTIME Januvia 100 mg tablet 100 mg PO DAILY metoprolol tartrate 25 mg tablet 25 mg PO BID finasteride 5 mg tablet 5 mg PO DAILY metformin 500 mg tablet 2 tab PO BIDAC Eliquis 5 mg tablet 5 mg PO BID aspirin 81 mg Tablet,Chewable 81 mg PO DAILY Qty: 30 0RF losartan 25 mg tablet 25 mg PO DAILY cefuroxime axetil 500 mg tablet 500 mg PO Q12H Qty: 6 0RF doxycycline monohydrate 100 mg capsule 100 mg PO BID Qty: 4 0RF dextromethorphan-guaifenesin [Robitussin Cough-Chest Aj DM] 5-100 mg/5 mL liquid 10 ml PO Q8H Qty: 500 0RF Rx Instructions: x 3 days Slow Release Iron 140 mg (45 mg iron) Tablet Extended Release See Rx Instructions .ROUTE .COMPLEX Qty: 90 4RF Rx Instructions: 140 mg orally ;140 mg orally Print Language: Tajik
[2025-02-09 00:57] LABS: ~Lactic Acid-LAB USE ONLY 2.2 mmol/L (0.5-2.0)
[2025-02-09 02:38] LABS: Reflex Lactate? 2 Y
--- NOTE | 2025-02-09 03:33 | PM.IMHP ---
History of Present Illness Date of Service: 02/09/25 Attending physician on admission: Neil Ramirez Chief Complaint: weakness patient is an 79-year-old male with a past medical history significant for complete heart block, DVT, AFib on Eliquis, hypertension, CKD 3, s/p CABG, Parkinson's, DVT, type 2 diabetes on insulin, history of LA, who presented to the ED due to weakness for the past 5 days. The patient is has not felt febrile but reports chills. Fever measured of 101.3 year. He denies any nausea, vomiting, sick contacts, urinary symptoms including frequency, urgency or dysuria. He does report a chronic cough which is worse when drinking. His notes that at the rehab facility he is residing at they have been thickening his liquids due to his coughing with drinking. He does not usually have issues with solids. He has lost about 30 lb in the past month as he does not enjoy the food at the rehab facility, specifically due to the thickening and texture changes he has had. Review of Systems Constitutional: Constitutional: Reports chills, Reports fatigue, Denies fever(s), Denies headache(s) and Reports weakness Eyes: Eyes: Denies change in vision and Denies photophobia ENT: Denies headache(s), Denies nasal congestion, Denies nasal discharge and Denies sore throat Cardiovascular: Cardiovascular: Denies chest pain, Denies rapid heart rate, Denies leg edema, Denies lightheadedness and Denies dyspnea Respiratory: Respiratory: Denies chest congestion, Reports cough, Denies dyspnea and Denies wheezing Gastrointestinal: Gastrointestinal: Denies abdominal pain, Denies diarrhea, Denies nausea and Denies vomiting Genitourinary: Genitourinary: Denies dysuria, Denies flank pain, Denies urinary frequency, Denies urinary hesitancy and Denies urinary urgency Musculoskeletal: Musculoskeletal: Denies back pain and Denies myalgias Integumentary/Breasts: Skin/Breast: Denies rash Neurologic: Denies confusion, Denies headache(s) and Reports weakness Psychiatric: Psychiatric: Denies confusion Endocrine: Endocrine: Reports fatigue Hematologic/Lymphatic: Hematologic/Lymphatic: Denies easy bleeding and Denies easy bruising Allergic/Immunologic: Allergic/Immunologic: Denies wheezing [facility] Medical History Parkinsons Afib Abnormal EKG Deep vein thrombosis (DVT) of axillary vein of left upper extremity CHB (complete heart block) History of acute myocardial infarction Diabetes High cholesterol HTN (hypertension) Kidney disease, chronic, stage III (GFR 30-59 ml/min) Family History Mother Breast cancer metastasized to brain Diabetes Sister Diabetes Brother Diabetes Sister Diabetes Sister Diabetes Brother Diabetes Maternal Uncle Diabetes Maternal Aunt Diabetes Maternal Aunt Diabetes Maternal Uncle Diabetes Surgical History Hx of CABG S/P quadruple vessel bypass History of tonsillectomy Social History (Updated 09/16/24 @ 14:36 by SAHIL Garnica) Household Members: Spouse Household Members Other:: Housing: House Are you a primary urgent care nurse practitioner to a significant other at home: No Do you presently have visiting nurse or other home services: No Alcohol intake: current Alcohol intake frequency: does not drink Patient Tobacco Use Status: Never used Tobacco Smoked in Last 30 Days: No Use of substances other than those prescribed or required for medical reasons: No Advance Directives: Yes Advance Directives on File: Yes Advance Directives Date on File: 06/01/24 Do you have a plan to hurt others: No Plan service: Yes Current occupational status: retired Current occupation: rt hand Meds Allergies Allergy/AdvReac Type Severity Reaction Status Date / Time Seasonal Allergies Allergy Runny Nose Verified 02/08/25 22:00 Active Medications: Current Medications Acetaminophen (Acetaminophen 325 Mg Tablet) 975 mg PO Q6H PRN PRN Reason: Pain, Mild 1-3,fever,headache Albuterol/Ipratropium (Albuterol/Iprat 2.5/0.5mg 3 Ml Ampul.Neb) 3 ml INHALE Q4H PRN PRN Reason: Shortness of Breath/Wheezing Calcium Carbonate (Calcium Carbonate 750 Mg Tab.Chew) 750 mg PO Q4H PRN PRN Reason: Heartburn Ceftriaxone Sodium (Ceftriaxone Sodium 1 Gm Vial) 1 gm IVPUSH Q24H MISTY Dextrose (Dextrose 50 % 25 Gm/50 Ml Syringe) 25 gm IVPUSH Q15M PRN; Protocol PRN Reason: per Hypoglycemia Standing Ord. Glucose (Glucose Gel 15 Gm Gel..Gram.) 15 gm PO Q15M PRN; Protocol PRN Reason: per Hypoglycemia Standing Ord. Doxycycline Hyclate 100 mg/ (Sodium Chloride) 250 mls @ 166.67 mls/hr IV BID MISTY Insulin Glargine (Insulin Glargine,Hum.Rec.Anlog 100 Unit/Ml 10 Ml Vial) 15 unit SUBCUT BEDTIME MISTY Insulin Human Lispro (Insulin Lispro 100 Unit/Ml 3 Ml Vial) 0 unit SUBCUT Q6H MISTY; Protocol Magnesium Hydroxide (Milk Of Magnesia 30 Ml Oral.Susp) 30 ml PO DAILY PRN PRN Reason: Constipation Melatonin (Melatonin 3 Mg Tablet) 6 mg PO BEDTIME PRN PRN Reason: Insomnia Sodium Chloride (0.9 % Sodium Chloride Flush 3 Ml Syringe) 3 ml IVFLUSH QSHIFT [facility] Home Medications ?Medication ?Instructions ?Recorded ?Confirmed ?Last Taken ?Type atorvastatin 80 mg tablet 80 mg PO DAILY 01/10/21 09/07/24 05/15/22 History finasteride 5 mg tablet 5 mg PO DAILY 01/10/21 09/07/24 05/15/22 History insulin glargine 100 unit/mL (3 24 unit subcut BEDTIME 01/10/21 09/07/24 05/14/22 History mL) subcutaneous pen (Lantus Solostar U-100 Insulin) metformin 500 mg tablet 2 tab PO BIDAC 01/10/21 09/07/24 05/15/22 History metoprolol tartrate 25 mg tablet 25 mg PO BID 01/10/21 09/07/24 05/15/22 History sitagliptin phosphate 100 mg 100 mg PO DAILY 01/10/21 09/07/24 05/15/22 History tablet (Januvia) apixaban 5 mg tablet (Eliquis) 5 mg PO BID 02/09/23 09/07/24 Unknown History losartan 25 mg tablet 25 mg PO DAILY 06/01/24 09/07/24 Unknown History Physical Exam Vital Signs and Narrative: Vital Signs: Last Vital Signs Temp 98.0 F 02/09/25 02:33 Pulse 77 02/09/25 02:33 Resp 23 H 02/09/25 02:33 BP 105/48 L 02/09/25 02:33 Pulse Ox 94 02/09/25 02:33 O2 Del Method Room Air 02/09/25 02:33 BMI result Body Mass Index 26.4 General: AOx3, no acute distress, seen with . poor historians. Resp: crackles bilateral lower lungs. no wheezing. CVS: RRR, +murmur GI: +BS, NT, no distention Skin: Warm, dry Neuro: Cranial nerves II-XII grossly intact bilaterally. Motor grossly intact bilaterally Extremities: No LE edema Psych: Appropriate affect Const: General: No confusion Orientation/consciousness: No confusion Eyes: Direct Ophthalmoscopy: No photophobia Neuro: General: No confusion Results Labs 02/08/25 22:14 02/08/25 22:14 Labs: Laboratory Results - last 24 hr 02/08/25 02/08/25 02/08/25 22:14 23:32 23:37 MCV 74.7 L MCH 22.9 L MCHC 30.7 L RDW 17.4 H Plt Count 282 D MPV 9.9 Immature Gran % (Auto) 0.7 H Neut % (Auto) 75.4 H Lymph % (Auto) 14.8 L [place] % (Auto) 8.0 Eos % (Auto) 0.4 Baso % (Auto) 0.7 Lymph # (Auto) 1.7 [place] # (Auto) 0.9 Eos # (Auto) 0.1 Baso # (Auto) 0.1 Abs Immat Gran (auto) 0.08 H Absolute Neuts (auto) 8.8 H Absolute Nucleated RBC 0.000 Nucleated RBC % (auto) 0.0 Anion Gap 15 Estim Creat Clear Calc 67.0 Estimated GFR > 60 Random Glucose 183 H Lactic Acid 3.9 H* Lactic Acid F/U @ 2Hr Calcium 8.5 D Total Bilirubin 0.5 AST 31 ALT 13 Alkaline Phosphatase 101 Troponin I High Sens 15.8 D Total Protein 7.6 Albumin 2.7 L Urine Color Dark Yellow Urine Appearance Cloudy Urine pH 5.0 Ur Specific [place] 1.020 Urine Protein 30 (1+) H Urine Glucose (UA) Negative Urine Ketones Trace Urine Blood Trace H Urine Nitrite Positive H Ur Leukocyte Esterase Large (3+) H Urine RBC 0-2 Urine WBC >50 H Ur Squamous Epith Cells 3-5 Urine Bacteria 4+ Hyaline Casts 3-5 Stool Occult Blood Influenza Type A (PCR) NEGATIVE Influenza Type B (PCR) NEGATIVE RSV RNA Qual (PCR) NEGATIVE SARS-CoV-2 RNA (RT-PCR) NEGATIVE Blood Type Antibody Screen Crossmatch 02/09/25 02/09/25 02/09/25 00:16 00:34 00:46 MCV MCH MCHC RDW Plt Count MPV Immature Gran % (Auto) Neut % (Auto) Lymph % (Auto) [place] % (Auto) Eos % (Auto) Baso % (Auto) Lymph # (Auto) [place] # (Auto) Eos # (Auto) Baso # (Auto) Abs Immat Gran (auto) Absolute Neuts (auto) Absolute Nucleated RBC Nucleated RBC % (auto) Anion Gap Estim Creat Clear Calc Estimated GFR Random Glucose Lactic Acid Lactic Acid F/U @ 2Hr 2.2 H* Calcium Total Bilirubin AST ALT Alkaline Phosphatase Troponin I High Sens Total Protein Albumin Urine Color Urine Appearance Urine pH Ur Specific [place] Urine Protein Urine Glucose (UA) Urine Ketones Urine Blood Urine Nitrite Ur Leukocyte Esterase Urine RBC Urine WBC Ur Squamous Epith Cells Urine Bacteria Hyaline Casts Stool Occult Blood NEGATIVE Influenza Type A (PCR) Influenza Type B (PCR) RSV RNA Qual (PCR) SARS-CoV-2 RNA (RT-PCR) Blood Type B Positive Antibody Screen NEGATIVE Crossmatch See Detail Assessment and Plan (1) Sepsis: Status: Acute (2) UTI (urinary tract infection): Status: Acute (3) Pneumonia: Status: Acute (4) Anemia: Status: Acute (5) Prolonged QT interval: Status: Acute Plan patient is an 79-year-old male with a past medical history significant for complete heart block, DVT, AFib on Eliquis, hypertension, CKD 3, s/p CABG, Parkinson's, DVT, type 2 diabetes on insulin, history of LA, who presented to the ED due to weakness for the past 5 days. Sepsis secondary to UTI and pneumonia with associated weakness - WBC 11.7, temperature of 103.1, tachypneic and tachycardic, lactic acid 3.9, 2.2 on repeat, blood cultures x2 pending, not severe sepsis - chest x-ray with small left lower lobe pneumonia and possible left pleural effusion - UA positive - COVID/flu/ RSV negative - given 30 cc/kg fluid bolus in ED - NPO - QUARRYMAN eval to assess for aspiration - started on ceftriaxone and azithromycin, switch to ceftriaxone and doxycycline due to chronic prolonged QTC - monitor CBC and BMP chronic anemia - hemoglobin 7.8, hematocrit 25.4 - given 1 unit PRBC - recheck labs in morning, add iron, B12 and folate chronic prolonged QT - EKG with prolonged QT, when reviewing others this is chronic, patient does have dual-chamber pacing - avoid QT prolonging medications history DVT - holding Eliquis currently due to low hemoglobin requiring blood transfusion, resume when appropriate paroxysmal AFib - continue rate control, resume Eliquis when appropriate hypertension - resume home meds when appropriate CKD 3 - at baseline, avoid nephrotoxins when possible type 2 diabetes - sliding scale insulin - diabetic diet when appropriate - reduced dose Linzess CAD/ history LA/ history CABG - continue home meds when appropriate Parkinson's - continue home meds med rec pending full code VTE prophylaxis: pneumoboots given anemia requiring blood transfusion patient with sepsis secondary to UTI pneumonia, requiring admission for at least 2 midnight stay for IV antibiotics and monitoring. Quality Stroke Does the patient have a stroke diagnosis?: No VTE Prior VTE?: Yes VTE Risk Level:: Medical - moderate - high VTE Device Contraindication: Treatment Not Indicated VTE Drug Contraindication: N/A - Med Ordered
[2025-02-09 03:51] LABS: ~Lactic Acid-LAB USE ONLY 1.2 mmol/L (0.5-2.0)
[2025-02-09 04:11] LABS: Glucose, Whole Blood 160 mg/dL (60-115)
[2025-02-09] MEDS: Insulin Lispro 100 UNIT/ML 3 ML VIAL SUBCUT ×2 (05:07→22:31)
[2025-02-09 05:16] LABS: Iron < 7 mcg/dL (45-160); Percent Iron Saturation 6 % (15-50); Total Iron Binding Capacity 124 mcg/dL (228-428); Unsaturated Iron Binding 117 ug/dL
[2025-02-09 05:34] LABS: MANUAL DIFF FLAG NO
[2025-02-09 05:41] LABS: Basophils Absolute Auto 0.1 X10*3/uL (0.0-0.2); Basophils Percent Auto 0.7 % (0-2); Eosinophils Absolute Auto 0.1 X10*3/uL (0.0-0.4); Eosinophils Percent Auto 0.7 % (0-4); Hematocrit 24.8 % (42.0-52.0); Hemoglobin 7.4 g/dl (14.0-18.0); Imm Gran Abs Auto 0.11 X10*3/uL (0.00-0.03); Imm Gran Pct Auto 0.9 % (0.0-0.4); Lymphocytes Absolute Auto 2.9 X10*3/uL (1.2-4.9); Lymphocytes Percent Auto 22.8 % (20-40); Mean Corpuscular HGB Conc 29.8 g/dl (31.0-36.0); Mean Corpuscular Hemoglobin 23.3 pg (27.0-33.0); Mean Platelet Volume 10.4 fL (9.4-12.4); Monocytes Absolute Auto 1.4 X10*3/uL (0.1-1.2); Monocytes Percent Auto 11.4 % (2-11); Neutrophils Percent Auto 63.5 % (45-73); Platelet Count 248 X10*3/uL (160-400); Red Blood Count 3.18 X10*6/uL (4.60-5.80); Red Cell Distribution Width 18.4 % (11.0-16.0); White Blood Count 12.5 X10*3/uL (4.8-10.8)
[2025-02-09 05:51] LABS: Anion Gap 11 (12-20); Blood Urea Nitrogen 16 mg/dL (9-16); Carbon Dioxide 23 mmol/L (22-29); Chloride 107 mmol/L (96-108); Estimated Glomerular Filt Rate > 60; Glucose Random 169 mg/dL (60-115); Sodium 137 mmol/L (135-145)
[2025-02-09 06:24] LABS: Folate 5.4 ng/mL (> or = 4.0); Vitamin B12 369 pg/mL (200-900)
[2025-02-09] MEDS: Doxycycline Hyclate 100 MG in 0.9 % Sodium Chloride 250 ML 166.67 MG IV ×2 (08:19→22:35)
[2025-02-09] MEDS: 0.9 % Sodium Chloride Flush 3 ML SYRINGE IVFLUSH ×3 (08:19→22:28)
--- NOTE | 2025-02-09 10:02 | PHA.MEDREC ---
Addendum entered by Maria Esther Andrade RPh 02/09/25 10:25: MED REC WAS REVIEWED BY [facility]. Original Note: Pharmacy Consult ? Medication Reconciliation Pharmacy has completed the medication reconciliation.Patient is a poor historian. Called and spoke to patients Francesca and she stated she brought in a list of patients medications. states patient is no longer taking Carbidopa Levodopa, losartan 25 mg , Vitamin C 1,000 mg, and Diclofenac 1% gel. confirmed Lantus 22 units at bedtime. Patient had all of his medications yesterday morning.
[2025-02-09 10:26] LABS: Glucose, Whole Blood 116 mg/dL (60-115)
--- NOTE | 2025-02-09 11:14 | PC.NURSE ---
Admission Information completed by this RN. Plan of care initiated.
--- NOTE | 2025-02-09 14:21 | MHC.SL.SWA ---
Speech Pathologist Impression: Mild oral pharyngeal dysphagia Risk of Aspiration Due to: Difficulty with self feeding/drinking due to upper extremity weakenss/numbness Dysphasia Diet Status: CHopped Advanced/Thin/pills whole in puree Liquid Consistency and Strategies for Safe Swallow: Liquid Intake Recommendation: Thin Liquid Intake Strategies: if using straw, take single sips Solid Food Consistency: Dietary Recommendations: Chopped/Advanced (NDD3) Additional Modifications to Solid Foods: Oral Medication Intake: Whole with Puree Please contact the pharmacy regarding appropriate crushable or liquid drug formulations that are available whenever modified delivery is recommended. Compensatory Strategies and Precautions to be Taken for Safe Swallow: Supervision While Eating and Drinking for Safe Swallow: Direct Supervision (1:1) Foods to Avoid: Cue or assist patient to take SINGLE SIPS if using straw. Patient with upper extremity weakness/numbness, requires direct supervision at meals, with assistance as needed in order to access food. Pre-cut diet recommended for ease of access. Swallowing Recommended Treatments: Recommendation for Speech: Inpatient Speech Therapy Comment: Patient presents with mild oral pharyngeal dysphagia and mild dysarthria (slurred speech) likely secondary to Parkinson's Disease DX. Patient further has upper extremity weakness/numbness making eating independently very challenging/increasing risk of aspiration. Recommend Upgrade from NPO to Chopped/Advanced (NDD3) for ease of access/mastication, thin liquids (by controlled cup sip or controlled/single straw sip), pills whole in puree. MD/RD notified of recommendation by secure text, discussed with RN in person. WEB PAGE DESIGNER will continue to follow as inpatient. Frequency/Duration: Date Range for Service Req: Timeline to reassess: Creative Services Intern Clinican/Clinical Fellow: No Supervisory Statement: I have reviewed and agree with the student/clinical fellow's documentation: N/A Speech Language Pathologist: Kelly Kang M.A., [facility]-WEB PAGE DESIGNER
[2025-02-09 14:29] LABS: Hematocrit 24.9 % (42.0-52.0); Hemoglobin 7.5 g/dl (14.0-18.0)
--- NOTE | 2025-02-09 16:16 | PM.EVENT ---
Event Note Date of Service: 02/09/25 Event Note: Seen and examined this morning Follow-up for weakness, UTI, pneumonia, anemia Status post unit unit of blood, denies any overt bleeding Denies abdominal pain patient is an 79-year-old male with a past medical history significant for complete heart block, DVT, AFib on Eliquis, hypertension, CKD 3, s/p CABG, Parkinson's, DVT, type 2 diabetes on insulin, history of ND, who presented to the ED due to weakness for the past 5 days found to have UTI, pneumonia, anemia Severe Sepsis secondary to UTI and pneumonia WBC 11.7, temperature of 103.1, tachypneic and tachycardic lactic acid 3.9 and trending down with 300cc/kg fluid bolus chest x-ray with small left lower lobe pneumonia and possible left pleural effusion UA positive COVID/flu/ RSV negative continue IV ceftriaxone and doxycycline due to chronic prolonged QTC Urine culture, blood cultures pending Dysphagia Seen by speech-recommended NDD 3 diet acute on chronic iron deficiency anemia H/H below baseline, seems to be trending down over a long period of time, status post transfusion,repeat H/H still low iron low, heme-negative. No evidence of acute blood loss anemia B12, folate within normal limits will transfuse additional unit of blood follow CBC chronic prolonged QT EKG with prolonged QT, when reviewing others this is chronic, patient does have dual-chamber pacing avoid QT prolonging medications history DVT as no overt bleeding, will continue AC paroxysmal AFib No overt bleeding, continue Eliquis Continue metoprolol for rate control hypertension Continue metoprolol CKD 3 - at baseline, avoid nephrotoxins when possible type 2 diabetes Hold metformin Reduced dose of Lantus ordered SSI, POCs CAD/ history ND/ history CABG Continue statin, beta-saira Hold aspirin for now Parkinson's - continue home meds full code VTE prophylaxis: eliquis patient with sepsis secondary to UTI pneumonia, requiring admission for at least 2 midnight stay for IV antibiotics and monitoring. Time Spent With Patient Time: Total time managing care of this patient today ____ minutes.
[2025-02-09 17:27] LABS: Glucose, Whole Blood 128 mg/dL (60-115)
--- NOTE | 2025-02-09 19:44 | PC.NURSE ---
Assumed care of this Pt at 1900. Blood running per TAR. Pt A&O, denies any pain at this time.
[2025-02-09 21:34] LABS: Glucose, Whole Blood 178 mg/dL (60-115)
[2025-02-09] MEDS: Apixaban 5 MG TABLET PO (22:28)
[2025-02-09] MEDS: cefTRIAXone sodium 1 GM VIAL IVPUSH (22:28)
[2025-02-09] MEDS: Metoprolol Tartrate 25 MG TABLET PO (22:29)
[2025-02-09] MEDS: Insulin Glargine,Hum.rec.anlog 100 UNIT/ML 10 ML VIAL 15 UNIT SUBCUT (22:29)
--- NOTE | 2025-02-09 23:39 | HO.SKINPHOTO ---
Location: rt butt Category: Stage: stage 2 Length: Width: Depth: cm Location: buttocks Category: DTI Stage: Length: Width: Depth: cm Location: Category: Stage: Length: Width: Depth: cm Location: Category: Stage: Length: Width: Depth: cm Location: Category: Stage: Length: Width: Depth: cm Location: Category: Stage: Length: Width: Depth: cm
[2025-02-10] VITALS (7 sets, daily range): BP systolic 101–119; BP diastolic 51–58; PULSE 63–90; RESP 16–18; TEMP 36.6–37.2; O2SAT 91–98; BMI 26.7
[2025-02-10 06:04] LABS: MANUAL DIFF FLAG NO
[2025-02-10 06:22] LABS: Anion Gap 10 (12-20); Blood Urea Nitrogen 16 mg/dL (9-16); Calcium 8.3 mg/dL (8.4-10.2); Carbon Dioxide 26 mmol/L (22-29); Chloride 108 mmol/L (96-108); Creatinine Clr Calc Pharmacy 90.4; Estimated Glomerular Filt Rate > 60; Glucose Random 96 mg/dL (60-115); Potassium 4.5 mmol/L (3.3-5.1); Sodium 139 mmol/L (135-145)
[2025-02-10 06:28] LABS: Basophils Absolute Auto 0.1 X10*3/uL (0.0-0.2); Basophils Percent Auto 0.8 % (0-2); Eosinophils Absolute Auto 0.6 X10*3/uL (0.0-0.4); Hematocrit 28.8 % (42.0-52.0); Hemoglobin 8.9 g/dl (14.0-18.0); Imm Gran Abs Auto 0.14 X10*3/uL (0.00-0.03); Imm Gran Pct Auto 1.1 % (0.0-0.4); Lymphocytes Percent Auto 23.4 % (20-40); Mean Corpuscular HGB Conc 30.9 g/dl (31.0-36.0); Mean Corpuscular Hemoglobin 24.2 pg (27.0-33.0); Mean Corpuscular Volume 78.3 fL (80.0-98.0); Mean Platelet Volume 10.5 fL (9.4-12.4); Monocytes Percent Auto 7.6 % (2-11); Neutrophils Percent Auto 62.1 % (45-73); Platelet Count 269 X10*3/uL (160-400); Red Blood Count 3.68 X10*6/uL (4.60-5.80); Red Cell Distribution Width 18.2 % (11.0-16.0); White Blood Count 12.9 X10*3/uL (4.8-10.8)
[2025-02-10 07:39] LABS: Glucose, Whole Blood 97 mg/dL (60-115)
[2025-02-10] MEDS: Apixaban 5 MG TABLET PO ×2 (08:21→20:46)
[2025-02-10] MEDS: Metoprolol Tartrate 25 MG TABLET PO ×2 (08:21→20:45)
[2025-02-10] MEDS: Atorvastatin Calcium 80 MG TABLET PO (08:21)
[2025-02-10] MEDS: Tamsulosin HCL 0.4 MG CAPSULE PO (08:21)
[2025-02-10] MEDS: Doxycycline Hyclate 100 MG in 0.9 % Sodium Chloride 250 ML 166.67 MG IV ×2 (08:22→20:45)
[2025-02-10] MEDS: 0.9 % Sodium Chloride Flush 3 ML SYRINGE IVFLUSH ×2 (08:23→17:33)
[2025-02-10] MEDS: Finasteride 5 MG TABLET PO (08:24)
--- NOTE | 2025-02-10 10:43 | MHC.CM.PN ---
pt lives with his they have no services at this time in the past they had overlook which if vna is need they would agree with pt has own ride home dc plan home wfamily ?vna
[2025-02-10 11:09] LABS: Glucose, Whole Blood 131 mg/dL (60-115)
--- NOTE | 2025-02-10 12:35 | MHC.CLN ---
NUTRITION DIET=DIABETIC 1800 KCAL, CHOPPED CONSISTENCY. SKIN WITH STAGE II TO RIGHT BUTTOCK AND DTI BUTTOCK. ADDING ENSURE MAX BID TO PROMOTE SKIN INTEGRITY. SUPPLEMENT PROVIDES 300 KCALS, 60 G PROTEIN. PATIENT WITH WEIGHT LOSS TREND X ONE YEAR, -14.7%. INCREASING DIET KCALS TO DM 2200 KCALS TO BETTER MEET ESTIMATED NUTRITIONAL NEEDS. FOLLOW FOR PO INTAKE, WEIGHT, AND SKIN INTEGRITY. SEE CLINICAL NUTRITION ASSESSMENT 02/10/25.
--- NOTE | 2025-02-10 12:37 | MHC.SL.SWA ---
Speech Pathologist Impression: Risk of Aspiration, Mild Oropharyngeal Dysphagia in setting of underlying PD Risk of Aspiration Due to: Neuro Condition Dysphasia Diet Status:No Change Liquid Consistency and Strategies for Safe Swallow: Liquid Intake Recommendation: Thin Liquid Intake Strategies: Small Sips Solid Food Consistency: Dietary Recommendations: Chopped/Advanced (NDD3) Oral Medication Intake: Whole with Puree Please contact the pharmacy regarding appropriate crushable or liquid drug formulations that are available whenever modified delivery is recommended. Compensatory Strategies and Precautions to be Taken for Safe Swallow: Sitting Upright (90 deg) Small Bites and Sips Alternate Liquids/Solids Rate of Ingestion Change Avoid Specific Foods Supervision While Eating and Drinking for Safe Swallow: Direct Supervision (1:1) Foods to Avoid: Cue or assist patient to take SINGLE SIPS if using straw. Patient with upper extremity weakness/numbness, requires direct supervision at meals, with assistance as needed in order to access food. Pre-cut diet recommended for ease of access. Swallowing Recommended Treatments: Compens. Strategy Educat. Recommendation for Speech: Inpatient Speech Therapy Fur Repairer Clinican/Clinical Fellow: No Supervisory Statement: I have reviewed and agree with the student/clinical fellow's documentation: N/A Speech Language Pathologist: Francesca Ordonez M.A., CCC-STUDENT DEAN
--- NOTE | 2025-02-10 13:00 | HO.WOUND ---
Wound Consult: Initial 79yr old ,male admitted to [facility] on 02/09/25 - See progress notes and H&P for detailed history.? Wound consult placed for Buttock area.? Patient agreeable to assessment and photo documentation.? Patient report tenderness and pain to the buttock area but denies knowledge if he has a wound to the area. Reports he lives at home with his . Sacrum Etiology: ??Deep Tissue Injury Present on Admission Wound Bed: maroon red purple nonblanchable intact tissue Drainage / Odor: None noted Edges: ?irregular Bailee wound: ? Chronic MASD - No Induration, Fluctuance or Warmth noted Pain: tenderness and pain reported Goals of Treatment: ? Off Load Pressure protect from friction and moisture Right buttock Etiology: Stage 2 Present on Admission Measurements: 3cm x 0.4cm x 0.2cm Wound Bed: red clean moist wound bed Drainage / Odor: small kenyon drainage no odor Edges: ?epibole Bailee wound: ?DTI and MASD (Chronic) evidence of prior injuries noted No Induration, Fluctuance or Warmth noted Pain: pain tenderness reported when assessed Goals of Treatment: ?Triad and foam dressing Bilateral Heels assessed Left heel patient reports is tender to touch and red - remain intact and blanchable but clear defined area of redness - no currently PI noted but interventions put in place to off load and protect from friction - foam dressing and pillows in use. Recommendations: 1. Turn and Reposition every 2 hours and as needed for patient comfort.? Use pillows or wedges to support off loading positions. 2. Off Load all bony prominences with use of pillows and heel boots if needed.? Apply Preventative foams where needed. ? 3. Monitor for incontinence and moisture control, use barrier creams when needed for prevention and treatment. 4. Provide adequate and supplemental nutrition.? 5. Continue low air loss mattress. 6. When applicable maintain blood glucose levels per Providers order. Sacrum / buttock - Off Load Pressure with Q2 hr turns and use of pillows - Cleanse with PH balance spray or wipes, pat dry. ?Apply thin layer of Triad to wound bed. Do not remove all of paste between applications as this may cause further skin damage.? Cover with foam dressing to aid in off loading and protection from friction. Change every 3 days and PRN. Bilateral Heels? - Elevate heels off of bed surface with pillows.? Float heels off of pillows.? Apply skin prep allow to dry.? Apply heel foam dressings, peel back and assess Q shift and change every 5-7 days and PRN. Re-consult wound care Nurse for wound deterioration or wound changes.
--- NOTE | 2025-02-10 14:44 | HO.PM.IMPN ---
Subjective Subjective Date of Service: 02/10/25 Interval History: seen and examined this morning follow up for anemia, UTI, pna feeling more energy today. no bleeding Review of Systems Review of Systems: Yes all other systems are reviewed and are negative Constitutional Constitutional: Denies chills and Denies fever(s) Cardiovascular Cardiovascular: Denies chest pain and Denies palpitations Respiratory Respiratory: Denies cough Endocrine Endocrine: Denies palpitations Physical Exam Vital Signs: Vital Signs: Last Vital Signs Temp 98.5 F 02/10/25 11:51 Pulse 73 02/10/25 13:34 Resp 18 02/10/25 11:51 BP 109/58 L 02/10/25 13:34 Pulse Ox 98 02/10/25 13:34 O2 Del Method Room Air 02/10/25 11:51 BMI result Body Mass Index 26.7 Const: Other: frail elderly male, resting in bed comfortably. appears less fatigued General: comfortable, no acute distress, alert and awake Nutritional Appearance: average body habitus Orientation/consciousness: patient oriented x3 Resp: Other: diminished, left side crackles Effort & Inspection: normal respiratory effort, able to speak in complete sentences, no respiratory distress and no use of accessory muscles Cardio: Rate: regular rate GI: Inspection: No distended Palpation (GI): Soft to palpation Neuro: General: patient oriented x3 Objective Data Active Medications Acetaminophen (Acetaminophen 325 Mg Tablet) 975 mg PO Q6H PRN PRN Reason: Pain, Mild 1-3,fever,headache Albuterol/Ipratropium (Albuterol/Iprat 2.5/0.5mg 3 Ml Ampul.Neb) 3 ml INHALE Q4H PRN PRN Reason: Shortness of Breath/Wheezing Apixaban (Apixaban 5 Mg Tablet) 5 mg PO BID [facility] Last Admin: 02/10/25 08:21 Dose: 5 mg Documented By: JG Atorvastatin Calcium (Atorvastatin Calcium 80 Mg Tablet) 80 mg PO DAILY [facility] Last Admin: 02/10/25 08:21 Dose: 80 mg Documented By: JG Calcium Carbonate (Calcium Carbonate 750 Mg Tab.Chew) 750 mg PO Q4H PRN PRN Reason: Heartburn Ceftriaxone Sodium (Ceftriaxone Sodium 1 Gm Vial) 1 gm IVPUSH Q24H [facility] Last Admin: 02/09/25 22:28 Dose: 1 gm Documented By: ILENE Dextrose (Dextrose 50 % 25 Gm/50 Ml Syringe) 25 gm IVPUSH Q15M PRN; Protocol PRN Reason: per Hypoglycemia Standing Ord. Finasteride (Finasteride 5 Mg Tablet) 5 mg PO DAILY [facility] Last Admin: 02/10/25 08:24 Dose: 5 mg Documented By: JG Glucose (Glucose Gel 15 Gm Gel..Gram.) 15 gm PO Q15M PRN; Protocol PRN Reason: per Hypoglycemia Standing Ord. Doxycycline Hyclate 100 mg/ (Sodium Chloride) 250 mls @ 166.67 mls/hr IV BID [facility] Last Infusion: 02/10/25 11:15 Dose: Infused Documented By: JG Insulin Glargine (Insulin Glargine,Hum.Rec.Anlog 100 Unit/Ml 10 Ml Vial) 15 unit SUBCUT BEDTIME [facility] Last Admin: 02/09/25 22:29 Dose: 15 unit Documented By: ILENE Insulin Human Lispro (Insulin Lispro 100 Unit/Ml 3 Ml Vial) 0 unit SUBCUT QIDACHS [facility]; Protocol Last Admin: 02/10/25 12:33 Dose: Not Given Documented By: JG Non-Admin Reason: No Insulin Coverage Magnesium Hydroxide (Milk Of Magnesia 30 Ml Oral.Susp) 30 ml PO DAILY PRN PRN Reason: Constipation Melatonin (Melatonin 3 Mg Tablet) 6 mg PO BEDTIME PRN PRN Reason: Insomnia Metoprolol Tartrate (Metoprolol Tartrate 25 Mg Tablet) 25 mg PO BID [facility]; Protocol Last Admin: 02/10/25 08:21 Dose: 25 mg Documented By: JG Sodium Chloride (0.9 % Sodium Chloride Flush 3 Ml Syringe) 3 ml IVFLUSH QSHIFT [facility] Last Admin: 02/10/25 08:23 Dose: 3 ml Documented By: JG Tamsulosin HCl (Tamsulosin Hcl 0.4 Mg Capsule) 0.4 mg PO DAILY [facility] Last Admin: 02/10/25 08:21 Dose: 0.4 mg Documented By: JG Labs 02/10/25 05:48 02/10/25 05:48 Labs: Laboratory Results - last 24 hr 02/09/25 02/09/25 02/09/25 00:46 17:18 21:30 MCV MCH MCHC RDW Plt Count MPV Immature Gran % (Auto) Neut % (Auto) Lymph % (Auto) [place] % (Auto) Eos % (Auto) Baso % (Auto) Lymph # (Auto) [place] # (Auto) Eos # (Auto) Baso # (Auto) Abs Immat Gran (auto) Absolute Neuts (auto) Absolute Nucleated RBC Nucleated RBC % (auto) Anion Gap Estim Creat Clear Calc Estimated GFR POC Glucose 128 H 178 H Random Glucose Calcium Blood Type B Positive Antibody Screen NEGATIVE Crossmatch See Detail 02/10/25 02/10/25 02/10/25 05:48 07:32 11:05 MCV 78.3 L MCH 24.2 L MCHC 30.9 L RDW 18.2 H Plt Count 269 MPV 10.5 Immature Gran % (Auto) 1.1 H Neut % (Auto) 62.1 Lymph % (Auto) 23.4 [place] % (Auto) 7.6 Eos % (Auto) 5.0 H Baso % (Auto) 0.8 Lymph # (Auto) 3.0 [place] # (Auto) 1.0 Eos # (Auto) 0.6 H Baso # (Auto) 0.1 Abs Immat Gran (auto) 0.14 H Absolute Neuts (auto) 8.0 Absolute Nucleated RBC 0.000 Nucleated RBC % (auto) 0.0 Anion Gap 10 L Estim Creat Clear Calc 90.4 Estimated GFR > 60 POC Glucose 97 131 H Random Glucose 96 Calcium 8.3 L Blood Type Antibody Screen Crossmatch Microbiology Microbiology Results: Microbiology 02/09/25 00:46 Urine Culture - Preliminary Urine clean catch - Clean Catch Midstream Culture in progress. 02/08/25 22:14 Blood Culture - Preliminary Blood - Venous No growth after 24 hours. 02/08/25 22:14 Blood Culture - Preliminary Blood - Venous No growth after 24 hours. Assessment and Plan (1) Pneumonia: Status: Acute (2) Anemia: Status: Acute (3) UTI (urinary tract infection): Status: Acute Plan This is an 79-year-old male with a past medical history significant for complete heart block s/p PPM, DVT, AFib on Eliquis, hypertension, CKD 3, s/p CABG, ?Parkinson's, DVT, type 2 diabetes on insulin, history of [place], who presented to the ED due to weakness for the past 5 days found to have UTI, pneumonia, anemia Severe Sepsis secondary to UTI and pneumonia initially WBC 11.7, temperature of 103.1, tachypneic and tachycardic. afebrile since admission, tachycardia resolved, tachypnea improving lactic acid trending down with 300cc/kg fluid bolus chest x-ray with small left lower lobe pneumonia and possible left pleural effusion UA positive, urine culture pending blood cultures negative to date continue IV ceftriaxone and doxycycline due to chronic prolonged QTC Dysphagia Seen by speech-recommended NDD 3 diet acute on chronic iron deficiency anemia H/H below baseline, seems to be trending down over a long period of time. improved after 2U RBC iron low, stool heme-negative. No evidence of acute blood loss anemia B12, folate within normal limits follow up H/H improved outpatient follow up chronic prolonged QT EKG with prolonged QT, when reviewing others this is chronic, patient does have dual-chamber pacing history DVT as no overt bleeding, will continue AC paroxysmal AFib No overt bleeding, continue Eliquis Continue metoprolol for rate control hypertension Continue metoprolol CKD 3 at baseline type 2 diabetes Hold metformin Reduced dose of Lantus ordered SSI, POCs CAD/ history [place]/ history CABG Continue statin, beta-saira Hold aspirin for now ? Parkinson's no on meds at baseline note from neuro in september says no parkinsons DTI sacrum; stage 2 pressure injury right buttock; daria wound DTI and MASD. 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 Quality Stroke Does the patient have a stroke diagnosis?: No VTE Prior VTE?: Yes VTE Risk Level:: Medical - moderate - high VTE Device Contraindication: Treatment Not Indicated VTE Drug Contraindication: N/A - Med Ordered
--- NOTE | 2025-02-10 15:24 | P.CDIM_ITS ---
PROVIDER RESPONSE TEXT: To clarify, the appropriate diagnosis supported by the clinical indicators: Pressure injury right buttock Stage 2: confirmed QUERY TEXT: PHYSICIAN'S DOCUMENTATION REQUEST Date of Query: 02/10/2025 12:50 PM EDT Patient Name: Eduardo Tracy Admit Date: 02/09/2025 Dear Krystal Sharma PA, A review of the medical record indicates additional documentation may be needed. Please review below and update the documentation accordingly. Clinical Indicators: Wound care assessment 02/09/25 - Pressure injury right buttock stage 2 Foam dressing. Based on the above, could you please provide further information regarding the ulcer/wound/injury: Pressure injury right buttock Stage 2 possible, probable, suspected, etc. Other (explain) Clinically unable to determine (explain) Thank you, Fanny Alcantara, CCS, CDIS Use of terms such as suspected, likely, concern for, or probable (associated with a specific diagnosi s that is being evaluated, monitored, or treated as if it exists) are acceptable and can be coded in the inpatient se tting, when documented at the time of discharge. Please use your independent medical judgment in providing your response. THIS QUERY IS PART OF THE PERMANENT MEDICAL RECORD
[2025-02-10 17:27] LABS: Glucose, Whole Blood 112 mg/dL (60-115)
[2025-02-10 20:34] LABS: Glucose, Whole Blood 198 mg/dL (60-115)
[2025-02-10] MEDS: Insulin Glargine,Hum.rec.anlog 100 UNIT/ML 10 ML VIAL 15 UNIT SUBCUT (20:46)
[2025-02-10] MEDS: cefTRIAXone sodium 1 GM VIAL IVPUSH (20:46)
[2025-02-10] MEDS: Insulin Lispro 100 UNIT/ML 3 ML VIAL SUBCUT (20:46)
[2025-02-11] MEDS: 0.9 % Sodium Chloride Flush 3 ML SYRINGE IVFLUSH ×3 (00:25→21:15)
[2025-02-11 03:36] VITALS: BP 113/61; PULSE 78; RESP 17; TEMP 36.6; O2SAT 92
[2025-02-11 07:34] VITALS: BP 116/66; PULSE 84; RESP 16; TEMP 37.1; O2SAT 93
[2025-02-11 07:37] LABS: Glucose, Whole Blood 324 mg/dL (60-115)
[2025-02-11 07:45] LABS: Basophils Absolute Auto 0.1 X10*3/uL (0.0-0.2); Basophils Percent Auto 0.9 % (0-2); Eosinophils Absolute Auto 0.5 X10*3/uL (0.0-0.4); Eosinophils Percent Auto 4.6 % (0-4); Hemoglobin 8.6 g/dl (14.0-18.0); Imm Gran Abs Auto 0.09 X10*3/uL (0.00-0.03); Imm Gran Pct Auto 0.8 % (0.0-0.4); Lymphocytes Absolute Auto 3.1 X10*3/uL (1.2-4.9); Lymphocytes Percent Auto 26.8 % (20-40); MANUAL DIFF FLAG SCAN; Mean Corpuscular HGB Conc 30.7 g/dl (31.0-36.0); Mean Corpuscular Hemoglobin 24.2 pg (27.0-33.0); Mean Corpuscular Volume 78.7 fL (80.0-98.0); Mean Platelet Volume 10.4 fL (9.4-12.4); Monocytes Absolute Auto 1.1 X10*3/uL (0.1-1.2); Monocytes Percent Auto 9.2 % (2-11); Neutrophils Absolute Auto 6.8 x10*3/uL (2.0-8.3); Neutrophils Percent Auto 57.7 % (45-73); Platelet Count 274 X10*3/uL (160-400); Red Blood Count 3.56 X10*6/uL (4.60-5.80); Red Cell Distribution Width 19.1 % (11.0-16.0); SCAN SMEAR FLAG 1; White Blood Count 11.7 X10*3/uL (4.8-10.8)
[2025-02-11] MEDS: Insulin Lispro 100 UNIT/ML 3 ML VIAL SUBCUT ×3 (07:45→21:07)
[2025-02-11 08:07] LABS: Anion Gap 11 (12-20); Blood Urea Nitrogen 12 mg/dL (9-16); Calcium 8.2 mg/dL (8.4-10.2); Carbon Dioxide 25 mmol/L (22-29); Chloride 105 mmol/L (96-108); Estimated Glomerular Filt Rate > 60; Glucose Random 76 mg/dL (60-115); Sodium 137 mmol/L (135-145)
[2025-02-11 08:32] LABS: SLIDE REVIEW VERIFIED
[2025-02-11] MEDS: Apixaban 5 MG TABLET PO ×2 (09:09→21:07)
[2025-02-11] MEDS: Atorvastatin Calcium 80 MG TABLET PO (09:09)
[2025-02-11] MEDS: Tamsulosin HCL 0.4 MG CAPSULE PO (09:09)
[2025-02-11] MEDS: Finasteride 5 MG TABLET PO (09:09)
[2025-02-11] MEDS: Metoprolol Tartrate 25 MG TABLET PO ×2 (09:10→21:07)
[2025-02-11] MEDS: Doxycycline Hyclate 100 MG in 0.9 % Sodium Chloride 250 ML 166.67 MG IV ×2 (09:16→21:15)
--- NOTE | 2025-02-11 11:19 | HO.PM.IMPN ---
Subjective Subjective Date of Service: 02/11/25 Interval History: seen and examined this morning follow up for anemia, UTI, pna feeling more energy today. no bleeding Review of Systems Review of Systems: Yes all other systems are reviewed and are negative Constitutional Constitutional: Denies chills and Denies fever(s) Cardiovascular Cardiovascular: Denies chest pain and Denies palpitations Respiratory Respiratory: Denies cough Endocrine Endocrine: Denies palpitations Physical Exam Vital Signs: Vital Signs: Last Vital Signs Temp 98.8 F 02/11/25 07:34 Pulse 84 02/11/25 07:34 Resp 16 02/11/25 07:34 BP 116/66 02/11/25 07:34 Pulse Ox 93 02/11/25 07:34 O2 Del Method Room Air 02/11/25 07:34 BMI result Body Mass Index 26.7 Appearing in no acute distress lung sounds are clear to auscultation heart regular rate rhythm, clear S1, S2 positive bowel sounds, abdomen is soft, nontender neuro patient is alert x3, no focal deficits Objective Data Active Medications Acetaminophen (Acetaminophen 325 Mg Tablet) 975 mg PO Q6H PRN PRN Reason: Pain, Mild 1-3,fever,headache Albuterol/Ipratropium (Albuterol/Iprat 2.5/0.5mg 3 Ml Ampul.Neb) 3 ml INHALE Q4H PRN PRN Reason: Shortness of Breath/Wheezing Apixaban (Apixaban 5 Mg Tablet) 5 mg PO BID [facility] Last Admin: 02/11/25 09:09 Dose: 5 mg Documented By: LEEANN Atorvastatin Calcium (Atorvastatin Calcium 80 Mg Tablet) 80 mg PO DAILY [facility] Last Admin: 02/11/25 09:09 Dose: 80 mg Documented By: LEEANN Calcium Carbonate (Calcium Carbonate 750 Mg Tab.Chew) 750 mg PO Q4H PRN PRN Reason: Heartburn Ceftriaxone Sodium (Ceftriaxone Sodium 1 Gm Vial) 1 gm IVPUSH Q24H [facility] Last Admin: 02/10/25 20:46 Dose: 1 gm Documented By: JG Dextrose (Dextrose 50 % 25 Gm/50 Ml Syringe) 25 gm IVPUSH Q15M PRN; Protocol PRN Reason: per Hypoglycemia Standing Ord. Finasteride (Finasteride 5 Mg Tablet) 5 mg PO DAILY [facility] Last Admin: 02/11/25 09:09 Dose: 5 mg Documented By: LEEANN Glucose (Glucose Gel 15 Gm Gel..Gram.) 15 gm PO Q15M PRN; Protocol PRN Reason: per Hypoglycemia Standing Ord. Doxycycline Hyclate 100 mg/ (Sodium Chloride) 250 mls @ 166.67 mls/hr IV BID [facility] Last Admin: 02/11/25 09:16 Dose: 166.67 mls/hr Documented By: LEEANN Insulin Glargine (Insulin Glargine,Hum.Rec.Anlog 100 Unit/Ml 10 Ml Vial) 15 unit SUBCUT BEDTIME [facility] Last Admin: 02/10/25 20:46 Dose: 15 unit Documented By: JG Insulin Human Lispro (Insulin Lispro 100 Unit/Ml 3 Ml Vial) 0 unit SUBCUT QIDACHS [facility]; Protocol Last Admin: 02/11/25 07:45 Dose: 8 unit Documented By: MARQUISE Magnesium Hydroxide (Milk Of Magnesia 30 Ml Oral.Susp) 30 ml PO DAILY PRN PRN Reason: Constipation Melatonin (Melatonin 3 Mg Tablet) 6 mg PO BEDTIME PRN PRN Reason: Insomnia Metoprolol Tartrate (Metoprolol Tartrate 25 Mg Tablet) 25 mg PO BID [facility]; Protocol Last Admin: 02/11/25 09:10 Dose: 25 mg Documented By: LEEANN Sodium Chloride (0.9 % Sodium Chloride Flush 3 Ml Syringe) 3 ml IVFLUSH QSHIFT [facility] Last Admin: 02/11/25 09:17 Dose: Not Given Documented By: LEEANN Non-Admin Reason: Previously Administered Tamsulosin HCl (Tamsulosin Hcl 0.4 Mg Capsule) 0.4 mg PO DAILY [facility] Last Admin: 02/11/25 09:09 Dose: 0.4 mg Documented By: LEEANN Labs 02/11/25 06:51 02/11/25 06:51 Labs: Laboratory Results - last 24 hr 02/10/25 02/10/25 02/11/25 17:21 20:27 06:51 MCV 78.7 L MCH 24.2 L MCHC 30.7 L RDW 19.1 H Plt Count 274 MPV 10.4 Immature Gran % (Auto) 0.8 H Neut % (Auto) 57.7 Lymph % (Auto) 26.8 [place] % (Auto) 9.2 Eos % (Auto) 4.6 H Baso % (Auto) 0.9 Lymph # (Auto) 3.1 [place] # (Auto) 1.1 Eos # (Auto) 0.5 H Baso # (Auto) 0.1 Abs Immat Gran (auto) 0.09 H Absolute Neuts (auto) 6.8 Absolute Nucleated RBC 0.000 Nucleated RBC % (auto) 0.0 Smear Tech's Comments VERIFIED Anion Gap 11 L Estim Creat Clear Calc 89.0 Estimated GFR > 60 POC Glucose 112 198 H Random Glucose 76 Calcium 8.2 L 02/11/25 07:32 MCV MCH MCHC RDW Plt Count MPV Immature Gran % (Auto) Neut % (Auto) Lymph % (Auto) [place] % (Auto) Eos % (Auto) Baso % (Auto) Lymph # (Auto) [place] # (Auto) Eos # (Auto) Baso # (Auto) Abs Immat Gran (auto) Absolute Neuts (auto) Absolute Nucleated RBC Nucleated RBC % (auto) Smear Tech's Comments Anion Gap Estim Creat Clear Calc Estimated GFR POC Glucose 324 H Random Glucose Calcium Microbiology Microbiology Results: Microbiology 02/09/25 00:46 Urine Culture - Final Urine clean catch - Clean Catch Midstream 02/08/25 22:14 Blood Culture - Preliminary Blood - Venous No growth after 48 hours. 02/08/25 22:14 Blood Culture - Preliminary Blood - Venous No growth after 48 hours. Assessment and Plan (1) Pneumonia: Status: Acute (2) Anemia: Status: Acute (3) UTI (urinary tract infection): Status: Acute Plan 79-year-old male with a past medical history significant for complete heart block s/p PPM, DVT, AFib on Eliquis, hypertension, CKD 3, s/p CABG, ?Parkinson's, DVT, type 2 diabetes on insulin, history of [place], who presented to the ED due to weakness for the past 5 days found to have UTI, pneumonia, anemia Severe Sepsis secondary to UTI and pneumonia Sepsis resolved s/p 300cc/kg fluid bolus chest x-ray with small left lower lobe pneumonia and possible left pleural effusion UA positive, urine culture neg blood cultures negative to date continue IV ceftriaxone and doxycycline due to chronic prolonged QTC Dysphagia Seen by speech-recommended NDD 3 diet Acute on chronic iron deficiency anemia H/H below baseline, seems to be trending down over a long period of time. improved after 2U RBC stool heme-negative. No evidence of acute blood loss anemia B12, folate within normal limits iron <7, IV iron x3 days chronic prolonged QT EKG with prolonged QT, when reviewing others this is chronic, patient does have dual-chamber pacing history DVT no overt bleeding, will continue AC paroxysmal AFib No overt bleeding, continue Eliquis Continue metoprolol for rate control hypertension Continue metoprolol CKD 3 at baseline type 2 diabetes Hold metformin Reduced dose of Lantus ordered SSI, POCs CAD/ history [place]/ history CABG Continue statin, beta-saira Hold aspirin for now DTI sacrum stage 2 pressure injury right buttock; daria wound DTI and MASD. 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
[2025-02-11 11:48] LABS: Glucose, Whole Blood 131 mg/dL (60-115)
[2025-02-11 12:00] VITALS: BP 98/55; PULSE 71; RESP 16; TEMP 36.2; O2SAT 91
[2025-02-11] MEDS: Iron Sucrose Complex 100 MG in 0.9 % Sodium Chloride 50 ML 220 MG IV (12:42)
--- NOTE | 2025-02-11 13:59 | MHC.CM.PN ---
STR BEING RECOMMENDED, REFERRALS ARE OUT AUTH UNAVAILABLE ON THE WEEKEND
[2025-02-11 15:18] VITALS: BP 115/59; PULSE 72; RESP 18; TEMP 37.2; O2SAT 92
[2025-02-11 16:40] LABS: Glucose, Whole Blood 155 mg/dL (60-115)
[2025-02-11 19:28] VITALS: BP 122/57; PULSE 85; RESP 17; TEMP 36.9; O2SAT 93
[2025-02-11 20:14] LABS: Glucose, Whole Blood 170 mg/dL (60-115)
[2025-02-11] MEDS: Insulin Glargine,Hum.rec.anlog 100 UNIT/ML 10 ML VIAL 15 UNIT SUBCUT (21:07)
[2025-02-11] MEDS: cefTRIAXone sodium 1 GM VIAL IVPUSH (21:07)
[2025-02-11 23:17] VITALS: BP 124/61; PULSE 75; RESP 16; TEMP 36.4; O2SAT 95
[2025-02-12 02:53] VITALS: BP 117/59; PULSE 77; RESP 16; TEMP 37.1; O2SAT 92
[2025-02-12 07:33] VITALS: BP 106/55; PULSE 80; RESP 18; TEMP 36.3; O2SAT 96
[2025-02-12 08:00] LABS: Glucose, Whole Blood 79 mg/dL (60-115)
[2025-02-12] MEDS: Iron Sucrose Complex 100 MG in 0.9 % Sodium Chloride 50 ML 220 MG IV (09:21)
--- NOTE | 2025-02-12 09:25 | HO.PM.IMPN ---
Subjective Subjective Date of Service: 02/12/25 Interval History: seen and examined this morning follow up for anemia, UTI, pna feeling more energy today. no bleeding Review of Systems Review of Systems: Yes all other systems are reviewed and are negative Constitutional Constitutional: Denies chills and Denies fever(s) Cardiovascular Cardiovascular: Denies chest pain and Denies palpitations Respiratory Respiratory: Denies cough Endocrine Endocrine: Denies palpitations Physical Exam Vital Signs: Vital Signs: Last Vital Signs Temp 97.3 F 02/12/25 07:33 Pulse 80 02/12/25 07:33 Resp 18 02/12/25 07:33 BP 106/55 L 02/12/25 07:33 Pulse Ox 96 02/12/25 07:33 O2 Del Method Room Air 02/12/25 07:33 BMI result Body Mass Index 26.7 Appearing in no acute distress lung sounds are clear to auscultation heart regular rate rhythm, clear S1, S2 positive bowel sounds, abdomen is soft, nontender neuro patient is alert x3, no focal deficits Objective Data Active Medications Acetaminophen (Acetaminophen 325 Mg Tablet) 975 mg PO Q6H PRN PRN Reason: Pain, Mild 1-3,fever,headache Albuterol/Ipratropium (Albuterol/Iprat 2.5/0.5mg 3 Ml Ampul.Neb) 3 ml INHALE Q4H PRN PRN Reason: Shortness of Breath/Wheezing Apixaban (Apixaban 5 Mg Tablet) 5 mg PO BID [facility] Last Admin: 02/11/25 21:07 Dose: 5 mg Documented By: PROSPER Atorvastatin Calcium (Atorvastatin Calcium 80 Mg Tablet) 80 mg PO DAILY [facility] Last Admin: 02/11/25 09:09 Dose: 80 mg Documented By: LEEANN Calcium Carbonate (Calcium Carbonate 750 Mg Tab.Chew) 750 mg PO Q4H PRN PRN Reason: Heartburn Ceftriaxone Sodium (Ceftriaxone Sodium 1 Gm Vial) 1 gm IVPUSH Q24H [facility] Last Admin: 02/11/25 21:07 Dose: 1 gm Documented By: PROSPER Dextrose (Dextrose 50 % 25 Gm/50 Ml Syringe) 25 gm IVPUSH Q15M PRN; Protocol PRN Reason: per Hypoglycemia Standing Ord. Finasteride (Finasteride 5 Mg Tablet) 5 mg PO DAILY [facility] Last Admin: 02/11/25 09:09 Dose: 5 mg Documented By: LEEANN Glucose (Glucose Gel 15 Gm Gel..Gram.) 15 gm PO Q15M PRN; Protocol PRN Reason: per Hypoglycemia Standing Ord. Doxycycline Hyclate 100 mg/ (Sodium Chloride) 250 mls @ 166.67 mls/hr IV BID [facility] Last Infusion: 02/11/25 23:23 Dose: Infused Documented By: PROSPER Iron Sucrose 100 mg/ Sodium (Chloride) 55 mls @ 220 mls/hr IV DAILY [facility] Stop: 02/13/25 09:14 Last Infusion: 02/11/25 13:11 Dose: Infused Documented By: LEEANN Insulin Glargine (Insulin Glargine,Hum.Rec.Anlog 100 Unit/Ml 10 Ml Vial) 15 unit SUBCUT BEDTIME [facility] Last Admin: 02/11/25 21:07 Dose: 15 unit Documented By: PROSPER Insulin Human Lispro (Insulin Lispro 100 Unit/Ml 3 Ml Vial) 0 unit SUBCUT QIDACHS [facility]; Protocol Last Admin: 02/12/25 09:04 Dose: Not Given Documented By: GEM Non-Admin Reason: No Insulin Coverage Magnesium Hydroxide (Milk Of Magnesia 30 Ml Oral.Susp) 30 ml PO DAILY PRN PRN Reason: Constipation Melatonin (Melatonin 3 Mg Tablet) 6 mg PO BEDTIME PRN PRN Reason: Insomnia Metoprolol Tartrate (Metoprolol Tartrate 25 Mg Tablet) 25 mg PO BID [facility]; Protocol Last Admin: 02/11/25 21:07 Dose: 25 mg Documented By: PROSPER Sodium Chloride (0.9 % Sodium Chloride Flush 3 Ml Syringe) 3 ml IVFLUSH QSHIFT [facility] Last Admin: 02/11/25 21:15 Dose: 3 ml Documented By: PROSPER Tamsulosin HCl (Tamsulosin Hcl 0.4 Mg Capsule) 0.4 mg PO DAILY [facility] Last Admin: 02/11/25 09:09 Dose: 0.4 mg Documented By: LEEANN Labs 02/11/25 06:51 02/11/25 06:51 Labs: Laboratory Results - last 24 hr 02/11/25 02/11/25 02/11/25 11:36 16:32 19:33 POC Glucose 131 H 155 H 170 H 02/12/25 07:38 POC Glucose 79 Microbiology Microbiology Results: Microbiology 02/09/25 00:46 Urine Culture - Final Urine clean catch - Clean Catch Midstream Assessment and Plan (1) Pneumonia: Status: Acute (2) Anemia: Status: Acute (3) UTI (urinary tract infection): Status: Acute Plan 79-year-old male with a past medical history significant for complete heart block s/p PPM, DVT, AFib on Eliquis, hypertension, CKD 3, s/p CABG, ?Parkinson's, DVT, type 2 diabetes on insulin, history of [place], who presented to the ED due to weakness for the past 5 days found to have UTI, pneumonia, anemia Severe Sepsis secondary to UTI and pneumonia Sepsis resolved s/p 300cc/kg fluid bolus chest x-ray with small left lower lobe pneumonia and possible left pleural effusion UA positive, urine culture neg blood cultures negative to date continue IV ceftriaxone and doxycycline Dysphagia Seen by speech-recommended NDD 3 diet Acute on chronic iron deficiency anemia H/H below baseline, seems to be trending down over a long period of time. improved after 2U RBC stool heme-negative. No evidence of acute blood loss anemia B12, folate within normal limits iron <7, IV iron x3 days chronic prolonged QT EKG with prolonged QT, when reviewing others this is chronic, patient does have dual-chamber pacing history DVT no overt bleeding, will continue AC paroxysmal AFib No overt bleeding, continue Eliquis Continue metoprolol for rate control hypertension Continue metoprolol CKD 3 at baseline type 2 diabetes Hold metformin Reduced dose of Lantus ordered SSI, POCs CAD/ history [place]/ history CABG Continue statin, beta-saira Hold aspirin for now DTI sacrum stage 2 pressure injury right buttock; daria wound DTI and MASD. 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
[2025-02-12] MEDS: Apixaban 5 MG TABLET PO ×2 (09:28→20:27)
[2025-02-12] MEDS: Atorvastatin Calcium 80 MG TABLET PO (09:28)
[2025-02-12] MEDS: Metoprolol Tartrate 25 MG TABLET PO ×2 (09:28→20:26)
[2025-02-12] MEDS: 0.9 % Sodium Chloride Flush 3 ML SYRINGE IVFLUSH ×3 (09:28→20:52)
[2025-02-12] MEDS: Finasteride 5 MG TABLET PO (09:29)
[2025-02-12] MEDS: Tamsulosin HCL 0.4 MG CAPSULE PO (09:29)
[2025-02-12] MEDS: Doxycycline Hyclate 100 MG in 0.9 % Sodium Chloride 250 ML 166.67 MG IV ×2 (09:35→20:48)
[2025-02-12 11:16] VITALS: BP 108/77; PULSE 67; RESP 18; TEMP 36.1; O2SAT 96
[2025-02-12 11:31] LABS: Glucose, Whole Blood 146 mg/dL (60-115)
[2025-02-12 15:35] VITALS: BP 123/66; PULSE 66; RESP 18; TEMP 36; O2SAT 99
[2025-02-12 16:41] LABS: Glucose, Whole Blood 175 mg/dL (60-115)
[2025-02-12] MEDS: Insulin Lispro 100 UNIT/ML 3 ML VIAL SUBCUT ×2 (16:59→20:47)
[2025-02-12 20:00] VITALS: BP 135/70; PULSE 82; RESP 18; TEMP 36.4; O2SAT 97
[2025-02-12] MEDS: cefTRIAXone sodium 1 GM VIAL IVPUSH (20:27)
[2025-02-12 20:34] LABS: Glucose, Whole Blood 188 mg/dL (60-115)
[2025-02-12] MEDS: Insulin Glargine,Hum.rec.anlog 100 UNIT/ML 10 ML VIAL 15 UNIT SUBCUT (20:47)
[2025-02-12 23:18] VITALS: BP 136/62; PULSE 70; RESP 16; TEMP 36.7; O2SAT 94
[2025-02-13] VITALS (7 sets, daily range): BP systolic 115–139; BP diastolic 61–79; PULSE 67–82; RESP 15–18; TEMP 36.1–36.6; O2SAT 94–97
[2025-02-13 07:50] LABS: Glucose, Whole Blood 122 mg/dL (60-115)
[2025-02-13] MEDS: Metoprolol Tartrate 25 MG TABLET PO ×2 (08:21→21:15)
[2025-02-13] MEDS: Atorvastatin Calcium 80 MG TABLET PO (08:21)
[2025-02-13] MEDS: Tamsulosin HCL 0.4 MG CAPSULE PO (08:21)
[2025-02-13] MEDS: Apixaban 5 MG TABLET PO ×2 (08:22→21:15)
[2025-02-13] MEDS: Finasteride 5 MG TABLET PO (08:22)
[2025-02-13] MEDS: 0.9 % Sodium Chloride Flush 3 ML SYRINGE IVFLUSH ×3 (08:25→21:16)
[2025-02-13] MEDS: Doxycycline Hyclate 100 MG in 0.9 % Sodium Chloride 250 ML 166.67 MG IV ×2 (08:28→21:22)
[2025-02-13] MEDS: Iron Sucrose Complex 100 MG in 0.9 % Sodium Chloride 50 ML 220 MG IV (11:12)
[2025-02-13 11:32] LABS: Glucose, Whole Blood 151 mg/dL (60-115)
[2025-02-13] MEDS: Insulin Lispro 100 UNIT/ML 3 ML VIAL SUBCUT ×3 (11:47→21:16)
--- NOTE | 2025-02-13 12:16 | MHC.CM.PN ---
PT BEING DCD TODAY TO [facility]
--- NOTE | 2025-02-13 13:19 | MHC.CLN ---
F/U DIET=DIABETIC 2200 KCAL, CHOPPED CONSISTENCY. PER WOUND RN, SKIN WITH DTI SACRUM AND STAGE II R BUTTOCK. ENSURE MAX BID (300 KCALS, 60 G PROTEIN) TO PROMOTE SKIN INTEGRITY. INTAKE AT MEALS 50-100%. FOLLOW FOR PO INTAKE, WEIGHT, AND SKIN INTEGRITY.
--- NOTE | 2025-02-13 13:54 | P.DS_ITS ---
DS: Providers Provider Date of Service: 02/14/25 Date of admission: 02/09/25 01:49 Date of discharge: 02/14/25 Primary care physician: Candido Good III, MD Consults: 02/09/25 21:23 Consult to Wound Care Routine Reason for consultation: stage 2/dti buttocks DS: Diagnosis Discharge Diagnosis (1) Pneumonia: Status: Acute (2) Anemia: Status: Acute (3) UTI (urinary tract infection): Status: Acute DS: Summary Hospital Course Hospital Course: History and physical as per admitting provider. patient is an 79-year-old male with a past medical history significant for complete heart block, DVT, AFib on Eliquis, hypertension, CKD 3, s/p CABG, Parkinson's, DVT, type 2 diabetes on insulin, history of [place], who presented to the ED due to weakness for the past 5 days. The patient is has not felt febrile but reports chills. Fever measured of 101.3 year. He denies any nausea, vomiting, sick contacts, urinary symptoms including frequency, urgency or dysuria. He does report a chronic cough which is worse when drinking. His notes that at the rehab facility he is residing at they have been thickening his liquids due to his coughing with drinking. He does not usually have issues with solids. He has lost about 30 lb in the past month as he does not enjoy the food at the rehab facility, specifically due to the thickening and texture changes he has had. 79-year-old man treated for severe sepsis secondary to UTI and pneumonia. Treated with sepsis bolus in the ER, chest x-ray showed small left lower lobe pneumonia, UA positive but urine culture was negative. Blood cultures have remained negative to date. Patient treated with IV ceftriaxone doxycycline and completed 5 days of treatment. Dysphagia. Patient seen evaluated by speech therapy who recommended NDD 3 diet Acute on chronic iron-deficiency anemia. Patient received a total of 2 units of packed red blood cells. Heme stool was negative and patient had no evidence of acute blood loss. B12, folate within normal limits however his iron was less than 7. He received a total of 3 doses of IV iron. Chronic prolonged QT. Patient has a dual-chamber pacemaker History of DVT. Continue anticoagulation Paroxysmal atrial fibrillation continue Eliquis and metoprolol. Hypertension. Continue metoprolol CKD stage 3 at baseline Diabetes mellitus type 2. Continue metformin and Lantus History of coronary artery disease continue aspirin, statin and beta-saira Sacral decubitus ulcer stage II to right buttock, present on admission. Continue wound care Wound care Recommendations: 1. Turn and Reposition every 2 hours and as needed for patient comfort.? Use pillows or wedges to support off loading positions. 2. Off Load all bony prominences with use of pillows and heel boots if needed.? Apply Preventative foams where needed. ? 3. Monitor for incontinence and moisture control, use barrier creams when needed for prevention and treatment. 4. Provide adequate and supplemental nutrition.? 5. Continue low air loss mattress. 6. When applicable maintain blood glucose levels per Providers order. Sacrum / buttock - Off Load Pressure with Q2 hr turns and use of pillows - Cleanse with PH balance spray or wipes, pat dry. ?Apply thin layer of Triad to wound bed. Do not remove all of paste between applications as this may cause further skin damage.? Cover with foam dressing to aid in off loading and protection from friction. Change every 3 days and PRN. Bilateral Heels? - Elevate heels off of bed surface with pillows.? Float heels off of pillows.? Apply skin prep allow to dry.? Apply heel foam dressings, peel back and assess Q shift and change every 5-7 days and PRN. Time Attestation Discharge Coordination Time (in mins): 42 Quality: Safe Use of Opioids Does Pt have an Active Cancer Diagnosis on the Problem List?: No Quality: Stroke Does the patient have a stroke diagnosis?: No Physical Exam 2 Vital Signs: Vital Signs: Last Vital Signs Temp 97.9 F 02/13/25 12:00 Pulse 67 02/13/25 12:00 Resp 18 02/13/25 12:00 BP 115/68 02/13/25 12:00 Pulse Ox 96 02/13/25 12:00 O2 Del Method Room Air 02/13/25 12:00 BMI result Body Mass Index 26.7 Appearing in no acute distress head is normocephalic atraumatic eyes pupils are PERRLA sclera is anicteric mouth throat mucous membranes are intact and moist neck is supple no lymphadenopathy, no JVD noted lung sounds are clear to auscultation heart regular rate rhythm, clear S1, S2 positive bowel sounds, abdomen is soft, nontender neuro patient is alert x3, no focal deficits DS: Data Data Completed and Pending Completed studies during hospitalization [Text1]: Procedures Insertion of Pacemaker Lead into Right Atrium, Percutaneous Approach (01/10/21) Insertion of Pacemaker Lead into Right Ventricle, Percutaneous Approach (01/10/21) Insertion of Pacemaker, Dual Chamber into Chest Subcutaneous Tissue and Fascia, Open Approach (01/10/21) Labs on day of discharge: Laboratory Results - last 24 hr 02/12/25 02/12/25 02/13/25 16:28 20:30 07:46 POC Glucose 175 H 188 H 122 H 02/13/25 11:27 POC Glucose 151 H Preliminary micro results at discharge 02/08/25 22:14 Blood Culture - Preliminary Blood - Venous No growth after 48 hours. 02/08/25 22:14 Blood Culture - Preliminary Blood - Venous No growth after 48 hours. Discharge Plan Discharge Anticipated Discharge Date/Time: 02/14/25 11:45 Patient Disposition: [facility] Discharge Diagnosis: Severe sepsis UTI Pneumonia Dysphagia Acute on chronic iron-deficiency anemia Referrals: julian [Other] - 1 Week Candido Good III, MD [Primary Care Provider] - 1 Week Discharge Medications: Continued atorvastatin 80 mg tablet 80 mg PO DAILY Januvia 100 mg tablet 100 mg PO DAILY metoprolol tartrate 25 mg tablet 25 mg PO BID finasteride 5 mg tablet 5 mg PO DAILY metformin 500 mg tablet 1,000 mg PO BIDAC Eliquis 5 mg tablet 5 mg PO BID aspirin 81 mg Tablet,Chewable 81 mg PO DAILY Qty: 30 0RF tamsulosin 0.4 mg capsule 0.4 mg PO DAILY insulin glargine [Lantus Solostar U-100 Insulin] 100 unit/mL (3 mL) insulin pen 22 unit subcut BEDTIME ferrous sulfate [Slow Release Iron] 142 mg (45 mg iron) tablet extended release 142 mg PO DAILY acetaminophen 500 mg Tablet 500 mg PO Q6H PRN (Reason: Fever Or Pain) Discharge Orders: Discharge Order (Routine); Ordered 02/14/25 Ordered By: Rachana Arguello Diet: Advance to usual diet Activity on Discharge: As tolerated Stand Alone Forms: Patient Portal Discharge page Print Language: Ukrainian Activity Restrictions/Additional Instructions: Wound care Recommendations: 1. Turn and Reposition every 2 hours and as needed for patient comfort.? Use pillows or wedges to support off loading positions. 2. Off Load all bony prominences with use of pillows and heel boots if needed.? Apply Preventative foams where needed. ? 3. Monitor for incontinence and moisture control, use barrier creams when needed for prevention and treatment. 4. Provide adequate and supplemental nutrition.? 5. Continue low air loss mattress. 6. When applicable maintain blood glucose levels per Providers order. Sacrum / buttock - Off Load Pressure with Q2 hr turns and use of pillows - Cleanse with PH balance spray or wipes, pat dry. ?Apply thin layer of Triad to wound bed. Do not remove all of paste between applications as this may cause further skin damage.? Cover with foam dressing to aid in off loading and protection from friction. Change every 3 days and PRN. Bilateral Heels? - Elevate heels off of bed surface with pillows.? Float heels off of pillows.? Apply skin prep allow to dry.? Apply heel foam dressings, peel back and assess Q shift and change every 5-7 days and PRN. Care Plan Goals: Transfer to short-term rehabilitation for physical therapy Health Concerns: Severe sepsis UTI Pneumonia Dysphagia Acute on chronic iron-deficiency anemia Plan of Treatment: Follow-up with primary care provider as needed Take all medications as prescribed Assessment: See discharge summary
--- NOTE | 2025-02-13 16:03 | MHC.SLORD ---
Speech Language Pathology Order Status: Pt not seen today for 1x followup. Pt on NDD3 with thins, using compensatory strategies.
[2025-02-13 16:08] LABS: Glucose, Whole Blood 160 mg/dL (60-115)
--- NOTE | 2025-02-13 19:01 | PC.NURSE ---
Per immigration case manager, pt. discharge is postponed to tomorrow, pending authorization from different skilled nursing.
[2025-02-13 20:44] LABS: Glucose, Whole Blood 179 mg/dL (60-115)
[2025-02-13] MEDS: cefTRIAXone sodium 1 GM VIAL IVPUSH (21:15)
[2025-02-13] MEDS: Insulin Glargine,Hum.rec.anlog 100 UNIT/ML 10 ML VIAL 15 UNIT SUBCUT (21:16)
[2025-02-14 03:00] VITALS: BP 142/69; PULSE 97; RESP 20; TEMP 36.8; O2SAT 91
[2025-02-14 07:07] VITALS: BP 129/63; PULSE 98; RESP 18; TEMP 36.4; O2SAT 91
--- NOTE | 2025-02-14 07:15 | HO.PM.IMPN ---
Subjective Subjective Date of Service: 02/13/25 Interval History: seen and examined this morning follow up for anemia, UTI, pna feeling more energy today. no bleeding Review of Systems Review of Systems: Yes all other systems are reviewed and are negative Constitutional Constitutional: Denies chills and Denies fever(s) Cardiovascular Cardiovascular: Denies chest pain and Denies palpitations Respiratory Respiratory: Denies cough Endocrine Endocrine: Denies palpitations Physical Exam Vital Signs: Vital Signs: Last Vital Signs Temp 97.6 F 02/14/25 07:07 Pulse 98 02/14/25 07:07 Resp 18 02/14/25 07:07 BP 129/63 02/14/25 07:07 Pulse Ox 91 L 02/14/25 07:07 O2 Del Method Room Air 02/14/25 07:07 BMI result Body Mass Index 26.7 Appearing in no acute distress lung sounds are clear to auscultation heart regular rate rhythm, clear S1, S2 positive bowel sounds, abdomen is soft, nontender neuro patient is alert x3, no focal deficits Objective Data Active Medications Acetaminophen (Acetaminophen 325 Mg Tablet) 975 mg PO Q6H PRN PRN Reason: Pain, Mild 1-3,fever,headache Albuterol/Ipratropium (Albuterol/Iprat 2.5/0.5mg 3 Ml Ampul.Neb) 3 ml INHALE Q4H PRN PRN Reason: Shortness of Breath/Wheezing Apixaban (Apixaban 5 Mg Tablet) 5 mg PO BID [facility] Last Admin: 02/13/25 21:15 Dose: 5 mg Documented By: KRISTYN Atorvastatin Calcium (Atorvastatin Calcium 80 Mg Tablet) 80 mg PO DAILY [facility] Last Admin: 02/13/25 08:21 Dose: 80 mg Documented By: PABLO Calcium Carbonate (Calcium Carbonate 750 Mg Tab.Chew) 750 mg PO Q4H PRN PRN Reason: Heartburn Ceftriaxone Sodium (Ceftriaxone Sodium 1 Gm Vial) 1 gm IVPUSH Q24H [facility] Last Admin: 02/13/25 21:15 Dose: 1 gm Documented By: KRISTYN Dextrose (Dextrose 50 % 25 Gm/50 Ml Syringe) 25 gm IVPUSH Q15M PRN; Protocol PRN Reason: per Hypoglycemia Standing Ord. Finasteride (Finasteride 5 Mg Tablet) 5 mg PO DAILY [facility] Last Admin: 02/13/25 08:22 Dose: 5 mg Documented By: PABLO Glucose (Glucose Gel 15 Gm Gel..Gram.) 15 gm PO Q15M PRN; Protocol PRN Reason: per Hypoglycemia Standing Ord. Doxycycline Hyclate 100 mg/ (Sodium Chloride) 250 mls @ 166.67 mls/hr IV BID [facility] Last Infusion: 02/13/25 22:54 Dose: Infused Documented By: KRISTYN Insulin Glargine (Insulin Glargine,Hum.Rec.Anlog 100 Unit/Ml 10 Ml Vial) 15 unit SUBCUT BEDTIME [facility] Last Admin: 02/13/25 21:16 Dose: 15 unit Documented By: KRISTYN Insulin Human Lispro (Insulin Lispro 100 Unit/Ml 3 Ml Vial) 0 unit SUBCUT QIDACHS [facility]; Protocol Last Admin: 02/13/25 21:16 Dose: 2 unit Documented By: KRISTYN Magnesium Hydroxide (Milk Of Magnesia 30 Ml Oral.Susp) 30 ml PO DAILY PRN PRN Reason: Constipation Melatonin (Melatonin 3 Mg Tablet) 6 mg PO BEDTIME PRN PRN Reason: Insomnia Metoprolol Tartrate (Metoprolol Tartrate 25 Mg Tablet) 25 mg PO BID [facility]; Protocol Last Admin: 02/13/25 21:15 Dose: 25 mg Documented By: KRISTYN Sodium Chloride (0.9 % Sodium Chloride Flush 3 Ml Syringe) 3 ml IVFLUSH QSHIFT [facility] Last Admin: 02/13/25 21:16 Dose: 3 ml Documented By: KRISTYN Tamsulosin HCl (Tamsulosin Hcl 0.4 Mg Capsule) 0.4 mg PO DAILY [facility] Last Admin: 02/13/25 08:21 Dose: 0.4 mg Documented By: PABLO Labs 02/11/25 06:51 02/11/25 06:51 Labs: Laboratory Results - last 24 hr 02/13/25 02/13/25 02/13/25 07:46 11:27 15:59 POC Glucose 122 H 151 H 160 H 02/13/25 20:40 POC Glucose 179 H Microbiology Microbiology Results: Microbiology 02/08/25 22:14 Blood Culture - Final Blood - Venous No growth after 5 days. 02/08/25 22:14 Blood Culture - Final Blood - Venous No growth after 5 days. Assessment and Plan (1) Pneumonia: Status: Acute (2) Anemia: Status: Acute (3) UTI (urinary tract infection): Status: Acute Plan 79-year-old male with a past medical history significant for complete heart block s/p PPM, DVT, AFib on Eliquis, hypertension, CKD 3, s/p CABG, ?Parkinson's, DVT, type 2 diabetes on insulin, history of [place], who presented to the ED due to weakness for the past 5 days found to have UTI, pneumonia, anemia Severe Sepsis secondary to UTI and pneumonia Sepsis resolved s/p 300cc/kg fluid bolus chest x-ray with small left lower lobe pneumonia and possible left pleural effusion UA positive, urine culture neg blood cultures negative to date continue IV ceftriaxone and doxycycline Dysphagia Seen by speech-recommended NDD 3 diet Acute on chronic iron deficiency anemia H/H below baseline, seems to be trending down over a long period of time. improved after 2U RBC stool heme-negative. No evidence of acute blood loss anemia B12, folate within normal limits iron <7, IV iron x3 days chronic prolonged QT EKG with prolonged QT, when reviewing others this is chronic, patient does have dual-chamber pacing history DVT no overt bleeding, will continue AC paroxysmal AFib No overt bleeding, continue Eliquis Continue metoprolol for rate control hypertension Continue metoprolol CKD 3 at baseline type 2 diabetes Hold metformin Reduced dose of Lantus ordered SSI, POCs CAD/ history [place]/ history CABG Continue statin, beta-saira Hold aspirin for now DTI sacrum stage 2 pressure injury right buttock; daria wound DTI and MASD. 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
[2025-02-14 07:20] LABS: Glucose, Whole Blood 123 mg/dL (60-115)
[2025-02-14] MEDS: 0.9 % Sodium Chloride Flush 3 ML SYRINGE IVFLUSH (07:47)
[2025-02-14] MEDS: Atorvastatin Calcium 80 MG TABLET PO (07:52)
[2025-02-14] MEDS: Metoprolol Tartrate 25 MG TABLET PO (07:52)
[2025-02-14] MEDS: Finasteride 5 MG TABLET PO (07:52)
[2025-02-14] MEDS: Tamsulosin HCL 0.4 MG CAPSULE PO (07:52)
[2025-02-14] MEDS: Doxycycline Hyclate 100 MG in 0.9 % Sodium Chloride 250 ML 166.67 MG IV (07:52)
[2025-02-14] MEDS: Apixaban 5 MG TABLET PO (07:53)
--- NOTE | 2025-02-14 11:25 | P.PNIM_ITS ---
Subjective Subjective Date of Service: 02/14/25 Interval History: seen and examined this morning follow up for anemia, UTI, pna feeling more energy today. no bleeding Review of Systems Review of Systems: Yes all other systems are reviewed and are negative Constitutional Constitutional: Denies chills and Denies fever(s) Cardiovascular Cardiovascular: Denies chest pain and Denies palpitations Respiratory Respiratory: Denies cough Endocrine Endocrine: Denies palpitations Physical Exam 2 Vital Signs: Vital Signs: Last Vital Signs Temp 97.6 F 02/14/25 07:07 Pulse 98 02/14/25 07:07 Resp 18 02/14/25 07:07 BP 129/63 02/14/25 07:07 Pulse Ox 91 L 02/14/25 07:07 O2 Del Method Room Air 02/14/25 07:07 BMI result Body Mass Index 26.7 Appearing in no acute distress lung sounds are clear to auscultation heart regular rate rhythm, clear S1, S2 positive bowel sounds, abdomen is soft, nontender neuro patient is alert x3, no focal deficits Objective Data Active Medications Acetaminophen (Acetaminophen 325 Mg Tablet) 975 mg PO Q6H PRN PRN Reason: Pain, Mild 1-3,fever,headache Albuterol/Ipratropium (Albuterol/Iprat 2.5/0.5mg 3 Ml Ampul.Neb) 3 ml INHALE Q4H PRN PRN Reason: Shortness of Breath/Wheezing Apixaban (Apixaban 5 Mg Tablet) 5 mg PO BID [facility] Last Admin: 02/14/25 07:53 Dose: 5 mg Documented By: PABLO Atorvastatin Calcium (Atorvastatin Calcium 80 Mg Tablet) 80 mg PO DAILY [facility] Last Admin: 02/14/25 07:52 Dose: 80 mg Documented By: PABLO Calcium Carbonate (Calcium Carbonate 750 Mg Tab.Chew) 750 mg PO Q4H PRN PRN Reason: Heartburn Dextrose (Dextrose 50 % 25 Gm/50 Ml Syringe) 25 gm IVPUSH Q15M PRN; Protocol PRN Reason: per Hypoglycemia Standing Ord. Finasteride (Finasteride 5 Mg Tablet) 5 mg PO DAILY [facility] Last Admin: 02/14/25 07:52 Dose: 5 mg Documented By: PABLO Glucose (Glucose Gel 15 Gm Gel..Gram.) 15 gm PO Q15M PRN; Protocol PRN Reason: per Hypoglycemia Standing Ord. Insulin Glargine (Insulin Glargine,Hum.Rec.Anlog 100 Unit/Ml 10 Ml Vial) 15 unit SUBCUT BEDTIME [facility] Last Admin: 02/13/25 21:16 Dose: 15 unit Documented By: KRISTYN Insulin Human Lispro (Insulin Lispro 100 Unit/Ml 3 Ml Vial) 0 unit SUBCUT QIDACHS [facility]; Protocol Last Admin: 02/14/25 07:23 Dose: Not Given Documented By: PABLO Non-Admin Reason: No Insulin Coverage Magnesium Hydroxide (Milk Of Magnesia 30 Ml Oral.Susp) 30 ml PO DAILY PRN PRN Reason: Constipation Melatonin (Melatonin 3 Mg Tablet) 6 mg PO BEDTIME PRN PRN Reason: Insomnia Metoprolol Tartrate (Metoprolol Tartrate 25 Mg Tablet) 25 mg PO BID [facility]; Protocol Last Admin: 02/14/25 07:52 Dose: 25 mg Documented By: PABLO Sodium Chloride (0.9 % Sodium Chloride Flush 3 Ml Syringe) 3 ml IVFLUSH QSHIFT [facility] Last Admin: 02/14/25 07:47 Dose: 3 ml Documented By: PABLO Tamsulosin HCl (Tamsulosin Hcl 0.4 Mg Capsule) 0.4 mg PO DAILY [facility] Last Admin: 02/14/25 07:52 Dose: 0.4 mg Documented By: PABLO Labs 02/11/25 06:51 02/11/25 06:51 Labs: Laboratory Results - last 24 hr 02/13/25 02/13/25 02/13/25 11:27 15:59 20:40 POC Glucose 151 H 160 H 179 H 02/14/25 07:10 POC Glucose 123 H Microbiology Microbiology Results: Microbiology 02/08/25 22:14 Blood Culture - Final Blood - Venous No growth after 5 days. 02/08/25 22:14 Blood Culture - Final Blood - Venous No growth after 5 days. Assessment and Plan (1) Pneumonia: Status: Acute (2) Anemia: Status: Acute (3) UTI (urinary tract infection): Status: Acute Plan 79-year-old male with a past medical history significant for complete heart block s/p PPM, DVT, AFib on Eliquis, hypertension, CKD 3, s/p CABG, ?Parkinson's, DVT, type 2 diabetes on insulin, history of [place], who presented to the ED due to weakness for the past 5 days found to have UTI, pneumonia, anemia Severe Sepsis secondary to UTI and pneumonia. Resolved Sepsis resolved s/p 300cc/kg fluid bolus chest x-ray with small left lower lobe pneumonia and possible left pleural effusion UA positive, urine culture neg blood cultures negative to date s/p IV ceftriaxone and doxycycline Dysphagia Seen by speech-recommended NDD 3 diet Acute on chronic iron deficiency anemia H/H below baseline, seems to be trending down over a long period of time. improved after 2U RBC stool heme-negative. No evidence of acute blood loss anemia B12, folate within normal limits iron <7, IV iron x3 days chronic prolonged QT EKG with prolonged QT, when reviewing others this is chronic, patient does have dual-chamber pacing history DVT no overt bleeding, will continue AC paroxysmal AFib No overt bleeding, continue Eliquis Continue metoprolol for rate control hypertension Continue metoprolol CKD 3 at baseline type 2 diabetes Hold metformin Reduced dose of Lantus ordered SSI, POCs CAD/ history [place]/ history CABG Continue statin, beta-saira Hold aspirin for now DTI sacrum stage 2 pressure injury right buttock; daria wound DTI and MASD. POA management as wound care nurse full code VTE prophylaxis: ivett PT rec STR, awaiting auth Quality Stroke Does the patient have a stroke diagnosis?: No VTE Prior VTE?: Yes VTE Risk Level:: Medical - moderate - high VTE Device Contraindication: Treatment Not Indicated VTE Drug Contraindication: N/A - Med Ordered
--- NOTE | 2025-02-14 11:31 | MHC.CM.PN ---
pt to julian today aware
[2025-02-14 11:57] LABS: Glucose, Whole Blood 149 mg/dL (60-115)
[2025-02-14 12:00] VITALS: BP 121/65; PULSE 78; RESP 16; TEMP 37.2; O2SAT 92
--- NOTE | 2025-02-14 12:52 | MHC.SL.SWA ---
Risk of Aspiration Due to: PD, prior MBSS results Dysphasia Diet Status: DOWNGRADE to NDD2 Liquid Consistency and Strategies for Safe Swallow: Liquid Intake Recommendation: Thin Liquid Intake Strategies: Small Sips Solid Food Consistency: Dietary Recommendations: ground/mech altered (NDD2) Oral Medication Intake: Whole with Puree Please contact the pharmacy regarding appropriate crushable or liquid drug formulations that are available whenever modified delivery is recommended. Compensatory Strategies and Precautions to be Taken for Safe Swallow: Sitting Upright (90 deg) Small Bites and Sips Alternate Liquids/Solids Rate of Ingestion Change Avoid Specific Foods Supervision While Eating and Drinking for Safe Swallow: Direct Supervision (1:1) Swallowing Recommended Treatments: Compens. Strategy Educat. Recommendation for Speech: Inpatient Speech Therapy Continued dysphagia tx at next level of care Comment: Pt was previously at [facility] for short term rehab from 09/10/2024-10/13/2024. Had had MBSS done while at [facility] during this time; based on MBSS he was recommended ground solids (NDD2) and thin liquids. Based on that information and observation during lunch on this date, ground solids is believed to be the safest and least restrictive solid consistency. Recommend GROUND/MECH ALTERED (NDD2) solids and THIN liquids. Cue or assist patient to take SINGLE SIPS if using straw. Recommend continued dysphagia tx at next level of care. Director Of Clinical Applications Clinican/Clinical Fellow: No Supervisory Statement: I have reviewed and agree with the student/clinical fellow's documentation: N/A Speech Language Pathologist: Rosemarie hsieh M.A., CCC-VIDEOTAPE EDITOR
== END 2025-02-14 13:42 | disposition skilled nursing facility (03) | DRG 720 ==
LOC: HO.ED 02-09 00:42 → HO.EDOVER 02-09 01:54 → HO.S3 02-09 19:14
PROVIDERS: Physician Assistant Medical; Admitting Provider Physician Assistant; Emergency Provider Emergency Medicine; PCP Internal Medicine; Visit Provider Nurse Practitioner Acute Care
DX: A41.9 Sepsis, unspecified organism (principal); I44.2 Atrioventricular block, complete; J18.9 Pneumonia, unspecified organism; L89.156 Pressure-induced deep tissue damage of sacral region; L89.896 Pressure-induced deep tissue damage of other site; L89.312 Pressure ulcer of right buttock, stage 2; E11.22 Type 2 diabetes mellitus with diabetic chronic kidney disease; I48.0 Paroxysmal atrial fibrillation; N39.0 Urinary tract infection, site not specified; I12.9 Hypertensive chronic kidney disease with stage 1 through stage 4 chronic kidney disease, or unspecified chronic kidney disease; R13.10 Dysphagia, unspecified; R65.20 Severe sepsis without septic shock; N18.30 Chronic kidney disease, stage 3 unspecified; I25.10 Atherosclerotic heart disease of native coronary artery without angina pectoris; L24.A0 Irritant contact dermatitis due to friction or contact with body fluids, unspecified; R94.31 Abnormal electrocardiogram [ECG] [EKG]; Z20.822 Contact with and (suspected) exposure to COVID-19; Z86.718 Personal history of other venous thrombosis and embolism; Z95.0 Presence of cardiac pacemaker; Z95.1 Presence of aortocoronary bypass graft; Z79.4 Long term (current) use of insulin; Z79.01 Long term (current) use of anticoagulants; Z79.82 Long term (current) use of aspirin; Z79.84 Long term (current) use of oral hypoglycemic drugs; Z79.899 Other long term (current) drug therapy
CPT/HCPCS: 0241U; 36415; 71045; 80048; 80053; 81001; 82272; 82607; 82746; 82947; 83540; 83605; 84484; 85014; 85018; 85025; 86850; 86900; 86901; 86923; 87040; 87086; 92526; 92610; 93005; 97162; 99285; J0456; J0696; J1271; J1756; P9016

== ENCOUNTER → 2025-02-08 23:03 | Outpatient (BNV) | payer BC, SELFPAY | PROVIDERS: Admitting Provider Physician Assistant; Emergency Provider Emergency Medicine; PCP Internal Medicine; Visit Provider Internal Medicine | DX: I45.9 Conduction disorder, unspecified (principal) | CPT/HCPCS: 93010 ==

== ENCOUNTER → 2025-02-09 01:49 | Outpatient (BNV) | payer BC, SELFPAY | PROVIDERS: Admitting Provider Physician Assistant; Emergency Provider Emergency Medicine; PCP Internal Medicine; Visit Provider Physician Assistant Medical | DX: J18.9 Pneumonia, unspecified organism (principal); D64.9 Anemia, unspecified; N39.0 Urinary tract infection, site not specified | CPT/HCPCS: 99232; 99239; 99499 ==

== ENCOUNTER 2025-03-22 17:29 | Inpatient (IN) | payer BC, SELFPAY ==
[2025-03-22] VITALS (10 sets, daily range): BP systolic 95–140; BP diastolic 41–68; PULSE 73–114; RESP 14–19; TEMP 37.1–39.2; O2SAT 92–94; BMI 23.4
--- NOTE | ~2025-03-22 | XR_ITS ---
CLINICAL HISTORY: Fall, fever, rule out pneumonia Single view chest. Comparison 02/08/2025. Findings: The heart is enlarged. Median sternotomy. Left cardiac pacemaker. There is bronchial wall thickening bilaterally with mild patchy airspace opacities. Possible small pleural effusions. Impression: Nonspecific bronchial wall thickening with patchy airspace opacities bilaterally could represent infection or edema consider follow-up. Possible small bilateral pleural effusions. This document has been electronically signed by: Umer Oliveira MD on 03/22/2025 19:39:35
--- NOTE | ~2025-03-22 | XR_ITS ---
EXAMINATION: XR CHEST 1 VIEW HISTORY: re-eval effusions, PNA COMPARISON: Comparison is made with the prior examination dated 03/22/2025. FINDINGS: A single AP portable view of the chest performed at 8:46 AM is submitted. A left subclavian dual-chamber pacemaker is unchanged in position. There is prominence of the pulmonary vasculature, consistent with congestion. There are small bilateral pleural effusions which are larger than on the prior study. There is no pneumothorax. The heart is enlarged. The patient is status post median sternotomy. There is degenerative disc disease of the spine. XR/XR chest 1V IMPRESSION: Cardiomegaly, pulmonary vascular congestion, and small bilateral pleural effusions. The bilateral pleural effusions are larger than on the prior study. Electronically signed by: Luis Antonio Camejo MD 03/27/2025 09:15 AM EDT
--- NOTE | ~2025-03-22 | CT_ITS ---
CLINICAL HISTORY: Fall, head strike, rule out fracture, bleed CT of the head without contrast. Comparison 09/08/2024. Findings: There is diffuse atrophy with relatively mild white matter changes. No acute hemorrhage or infarct is seen. No masses are identified and there is no hydrocephalus. There is no mass-effect. Impression: No acute intracranial abnormality is identified. This document has been electronically signed by: Umer Oliveira MD on 03/22/2025 20:48:03
--- NOTE | ~2025-03-22 | US_ITS ---
EXAMINATION: US CHEST CLINICAL INFORMATION: Concerning right-sided pleural effusion. COMPARISON: Correlated to CT chest dated March 22, 2025. TECHNIQUE: Real-time ultrasound of the region of concern right lower posterior chest using grayscale technique. FINDINGS: Small to moderate volume right-sided pleural effusion with internal echoes. Partially collapsed right lower lobe. US/US chest IMPRESSION: Complex right-sided pleural effusion, small to moderate volume. Partially collapsed right lower lung lobe. Electronically signed by: Tripp Martin MD 03/28/2025 07:59 AM EDT
--- NOTE | ~2025-03-22 | XR_ITS ---
EXAMINATION: XR CHEST 1 VIEW HISTORY: SOB COMPARISON: Comparison is made with the prior examination dated 03/27/2025. FINDINGS: Two AP portable views of the chest performed at 2:55 PM are submitted. A left subclavian dual-chamber pacemaker is unchanged in position. There is been improvement in previously seen pulmonary vascular congestion. Bilateral pleural effusions are also decreased in size. An ovoid opacity in the right midlung zone likely represents loculated fluid within a fissure. There is no pneumothorax. The heart remains enlarged. The patient is status post median sternotomy. There is degenerative disc disease of the spine. XR/XR chest 1V IMPRESSION: Cardiomegaly. Improvement in pulmonary vascular congestion with decrease in size of bilateral pleural effusions. Probable loculated pleural fluid in a fissure. Follow-up is recommended. Electronically signed by: Luis Antonio Camejo MD 03/29/2025 03:09 PM EDT
--- NOTE | ~2025-03-22 | FL_ITS ---
EXAMINATION: XR BARIUM SWALLOW CLINICAL INFORMATION: Dysphagia COMPARISON: None available. TECHNIQUE: A modified barium swallow was performed in lateral fluoroscopy with patient sitting on a stretcher. There is consistencies of barium coated food was administered by speech therapist. FINDINGS: On oral administration of thin barium and thick barium there is trace laryngeal penetration but no aspiration. On oral administration of nectar consistency barium, barium puree and barium coated with grated chicken there is normal propagation of bolus from the oral cavity through the pharynx into esophagus. There is mild retention of solid food in the valleculae and piriform sinuses which somewhat clears with dry swallowing. FLUOROSCOPY TIME: 3 minute 46 seconds DOSE AREA PRODUCT: 2885 uGy-m2 (microgray-meter squared) FL/FL Modified Barium Swallow IMPRESSION: Laryngeal penetration with thin and thick barium. Mild retention of solid food in the valleculae and piriform sinuses which clears with subsequent swallowing. Electronically signed by: Vincent Cuevas MD 03/28/2025 03:51 PM EDT RP
--- NOTE | ~2025-03-22 | CT_ITS ---
CLINICAL HISTORY: PNA vs pulm edema CT chest without contrast Comparison: None provided Findings: Partially loculated bilateral pleural effusions. Multifocal bilateral lung base atelectasis. Cardiomegaly with coronary artery calcifications. Prior sternotomy for CABG. Left pacemaker with multiple leads. No significant mediastinal adenopathy. No acute bony abnormality. Impression: Partially loculated bilateral pleural effusions Multifocal bilateral atelectasis This document has been electronically signed by: Jeyson Ya MD on 03/23/2025 00:46:56
--- NOTE | ~2025-03-22 | CT_ITS ---
CLINICAL HISTORY: Fall, neck pain, rule out fracture CT cervical spine without contrast. Comparison 05/15/2022. Findings: No acute fractures are seen. There are severe degenerative changes. Fusion right C2-3 facet joint. There is no significant subluxation. There are old mild T1 and T2 compression fractures. Possible interstitial pulmonary edema. Impression: No acute fractures. Possible mild interstitial pulmonary edema. This document has been electronically signed by: Umer Oliveira MD on 03/22/2025 20:46:27
--- NOTE | 2025-03-22 17:56 | ED.FALL ---
HPI - Fall General Chief Complaint: Fall Stated Complaint: multiple falls c- stanley Time Seen by Provider: 03/22/25 17:56 Source: patient and other (ED nurse) Mode of arrival: EMS Limitations: no limitations History of Present Illness ED Provider: Dr. Johan Sawyer HPI Narrative: 79-year-old male with a past medical history significant for complete heart block s/p PPM, DVT, AFib on Eliquis, hypertension, CKD 3, s/p CABG, ?Parkinson's, DVT, type 2 diabetes on insulin, history of [place] Who presents emergency department for evaluation of multiple falls. The patient is a poor informant. He told me that he slipped on the ice and hit his head and that is why he is here in the emergency department. According to EMS, patient was recently discharged from [facility]. Patient fell earlier today while he was in his driveway and hit his head on the car at around noon time. Patient had a fall prior to coming to the emergency department. Here in the emergency department the patient was found to have a fever of 102.9 degrees F. Patient had a hospitalization from 02/09/2025 until 02/14/2025 for sepsis secondary to UTI and pneumonia. Patient was treated with ceftriaxone and doxycycline. Patient also had an iron deficient anemia and was transfused 2 units of RBCs. I did obtain information from the patient's . Patient has been at [facility] rehab since his discharge from [facility] 02/14/2025. His states that while he was there he had a fever and developed another pneumonia and has been off antibiotics for proximally 1 week. His providers were concerned that he swallowing issues and had an aspiration pneumonia. Patient was on thickened liquids and pureed food. Patient was discharged today and did have 2 falls. The 1st fall in the driveway he did strike his head but had no loss of consciousness. He did not hit his head on a 2nd fall. Related Data Home Medications ?Medication ?Instructions ?Recorded ?Confirmed atorvastatin 80 mg tablet 80 mg PO DAILY 01/10/21 02/09/25 finasteride 5 mg tablet 5 mg PO DAILY 01/10/21 02/09/25 metformin 500 mg tablet 1,000 mg PO BIDAC 01/10/21 02/09/25 metoprolol tartrate 25 mg tablet 25 mg PO BID 01/10/21 02/09/25 sitagliptin phosphate 100 mg 100 mg PO DAILY 01/10/21 02/09/25 tablet (Januvia) apixaban 5 mg tablet (Eliquis) 5 mg PO BID 02/09/23 02/09/25 acetaminophen 500 mg tablet 500 mg PO Q6H PRN Fever Or Pain 02/09/25 02/09/25 ferrous sulfate 142 mg (45 mg 142 mg PO DAILY 02/09/25 02/09/25 iron) tablet,extended release (Slow Release Iron) insulin glargine 100 unit/mL (3 22 unit subcut BEDTIME 02/09/25 02/09/25 mL) subcutaneous pen (Lantus Solostar U-100 Insulin) tamsulosin 0.4 mg capsule 0.4 mg PO DAILY 02/09/25 02/09/25 Previous Rx's ?Medication ?Instructions ?Recorded aspirin 81 mg chewable tablet 81 mg PO DAILY #30 tabs 05/17/22 Allergies Allergy/AdvReac Type Severity Reaction Status Date / Time Seasonal Allergies Allergy Runny Nose Verified 03/22/25 17:37 [facility] Past Medical History Medical History Parkinsons Afib Abnormal EKG Deep vein thrombosis (DVT) of axillary vein of left upper extremity CHB (complete heart block) History of acute myocardial infarction Diabetes High cholesterol HTN (hypertension) Kidney disease, chronic, stage III (GFR 30-59 ml/min) Surgical History Hx of CABG S/P quadruple vessel bypass History of tonsillectomy Family History Family History Mother Breast cancer metastasized to brain Diabetes Sister Diabetes Brother Diabetes Sister Diabetes Sister Diabetes Brother Diabetes Maternal Uncle Diabetes Maternal Aunt Diabetes Maternal Aunt Diabetes Maternal Uncle Diabetes Social History Social History (Updated 09/16/24 @ 14:36 by SAHIL Garnica) Household Members: Spouse Household Members Other:: Housing: House Are you a primary child adolescent care to a significant other at home: No Do you presently have visiting nurse or other home services: Yes Alcohol intake: current Alcohol intake frequency: does not drink Patient Tobacco Use Status: Never used Tobacco Use of substances other than those prescribed or required for medical reasons: Unknown Advance Directives: Yes Advance Directives on File: Yes Advance Directives Date on File: 06/01/24 service: No Current occupational status: retired Current occupation: rt hand Physical Exam Vital Signs: Vital Signs: Last Vital Signs Temp 101.1 F H 03/22/25 20:18 Pulse 83 03/22/25 20:06 Resp 19 03/22/25 20:06 BP 96/48 L 03/22/25 20:06 Pulse Ox 92 03/22/25 20:06 O2 Del Method Room Air 03/22/25 20:06 BMI result Body Mass Index 23.4 Exam: General: Awake, alert in no distress, patient is tremulous, lacks insight as to why he is here in the emergency land department head: Normocephalic, atraumatic EENT: PERRL, Lids normal, sclera normal, conjunctiva normal, nose normal , ears normal, throat without erythema or exudates Neck: Supple, no adenopathy Lung: breath sounds symmetric, diffuse rhonchi with no rales or wheezing Chest: symmetric movement, nontender Heart: regular rate and rhythm, normal S1, S2 no murmurs or rubs Abdomen: soft, non-tender, nondistended, normal bowel sounds Back: no vertebral tenderness, no CVAT Extremities: no deformities, moves all extremities symmetrically Neuro: Awake, alert, oriented to person and knows that he is in the hospital, normal speech, cranial nerves intact, moves all extremities symmetrically Psych: Pleasant, cooperative Medications Administered Generic Name Dose Route Start Last Admin Trade Name Freq PRN Reason Stop Dose Admin Azithromycin 500 mg/ Sodium 250 mls @ 125 mls/hr 03/22/25 18:51 03/22/25 19:08 Chloride IV 03/22/25 20:50 125 mls/hr ONCE ONE Administration Discontinued Medications Generic Name Dose Route Start Last Admin Trade Name Freq PRN Reason Stop Dose Admin Acetaminophen 975 mg 03/22/25 18:08 03/22/25 18:25 Acetaminophen 325 Mg Tablet PO 03/22/25 18:09 975 mg ONCE STA Administration Ceftriaxone Sodium 1 gm 03/22/25 18:51 03/22/25 19:08 Ceftriaxone Sodium 1 Gm Vial IVPUSH 03/22/25 18:52 1 gm ONCE ONE Administration Sodium Chloride 1,000 mls @ 999 mls/hr 03/22/25 17:56 03/22/25 19:05 Ns IV 03/22/25 18:56 Infused .Q1H1M STA Infusion Sodium Chloride 2,097 mls @ 2,097 mls/hr 03/22/25 18:51 03/22/25 19:11 Ns 30 ml/kg infuse over 1 hr (2097 ml) 03/22/25 19:50 2,097 mls/hr IV Administration .Q1H STA Medical Decision Making Medical Decision Making MDM Narrative: 79-year-old male with a past medical history significant for complete heart block s/p PPM, DVT, AFib on Eliquis, hypertension, CKD 3, s/p CABG, ?Parkinson's, DVT, type 2 diabetes on insulin, history of [place] who presents emergency department for evaluation of multiple falls. Patient was in rehab from his [facility] admission on 02/14/2025 until today when he was discharged home. While he was in rehab he had an aspiration pneumonia, treated with antibiotics which was completed 1 week prior and was placed on thickened liquids and pureed food. He had 2 witnessed falls at home with 1 head strike. Patient had a fever of 102.6 degrees F. Lung exam did reveal diffuse rhonchi with no wheezing or rales, patient also is tremulous which I believe is chronic and may be consistent with Parkinson's. 19:11 Differential diagnosis: ?Includes but is not limited to fall, skull fracture, intracranial bleed, neck fracture, viral syndrome, COVID-19, influenza, RSV, pneumonia, urinary tract infection, electrolyte abnormalities, anemia Course: 19:11 My independent interpretation patient's laboratory evaluation is as follows: WBC elevated 68519. Chronic microcytic anemia with an H&H of 8.1 and 27.2 similar to previous values. Platelet count normal 329,000.VBG: PH elevated 7.46. Bicarb elevated 28. Glucose elevated 206. Lactic acid elevated 4.5. LFTs were normal. CK was not elevated. BNP elevated 575 My interpretation of the patient's chest x-ray is as follows: Right-sided infiltrate concerning for pneumonia with possible increased interstitial markings Given patient's presentation, fever and elevated lactic acid I did make the patient has sepsis alert. Patient was ordered to get a 30 cc/kilogram normal saline bolus. I also ordered straight cath urine, ceftriaxone 1 g IV and azithromycin 500 mg IV. The patient's fever was treated with Tylenol 975 mg orally. 20:48 Patient's urinalysis was positive for protein, blood, nitrates, leukocyte esterase. Microscopic revealed 0-2 RBCs, greater than 50 WBCs, 3-5 squamous cells, 4+ bacteria-this was a straight cath specimen. These findings are concerning for urinary tract infection. CT scan of the head and cervical spine were unremarkable. Radiologist did note possible interstitial pulmonary edema on the CT scan of the neck. 21:15 I did discuss the patient's presentation with the covering hospitalist, Dr. Corral and the patient will be admitted for further treatment. Patient will be kept NPO until he gets a formal swallowing study. Admission/Observation Consideration of admission/observation: Escalation of care including admission/observation considered (Yes) Lab Data 03/22/25 18:14 03/22/25 18:14 Labs: Lab Results 03/22/25 03/22/25 03/22/25 Range/Units 18:13 18:14 18:24 WBC 12.6 H (4.8-10.8) X10*3/uL RBC 3.44 L (4.60-5.80) X10*6/uL Hgb 8.1 L (14.0-18.0) g/dl Hct 27.2 L (42.0-52.0) % MCV 79.1 L (80.0-98.0) fL MCH 23.5 L (27.0-33.0) pg MCHC 29.8 L (31.0-36.0) g/dl RDW 22.3 H (11.0-16.0) % Plt Count 329 (160-400) X10*3/uL MPV 10.8 (9.4-12.4) fL Immature Gran % (Auto) 1.0 H (0.0-0.4) % Neut % (Auto) 76.9 H (45-73) % Lymph % (Auto) 14.8 L (20-40) % [place] % (Auto) 5.9 (2-11) % Eos % (Auto) 0.9 (0-4) % Baso % (Auto) 0.5 (0-2) % Lymph # (Auto) 1.9 (1.2-4.9) X10*3/uL [place] # (Auto) 0.7 (0.1-1.2) X10*3/uL Eos # (Auto) 0.1 (0.0-0.4) X10*3/uL Baso # (Auto) 0.1 (0.0-0.2) X10*3/uL Abs Immat Gran (auto) 0.13 H (0.00-0.03) X10*3/uL Absolute Neuts (auto) 9.7 H (2.0-8.3) x10*3/uL Absolute Nucleated RBC 0.000 (0.0-0.012) X10*3/uL Nucleated RBC % (auto) 0.0 (0.0-0.2) /100WBC PT 21.5 H (10.9-12.4) SEC INR 1.9 H (0.9-1.1) APTT 39.5 H (26.0-36.8) SEC VBG pH 7.46 H (7.32-7.43) VBG pCO2 39 mmHg VBG pO2 33 mmHg VBG HCO3 28 H (22-26) mmol/L VBG O2 Saturation 44.0 % VBG Base Excess 4.4 mmol/L Sodium 137 (135-145) mmol/L Potassium 4.6 (3.3-5.1) mmol/L Chloride 103 (96-108) mmol/L Carbon Dioxide 23 (22-29) mmol/L Anion Gap 16 (12-20) BUN 10 (9-16) mg/dL Creatinine 0.66 (0.5-1.4) mg/dL Estim Creat Clear Calc 86.3 Estimated GFR > 60 Random Glucose 206 H (60-115) mg/dL Lactic Acid 4.5 H* (0.5-2.0) mmol/L Calcium 8.1 L (8.4-10.2) mg/dL Magnesium 1.7 (1.6-2.6) mg/dL Total Bilirubin 0.5 (0.0-1.0) mg/dL AST 36 (5-37) U/L ALT 9 (0-40) U/L Alkaline Phosphatase 104 (39-117) U/L Total Creatine Kinase 21 L (38-174) U/L B-Natriuretic Peptide 575 H (<100) pg/mL Total Protein 7.8 (6.5-8.0) g/dL Albumin 2.7 L (3.5-5.0) g/dL Lipase 21 (8-78) U/L Ethyl Alcohol < 10 mg/dL Influenza Type A (PCR) NEGATIVE (Negative) Influenza Type B (PCR) NEGATIVE (Negative) RSV RNA Qual (PCR) NEGATIVE (Negative) SARS-CoV-2 RNA (RT-PCR) NEGATIVE (Negative) Independent Interpretation I performed an independent interpretation of an: EKG and Plain X-Ray Interpretation: My independent interpretation patient's 12 EKG done on 03/22/2025 at 17:57 hours in his paced rhythm with an elevated ventricular rate of 115 beats per minute My interpretation of the patient's chest x-ray is as follows: Right-sided infiltrate concerning for pneumonia Radiology Impression Discussion of test interpretation with radiology: I have reviewed the radiologist's reading. Radiologist Impression: Single view chest. Comparison 02/08/2025. Findings: The heart is enlarged. Median sternotomy. Left cardiac pacemaker. There is bronchial wall thickening bilaterally with mild patchy airspace opacities. Possible small pleural effusions. Impression: Nonspecific bronchial wall thickening with patchy airspace opacities bilaterally could represent infection or edema consider follow-up. Possible small bilateral pleural effusions. This document has been electronically signed by: Umer Oliveira MD on 03/22/2025 19:39:35 CT of the head without contrast. Comparison 09/08/2024. Findings: There is diffuse atrophy with relatively mild white matter changes. No acute hemorrhage or infarct is seen. No masses are identified and there is no hydrocephalus. There is no mass-effect. Impression: No acute intracranial abnormality is identified. This document has been electronically signed by: Umer Oliveira MD on 03/22/2025 20:48:03 CT cervical spine without contrast. Comparison 05/15/2022. Findings: No acute fractures are seen. There are severe degenerative changes. Fusion right C2-3 facet joint. There is no significant subluxation. There are old mild T1 and T2 compression fractures. Possible interstitial pulmonary edema. Impression: No acute fractures. Possible mild interstitial pulmonary edema. This document has been electronically signed by: Umer Oliveira MD on 03/22/2025 20:46:27 Independent Historian Clinical information obtained from an independent historian. History obtained from or confirmed by: EMS Critical Care Time Critical Care Time Critical Care Time: Yes Total Critical Care Time: 45 Attestation: Critical Care: The patient was critically ill with a high probability of imminent or life threatening deterioration. I spent greater than 30 minutes of discontinuous time evaluating the patient,delivering critical care at the bedside, discussing and evaluating pertinent data with consultants. Critical care time does not include time spent performing separately billable procedures or teaching. Total time spent performing critical care was 45 minutes. Discharge Plan Discharge Patient Disposition: Admitted As Inpatient Print Language: Luxembourger
--- NOTE | 2025-03-22 17:57 | ECG_ITS ---
Test Reason : fall Blood Pressure : */* mmHG Vent. Rate : 115 BPM Atrial Rate : 119 BPM P-R Int : * ms QRS Dur : 168 ms QT Int : 412 ms P-R-T Axes : * -69 82 degrees QTcB Int : 569 ms Ventricular-paced rhythm with occasional Premature ventricular complexes Abnormal ECG When compared with ECG of 08-Feb-2025 23:03, Vent. rate has increased by 30 bpm Referred By: Johan Sawyer Electronically Signed By: EDDIE PORTILLO
[2025-03-22 18:22] LABS: MANUAL DIFF FLAG NO
[2025-03-22 18:41] LABS: Alanine Aminotransferase 9 U/L (0-40); Albumin Level 2.7 g/dL (3.5-5.0); Alkaline Phosphatase 104 U/L (39-117); Anion Gap 16 (12-20); Aspartate Amino Transferase 36 U/L (5-37); Blood Urea Nitrogen 10 mg/dL (9-16); Calcium 8.1 mg/dL (8.4-10.2); Carbon Dioxide 23 mmol/L (22-29); Chloride 103 mmol/L (96-108); Creatinine Clr Calc Pharmacy 86.3; Estimated Glomerular Filt Rate > 60; Lipase 21 U/L (8-78); Magnesium 1.7 mg/dL (1.6-2.6); Potassium 4.6 mmol/L (3.3-5.1); Sodium 137 mmol/L (135-145); Total Protein 7.8 g/dL (6.5-8.0)
--- NOTE | 2025-03-22 18:41 | PC.NURSE ---
Pt to ED via EMS, per EMS reports pt was d/c from a [facility] recently. Had multiple falls today, one of which occurred in driveway and pt had a head strike to bumper of car. Pt reportedly on eliquis. Calm and cooperative with care. Denies pain, C-Collar placed by EMS and removed by MD. Pt with 102.6 fever rectal. APAP admin per nov. #20 placed to right FA, labs collected and sent.
[2025-03-22 18:47] LABS: VBG HCO3 28 mmol/L (22-26); VBG O2 % Saturation 44.0 %
[2025-03-22 18:48] LABS: Venous Blood Gas Refer to POC result
[2025-03-22 18:49] LABS: Hematocrit 27.2 % (42.0-52.0); Hemoglobin 8.1 g/dl (14.0-18.0); Imm Gran Abs Auto 0.13 X10*3/uL (0.00-0.03); Imm Gran Pct Auto 1.0 % (0.0-0.4); Lymphocytes Absolute Auto 1.9 X10*3/uL (1.2-4.9); Mean Corpuscular HGB Conc 29.8 g/dl (31.0-36.0); Mean Corpuscular Hemoglobin 23.5 pg (27.0-33.0); Mean Corpuscular Volume 79.1 fL (80.0-98.0); NRBC Abs Auto 0.000 X10*3/uL (0.0-0.012); NRBC Pct Auto 0.0 /100WBC (0.0-0.2); Platelet Count 329 X10*3/uL (160-400); Red Blood Count 3.44 X10*6/uL (4.60-5.80); White Blood Count 12.6 X10*3/uL (4.8-10.8)
[2025-03-22 18:57] LABS: INTERNATIONAL NORM RATIO 1.9 (0.9-1.1); Prothrombin Time 21.5 SEC (10.9-12.4)
[2025-03-22 19:00] LABS: Partial Thromboplastin Time 39.5 SEC (26.0-36.8)
[2025-03-22] MEDS: SODIUM CHLORIDE 2097 ML IV (19:11)
--- NOTE | 2025-03-22 19:13 | PC.NURSE ---
per provider only give 2097 of sepsis fluids. 1 liter previously infused, on coming RN`s aware
[2025-03-22 19:21] LABS: B Type Natriuretic Peptide 575 pg/mL (<100)
--- NOTE | 2025-03-22 19:26 | PC.NURSE ---
assumed care of this pt at this time
[2025-03-22 19:37] LABS: Resp Syncy Virus RNA Qual PCR NEGATIVE (Negative); SARS COV2 PCR INHOUSE NEGATIVE (Negative)
--- NOTE | 2025-03-22 20:16 | PC.NURSE ---
pt temp 101.1 rectally at this time, cold packs placed under bilateral armpits and back of the neck
[2025-03-22 20:21] LABS: Reflex Lactate? Lactic Acid Added
[2025-03-22 21:06] LABS: ~Lactic Acid-LAB USE ONLY 1.5 mmol/L (0.5-2.0)
[2025-03-22] MEDS: Acetaminophen Supp 650 MG SUPP.RECT PR (21:11)
--- NOTE | 2025-03-22 21:38 | PHA.MEDREC ---
Addendum entered by Hillary Welch [facility] 03/23/25 12:45: [facility] reviewed Addendum entered by Rolanda Escobar 03/23/25 11:01: Spoke with pt and she was able to confirm the pt medications. confirmed her was just Dc'd from a rehab facility and not home for a full day before coming back to the ED. She confirmed the pt was getting a Ferrous Sulfate 300mg liquid from the rehab but pt is giving the pt a Ferrous Sulfate 142mg slow release tablet QD and is not continuing the liquid. The confirmed the pt does not take any tylenol at home as needed at this time. Pt not sure the last time the pt took any medications; he never got any when he got home and not sure if he took them before leaving the facility. Addendum entered by Bhavesh Porras, [facility] 03/22/25 21:55: MED REC CHECKED BY [facility] USING CLAIM HISTORY. AM MED REC WILL FOLLOW UP WITH Original Note: Pharmacy Consult ? Medication Reconciliation Pharmacy has completed the medication reconciliation. Patient is a poor historian. Attempted to call , left a voicemail@09:30 pm. Utilized claims and discharge packet from 02/14/25 to confirm med list. will update with any changes when/if calls back.
[2025-03-22 22:00] LABS: Troponin-I High Sensitivity 11.8 ng/L (<3.5-35.0)
--- NOTE | 2025-03-22 23:43 | PM.IMHP ---
History of Present Illness Date of Service: 03/22/25 Attending physician on admission: Yeny Corral Chief Complaint: falls Patient is an 79-year-old male with a past medical history significant for complete heart block s/p PPM, DVT, AFib on Eliquis, hypertension, CKD 3, s/p CABG, Parkinson's, DVT, type 2 diabetes on insulin, history of IA, who presented to the ED due to multiple falls yesterday, 2 times witnessed with 1 head strike. The patient was discharged from rehab today after going there short-term from his recent hospitalization with aspiration pneumonia. The patient is a very poor historian and is unable to provide much history for me. 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 He came from [facility]. The patient fell earlier yesterday while he was in his driveway and hit his head on the car around noon time. His recent hospitalization was from 02/09/2025 until 02/14/2025 for sepsis secondary to UTI pneumonia. He was treated with ceftriaxone and doxycycline and also found to have iron-deficiency anemia, transfused 2 units. The history obtained from the patient's in the ED included that he had a fever and developed pneumonia while in short-term rehab and has been off of antibiotics for approximately 1 week. He has been on thickened liquids and pureed food. When he did fall and hit his head he did not lose consciousness. Review of Systems Review of Systems: Yes Unobtainable due to mental condition [facility] Medical History Parkinsons Afib Abnormal EKG Deep vein thrombosis (DVT) of axillary vein of left upper extremity CHB (complete heart block) History of acute myocardial infarction Diabetes High cholesterol HTN (hypertension) Kidney disease, chronic, stage III (GFR 30-59 ml/min) Family History Mother Breast cancer metastasized to brain Diabetes Sister Diabetes Brother Diabetes Sister Diabetes Sister Diabetes Brother Diabetes Maternal Uncle Diabetes Maternal Aunt Diabetes Maternal Aunt Diabetes Maternal Uncle Diabetes Surgical History Hx of CABG S/P quadruple vessel bypass History of tonsillectomy Social History (Updated 09/16/24 @ 14:36 by SAHIL Garnica) Household Members: Spouse Household Members Other:: Housing: House Are you a primary senior care assistant to a significant other at home: No Do you presently have visiting nurse or other home services: Yes Alcohol intake: current Alcohol intake frequency: does not drink Patient Tobacco Use Status: Never used Tobacco Use of substances other than those prescribed or required for medical reasons: Unknown Advance Directives: Yes Advance Directives on File: Yes Advance Directives Date on File: 06/01/24 service: No Current occupational status: retired Current occupation: rt hand Meds Allergies Allergy/AdvReac Type Severity Reaction Status Date / Time Seasonal Allergies Allergy Runny Nose Verified 03/22/25 17:37 Home Medications ?Medication ?Instructions ?Recorded ?Confirmed ?Last Taken ?Type atorvastatin 80 mg tablet 80 mg PO DAILY 01/10/21 03/22/25 05/15/22 History finasteride 5 mg tablet 5 mg PO DAILY 01/10/21 03/22/25 05/15/22 History metformin 500 mg tablet 1,000 mg PO BIDAC 01/10/21 03/22/25 05/15/22 History metoprolol tartrate 25 mg tablet 25 mg PO BID 01/10/21 03/22/25 05/15/22 History sitagliptin phosphate 100 mg 100 mg PO DAILY 01/10/21 03/22/25 05/15/22 History tablet (Januvia) apixaban 5 mg tablet (Eliquis) 5 mg PO BID 02/09/23 03/22/25 Unknown History acetaminophen 500 mg tablet 500 mg PO Q6H PRN Fever Or Pain 02/09/25 03/22/25 Unknown History tamsulosin 0.4 mg capsule 0.4 mg PO DAILY 02/09/25 03/22/25 Unknown History ferrous sulfate 300 mg (60 mg 900 mg PO DAILY 03/22/25 03/22/25 Unknown History iron)/5 mL oral liquid insulin glargine 100 unit/mL (3 24 unit subcut DAILY 03/22/25 03/22/25 Unknown History mL) subcutaneous pen Physical Exam Vital Signs and Narrative: Vital Signs: Last Vital Signs Temp 98.8 F 03/22/25 22:32 Pulse 73 03/22/25 22:00 Resp 17 03/22/25 22:00 BP 100/41 L 03/22/25 22:00 Pulse Ox 93 03/22/25 22:00 O2 Del Method Room Air 03/22/25 22:00 BMI result Body Mass Index 23.4 General: Alert, oriented to person and that he is in the ED, unsure where. no acute distress Resp: crackles lower lungs CVS: S1, S2, RRR GI: +BS, NT, no distention Skin: Warm, dry Neuro: Cranial nerves II-XII grossly intact bilaterally. Motor grossly intact bilaterally Extremities: No LE edema Psych: Appropriate affect Results Labs 03/22/25 18:14 03/22/25 18:14 Labs: Laboratory Results - last 24 hr 03/22/25 03/22/25 03/22/25 18:13 18:14 18:24 MCV 79.1 L MCH 23.5 L MCHC 29.8 L RDW 22.3 H Plt Count 329 MPV 10.8 Immature Gran % (Auto) 1.0 H Neut % (Auto) 76.9 H Lymph % (Auto) 14.8 L [place] % (Auto) 5.9 Eos % (Auto) 0.9 Baso % (Auto) 0.5 Lymph # (Auto) 1.9 [place] # (Auto) 0.7 Eos # (Auto) 0.1 Baso # (Auto) 0.1 Abs Immat Gran (auto) 0.13 H Absolute Neuts (auto) 9.7 H Absolute Nucleated RBC 0.000 Nucleated RBC % (auto) 0.0 PT 21.5 H INR 1.9 H APTT 39.5 H VBG pH 7.46 H VBG pCO2 39 VBG pO2 33 VBG HCO3 28 H VBG O2 Saturation 44.0 VBG Base Excess 4.4 Anion Gap 16 Estim Creat Clear Calc 86.3 Estimated GFR > 60 Random Glucose 206 H Lactic Acid 4.5 H* Lactic Acid F/U @ 2Hr Calcium 8.1 L Magnesium 1.7 Total Bilirubin 0.5 AST 36 ALT 9 Alkaline Phosphatase 104 Total Creatine Kinase 21 L B-Natriuretic Peptide 575 H Total Protein 7.8 Albumin 2.7 L Lipase 21 Ethyl Alcohol < 10 Influenza Type A (PCR) NEGATIVE Influenza Type B (PCR) NEGATIVE RSV RNA Qual (PCR) NEGATIVE SARS-CoV-2 RNA (RT-PCR) NEGATIVE 03/22/25 20:49 MCV MCH MCHC RDW Plt Count MPV Immature Gran % (Auto) Neut % (Auto) Lymph % (Auto) [place] % (Auto) Eos % (Auto) Baso % (Auto) Lymph # (Auto) [place] # (Auto) Eos # (Auto) Baso # (Auto) Abs Immat Gran (auto) Absolute Neuts (auto) Absolute Nucleated RBC Nucleated RBC % (auto) PT INR APTT VBG pH VBG pCO2 VBG pO2 VBG HCO3 VBG O2 Saturation VBG Base Excess Anion Gap Estim Creat Clear Calc Estimated GFR Random Glucose Lactic Acid Lactic Acid F/U @ 2Hr 1.5 Calcium Magnesium Total Bilirubin AST ALT Alkaline Phosphatase Total Creatine Kinase B-Natriuretic Peptide Total Protein Albumin Lipase Ethyl Alcohol Influenza Type A (PCR) Influenza Type B (PCR) RSV RNA Qual (PCR) SARS-CoV-2 RNA (RT-PCR) Assessment and Plan (1) Sepsis: Status: Acute (2) Acute metabolic encephalopathy: Status: Acute (3) Pneumonia: Qualifiers: Aspiration pneumonia type: unspecified Laterality: right Lung location: lower lobe of lung Pneumonia type: aspiration pneumonia Qualified Code(s): J69.0 - Pneumonitis due to inhalation of food and vomit Status: Acute (4) Parapneumonic effusion: Status: Acute (5) Empyema: Status: Acute Plan Patient is an 79-year-old male with a past medical history significant for complete heart block s/p PPM, DVT, AFib on Eliquis, hypertension, CKD 3, s/p CABG, Parkinson's, type 2 diabetes on insulin, history of IA, who presented to the ED due to multiple falls yesterday, 2 times witnessed with 1 head strike. sepsis with acute metabolic encephalopathy secondary to pneumonia with parapneumonic effusion suspicious for empyema - WBC 12.8, febrile, lactic acid 4.5, 1.5 on repeat, blood cultures x2 pending - CXR with nonspecific bronchial wall thickening with patchy airspace opacities bilaterally, could represent infection or edema consider follow-up. Possible small bilateral pleural effusions. - chest CT with partially loculated bilateral pleural effusions and multifocal bilateral atelectasis. - COVID/flu/RSV negative - BNP 575 - UA negative - started on ceftriaxone and azithromycin in ED, switch to vancomycin and Zosyn - given 30cc/kg fluid bolus and 1 additional L in ED - ordered ultrasound-guided thoracentesis with thoracentesis labs - follow CBC and BMP multiple falls - head CT and neck CT negative for acute findings - fall precautions chronic anemia - at baseline - hgb 8.1, no need for blood transfusion at this time - monitor CBC hx DVT - hold eliqius due to thoracentesis Paroxysmal a fib - EKG with ventricular paced rhythm with occasional PVCs - hold Eliquis as above HTN - BP is low, hold home meds CKD 3 - creatinine at baseline Parkinson's - continue home meds Type 2 diabetes - sliding scale insulin - holding lantus as pt is NPO med rec pending full code VTE prophy: pneumoboots Patient with sepsis and acute metabolic encephalopathy secondary to pneumonia with parapneumonic pleural effusions and concern for empyema, requiring admission for at least 2 midnights stay for IV antibiotics and thoracentesis. Quality Stroke Does the patient have a stroke diagnosis?: No VTE Prior VTE?: Yes VTE Risk Level:: Medical - moderate - high VTE Device Contraindication: N/A - Device Ordered VTE Drug Contraindication: Treatment Not Indicated
[2025-03-23] VITALS (14 sets, daily range): BP systolic 101–133; BP diastolic 48–63; PULSE 63–91; RESP 13–22; TEMP 36.3–36.7; O2SAT 93–100; BMI 26.1
--- NOTE | 2025-03-23 00:22 | PC.NURSE ---
pt straight cathed, urine collected and sample sent to the lab for testing, pt tolerated procedure well
[2025-03-23 00:26] LABS: Appearance Urine Clear; Glucose Urine UA Negative (Negative); PH 5.0 (5.0-9.0); Specific Gravity - Urine 1.025 (1.005-1.025); UMIC TRIGGER UACC YES
--- NOTE | 2025-03-23 00:56 | PC.NURSE ---
med rec completed by pharmacy @[phone]
[2025-03-23] MEDS: vancomycin HCL 1,000 MG, vancomycin HCL 750 MG in 0.9 % Sodium Chloride 500 ML 267.5 MG IV (02:55)
[2025-03-23 03:20] LABS: Glucose, Whole Blood 135 mg/dL (60-115)
--- NOTE | 2025-03-23 04:44 | MHC.EDTECH ---
This polytechnic teacher provided mouth care to patient using swabs. Patient stated he was thirsty but is currently NPO until a swallow eval is completed. Patient tolerated the swabs well.
[2025-03-23 05:10] LABS: Hematocrit 21.6 % (42.0-52.0); Imm Gran Abs Auto 0.10 X10*3/uL (0.00-0.03); Imm Gran Pct Auto 0.9 % (0.0-0.4); Lymphocytes Absolute Auto 2.6 X10*3/uL (1.2-4.9); MANUAL DIFF FLAG SCAN; Mean Corpuscular HGB Conc 29.6 g/dl (31.0-36.0); Mean Corpuscular Hemoglobin 23.4 pg (27.0-33.0); Mean Corpuscular Volume 79.1 fL (80.0-98.0); NRBC Abs Auto 0.000 X10*3/uL (0.0-0.012); NRBC Pct Auto 0.0 /100WBC (0.0-0.2); Platelet Count 244 X10*3/uL (160-400); Red Blood Count 2.73 X10*6/uL (4.60-5.80); SCAN SMEAR FLAG 1; White Blood Count 10.8 X10*3/uL (4.8-10.8)
[2025-03-23 05:20] LABS: Hemoglobin 6.4 g/dl (14.0-18.0)
--- NOTE | 2025-03-23 05:22 | PC.NURSE ---
while pt was sleeping SPO2 dropped between 69-84% repeatedly, placed on 2L via NC, pt now has SPO2 at 100%, provider Ellis made aware
[2025-03-23 05:29] LABS: Anion Gap 8 (12-20); Blood Urea Nitrogen 8 mg/dL (9-16); Calcium 7.3 mg/dL (8.4-10.2); Carbon Dioxide 24 mmol/L (22-29); Chloride 110 mmol/L (96-108); Creatinine Clr Calc Pharmacy 103.6; Estimated Glomerular Filt Rate > 60; Potassium 3.5 mmol/L (3.3-5.1); Sodium 138 mmol/L (135-145)
[2025-03-23 08:36] LABS: Glucose, Whole Blood 121 mg/dL (60-115)
--- NOTE | 2025-03-23 09:20 | MHC.CM.PN ---
Patient is a poor Historian; CM spoke with /HCP/Francesca @ [phone]. Patient was dc'd to home from STR @ [facility] on day of [place] [facility] [place] multiple falls at home. Patient was sent home from [facility] with a referral to Ismael CLAROS. is not sure if she can manage Patient at home; tentative plan is home/resume [facility] VS return to [facility] for STR into likely LTC. CM has initiated and will follow for dc planning. PCP is Dr.Antone Good and transportation is TBD.
[2025-03-23] MEDS: 0.9 % Sodium Chloride Flush 3 ML SYRINGE IVFLUSH (09:31)
--- NOTE | 2025-03-23 11:36 | PM.CNPUL ---
History of Present Illness History of Present Illness Consult date: 03/23/25 Chief complaint: Loculated pleural effusion Narrative: 79-year-old gentleman with underlying history of complete heart block status post permanent pacemaker, prior episodes of aspiration pneumonia, DVT and AFib on Eliquis, hypertension, CKD, Parkinson disease, type 2 diabetes mellitus, CAD status post CABG admitted on 03/22/2025 with multiple mechanical falls. On ER evaluation patient was noted to be hypoxemia with CT chest showing bilateral pleural effusion, small on the left, larger on the right with right-sided locule. Review of Systems Review of Systems: Yes Unobtainable due to mental status Neurologic: Reports confusion Psychiatric: Psychiatric: Reports confusion [facility] Past Medical History Medical History Parkinsons Afib Abnormal EKG Deep vein thrombosis (DVT) of axillary vein of left upper extremity CHB (complete heart block) History of acute myocardial infarction Diabetes High cholesterol HTN (hypertension) Kidney disease, chronic, stage III (GFR 30-59 ml/min) Family History Family History Mother Breast cancer metastasized to brain Diabetes Sister Diabetes Brother Diabetes Sister Diabetes Sister Diabetes Brother Diabetes Maternal Uncle Diabetes Maternal Aunt Diabetes Maternal Aunt Diabetes Maternal Uncle Diabetes Surgical History Surgical History Hx of CABG S/P quadruple vessel bypass History of tonsillectomy Social History Social History (Updated 09/16/24 @ 14:36 by Missy Desai [facility]) Household Members: Spouse Household Members Other:: Housing: House Are you a primary reproductive healthcare assistant to a significant other at home: No Do you presently have visiting nurse or other home services: Yes Alcohol intake: current Alcohol intake frequency: does not drink Patient Tobacco Use Status: Never used Tobacco Use of substances other than those prescribed or required for medical reasons: Unknown Advance Directives: Yes Advance Directives on File: Yes Advance Directives Date on File: 06/01/24 Nutrition Risks: No Nutritional Risk service: No Current occupational status: retired Current occupation: rt hand Meds Allergies Allergy/AdvReac Type Severity Reaction Status Date / Time Seasonal Allergies Allergy Runny Nose Verified 03/22/25 17:37 Active Medications: Current Medications Acetaminophen (Acetaminophen 325 Mg Tablet) 975 mg PO Q6H PRN PRN Reason: Pain, Mild 1-3,fever,headache Atorvastatin Calcium (Atorvastatin Calcium 80 Mg Tablet) 80 mg PO DAILY [facility] Last Admin: 03/23/25 10:54 Dose: Not Given Calcium Carbonate (Calcium Carbonate 750 Mg Tab.Chew) 750 mg PO Q4H PRN PRN Reason: Heartburn Dextrose (Dextrose 50 % 25 Gm/50 Ml Syringe) 25 gm IVPUSH Q15M PRN; Protocol PRN Reason: per Hypoglycemia Standing Ord. Finasteride (Finasteride 5 Mg Tablet) 5 mg PO DAILY [facility] Last Admin: 03/23/25 10:54 Dose: Not Given Glucose (Glucose Gel 15 Gm Gel..Gram.) 15 gm PO Q15M PRN; Protocol PRN Reason: per Hypoglycemia Standing Ord. Piperacillin Sod/Tazobactam (Sod 4.5 gm/ Sodium Chloride) 100 mls @ 200 mls/hr IV Q6H [facility] Last Infusion: 03/23/25 10:54 Dose: Infused Vancomycin HCl 1,000 mg/ (Sodium Chloride) 270 mls @ 270 mls/hr IV Q12H [facility] Insulin Human Lispro (Insulin Lispro 100 Unit/Ml 3 Ml Vial) 0 unit SUBCUT Q6H [facility]; Protocol Last Admin: 03/23/25 09:09 Dose: Not Given Magnesium Hydroxide (Milk Of Magnesia 30 Ml Oral.Susp) 30 ml PO DAILY PRN PRN Reason: Constipation Melatonin (Melatonin 3 Mg Tablet) 6 mg PO BEDTIME PRN PRN Reason: Insomnia Pharmacy Consult (Consult Rx Vancomycin Dosing) 1 each MISCELLANE DAILY PRN PRN Reason: Consult order Sodium Chloride (0.9 % Sodium Chloride Flush 3 Ml Syringe) 3 ml IVFLUSH QSHIFT [facility] Last Admin: 03/23/25 09:31 Dose: 3 ml Home Medications ?Medication ?Instructions ?Recorded ?Confirmed ?Last Taken ?Type atorvastatin 80 mg tablet 80 mg PO DAILY 01/10/21 03/23/25 05/15/22 History finasteride 5 mg tablet 5 mg PO DAILY 01/10/21 03/23/25 05/15/22 History metformin 500 mg tablet 1,000 mg PO BID 01/10/21 03/23/25 05/15/22 History metoprolol tartrate 25 mg tablet 25 mg PO BID 01/10/21 03/23/25 05/15/22 History sitagliptin phosphate 100 mg 100 mg PO DAILY 01/10/21 03/23/25 05/15/22 History tablet (Januvia) apixaban 5 mg tablet (Eliquis) 5 mg PO BID 02/09/23 03/23/25 Unknown History tamsulosin 0.4 mg capsule 0.4 mg PO DAILY 02/09/25 03/23/25 Unknown History insulin glargine 100 unit/mL (3 22 unit subcut BEDTIME 03/22/25 03/23/25 Unknown History mL) subcutaneous pen ascorbic acid (vitamin C) 1,000 mg 1,000 mg PO DAILY 03/23/25 03/23/25 Unknown History tablet (Vitamin C) ferrous sulfate 142 mg (45 mg 142 mg PO DAILY 03/23/25 03/23/25 Unknown History iron) tablet,extended release (Slow Release Iron) Physical Exam Vital Signs: Vital Signs: Last Vital Signs Temp 97.6 F 03/23/25 06:14 Pulse 70 03/23/25 10:16 Resp 18 03/23/25 10:16 BP 104/58 L 03/23/25 10:16 Pulse Ox 100 03/23/25 10:16 O2 Del Method Nasal Cannula 03/23/25 10:16 O2 Flow Rate 2 03/23/25 10:16 BMI result Body Mass Index 23.4 Const: General: no acute distress, alert, awake and confusion Orientation/consciousness: confusion Eyes: Sclerae: sclerae normal EOM: EOMs intact bilaterally Neck: Neck: Yes no lymphadenopathy, Yes trachea midline and Yes supple Resp: Effort & Inspection: normal respiratory effort and no respiratory distress Auscultation: clear to auscultation bilaterally Cardio: Rate: regular rate Rhythm: regular rhythm Heart sounds: no gallops, no murmurs and no rubs GI: Palpation (GI): Soft to palpation and Other GI palpation findings present ( Nontender) Auscultation: normal bowel sounds Neuro: General: confusion Extrem: General: Yes no pedal edema, No clubbing and No cyanosis Results Laboratory Findings 03/23/25 04:23 03/23/25 04:23 ABG, PT/INR, D-dimer: PT/INR, D-dimer PT 21.5 SEC (10.9-12.4) H 03/22/25 18:14 INR 1.9 (0.9-1.1) H 03/22/25 18:14 Abnormal lab findings: Abnormal Labs 03/22/25 03/22/25 03/23/25 18:14 18:24 00:18 WBC 12.6 H RBC 3.44 L Hgb 8.1 L Hct 27.2 L MCV 79.1 L MCH 23.5 L MCHC 29.8 L RDW 22.3 H Immature Gran % (Auto) 1.0 H Neut % (Auto) 76.9 H Lymph % (Auto) 14.8 L Abs Immat Gran (auto) 0.13 H Absolute Neuts (auto) 9.7 H PT 21.5 H INR 1.9 H APTT 39.5 H VBG pH 7.46 H VBG HCO3 28 H Chloride Anion Gap BUN POC Glucose Random Glucose 206 H Lactic Acid 4.5 H* Calcium 8.1 L Total Creatine Kinase 21 L B-Natriuretic Peptide 575 H Albumin 2.7 L Ur Leukocyte Esterase Trace H Crossmatch 03/23/25 03/23/25 03/23/25 03:11 04:23 06:25 WBC RBC 2.73 L D Hgb 6.4 L* D Hct 21.6 L D MCV 79.1 L MCH 23.4 L MCHC 29.6 L RDW 22.1 H Immature Gran % (Auto) 0.9 H Neut % (Auto) Lymph % (Auto) Abs Immat Gran (auto) 0.10 H Absolute Neuts (auto) PT INR APTT VBG pH VBG HCO3 Chloride 110 H Anion Gap 8 L BUN 8 L POC Glucose 135 H Random Glucose 140 H Lactic Acid Calcium 7.3 L D Total Creatine Kinase B-Natriuretic Peptide Albumin Ur Leukocyte Esterase Crossmatch See Detail 03/23/25 08:32 WBC RBC Hgb Hct MCV MCH MCHC RDW Immature Gran % (Auto) Neut % (Auto) Lymph % (Auto) Abs Immat Gran (auto) Absolute Neuts (auto) PT INR APTT VBG pH VBG HCO3 Chloride Anion Gap BUN POC Glucose 121 H Random Glucose Lactic Acid Calcium Total Creatine Kinase B-Natriuretic Peptide Albumin Ur Leukocyte Esterase Crossmatch Assessment and Plan (1) Loculated pleural effusion: Status: Acute (2) Pulmonary aspiration: Status: Acute Plan Impression: 79-year-old gentleman admitted after multiple mechanical falls with underlying pulmonary aspiration on a background of Parkinson's disease with CT chest showing stigmata of chronic aspiration including small bilateral pleural effusions with right-sided loculations. Recommendations: Agree with empiric coverage for aspiration pneumonitis versus pneumonia and would consider placement of right-sided chest tube for chemical decortication. Procedures Date of Service Date of Service: 03/23/25
--- NOTE | 2025-03-23 15:32 | MHC.CM.PN ---
Addendum entered by Radha Roberts 03/23/25 15:40: CM left a detailed message for Josee at the [place] @ [phone], inquiring/confirming Patient's VA/SNF/LTC benefits; CM awaits a return call. Original Note: CM was asked to speak with , at bedside in the ED. Upon arrival, CM was approached by Protective Bench Assembler Operator/Tad, from [facility] @ [phone], Ext [phone]. Tad is asking if there will be a capacity Eval or if the HCP (/Francesca) is already invoked; CM has texted these questions to the covering PA and awaits a response. CM left a detailed message for [employer], informing her that CM will get back to her nancy with answers to her questions. Francesca is in agreement that she cannot manage Patient at home and the goal is STR(Pending PT Eval) into likely LTC. Patient is VA connected and referrals have been made to VA contracted facilities in the area. has already applied to the [facility]. CM will follow.
--- NOTE | 2025-03-23 15:54 | MHC.CM.PN ---
CM received a return call from Josee at the [facility]; Patient is NOT administratively eligible. Plan/goal will be STR(Pending PT Eval)under BCBS into possible LTC (CM will refer to [facility] to initiate a [facility]risty). CM will follow.
--- NOTE | 2025-03-23 16:04 | MHC.CM.PN ---
Per Mirella, Capacity Eval will be done to determine if the HCP will be formally invoked.CM will follow.
[2025-03-23 16:16] LABS: Glucose, Whole Blood 109 mg/dL (60-115)
--- NOTE | 2025-03-23 16:21 | HO.PM.IMPN ---
Subjective Subjective Date of Service: 03/23/25 Interval History: Pt continues to be to somnolent but arousable, though confused, difficult to understand, and unable to provide much hx Due to encephalopathy invoked HCP to obtain consent for blood transfusion Physical Exam Vital Signs: Vital Signs: Last Vital Signs Temp 97.5 F 03/23/25 15:25 Pulse 71 03/23/25 15:25 Resp 16 03/23/25 15:25 BP 119/63 03/23/25 15:25 Pulse Ox 99 03/23/25 15:25 O2 Del Method Room Air 03/23/25 15:25 O2 Flow Rate 2 03/23/25 14:59 BMI result Body Mass Index 23.4 General: Alert to person only. Somnolent but arousable, though falling back asleep during interview. Difficult to understand or assess if he is answering appropriately. Resp: Bibasilar crackles CVS: S1, S2, RRR GI: +BS, NT, no distention Skin: Warm, dry Neuro: Cranial nerves II-XII grossly intact bilaterally. Motor grossly intact bilaterally Extremities: No edema Psych: Confused Objective Data Active Medications Acetaminophen (Acetaminophen 325 Mg Tablet) 975 mg PO Q6H PRN PRN Reason: Pain, Mild 1-3,fever,headache Atorvastatin Calcium (Atorvastatin Calcium 80 Mg Tablet) 80 mg PO DAILY [facility] Last Admin: 03/23/25 10:54 Dose: Not Given Documented By: KRYSTAL Non-Admin Reason: See Note Calcium Carbonate (Calcium Carbonate 750 Mg Tab.Chew) 750 mg PO Q4H PRN PRN Reason: Heartburn Dextrose (Dextrose 50 % 25 Gm/50 Ml Syringe) 25 gm IVPUSH Q15M PRN; Protocol PRN Reason: per Hypoglycemia Standing Ord. Finasteride (Finasteride 5 Mg Tablet) 5 mg PO DAILY [facility] Last Admin: 03/23/25 10:54 Dose: Not Given Documented By: KRYSTAL Non-Admin Reason: See Note Glucose (Glucose Gel 15 Gm Gel..Gram.) 15 gm PO Q15M PRN; Protocol PRN Reason: per Hypoglycemia Standing Ord. Piperacillin Sod/Tazobactam (Sod 4.5 gm/ Sodium Chloride) 100 mls @ 200 mls/hr IV Q6H [facility] Last Infusion: 03/23/25 10:54 Dose: Infused Documented By: KRYSTAL Vancomycin HCl 1,000 mg/ (Sodium Chloride) 270 mls @ 270 mls/hr IV Q12H [facility] Insulin Human Lispro (Insulin Lispro 100 Unit/Ml 3 Ml Vial) 0 unit SUBCUT Q6H [facility]; Protocol Last Admin: 03/23/25 16:13 Dose: Not Given Documented By: KRYSTAL Non-Admin Reason: No Insulin Coverage Comments: poc 109- no insulin coverage needed. Magnesium Hydroxide (Milk Of Magnesia 30 Ml Oral.Susp) 30 ml PO DAILY PRN PRN Reason: Constipation Melatonin (Melatonin 3 Mg Tablet) 6 mg PO BEDTIME PRN PRN Reason: Insomnia Pharmacy Consult (Consult Rx Vancomycin Dosing) 1 each MISCELLANE DAILY PRN PRN Reason: Consult order Sodium Chloride (0.9 % Sodium Chloride Flush 3 Ml Syringe) 3 ml IVFLUSH QSHIFT [facility] Last Admin: 03/23/25 09:31 Dose: 3 ml Documented By: KRYSTAL Labs 03/23/25 04:23 03/23/25 04:23 Labs: Laboratory Results - last 24 hr 03/22/25 03/22/25 03/22/25 18:13 18:14 18:24 MCV 79.1 L MCH 23.5 L MCHC 29.8 L RDW 22.3 H Plt Count 329 MPV 10.8 Immature Gran % (Auto) 1.0 H Neut % (Auto) 76.9 H Lymph % (Auto) 14.8 L [place] % (Auto) 5.9 Eos % (Auto) 0.9 Baso % (Auto) 0.5 Lymph # (Auto) 1.9 [place] # (Auto) 0.7 Eos # (Auto) 0.1 Baso # (Auto) 0.1 Abs Immat Gran (auto) 0.13 H Absolute Neuts (auto) 9.7 H Absolute Nucleated RBC 0.000 Nucleated RBC % (auto) 0.0 Smear Tech's Comments Smear Path Review PT 21.5 H INR 1.9 H APTT 39.5 H VBG pH 7.46 H VBG pCO2 39 VBG pO2 33 VBG HCO3 28 H VBG O2 Saturation 44.0 VBG Base Excess 4.4 Anion Gap 16 Estim Creat Clear Calc 86.3 Estimated GFR > 60 POC Glucose Random Glucose 206 H Lactic Acid 4.5 H* Lactic Acid F/U @ 2Hr Calcium 8.1 L Magnesium 1.7 Total Bilirubin 0.5 AST 36 ALT 9 Alkaline Phosphatase 104 Lactate Dehydrogenase Total Creatine Kinase 21 L B-Natriuretic Peptide 575 H Total Protein 7.8 Albumin 2.7 L Lipase 21 Urine Color Urine Appearance Urine pH Ur Specific [place] Urine Protein Urine Glucose (UA) Urine Ketones Urine Blood Urine Nitrite Ur Leukocyte Esterase Urine RBC Urine WBC Ur Squamous Epith Cells Urine Bacteria Hyaline Casts Ethyl Alcohol < 10 Influenza Type A (PCR) NEGATIVE Influenza Type B (PCR) NEGATIVE RSV RNA Qual (PCR) NEGATIVE SARS-CoV-2 RNA (RT-PCR) NEGATIVE Blood Type Antibody Screen Crossmatch 03/22/25 03/23/25 03/23/25 20:49 00:18 03:11 MCV MCH MCHC RDW Plt Count MPV Immature Gran % (Auto) Neut % (Auto) Lymph % (Auto) [place] % (Auto) Eos % (Auto) Baso % (Auto) Lymph # (Auto) [place] # (Auto) Eos # (Auto) Baso # (Auto) Abs Immat Gran (auto) Absolute Neuts (auto) Absolute Nucleated RBC Nucleated RBC % (auto) Smear Tech's Comments Smear Path Review PT INR APTT VBG pH VBG pCO2 VBG pO2 VBG HCO3 VBG O2 Saturation VBG Base Excess Anion Gap Estim Creat Clear Calc Estimated GFR POC Glucose 135 H Random Glucose Lactic Acid Lactic Acid F/U @ 2Hr 1.5 Calcium Magnesium Total Bilirubin AST ALT Alkaline Phosphatase Lactate Dehydrogenase Total Creatine Kinase B-Natriuretic Peptide Total Protein Albumin Lipase Urine Color Dark Yellow Urine Appearance Clear Urine pH 5.0 Ur Specific [place] 1.025 Urine Protein Trace Urine Glucose (UA) Negative Urine Ketones Trace Urine Blood Negative Urine Nitrite Negative Ur Leukocyte Esterase Trace H Urine RBC 0-2 Urine WBC 0-5 Ur Squamous Epith Cells 0-2 Urine Bacteria None Seen Hyaline Casts 3-5 Ethyl Alcohol Influenza Type A (PCR) Influenza Type B (PCR) RSV RNA Qual (PCR) SARS-CoV-2 RNA (RT-PCR) Blood Type Antibody Screen Crossmatch 03/23/25 03/23/25 03/23/25 04:23 06:25 08:32 MCV 79.1 L MCH 23.4 L MCHC 29.6 L RDW 22.1 H Plt Count 244 D MPV 9.7 Immature Gran % (Auto) 0.9 H Neut % (Auto) 61.0 Lymph % (Auto) 24.4 [place] % (Auto) 9.7 Eos % (Auto) 3.4 Baso % (Auto) 0.6 Lymph # (Auto) 2.6 [place] # (Auto) 1.1 Eos # (Auto) 0.4 Baso # (Auto) 0.1 Abs Immat Gran (auto) 0.10 H Absolute Neuts (auto) 6.6 Absolute Nucleated RBC 0.000 Nucleated RBC % (auto) 0.0 Smear Tech's Comments VERIFIED Smear Path Review SEE NOTE PT INR APTT VBG pH VBG pCO2 VBG pO2 VBG HCO3 VBG O2 Saturation VBG Base Excess Anion Gap 8 L Estim Creat Clear Calc 103.6 Estimated GFR > 60 POC Glucose 121 H Random Glucose 140 H Lactic Acid Lactic Acid F/U @ 2Hr Calcium 7.3 L D Magnesium Total Bilirubin AST ALT Alkaline Phosphatase Lactate Dehydrogenase 201 Total Creatine Kinase B-Natriuretic Peptide Total Protein Albumin Lipase Urine Color Urine Appearance Urine pH Ur Specific [place] Urine Protein Urine Glucose (UA) Urine Ketones Urine Blood Urine Nitrite Ur Leukocyte Esterase Urine RBC Urine WBC Ur Squamous Epith Cells Urine Bacteria Hyaline Casts Ethyl Alcohol Influenza Type A (PCR) Influenza Type B (PCR) RSV RNA Qual (PCR) SARS-CoV-2 RNA (RT-PCR) Blood Type B Positive Antibody Screen NEGATIVE Crossmatch See Detail 03/23/25 16:12 MCV MCH MCHC RDW Plt Count MPV Immature Gran % (Auto) Neut % (Auto) Lymph % (Auto) [place] % (Auto) Eos % (Auto) Baso % (Auto) Lymph # (Auto) [place] # (Auto) Eos # (Auto) Baso # (Auto) Abs Immat Gran (auto) Absolute Neuts (auto) Absolute Nucleated RBC Nucleated RBC % (auto) Smear Tech's Comments Smear Path Review PT INR APTT VBG pH VBG pCO2 VBG pO2 VBG HCO3 VBG O2 Saturation VBG Base Excess Anion Gap Estim Creat Clear Calc Estimated GFR POC Glucose 109 Random Glucose Lactic Acid Lactic Acid F/U @ 2Hr Calcium Magnesium Total Bilirubin AST ALT Alkaline Phosphatase Lactate Dehydrogenase Total Creatine Kinase B-Natriuretic Peptide Total Protein Albumin Lipase Urine Color Urine Appearance Urine pH Ur Specific [place] Urine Protein Urine Glucose (UA) Urine Ketones Urine Blood Urine Nitrite Ur Leukocyte Esterase Urine RBC Urine WBC Ur Squamous Epith Cells Urine Bacteria Hyaline Casts Ethyl Alcohol Influenza Type A (PCR) Influenza Type B (PCR) RSV RNA Qual (PCR) SARS-CoV-2 RNA (RT-PCR) Blood Type Antibody Screen Crossmatch Assessment and Plan (1) Pneumonia: Status: Acute (2) Loculated pleural effusion: Status: Acute Plan Patient is an 79-year-old male with a past medical history significant for complete heart block s/p PPM, DVT, AFib on Eliquis, hypertension, CKD 3, s/p CABG, Parkinson's, type 2 diabetes on insulin, history of SC, who presented to the ED due to multiple falls yesterday, 2 times witnessed with 1 head strike. Pt is admitted to the hospital for acute metabolic encephalopathy in the setting of pneumonia with sepsis with parapneumonic effusion suspicious for empyema. sepsis with acute metabolic encephalopathy secondary to pneumonia with parapneumonic effusion suspicious for empyema WBC 12.8, febrile, lactic acid 4.5, 1.5 on repeat, blood cultures x2 pending CXR with nonspecific bronchial wall thickening with patchy airspace opacities bilaterally, could represent infection or edema consider follow-up. Possible small bilateral pleural effusions. Chest CT with partially loculated bilateral pleural effusions and multifocal bilateral atelectasis. Given sepsis bolus fluids and started on broad-spectrum antibiotics in the ED Will treat with vancomycin and Zosyn, day 2 Pulmonology consult Originally thoracentesis ordered, though pulmonology would like chest tube placed Follow CBC and BMP Multiple falls Head CT and neck CT negative for acute findings Fall precautions PT evaluation Acute on chronic anemia Original hgb 8.1 repeat after fluid 6.4 Likely some element of dilution from IVF No evidence of acute bleeding Will transfuse 1 unit PRBCs Monitor CBC Diet Pt previously on pureed diet and nectar thick liquids Will get formal speech and swallow evaluation Hx DVT Hold Eliqius due to anemia and chest tube placement Paroxysmal a fib EKG with ventricular paced rhythm with occasional PVCs Hold Eliquis as above HTN BP soft, hold home meds CKD 3 Creatinine at baseline Parkinson's Continue home meds Type 2 diabetes Siding scale insulin Holding lantus as pt is NPO Full code VTE prophy: pneumoboots Patient with sepsis and acute metabolic encephalopathy secondary to pneumonia with parapneumonic pleural effusions and concern for empyema, requiring admission for at least 2 midnights stay for IV antibiotics and thoracentesis. Quality Stroke Does the patient have a stroke diagnosis?: No VTE Prior VTE?: Yes VTE Risk Level:: Medical - moderate - high VTE Device Contraindication: N/A - Device Ordered VTE Drug Contraindication: Treatment Not Indicated
--- NOTE | 2025-03-23 17:04 | MHC.SLORD ---
Addendum entered and electronically signed by ANDRE Garcia 03/23/25 17:13: This clinician spoke w/ RN at [facility] who reports he was d/c from [facility] yesterday. RN reports he was admitted to their facility on ground solids and thin liquids. Facility then changed his diet to nectar thick liquids on 02/15. He was followed by DIRECTOR OF PLANT OPERATIONS and he was d/c from facility on ground solids (NDD2) and nectar thick liquids. No instrumental swallow study was completed. Original Note: Speech Language Pathology Order Status: Received DIRECTOR OF PLANT OPERATIONS consultation for Eduardo Tracy. DIRECTOR OF PLANT OPERATIONS attempted to see pt for clinical swallow evaluation at bedside at end of day, however he was just transporting [place] [facility] Pt was seen from 02/09-02/14/2025 by DIRECTOR OF PLANT OPERATIONS. He was d/c on 02/14 and DIRECTOR OF PLANT OPERATIONS recommendation was as follows: Recommend GROUND/MECH ALTERED (NDD2) solids and THIN liquids. Cue or assist patient to take SINGLE SIPS if using straw. Recommend continued dysphagia tx at next level of care. Pt was previously at [facility] for short term rehab from 09/10/2024-10/13/2024. Had had MBSS done while at [facility] during this time; based on MBSS he was recommended ground solids (NDD2) and thin liquids. Based on that information and observation during lunch on this date, ground solids is believed to be the safest and least restrictive solid consistency. , RN, and RD notified of note above. reports that pt was most recently on pureed solids and nectar thick liquid following d/c [place] [facility]. DIRECTOR OF PLANT OPERATIONS to see pt for clinical swallow eval tomorrow AM.
[2025-03-24] VITALS (7 sets, daily range): BP systolic 115–129; BP diastolic 57–66; PULSE 74–84; RESP 16–22; TEMP 36.7–37.1; O2SAT 92–96
[2025-03-24 01:52] LABS: Glucose, Whole Blood 135 mg/dL (60-115)
[2025-03-24] MEDS: 0.9 % Sodium Chloride Flush 3 ML SYRINGE IVFLUSH ×4 (02:11→22:55)
[2025-03-24 03:27] LABS: Glucose, Whole Blood 117 mg/dL (60-115)
[2025-03-24 06:51] LABS: MANUAL DIFF FLAG NO
[2025-03-24 06:58] LABS: Hematocrit 25.1 % (42.0-52.0); Hemoglobin 7.8 g/dl (14.0-18.0); Imm Gran Abs Auto 0.09 X10*3/uL (0.00-0.03); Imm Gran Pct Auto 0.9 % (0.0-0.4); Lymphocytes Absolute Auto 2.3 X10*3/uL (1.2-4.9); Mean Corpuscular HGB Conc 31.1 g/dl (31.0-36.0); Mean Corpuscular Hemoglobin 25.0 pg (27.0-33.0); Mean Corpuscular Volume 80.4 fL (80.0-98.0); NRBC Abs Auto 0.000 X10*3/uL (0.0-0.012); NRBC Pct Auto 0.0 /100WBC (0.0-0.2); Platelet Count 264 X10*3/uL (160-400); Red Blood Count 3.12 X10*6/uL (4.60-5.80); White Blood Count 9.9 X10*3/uL (4.8-10.8)
[2025-03-24 07:09] LABS: Anion Gap 10 (12-20); Blood Urea Nitrogen 9 mg/dL (9-16); Calcium 7.6 mg/dL (8.4-10.2); Carbon Dioxide 27 mmol/L (22-29); Chloride 109 mmol/L (96-108); Creatinine Clr Calc Pharmacy 87.6; Estimated Glomerular Filt Rate > 60; Potassium 3.8 mmol/L (3.3-5.1); Sodium 142 mmol/L (135-145)
[2025-03-24 08:05] LABS: Glucose, Whole Blood 126 mg/dL (60-115)
--- NOTE | 2025-03-24 12:03 | MHC.CM.PN ---
CM met with Patient and his /HCP/Francesca at bedside. Francesca spoke with [facility] earlier today and per , Patient will not qualify for [facility]. The goal is PT Eval and STR under Patient's BCBS (NO VA BENEFITS FOR SNF)and then private pay into likely LTC.CM will continue to follow.
--- NOTE | 2025-03-24 12:13 | MHC.CM.PN ---
APRIL spoke with POP/Dana and then with Protective Salesperson [employer] @ [phone], EXT. [phone] and updated her that per OPP, HCP will NOT be invoked; Patient is his own medical decision maker at this time (has cleared significantly since yesterday). APRIL will continue to coordinate dc plan, keeping [facility] updated.
--- NOTE | 2025-03-24 13:46 | HE.PHANOTE ---
RE: VANCO DOSING Trough came back as 15.6 mg/L, renal function is stable. Continue dose of 1000 mg q12h, next trough is scheduled for 03/25/25 @1300.
--- NOTE | 2025-03-24 13:48 | MHC.CM.PN ---
PT is recommending STR; referrals have been updated and CM will continue to follow.
--- NOTE | 2025-03-24 13:57 | MHC.SL.SWA ---
Speech Pathologist Impression: Risk of Aspiration, Oropharyngeal Dysphagia Risk of Aspiration Due to: Neurological Condition Dysphasia Diet Status: Upgrade solids to NDD2, downgrade liquids to HTL Liquid Consistency and Strategies for Safe Swallow: Liquid Intake Recommendation: Honey Thick Solid Food Consistency: Dietary Recommendations: Grnd/Mech Altered (NDD2) Additional Modifications to Solid Foods: Patient presents with mild to moderate oropharyngeal phase dysphagia in the setting of underlying Parkinson's disease. Patient is admitted with concern for aspiration pneumonia. Patient evidences overt s/s of aspiration on liquids in particular, also note slow oral phase and presence of oral residuals which clear with liquid wash. Patient attempts to feed himself, but has trouble balancing liquids in a cup and bringing utensils to his mouth. Recommend start on GROUND/MECH ALTERED (NDD2) diet and HONEY THICK liquids, pills CRUSHED in PUREE. Patient to be positioned upright during PO intake, ideally OOB during meals, encourage self-feeding when possible and provide 1:1 assistance as needed. AVOID STRAWS (discussed rationale w/ patient and ), dry swallow between bites for clearance. Patient may require cues for these strategies. Oral Medication Intake: Crushed with Puree Please contact the pharmacy regarding appropriate crushable or liquid drug formulations that are available whenever modified delivery is recommended. Supervision While Eating and Drinking for Safe Swallow: Total Assistance (1:1) Recommendation for Speech: Inpatient Speech Therapy Speech Therapy through [facility] Speech Therapy through Rehab Facility Comment: Recommend continue ST for dysphagia to monitor diet tolerance and feeding needs during inpatient stay and at the next level of care. Frequency/Duration: M-F Date Range for Service Req: Timeline to reassess: Blister Packaging Machine Operator Clinican/Clinical Fellow: No Supervisory Statement: I have reviewed and agree with the student/clinical fellow's documentation: N/A Speech Language Pathologist: Francesca Ordonez M.A., CCC-BAKERY SUPERVISOR
[2025-03-24 14:59] LABS: Glucose, Whole Blood 156 mg/dL (60-115)
--- NOTE | 2025-03-24 15:49 | HO.PM.IMPN ---
Subjective Subjective Date of Service: 03/24/25 Interval History: Pt much improved since yesterday Now AOx4, speaking slowly but clearly Remembers coming home from rehab and falling when getting out of car, does not remember being brought to the hospital Improved SOB and cough Still feeling weak and tired Did not undergod thoracocentecis or chest tube placement; spoke to IR who did not feel pneumonia was loculated Review of Systems Review of Systems: Yes all other systems are reviewed and are negative Physical Exam Exam: Exam: General: AOx3, no acute distress. Elderly and frail Resp: CTA bilaterally but diminished. No wheezing CVS: S1, S2, RRR GI: +BS, NT, no distention Skin: Warm, dry Neuro: Cranial nerves II-XII grossly intact bilaterally. Motor grossly intact bilaterally Extremities: No edema Psych: Appropriate affect Vital Signs: Vital Signs: Last Vital Signs Temp 98.2 F 03/24/25 15:15 Pulse 78 03/24/25 15:15 Resp 18 03/24/25 15:15 BP 122/59 L 03/24/25 15:15 Pulse Ox 94 03/24/25 15:15 O2 Del Method Room Air 03/24/25 11:28 O2 Flow Rate 2 03/23/25 14:59 BMI result Body Mass Index 26.1 Objective Data Active Medications Acetaminophen (Acetaminophen 325 Mg Tablet) 975 mg PO Q6H PRN PRN Reason: Pain, Mild 1-3,fever,headache Atorvastatin Calcium (Atorvastatin Calcium 80 Mg Tablet) 80 mg PO DAILY [facility] Last Admin: 03/24/25 09:28 Dose: 80 mg Documented By: DRAGAN Calcium Carbonate (Calcium Carbonate 750 Mg Tab.Chew) 750 mg PO Q4H PRN PRN Reason: Heartburn Dextrose (Dextrose 50 % 25 Gm/50 Ml Syringe) 25 gm IVPUSH Q15M PRN; Protocol PRN Reason: per Hypoglycemia Standing Ord. Finasteride (Finasteride 5 Mg Tablet) 5 mg PO DAILY [facility] Last Admin: 03/24/25 09:28 Dose: 5 mg Documented By: DRAGAN Glucose (Glucose Gel 15 Gm Gel..Gram.) 15 gm PO Q15M PRN; Protocol PRN Reason: per Hypoglycemia Standing Ord. Piperacillin Sod/Tazobactam (Sod 4.5 gm/ Sodium Chloride) 100 mls @ 200 mls/hr IV Q6H [facility] Last Infusion: 03/24/25 10:28 Dose: Infused Documented By: DRAGAN Vancomycin HCl 1,000 mg/ (Sodium Chloride) 270 mls @ 270 mls/hr IV Q12H [facility] Last Admin: 03/24/25 14:57 Dose: 270 mls/hr Documented By: DRAGAN Insulin Human Lispro (Insulin Lispro 100 Unit/Ml 3 Ml Vial) 0 unit SUBCUT Q6H [facility]; Protocol Last Admin: 03/24/25 15:03 Dose: Not Given Documented By: DRAGAN Non-Admin Reason: Dinner is not due for several hours. Magnesium Hydroxide (Milk Of Magnesia 30 Ml Oral.Susp) 30 ml PO DAILY PRN PRN Reason: Constipation Melatonin (Melatonin 3 Mg Tablet) 6 mg PO BEDTIME PRN PRN Reason: Insomnia Pharmacy Consult (Consult Rx Vancomycin Dosing) 1 each MISCELLANE DAILY PRN PRN Reason: Consult order Sodium Chloride (0.9 % Sodium Chloride Flush 3 Ml Syringe) 3 ml IVFLUSH QSHIFT [facility] Last Admin: 03/24/25 09:27 Dose: 3 ml Documented By: DRAGAN Labs 03/24/25 06:34 03/24/25 06:34 Labs: Laboratory Results - last 24 hr 03/23/25 03/23/25 03/24/25 16:12 21:16 03:21 MCV MCH MCHC RDW Plt Count MPV Immature Gran % (Auto) Neut % (Auto) Lymph % (Auto) [place] % (Auto) Eos % (Auto) Baso % (Auto) Lymph # (Auto) [place] # (Auto) Eos # (Auto) Baso # (Auto) Abs Immat Gran (auto) Absolute Neuts (auto) Absolute Nucleated RBC Nucleated RBC % (auto) Anion Gap Estim Creat Clear Calc Estimated GFR POC Glucose 109 135 H 117 H Random Glucose Calcium Random Vancomycin 03/24/25 03/24/25 03/24/25 06:34 07:09 13:02 MCV 80.4 MCH 25.0 L MCHC 31.1 RDW 21.2 H Plt Count 264 MPV 9.9 Immature Gran % (Auto) 0.9 H Neut % (Auto) 59.7 Lymph % (Auto) 23.4 [place] % (Auto) 9.0 Eos % (Auto) 6.0 H Baso % (Auto) 1.0 Lymph # (Auto) 2.3 [place] # (Auto) 0.9 Eos # (Auto) 0.6 H Baso # (Auto) 0.1 Abs Immat Gran (auto) 0.09 H Absolute Neuts (auto) 5.9 Absolute Nucleated RBC 0.000 Nucleated RBC % (auto) 0.0 Anion Gap 10 L Estim Creat Clear Calc 87.6 Estimated GFR > 60 POC Glucose 126 H Random Glucose 128 H Calcium 7.6 L Random Vancomycin 15.6 03/24/25 14:55 MCV MCH MCHC RDW Plt Count MPV Immature Gran % (Auto) Neut % (Auto) Lymph % (Auto) [place] % (Auto) Eos % (Auto) Baso % (Auto) Lymph # (Auto) [place] # (Auto) Eos # (Auto) Baso # (Auto) Abs Immat Gran (auto) Absolute Neuts (auto) Absolute Nucleated RBC Nucleated RBC % (auto) Anion Gap Estim Creat Clear Calc Estimated GFR POC Glucose 156 H Random Glucose Calcium Random Vancomycin Microbiology Microbiology Results: Microbiology 03/22/25 18:13 Blood Culture - Preliminary Blood - Venous No growth after 24 hours. 03/22/25 18:13 Blood Culture - Preliminary Blood - Venous No growth after 24 hours. Assessment and Plan (1) Pneumonia: Status: Acute (2) Acute metabolic encephalopathy: Status: Acute Plan Patient is an 79-year-old male with a past medical history significant for complete heart block s/p PPM, DVT, AFib on Eliquis, hypertension, CKD 3, s/p CABG, Parkinson's, type 2 diabetes on insulin, history of [place], who presented to the ED due to multiple falls yesterday, 2 times witnessed with 1 head strike. Pt is admitted to the hospital for acute metabolic encephalopathy in the setting of pneumonia with sepsis with parapneumonic effusion suspicious for empyema. Sepsis with acute metabolic encephalopathy secondary to pneumonia with parapneumonic effusion suspicious for empyema WBC 12.8, febrile, lactic acid 4.5, 1.5 on repeat, blood cultures x2 pending CXR with nonspecific bronchial wall thickening with patchy airspace opacities bilaterally, could represent infection or edema consider follow-up. Possible small bilateral pleural effusions. Chest CT with partially loculated bilateral pleural effusions and multifocal bilateral atelectasis. Given sepsis bolus fluids and started on broad-spectrum antibiotics in the ED Will treat with vancomycin and Zosyn, day 2 Pulmonology consult Originally thoracentesis ordered, though pulmonology would like chest tube placed Spoke to IR who did bedside US and did not think pt had loculated effusion; suggested seeing how did with IV abx alone for now Follow CBC and BMP Multiple falls Head CT and neck CT negative for acute findings Fall precautions PT evaluation Acute on chronic anemia Original hgb 8.1 repeat after fluid 6.4 Likely some element of dilution from IVF No evidence of acute bleeding Improved to 7.8 after transfusinon of 1 unit PRBCs Monitor CBC Diet Pt previously on pureed diet and nectar thick liquids Speech recommended ground/mech altered diet with honey thick liquids Hx DVT Continue to hold Eliqius due to anemia Resume Eliquis tomorrow if H&H stable Paroxysmal a fib EKG with ventricular paced rhythm with occasional PVCs Hold Eliquis as above HTN BP soft, hold home meds CKD 3 Creatinine at baseline Parkinson's Continue home meds Type 2 diabetes Siding scale insulin Holding lantus as pt is NPO Full code VTE prophy: pneumoboots Patient with sepsis and acute metabolic encephalopathy secondary to pneumonia with parapneumonic pleural effusions and concern for empyema, requiring admission for at least 2 midnights stay for IV antibiotics and thoracentesis. Quality Stroke Does the patient have a stroke diagnosis?: No VTE Prior VTE?: Yes VTE Risk Level:: Medical - moderate - high VTE Device Contraindication: N/A - Device Ordered VTE Drug Contraindication: Treatment Not Indicated
[2025-03-25 03:14] VITALS: BP 127/73; PULSE 83; RESP 18; TEMP 36.4; O2SAT 97
[2025-03-25 03:48] LABS: Glucose, Whole Blood 121 mg/dL (60-115)
[2025-03-25 06:28] LABS: Hematocrit 27.2 % (42.0-52.0); Hemoglobin 8.2 g/dl (14.0-18.0); Imm Gran Abs Auto 0.11 X10*3/uL (0.00-0.03); Imm Gran Pct Auto 1.1 % (0.0-0.4); Lymphocytes Absolute Auto 2.4 X10*3/uL (1.2-4.9); MANUAL DIFF FLAG SCAN; Mean Corpuscular HGB Conc 30.1 g/dl (31.0-36.0); Mean Corpuscular Hemoglobin 24.6 pg (27.0-33.0); Mean Corpuscular Volume 81.7 fL (80.0-98.0); NRBC Abs Auto 0.000 X10*3/uL (0.0-0.012); NRBC Pct Auto 0.0 /100WBC (0.0-0.2); Platelet Count 261 X10*3/uL (160-400); Red Blood Count 3.33 X10*6/uL (4.60-5.80); SCAN SMEAR FLAG 1; White Blood Count 10.1 X10*3/uL (4.8-10.8)
[2025-03-25 06:40] LABS: Anion Gap 10 (12-20); Blood Urea Nitrogen 7 mg/dL (9-16); Calcium 7.5 mg/dL (8.4-10.2); Carbon Dioxide 25 mmol/L (22-29); Chloride 109 mmol/L (96-108); Creatinine Clr Calc Pharmacy 98.2; Estimated Glomerular Filt Rate > 60; Potassium 3.8 mmol/L (3.3-5.1); Sodium 140 mmol/L (135-145)
[2025-03-25 07:46] LABS: Glucose, Whole Blood 125 mg/dL (60-115)
[2025-03-25 07:54] LABS: Glucose, Whole Blood 137 mg/dL (60-115)
[2025-03-25 08:00] VITALS: BP 127/72; PULSE 100; RESP 18; TEMP 36.2; O2SAT 92
--- NOTE | 2025-03-25 10:51 | P.PNIM_ITS ---
Subjective Subjective Date of Service: 03/25/25 Interval History: Follow up fall Now AOx4, speaking slowly but clearly Improved SOB and cough Still feeling weak and tired Did not undergod thoracocentecis or chest tube placement; spoke to IR who did not feel pneumonia was loculated Review of Systems Review of Systems: Yes all other systems are reviewed and are negative Physical Exam 2 Exam: Exam: Appearing in no acute distress lung sounds are clear to auscultation heart regular rate rhythm, clear S1, S2 positive bowel sounds, abdomen is soft, nontender neuro patient is alert x3, no focal deficits Vital Signs: Vital Signs: Last Vital Signs Temp 97.1 F 03/25/25 08:00 Pulse 100 03/25/25 08:00 Resp 18 03/25/25 08:00 BP 127/72 03/25/25 08:00 Pulse Ox 92 03/25/25 08:00 O2 Del Method Nasal Cannula 03/25/25 08:00 O2 Flow Rate 2 03/25/25 08:00 BMI result Body Mass Index 26.1 Objective Data Active Medications Acetaminophen (Acetaminophen 325 Mg Tablet) 975 mg PO Q6H PRN PRN Reason: Pain, Mild 1-3,fever,headache Atorvastatin Calcium (Atorvastatin Calcium 80 Mg Tablet) 80 mg PO DAILY [facility] Last Admin: 03/25/25 09:09 Dose: 80 mg Documented By: BECKA Calcium Carbonate (Calcium Carbonate 750 Mg Tab.Chew) 750 mg PO Q4H PRN PRN Reason: Heartburn Dextrose (Dextrose 50 % 25 Gm/50 Ml Syringe) 25 gm IVPUSH Q15M PRN; Protocol PRN Reason: per Hypoglycemia Standing Ord. Finasteride (Finasteride 5 Mg Tablet) 5 mg PO DAILY [facility] Last Admin: 03/25/25 09:09 Dose: 5 mg Documented By: BECKA Glucose (Glucose Gel 15 Gm Gel..Gram.) 15 gm PO Q15M PRN; Protocol PRN Reason: per Hypoglycemia Standing Ord. Piperacillin Sod/Tazobactam (Sod 4.5 gm/ Sodium Chloride) 100 mls @ 200 mls/hr IV Q6H [facility] Last Infusion: 03/25/25 10:38 Dose: Infused Documented By: BECKA Vancomycin HCl 1,000 mg/ (Sodium Chloride) 270 mls @ 270 mls/hr IV Q12H [facility] Last Infusion: 03/25/25 04:53 Dose: Infused Documented By: DURGA Insulin Human Lispro (Insulin Lispro 100 Unit/Ml 3 Ml Vial) 0 unit SUBCUT Q6H [facility]; Protocol Last Admin: 03/25/25 07:56 Dose: Not Given Documented By: BECKA Non-Admin Reason: No Insulin Coverage Magnesium Hydroxide (Milk Of Magnesia 30 Ml Oral.Susp) 30 ml PO DAILY PRN PRN Reason: Constipation Melatonin (Melatonin 3 Mg Tablet) 6 mg PO BEDTIME PRN PRN Reason: Insomnia Pharmacy Consult (Consult Rx Vancomycin Dosing) 1 each MISCELLANE DAILY PRN PRN Reason: Consult order Sodium Chloride (0.9 % Sodium Chloride Flush 3 Ml Syringe) [facility] Last Admin: 03/25/25 09:11 Dose: Not Given Documented By: BECKA Non-Admin Reason: IV Running Labs 03/25/25 06:12 03/25/25 06:12 Labs: Laboratory Results - last 24 hr 03/24/25 03/24/25 03/24/25 13:02 14:55 22:55 MCV MCH MCHC RDW Plt Count MPV Immature Gran % (Auto) Neut % (Auto) Lymph % (Auto) [place] % (Auto) Eos % (Auto) Baso % (Auto) Lymph # (Auto) [place] # (Auto) Eos # (Auto) Baso # (Auto) Abs Immat Gran (auto) Absolute Neuts (auto) Absolute Nucleated RBC Nucleated RBC % (auto) Smear Tech's Comments Anion Gap Estim Creat Clear Calc Estimated GFR POC Glucose 156 H 121 H Random Glucose Calcium Random Vancomycin 15.6 03/25/25 03/25/25 06:12 07:50 MCV 81.7 MCH 24.6 L MCHC 30.1 L RDW 21.5 H Plt Count 261 MPV 9.9 Immature Gran % (Auto) 1.1 H Neut % (Auto) 60.5 Lymph % (Auto) 23.9 [place] % (Auto) 8.6 Eos % (Auto) 4.9 H Baso % (Auto) 1.0 Lymph # (Auto) 2.4 [place] # (Auto) 0.9 Eos # (Auto) 0.5 H Baso # (Auto) 0.1 Abs Immat Gran (auto) 0.11 H Absolute Neuts (auto) 6.1 Absolute Nucleated RBC 0.000 Nucleated RBC % (auto) 0.0 Smear Tech's Comments VERIFIED Anion Gap 10 L Estim Creat Clear Calc 98.2 Estimated GFR > 60 POC Glucose 125 H 137 H Random Glucose 135 H Calcium 7.5 L Random Vancomycin Microbiology Microbiology Results: Microbiology 03/22/25 18:13 Blood Culture - Preliminary Blood - Venous No growth after 48 hours. 03/22/25 18:13 Blood Culture - Preliminary Blood - Venous No growth after 48 hours. Assessment and Plan (1) Pneumonia: Status: Acute (2) Acute metabolic encephalopathy: Status: Acute Plan 79-year-old male with a past medical history significant for complete heart block s/p PPM, DVT, AFib on Eliquis, hypertension, CKD 3, s/p CABG, Parkinson's, type 2 diabetes on insulin, history of [place], who presented to the ED due to multiple falls yesterday, 2 times witnessed with 1 head strike. Pt is admitted to the hospital for acute metabolic encephalopathy in the setting of pneumonia with sepsis with parapneumonic effusion suspicious for empyema. Sepsis with acute metabolic encephalopathy secondary to pneumonia with parapneumonic effusion suspicious for empyema Chest CT with partially loculated bilateral pleural effusions and multifocal bilateral atelectasis. Given sepsis bolus fluids and started on broad-spectrum antibiotics in the ED vancomycin and Zosyn Pulmonology consult>Originally thoracentesis ordered, though pulmonology would like chest tube placed, Spoke to IR who did bedside US and did not think pt had loculated effusion; suggested seeing how did with IV abx alone for now Multiple falls Head CT and neck CT negative for acute findings Fall precautions PT evaluation> Rec STR Acute on chronic anemia Original hgb 8.1 repeat after fluid 6.4 Likely some element of dilution from IVF No evidence of acute bleeding Hem Improved to 7.8 after transfusion of 1 unit PRBCs Monitor CBC Dysphagia Pt previously on pureed diet and nectar thick liquids Speech recommended ground/mech altered diet with honey thick liquids Hx DVT Continue to hold Eliqius due to anemia Resume Eliquis tomorrow if H&H stable Paroxysmal a fib EKG with ventricular paced rhythm with occasional PVCs Continuye BB Hold Eliquis d/t anemia HTN BP soft, hold home meds CKD 3 Creatinine at baseline Parkinson's Continue home meds Type 2 diabetes Siding scale insulin lantus Full code VTE prophy: pneumoboots due to anemia Quality Stroke Does the patient have a stroke diagnosis?: No VTE Prior VTE?: Yes VTE Risk Level:: Medical - moderate - high VTE Device Contraindication: N/A - Device Ordered VTE Drug Contraindication: Treatment Not Indicated
[2025-03-25 12:02] VITALS: BP 138/62; PULSE 84; RESP 18; TEMP 36.6; O2SAT 96
[2025-03-25 12:11] LABS: Glucose, Whole Blood 142 mg/dL (60-115)
[2025-03-25 15:22] LABS: Glucose, Whole Blood 169 mg/dL (60-115)
[2025-03-25 16:00] VITALS: BP 124/64; PULSE 76; RESP 18; TEMP 37.2; O2SAT 96
[2025-03-25 19:13] VITALS: BP 149/76; PULSE 93; RESP 18; TEMP 37.6; O2SAT 98
[2025-03-25] MEDS: 0.9 % Sodium Chloride Flush 3 ML SYRINGE IVFLUSH (20:28)
[2025-03-25 20:57] LABS: Glucose, Whole Blood 175 mg/dL (60-115)
[2025-03-25] MEDS: Insulin Glargine,Hum.rec.anlog 100 UNIT/ML 10 ML VIAL 22 UNIT SUBCUT (21:49)
[2025-03-25 23:16] VITALS: BP 119/68; PULSE 70; RESP 18; TEMP 36.4; O2SAT 96
[2025-03-26] VITALS (8 sets, daily range): BP systolic 109–154; BP diastolic 61–80; PULSE 64–91; RESP 15–18; TEMP 36.2–36.7; O2SAT 95–97
[2025-03-26 02:26] LABS: Glucose, Whole Blood 86 mg/dL (60-115)
[2025-03-26 07:21] LABS: Glucose, Whole Blood 79 mg/dL (60-115)
[2025-03-26 07:44] LABS: Creatinine Clr Calc Pharmacy 93.4; Estimated Glomerular Filt Rate > 60
[2025-03-26] MEDS: 0.9 % Sodium Chloride Flush 3 ML SYRINGE IVFLUSH ×3 (07:47→22:08)
[2025-03-26] MEDS: Ferrous Sulfate 324 MG TABLET.DR PO (07:48)
--- NOTE | 2025-03-26 08:53 | P.PNIM_ITS ---
Subjective Subjective Date of Service: 03/26/25 Interval History: Follow up fall Now AOx4, speaking slowly but clearly Improved SOB and cough Still feeling weak and tired Review of Systems Review of Systems: Yes all other systems are reviewed and are negative Physical Exam 2 Exam: Exam: Appearing in no acute distress lung sounds are clear to auscultation heart regular rate rhythm, clear S1, S2 positive bowel sounds, abdomen is soft, nontender neuro patient is alert x3, no focal deficits Vital Signs: Vital Signs: Last Vital Signs Temp 98 F 03/26/25 06:57 Pulse 83 03/26/25 06:57 Resp 16 03/26/25 06:57 BP 133/73 03/26/25 06:57 Pulse Ox 96 03/26/25 06:57 O2 Del Method Nasal Cannula 03/26/25 06:57 O2 Flow Rate 2 03/26/25 06:57 BMI result Body Mass Index 26.1 Objective Data Active Medications Acetaminophen (Acetaminophen 325 Mg Tablet) 975 mg PO Q6H PRN PRN Reason: Pain, Mild 1-3,fever,headache Ascorbic Acid (Ascorbic Acid 500 Mg Tablet) 1,000 mg PO DAILY [facility] Last Admin: 03/26/25 07:47 Dose: 1,000 mg Documented By: BECKA Atorvastatin Calcium (Atorvastatin Calcium 80 Mg Tablet) 80 mg PO DAILY [facility] Last Admin: 03/26/25 07:47 Dose: 80 mg Documented By: BECKA Calcium Carbonate (Calcium Carbonate 750 Mg Tab.Chew) 750 mg PO Q4H PRN PRN Reason: Heartburn Dextrose (Dextrose 50 % 25 Gm/50 Ml Syringe) 25 gm IVPUSH Q15M PRN; Protocol PRN Reason: per Hypoglycemia Standing Ord. Ferrous Sulfate (Ferrous Sulfate 324 Mg Tablet.) 324 mg PO DAILY [facility] Last Admin: 03/26/25 07:48 Dose: 324 mg Documented By: BECKA Finasteride (Finasteride 5 Mg Tablet) 5 mg PO DAILY [facility] Last Admin: 03/26/25 07:47 Dose: 5 mg Documented By: BECKA Glucose (Glucose Gel 15 Gm Gel..Gram.) 15 gm PO Q15M PRN; Protocol PRN Reason: per Hypoglycemia Standing Ord. Piperacillin Sod/Tazobactam (Sod 4.5 gm/ Sodium Chloride) 100 mls @ 200 mls/hr IV Q6H [facility] Last Infusion: 03/26/25 05:22 Dose: Infused Documented By: BETH Vancomycin HCl 750 mg/ Sodium (Chloride) 265 mls @ 265 mls/hr IV Q12H [facility] Last Infusion: 03/26/25 03:50 Dose: Infused Documented By: BETH Insulin Glargine (Insulin Glargine,Hum.Rec.Anlog 100 Unit/Ml 10 Ml Vial) 22 unit SUBCUT BEDTIME [facility] Last Admin: 03/25/25 21:49 Dose: 22 unit Documented By: BETH Insulin Human Lispro (Insulin Lispro 100 Unit/Ml 3 Ml Vial) 0 unit SUBCUT Q6H [facility]; Protocol Last Admin: 03/26/25 07:50 Dose: 2 unit Documented By: BECKA Magnesium Hydroxide (Milk Of Magnesia 30 Ml Oral.Susp) 30 ml PO DAILY PRN PRN Reason: Constipation Melatonin (Melatonin 3 Mg Tablet) 6 mg PO BEDTIME PRN PRN Reason: Insomnia Last Admin: 03/25/25 20:22 Dose: 6 mg Documented By: BETH Metoprolol Tartrate (Metoprolol Tartrate 25 Mg Tablet) 25 mg PO BID [facility]; Protocol Last Admin: 03/26/25 07:47 Dose: 25 mg Documented By: BECKA Pharmacy Consult (Consult Rx Vancomycin Dosing) 1 each MISCELLANE DAILY PRN PRN Reason: Consult order Sodium Chloride (0.9 % Sodium Chloride Flush 3 Ml Syringe) 3 ml IVFLUSH QSHIFT [facility] Last Admin: 03/26/25 07:47 Dose: 3 ml Documented By: BECKA Labs 03/25/25 06:12 03/26/25 06:44 Labs: Laboratory Results - last 24 hr 03/25/25 03/25/25 03/25/25 12:07 13:05 15:19 Hold Purple Top Estim Creat Clear Calc Estimated GFR POC Glucose 142 H 169 H Random Vancomycin 17.4 03/25/25 03/26/25 03/26/25 20:49 02:22 06:44 Hold Purple Top SEE NOTE Estim Creat Clear Calc 93.4 Estimated GFR > 60 POC Glucose 175 H 86 Random Vancomycin 03/26/25 07:00 Hold Purple Top Estim Creat Clear Calc Estimated GFR POC Glucose 79 Random Vancomycin Assessment and Plan (1) Pneumonia: Status: Acute (2) Acute metabolic encephalopathy: Status: Acute Plan 79-year-old male with a past medical history significant for complete heart block s/p PPM, DVT, AFib on Eliquis, hypertension, CKD 3, s/p CABG, Parkinson's, type 2 diabetes on insulin, history of [place], who presented to the ED due to multiple falls yesterday, 2 times witnessed with 1 head strike. Pt is admitted to the hospital for acute metabolic encephalopathy in the setting of pneumonia with sepsis with parapneumonic effusion suspicious for empyema. Sepsis with acute metabolic encephalopathy secondary to pneumonia with parapneumonic effusion suspicious for empyema Chest CT with partially loculated bilateral pleural effusions and multifocal bilateral atelectasis. Given sepsis bolus fluids and started on broad-spectrum antibiotics in the ED vancomycin and Zosyn Pulmonology consult>Originally thoracentesis ordered, though pulmonology would like chest tube placed, Spoke to IR who did bedside US and did not think pt had loculated effusion; suggested seeing how did with IV abx alone for now Multiple falls Head CT and neck CT negative for acute findings Fall precautions PT evaluation> Rec STR Acute on chronic anemia Original hgb 8.1 repeat after fluid 6.4 Likely some element of dilution from IVF No evidence of acute bleeding Hem Improved to 7.8 after transfusion of 1 unit PRBCs Monitor CBC Dysphagia Pt previously on pureed diet and nectar thick liquids Speech recommended ground/mech altered diet with honey thick liquids Hx DVT Continue to hold Eliqius due to anemia Resume Eliquis tomorrow if H&H stable Paroxysmal a fib EKG with ventricular paced rhythm with occasional PVCs Continuye BB Hold Eliquis d/t anemia HTN BP soft, hold home meds CKD 3 Creatinine at baseline Parkinson's Continue home meds Type 2 diabetes Siding scale insulin lantus Full code VTE prophy: pneumoboots due to anemia Quality Stroke Does the patient have a stroke diagnosis?: No VTE Prior VTE?: Yes VTE Risk Level:: Medical - moderate - high VTE Device Contraindication: N/A - Device Ordered VTE Drug Contraindication: Treatment Not Indicated
[2025-03-26 11:09] LABS: Glucose, Whole Blood 55 mg/dL (60-115)
[2025-03-26 11:54] LABS: Glucose, Whole Blood 70 mg/dL (60-115)
--- NOTE | 2025-03-26 13:26 | PC.NURSE ---
Transfer from [email or web address], A&Ox2, off two days for date. No resp distress, lungs dim, 2lnc, humidified O2, 1:1 Feed, Honey Thick Liquids, slight dependent edema noted, foam on sacrum for protection. Call wheeler within reach, will continue to monitor for needs, plan STR.
[2025-03-26 16:09] LABS: Glucose, Whole Blood 101 mg/dL (60-115)
[2025-03-26 20:36] LABS: Glucose, Whole Blood 148 mg/dL (60-115)
[2025-03-26] MEDS: Insulin Glargine,Hum.rec.anlog 100 UNIT/ML 10 ML VIAL 22 UNIT SUBCUT (21:59)
[2025-03-27] VITALS (8 sets, daily range): BP systolic 121–136; BP diastolic 63–78; PULSE 61–81; RESP 12–24; TEMP 36–36.3; O2SAT 93–99
--- NOTE | 2025-03-27 04:19 | PC.NURSE ---
04:15 Pt on 2L NC. Sleeping with mouth open. Resting comfortably, unlabored breathing, sat 93%. Pt switched to 2L oxymask. Sat 95%.
[2025-03-27 06:26] LABS: Creatinine Clr Calc Pharmacy 96.6; Estimated Glomerular Filt Rate > 60
[2025-03-27 07:34] LABS: Glucose, Whole Blood 105 mg/dL (60-115)
[2025-03-27] MEDS: 0.9 % Sodium Chloride Flush 3 ML SYRINGE IVFLUSH ×3 (08:00→21:47)
[2025-03-27] MEDS: Ferrous Sulfate 324 MG TABLET.DR PO (08:00)
--- NOTE | 2025-03-27 08:24 | HO.PM.IMPN ---
Subjective Subjective Date of Service: 03/27/25 Interval History: Follow up fall, sepsis, pneumonia Improved SOB and cough Still feeling weak and tired Review of Systems Review of Systems: Yes all other systems are reviewed and are negative Physical Exam Exam: Exam: Appearing in no acute distress lung sounds dry crackles throughout, left upper lobe clear heart regular rate rhythm, clear S1, S2 positive bowel sounds, abdomen is soft, nontender neuro patient is alert x3, no focal deficits Vital Signs: Vital Signs: Last Vital Signs Temp 96.9 F 03/27/25 07:45 Pulse 81 03/27/25 07:45 Resp 18 03/27/25 07:45 BP 133/78 03/27/25 07:45 Pulse Ox 93 03/27/25 07:45 O2 Del Method Nasal Cannula 03/27/25 07:45 O2 Flow Rate 2 03/27/25 07:45 BMI result Body Mass Index 26.1 Objective Data Active Medications Acetaminophen (Acetaminophen 325 Mg Tablet) 975 mg PO Q6H PRN PRN Reason: Pain, Mild 1-3,fever,headache Ascorbic Acid (Ascorbic Acid 500 Mg Tablet) 1,000 mg PO DAILY [facility] Last Admin: 03/27/25 08:00 Dose: 1,000 mg Documented By: ROOPA Atorvastatin Calcium (Atorvastatin Calcium 80 Mg Tablet) 80 mg PO DAILY [facility] Last Admin: 03/27/25 08:00 Dose: 80 mg Documented By: ROOPA Calcium Carbonate (Calcium Carbonate 750 Mg Tab.Chew) 750 mg PO Q4H PRN PRN Reason: Heartburn Dextrose (Dextrose 50 % 25 Gm/50 Ml Syringe) 25 gm IVPUSH Q15M PRN; Protocol PRN Reason: per Hypoglycemia Standing Ord. Ferrous Sulfate (Ferrous Sulfate 324 Mg Tablet.Dr) 324 mg PO DAILY [facility] Last Admin: 03/27/25 08:00 Dose: 324 mg Documented By: ROOPA Finasteride (Finasteride 5 Mg Tablet) 5 mg PO DAILY [facility] Last Admin: 03/27/25 08:00 Dose: 5 mg Documented By: ROOPA Glucose (Glucose Gel 15 Gm Gel..Gram.) 15 gm PO Q15M PRN; Protocol PRN Reason: per Hypoglycemia Standing Ord. Piperacillin Sod/Tazobactam (Sod 4.5 gm/ Sodium Chloride) 100 mls @ 200 mls/hr IV Q6H [facility] Last Infusion: 03/27/25 04:26 Dose: Infused Documented By: BETITO Vancomycin HCl 750 mg/ Sodium (Chloride) 265 mls @ 265 mls/hr IV Q12H [facility] Last Infusion: 03/27/25 03:45 Dose: Infused Documented By: BETITO Insulin Glargine (Insulin Glargine,Hum.Rec.Anlog 100 Unit/Ml 10 Ml Vial) 22 unit SUBCUT BEDTIME [facility] Last Admin: 03/26/25 21:59 Dose: 22 unit Documented By: BETITO Insulin Human Lispro (Insulin Lispro 100 Unit/Ml 3 Ml Vial) 0 unit SUBCUT QIDACHS [facility]; Protocol Last Admin: 03/27/25 07:44 Dose: Not Given Documented By: ROOPA Non-Admin Reason: No Insulin Coverage Magnesium Hydroxide (Milk Of Magnesia 30 Ml Oral.Susp) 30 ml PO DAILY PRN PRN Reason: Constipation Melatonin (Melatonin 3 Mg Tablet) 6 mg PO BEDTIME PRN PRN Reason: Insomnia Last Admin: 03/25/25 20:22 Dose: 6 mg Documented By: BIANCA-JOJO Metoprolol Tartrate (Metoprolol Tartrate 25 Mg Tablet) 25 mg PO BID [facility]; Protocol Last Admin: 03/27/25 08:00 Dose: 25 mg Documented By: ROOPA Pharmacy Consult (Consult Rx Vancomycin Dosing) 1 each MISCELLANE DAILY PRN PRN Reason: Consult order Sodium Chloride (0.9 % Sodium Chloride Flush 3 Ml Syringe) 3 ml IVFLUSH QSHIFT [facility] Last Admin: 03/27/25 08:00 Dose: 3 ml Documented By: ROOPA Labs 03/25/25 06:12 03/27/25 05:40 Labs: Laboratory Results - last 24 hr 03/26/25 03/26/25 03/26/25 11:01 11:50 12:57 Estim Creat Clear Calc Estimated GFR POC Glucose 55 L* 70 Vancomycin Trough 16.7 03/26/25 03/26/25 03/27/25 16:06 20:26 05:40 Estim Creat Clear Calc 96.6 Estimated GFR > 60 POC Glucose 101 148 H Vancomycin Trough 03/27/25 07:29 Estim Creat Clear Calc Estimated GFR POC Glucose 105 Vancomycin Trough Assessment and Plan (1) Pneumonia: Status: Acute (2) Acute metabolic encephalopathy: Status: Acute Plan 79-year-old male with a past medical history significant for complete heart block s/p PPM, DVT, AFib on Eliquis, hypertension, CKD 3, s/p CABG, Parkinson's, type 2 diabetes on insulin, history of [place], who presented to the ED due to multiple falls yesterday, 2 times witnessed with 1 head strike. Pt is admitted to the hospital for acute metabolic encephalopathy in the setting of pneumonia with sepsis with parapneumonic effusion suspicious for empyema. Sepsis with acute metabolic encephalopathy secondary to pneumonia with parapneumonic effusion suspicious for empyema Chest CT with partially loculated bilateral pleural effusions and multifocal bilateral atelectasis. Given sepsis bolus fluids and started on broad-spectrum antibiotics in the ED vancomycin and Zosyn Pulmonology consult>Originally thoracentesis ordered, though pulmonology would like chest tube placed, Spoke to IR who did bedside US and did not think pt had loculated effusion; suggested seeing how did with IV abx alone for now Repeat chest x-ray to assess for improvement Multiple falls Head CT and neck CT negative for acute findings Fall precautions PT evaluation> Rec STR Acute on chronic anemia Original hgb 8.1 repeat after fluid 6.4 Likely some element of dilution from IVF No evidence of acute bleeding Hem Improved to 8.2 after transfusion of 1 unit PRBCs Monitor CBC Dysphagia Pt previously on pureed diet and nectar thick liquids Speech recommended ground/mech altered diet with honey thick liquids Hx DVT Continue to hold Eliqius due to anemia Resume Eliquis tomorrow if H&H stable Paroxysmal a fib EKG with ventricular paced rhythm with occasional PVCs Continuye BB Hold Eliquis d/t anemia HTN BP soft, hold home meds CKD 3 Creatinine at baseline Parkinson's Continue home meds Type 2 diabetes Siding scale insulin lantus Full code VTE prophy: pneumoboots due to anemia Quality Stroke Does the patient have a stroke diagnosis?: No VTE Prior VTE?: Yes VTE Risk Level:: Medical - moderate - high VTE Device Contraindication: N/A - Device Ordered VTE Drug Contraindication: Treatment Not Indicated
--- NOTE | 2025-03-27 10:10 | MHC.CLN ---
NUTRITION CONSULT, ROUTINE JEAN CLAUDE=14. STAGE I TO SACRUM. PO INTAKE VARIABLE, WITH MOST MEALS AT LEAST 50%. DIET=DIABETIC 2000 KCALS, GROUND CONSISTENCY WITH HONEY THICK LIQUIDS. RD TO MONITOR WEEKLY.
[2025-03-27 11:39] LABS: Glucose, Whole Blood 131 mg/dL (60-115)
--- NOTE | 2025-03-27 13:11 | MHC.SL.SWA ---
Speech Pathologist Impression: Risk of Aspiration, Oropharyngeal Dysphagia Risk of Aspiration Due to: Neurological Condition, Recurrent PNA Dysphasia Diet Status: No Change Liquid Consistency and Strategies for Safe Swallow: Liquid Intake Recommendation: Honey Thick Liquid Intake Strategies: Small Sips No Straws Double Swallow Solid Food Consistency: Dietary Recommendations: Grnd/Mech Altered (NDD2) Additional Modifications to Solid Foods: No changes at this time- Continue on current diet GROUND/MECH ALTERED (NDD2) solids and HONEY THICK LIQUIDS (NO STRAWS), pills WHOLE or CRUSHED in PUREE. Patient attempts to feed himself, but needs 1:1 assistance at meals d/t discoordination/generalized weakness. Given underlying PD, concern for recurrent PNA, and worsening chest imaging, recommend further assessment w/ imaging/ MBSS. POLISHER IMPLANT to coordinate w/ Radiology to schedule, potentially tomorrow, pending order to be placed by the attending hospitalist (Rachana Arguello). Oral Medication Intake: Whole with Puree Please contact the pharmacy regarding appropriate crushable or liquid drug formulations that are available whenever modified delivery is recommended. Compensatory Strategies and Precautions to be Taken for Safe Swallow: Sitting Upright (90 deg) Double Swallow No Straw Small Bites and Sips Rate of Ingestion Change Supervision While Eating and Drinking for Safe Swallow: Total Assistance (1:1) Swallowing Recommended Treatments: Compens. Strategy Educat. Recommendation for Speech: Inpatient Speech Therapy Speech Therapy through [facility] Speech [facility] through Rehab Facility Comment: Patient presents with mild to moderate oropharyngeal phase dysphagia in the setting of underlying Parkinson's disease. Patient is admitted with concern for aspiration pneumonia. Patient evidences overt s/s of aspiration on liquids in particular, also note slow oral phase and presence of oral residuals which clear with liquid wash. Patient attempts to feed himself, but has trouble balancing liquids in a cup and bringing utensils to his mouth. Recommend start on GROUND/MECH ALTERED (NDD2) diet and HONEY THICK liquids, pills CRUSHED in PUREE. Patient to be positioned upright during PO intake, ideally OOB during meals, encourage self-feeding when possible and provide 1:1 assistance as needed. AVOID STRAWS (discussed rationale w/ patient and ), dry swallow between bites for clearance. Patient may require cues for these strategies. Frequency/Duration: M-F Date Range for Service Req: Timeline to reassess: Pilot Plant Operator Helper Clinican/Clinical Fellow: No Supervisory Statement: I have reviewed and agree with the student/clinical fellow's documentation: N/A Speech Language Pathologist: Francesca Ordonez M.A., CCC-POLISHER IMPLANT
--- NOTE | 2025-03-27 13:51 | MHC.SLORD ---
Speech Language Pathology Order Status: MBSS is scheduled tomorrow 03/28 at 10:30am. Rachana Arguello (attending) notified via [employer].
[2025-03-27 16:10] LABS: Hematocrit 29.2 % (42.0-52.0); Hemoglobin 8.7 g/dl (14.0-18.0); Mean Corpuscular HGB Conc 29.8 g/dl (31.0-36.0); Mean Corpuscular Hemoglobin 25.0 pg (27.0-33.0); Mean Corpuscular Volume 83.9 fL (80.0-98.0); NRBC Abs Auto 0.000 X10*3/uL (0.0-0.012); NRBC Pct Auto 0.0 /100WBC (0.0-0.2); Platelet Count 285 X10*3/uL (160-400); Red Blood Count 3.48 X10*6/uL (4.60-5.80); White Blood Count 12.0 X10*3/uL (4.8-10.8)
[2025-03-27 16:13] LABS: Glucose, Whole Blood 143 mg/dL (60-115)
[2025-03-27 16:24] LABS: Anion Gap 9 (12-20); Blood Urea Nitrogen 7 mg/dL (9-16); Calcium 7.6 mg/dL (8.4-10.2); Carbon Dioxide 26 mmol/L (22-29); Chloride 108 mmol/L (96-108); Creatinine Clr Calc Pharmacy 95.0; Estimated Glomerular Filt Rate > 60; Potassium 3.9 mmol/L (3.3-5.1); Sodium 139 mmol/L (135-145)
--- NOTE | 2025-03-27 16:24 | MHC.CM.PN ---
STR RECOMMENDED, DBV FOLLOWING, MH MARTHA STARTED PT WILL LIKELY NEED LTC.
[2025-03-27] MEDS: Furosemide 40 MG/4 ML VIAL IVPUSH (16:26)
[2025-03-27 16:31] LABS: B Type Natriuretic Peptide 2676 pg/mL (<100)
[2025-03-27 20:10] LABS: Glucose, Whole Blood 189 mg/dL (60-115)
[2025-03-27] MEDS: Insulin Glargine,Hum.rec.anlog 100 UNIT/ML 10 ML VIAL 22 UNIT SUBCUT (21:43)
[2025-03-28 03:17] VITALS: BP 138/65; PULSE 65; RESP 20; TEMP 35.6; O2SAT 94
[2025-03-28 03:48] VITALS: TEMP 36.4
[2025-03-28 06:40] LABS: Creatinine Clr Calc Pharmacy 93.4; Estimated Glomerular Filt Rate > 60
--- NOTE | 2025-03-28 07:00 | CA_ITS ---
Transthoracic Echocardiogram Patient (Last, First, Middle): Eduardo Tracy R Gender: Male Date of : 1945 Age: 79 Procedure Date: 03/28/2025 Procedure Type: Transthoracic Echocardiogram Location: S3E Height: 172.72 cm Weight: 77.57 kg BSA: 1.91 m2 Heart Rate: 79 bpm BP: 138 / 65 mmHg Apprentice Carpenter: SB/RC Referring MD: Rachana Arguello NP Symptoms: chf Study Quality: Adequate w contrast ECG Rhythm: Paced Conclusions: - Normal left ventricular cavity size. There is normal left ventricular wall thickness. The left ventricular systolic function is severely decreased. The visually estimated ejection fraction is between 20-25%. - Normal right ventricular cavity size. There is low normal right ventricular systolic function. - The left atrium is mildly dilated. - There is mild to moderate mitral valve regurgitation. - Significantly elevated right atrial pressure. Severe pulmonary hypertension is present. Findings Procedure Information Contrast agent, definity, is being given per protocol without apparent complications. Left Ventricle Normal left ventricular cavity size. There is normal left ventricular wall thickness. The left ventricular systolic function is severely decreased. The visually estimated ejection fraction is between 20-25%. There is paradoxical septal motion consistent with a left bundle branch block. Diastolic function is indeterminate on the basis of available data. There is mild septal asymmetric hypertrophy. Right Ventricle Normal right ventricular cavity size. There is low normal right ventricular systolic function. Atria The left atrium is mildly dilated. The right atrium was not well visualized. Aortic Valve There is a normal trileaflet aortic valve. There is no aortic valve stenosis. There is no aortic valve regurgitation. Mitral Valve The mitral valve appears normal. There is mild to moderate mitral valve regurgitation. There is no mitral valve stenosis. Pulmonic Valve The pulmonic valve is normal. There is trace pulmonic valve regurgitation. Tricuspid Valve Normal tricuspid valve structure. There is mild tricuspid valve regurgitation. The right ventricular systolic pressure is 59 mmHg. Significantly elevated right atrial pressure. Severe pulmonary hypertension is present. Great Vessels All visible segments of the aorta are normal in size. The visualized portions of the pulmonary artery and branches are normal. Venous The inferior vena cava is dilated and collapses less than 50% with inspiration. Pericardium/Pleural There is no evidence of pericardial effusion. Prior Study Comparison Changes noted compared to prior study dated: 01/11/2021. Severe LV dysfunction. Severe PH Measurements 2D Linear Measurements IVSd: 1.33 0.6-0.9/0.6-1.0 cm LVIDd: 5.67 3.9-5.3/4.2-5.9 cm LVIDd Index: 2.97 2.4-3.2/2.2-3.1 cm/m2 LVIDs: 4.56 2.0-3.6 cm LVPWd: 0.55 0.7-1.1 cm LA Diam: 4.10 2.7-3.8/3.0-4.0 cm LAIDs Index: 2.15 1.5-2.3 cm/m2 LV Mass: 258.72 67-162/88-224 g LV Mass Index: 135.46 43-95/49-115 g/m2 LVOT Diam: 2.20 3.0+(-)1.3 cm 2D Systolic Function EF 4C: 17.00 >55% EF 2C: 32.00 >55% EF BiP: 27.00 >55% Mitral Valve MV Pk E: 1.20 MV PK A: 1.00 MV Decel Time: 68.00 E/A: 1.20 E'Lateral: 11.30 E'Medial: 3.75 E/E' Med: 32.00 E/E' Lat: 10.60 PHT: 20.00 MVA PHT: 11.00 Decel [place]: 17.58 Aortic Valve AoV Pk Cristi: 1.17 AoV Pk Grad: 5.00 KEILY: 1.77 LVOT LVOT Pk Cristi: 0.55 LVOT Mn Cristi: 0.46 LVOT VTI: 0.12 LVOT Pk Grad: 1.00 LVOT Mn Grad: 1.00 LVOT Diam: 2.20 LVOT Area: 3.80 Diastolic Function MV Pk E: 1.20 MV Pk A: 1.00 E/A: 1.20 E'Medial: 3.75 E/E' Med: 32.00 E' Laterial: 11.30 E/E' Lat: 10.60 Right Ventricle TVS' Cristi: 7.80 Tricuspid Valve TR Pk Cristi: 3.33 TR Pk Grad: 44.00 RA Press: 15.00 RVSP: 59.00 Great Vessels Aorta Sinus of Valsalva: 3.60 2.0-3.5 cm Ao Asc: 3.90 2.1-3.4 cm Pulmonary Valve PV Pk Cristi: 1.00 Peak PV Grad: 4.00 Updated in Other Vendor System with Status of Final Anil Levi MD electronically signed on 03/28/2025 10:24:56 PM with status of Final
[2025-03-28 07:43] LABS: Glucose, Whole Blood 69 mg/dL (60-115)
[2025-03-28 08:00] VITALS: BP 145/79; PULSE 79; RESP 18; TEMP 36; O2SAT 92
--- NOTE | 2025-03-28 08:36 | HO.PM.IMPN ---
Subjective Subjective Date of Service: 03/28/25 Interval History: Follow up fall, sepsis, pneumonia Improved SOB and cough Still feeling weak and tired Review of Systems Review of Systems: Yes all other systems are reviewed and are negative Physical Exam Exam: Exam: Appearing in no acute distress lung sounds are clear to auscultation heart regular rate rhythm, clear S1, S2 positive bowel sounds, abdomen is soft, nontender neuro patient is alert x3, no focal deficits Vital Signs: Vital Signs: Last Vital Signs Temp 96.8 F 03/28/25 08:00 Pulse 79 03/28/25 08:00 Resp 18 03/28/25 08:00 BP 145/79 H 03/28/25 08:00 Pulse Ox 92 03/28/25 08:00 O2 Del Method Room Air 03/28/25 08:00 O2 Flow Rate 2 03/27/25 16:22 BMI result Body Mass Index 26.1 Objective Data Active Medications Acetaminophen (Acetaminophen 325 Mg Tablet) 975 mg PO Q6H PRN PRN Reason: Pain, Mild 1-3,fever,headache Ascorbic Acid (Ascorbic Acid 500 Mg Tablet) 1,000 mg PO DAILY [facility] Last Admin: 03/27/25 08:00 Dose: 1,000 mg Documented By: ROOPA Atorvastatin Calcium (Atorvastatin Calcium 80 Mg Tablet) 80 mg PO DAILY [facility] Last Admin: 03/27/25 08:00 Dose: 80 mg Documented By: ROOPA Calcium Carbonate (Calcium Carbonate 750 Mg Tab.Chew) 750 mg PO Q4H PRN PRN Reason: Heartburn Dextrose (Dextrose 50 % 25 Gm/50 Ml Syringe) 25 gm IVPUSH Q15M PRN; Protocol PRN Reason: per Hypoglycemia Standing Ord. Ferrous Sulfate (Ferrous Sulfate 324 Mg Tablet.Dr) 324 mg PO DAILY [facility] Last Admin: 03/27/25 08:00 Dose: 324 mg Documented By: ROOPA Finasteride (Finasteride 5 Mg Tablet) 5 mg PO DAILY [facility] Last Admin: 03/27/25 08:00 Dose: 5 mg Documented By: ROOPA Furosemide (Furosemide 40 Mg/4 Ml Vial) 40 mg IVPUSH BID@0900,1800 [facility]; Protocol Last Admin: 03/27/25 16:26 Dose: 40 mg Documented By: ROOPA Comments: delayed administration due to waiting for electrolytes to result. Glucose (Glucose Gel 15 Gm Gel..Gram.) 15 gm PO Q15M PRN; Protocol PRN Reason: per Hypoglycemia Standing Ord. Vancomycin HCl 750 mg/ Sodium (Chloride) 265 mls @ 265 mls/hr IV Q12H [facility] Last Infusion: 03/28/25 04:24 Dose: Infused Documented By: BETITO Piperacillin Sod/Tazobactam (Sod 4.5 gm/ Sodium Chloride) 100 mls @ 200 mls/hr IV Q6H [facility] Last Infusion: 03/28/25 07:37 Dose: Infused Documented By: TRACEE Insulin Glargine (Insulin Glargine,Hum.Rec.Anlog 100 Unit/Ml 10 Ml Vial) 22 unit SUBCUT BEDTIME [facility] Last Admin: 03/27/25 21:43 Dose: 22 unit Documented By: BETITO Insulin Human Lispro (Insulin Lispro 100 Unit/Ml 3 Ml Vial) 0 unit SUBCUT QIDACHS [facility]; Protocol Last Admin: 03/28/25 07:47 Dose: Not Given Documented By: TRACEE Non-Admin Reason: No Insulin Coverage Magnesium Hydroxide (Milk Of Magnesia 30 Ml Oral.Susp) 30 ml PO DAILY PRN PRN Reason: Constipation Melatonin (Melatonin 3 Mg Tablet) 6 mg PO BEDTIME PRN PRN Reason: Insomnia Last Admin: 03/25/25 20:22 Dose: 6 mg Documented By: BRENDAJ Metoprolol Tartrate (Metoprolol Tartrate 25 Mg Tablet) 25 mg PO BID [facility]; Protocol Last Admin: 03/27/25 21:43 Dose: 25 mg Documented By: BETITO Pharmacy Consult (Consult Rx Vancomycin Dosing) 1 each MISCELLANE DAILY PRN PRN Reason: Consult order Sodium Chloride (0.9 % Sodium Chloride Flush 3 Ml Syringe) 3 ml IVFLUSH QSHIFT [facility] Last Admin: 03/27/25 21:47 Dose: 3 ml Documented By: BETITO Labs 03/27/25 15:38 03/28/25 09:14 Labs: Laboratory Results - last 24 hr 03/27/25 03/27/25 03/27/25 11:34 13:03 15:38 MCV 83.9 MCH 25.0 L MCHC 29.8 L RDW 22.3 H Plt Count 285 MPV 9.9 Absolute Nucleated RBC 0.000 Nucleated RBC % (auto) 0.0 Anion Gap 9 L Estim Creat Clear Calc 95.0 Estimated GFR > 60 POC Glucose 131 H Random Glucose 161 H Calcium 7.6 L B-Natriuretic Peptide 2676 H Random Vancomycin 15.8 03/27/25 03/27/25 03/28/25 16:06 20:02 05:23 MCV MCH MCHC RDW Plt Count MPV Absolute Nucleated RBC Nucleated RBC % (auto) Anion Gap Estim Creat Clear Calc 93.4 Estimated GFR > 60 POC Glucose 143 H 189 H Random Glucose Calcium B-Natriuretic Peptide Random Vancomycin 03/28/25 07:33 MCV MCH MCHC RDW Plt Count MPV Absolute Nucleated RBC Nucleated RBC % (auto) Anion Gap Estim Creat Clear Calc Estimated GFR POC Glucose 69 Random Glucose Calcium B-Natriuretic Peptide Random Vancomycin Microbiology Microbiology Results: Microbiology 03/22/25 18:13 Blood Culture - Final Blood - Venous No growth after 5 days. 03/22/25 18:13 Blood Culture - Final Blood - Venous No growth after 5 days. Assessment and Plan (1) Pneumonia: Status: Acute (2) Acute metabolic encephalopathy: Status: Acute Plan 79-year-old male with a past medical history significant for complete heart block s/p PPM, DVT, AFib on Eliquis, hypertension, CKD 3, s/p CABG, Parkinson's, type 2 diabetes on insulin, history of [place], who presented to the ED due to multiple falls yesterday, 2 times witnessed with 1 head strike. Pt is admitted to the hospital for acute metabolic encephalopathy in the setting of pneumonia with sepsis with parapneumonic effusion suspicious for empyema. Dysphagia Pt previously on pureed diet and nectar thick liquids MBBS today Hypoglycemia likely due to NPO status Resolved Fluid overload BNP 2676, 2483 Echocardiogram pending Continue Lasix 40 mg IV b.i.d. Sepsis with acute metabolic encephalopathy secondary to pneumonia with parapneumonic effusion suspicious for empyema Chest CT with partially loculated bilateral pleural effusions and multifocal bilateral atelectasis. vancomycin and Zosyn Pulmonology consult>Originally thoracentesis ordered, though pulmonology wanted chest tube placed, IR did bedside US and did not think pt had loculated effusion; suggested seeing how did with IV abx alone for now Repeat chest x-ray 03/27 showing cardiomegaly, pulmonary vascular congestion and small bilateral pleural effusions, we will treat for congestive heart failure Multiple falls Head CT and neck CT negative for acute findings Fall precautions PT evaluation> Rec STR Acute on chronic anemia Likely some element of dilution from IVF No evidence of acute bleeding Hem Improved to 8.7 after transfusion of 1 unit PRBCs Monitor CBC Hx DVT Eliquis resumed Paroxysmal a fib EKG with ventricular paced rhythm with occasional PVCs Continue BB Eliquis HTN BP soft, hold home meds CKD 3 Creatinine at baseline Parkinson's Continue home meds Type 2 diabetes Siding scale insulin lantus Full code VTE prophy: Eliquis Quality Stroke Does the patient have a stroke diagnosis?: No VTE Prior VTE?: Yes VTE Risk Level:: Medical - moderate - high VTE Device Contraindication: N/A - Device Ordered VTE Drug Contraindication: Treatment Not Indicated
[2025-03-28 09:42] LABS: Anion Gap 11 (12-20); Blood Urea Nitrogen 6 mg/dL (9-16); Calcium 7.9 mg/dL (8.4-10.2); Carbon Dioxide 29 mmol/L (22-29); Chloride 106 mmol/L (96-108); Creatinine Clr Calc Pharmacy 91.9; Estimated Glomerular Filt Rate > 60; Potassium 3.3 mmol/L (3.3-5.1); Sodium 143 mmol/L (135-145)
[2025-03-28 09:44] LABS: B Type Natriuretic Peptide 2483 pg/mL (<100)
[2025-03-28 09:49] LABS: Glucose, Whole Blood 48 mg/dL (60-115)
[2025-03-28] MEDS: 0.9 % Sodium Chloride Flush 3 ML SYRINGE IVFLUSH ×2 (09:50→14:41)
[2025-03-28 10:10] LABS: Glucose, Whole Blood 101 mg/dL (60-115)
[2025-03-28 10:31] LABS: Glucose, Whole Blood 95 mg/dL (60-115)
[2025-03-28] MEDS: Ferrous Sulfate 324 MG TABLET.DR PO (11:38)
[2025-03-28] MEDS: Furosemide 40 MG/4 ML VIAL IVPUSH ×2 (11:38→17:35)
[2025-03-28 11:40] LABS: Glucose, Whole Blood 93 mg/dL (60-115)
[2025-03-28 12:00] VITALS: BP 134/64; PULSE 73; RESP 18; TEMP 36.6; O2SAT 93
--- NOTE | 2025-03-28 12:18 | PM.CNCAR ---
History of Present Illness History of Present Illness Date of Service: 03/28/25 Requesting physician: Rachana Arguello Chief complaint: CHF Narrative: 79-year-old gentleman who we have been asked to see for congestive heart failure. He has background history of parkinsonism, dysphagia, AFib on Eliquis, previous DVT, complete heart block status post dual-chamber pacemaker, previous coronary artery bypass surgery, diabetes and previous myocardial infarction. He was admitted to ER with multiple falls and imaging showed pneumonia and clinically he was septic. He has been treated with antibiotics. His x-ray also showed evidence of congestive heart failure. He was also anemic and required a blood transfusion. Currently he is denying any significant symptoms. Saying no chest pain or shortness of breath. No orthopnea. Blood pressure mildly elevated. Denying any anginal symptoms. [facility] Past Medical History Medical History Parkinsons Afib Abnormal EKG Deep vein thrombosis (DVT) of axillary vein of left upper extremity CHB (complete heart block) History of acute myocardial infarction Diabetes High cholesterol HTN (hypertension) Kidney disease, chronic, stage III (GFR 30-59 ml/min) Family History Family History Mother Breast cancer metastasized to brain Diabetes Sister Diabetes Brother Diabetes Sister Diabetes Sister Diabetes Brother Diabetes Maternal Uncle Diabetes Maternal Aunt Diabetes Maternal Aunt Diabetes Maternal Uncle Diabetes Surgical History Surgical History Hx of CABG S/P quadruple vessel bypass History of tonsillectomy Social History Social History (Updated 09/16/24 @ 14:36 by Missy Desai [facility]) Household Members: Spouse Household Members Other:: Housing: House Are you a primary director of healthcare systems to a significant other at home: No Do you presently have visiting nurse or other home services: Yes Alcohol intake: current Alcohol intake frequency: does not drink Patient Tobacco Use Status: Never used Tobacco Advance Directives Date on File: 06/01/24 service: No Current occupational status: retired Current occupation: rt hand Meds Allergies Allergy/AdvReac Type Severity Reaction Status Date / Time Seasonal Allergies Allergy Runny Nose Verified 03/22/25 17:37 Active Medications: Current Medications Acetaminophen (Acetaminophen 325 Mg Tablet) 975 mg PO Q6H PRN PRN Reason: Pain, Mild 1-3,fever,headache Apixaban (Apixaban 5 Mg Tablet) 5 mg PO BID [facility] Ascorbic Acid (Ascorbic Acid 500 Mg Tablet) 1,000 mg PO DAILY [facility] Last Admin: 03/28/25 11:37 Dose: 1,000 mg Atorvastatin Calcium (Atorvastatin Calcium 80 Mg Tablet) 80 mg PO DAILY [facility] Last Admin: 03/28/25 11:38 Dose: 80 mg Calcium Carbonate (Calcium Carbonate 750 Mg Tab.Chew) 750 mg PO Q4H PRN PRN Reason: Heartburn Dextrose (Dextrose 50 % 25 Gm/50 Ml Syringe) 25 gm IVPUSH Q15M PRN; Protocol PRN Reason: per Hypoglycemia Standing Ord. Last Admin: 03/28/25 09:49 Dose: 25 gm Ferrous Sulfate (Ferrous Sulfate 324 Mg Tablet.Dr) 324 mg PO DAILY [facility] Last Admin: 03/28/25 11:38 Dose: 324 mg Finasteride (Finasteride 5 Mg Tablet) 5 mg PO DAILY [facility] Last Admin: 03/28/25 11:38 Dose: 5 mg Furosemide (Furosemide 40 Mg/4 Ml Vial) 40 mg IVPUSH BID@0900,1800 [facility]; Protocol Last Admin: 03/28/25 11:38 Dose: 40 mg Glucose (Glucose Gel 15 Gm Gel..Gram.) 15 gm PO Q15M PRN; Protocol PRN Reason: per Hypoglycemia Standing Ord. Vancomycin HCl 750 mg/ Sodium (Chloride) 265 mls @ 265 mls/hr IV Q12H [facility] Last Infusion: 03/28/25 04:24 Dose: Infused Piperacillin Sod/Tazobactam (Sod 4.5 gm/ Sodium Chloride) 100 mls @ 200 mls/hr IV Q6H [facility] Last Infusion: 03/28/25 07:37 Dose: Infused Insulin Glargine (Insulin Glargine,Hum.Rec.Anlog 100 Unit/Ml 10 Ml Vial) 22 unit SUBCUT BEDTIME [facility] Last Admin: 03/27/25 21:43 Dose: 22 unit Insulin Human Lispro (Insulin Lispro 100 Unit/Ml 3 Ml Vial) 0 unit SUBCUT QIDACHS [facility]; Protocol Last Admin: 03/28/25 11:44 Dose: Not Given Magnesium Hydroxide (Milk Of Magnesia 30 Ml Oral.Susp) 30 ml PO DAILY PRN PRN Reason: Constipation Melatonin (Melatonin 3 Mg Tablet) 6 mg PO BEDTIME PRN PRN Reason: Insomnia Last Admin: 03/25/25 20:22 Dose: 6 mg Metoprolol Tartrate (Metoprolol Tartrate 25 Mg Tablet) 25 mg PO BID [facility]; Protocol Last Admin: 03/28/25 11:38 Dose: 25 mg Pharmacy Consult (Consult Rx Vancomycin Dosing) 1 each MISCELLANE DAILY PRN PRN Reason: Consult order Sodium Chloride (0.9 % Sodium Chloride Flush 3 Ml Syringe) 3 ml IVFLUSH QSHIFT [facility] Last Admin: 03/28/25 09:50 Dose: 3 ml Home Medications ?Medication ?Instructions ?Recorded ?Confirmed ?Last Taken ?Type atorvastatin 80 mg tablet 80 mg PO DAILY 01/10/21 03/23/25 05/15/22 History finasteride 5 mg tablet 5 mg PO DAILY 01/10/21 03/23/25 05/15/22 History metformin 500 mg tablet 1,000 mg PO BID 01/10/21 03/23/25 05/15/22 History metoprolol tartrate 25 mg tablet 25 mg PO BID 01/10/21 03/23/25 05/15/22 History sitagliptin phosphate 100 mg 100 mg PO DAILY 01/10/21 03/23/25 05/15/22 History tablet (Januvia) apixaban 5 mg tablet (Eliquis) 5 mg PO BID 02/09/23 03/23/25 Unknown History tamsulosin 0.4 mg capsule 0.4 mg PO DAILY 02/09/25 03/23/25 Unknown History insulin glargine 100 unit/mL (3 22 unit subcut BEDTIME 03/22/25 03/23/25 Unknown History mL) subcutaneous pen ascorbic acid (vitamin C) 1,000 mg 1,000 mg PO DAILY 03/23/25 03/23/25 Unknown History tablet (Vitamin C) ferrous sulfate 142 mg (45 mg 142 mg PO DAILY 03/23/25 03/23/25 Unknown History iron) tablet,extended release (Slow Release Iron) Physical Exam Vital Signs: Vital Signs: Last Vital Signs Temp 96.8 F 03/28/25 08:00 Pulse 79 03/28/25 08:00 Resp 18 03/28/25 08:00 BP 145/79 H 03/28/25 08:00 Pulse Ox 92 03/28/25 08:00 O2 Del Method Room Air 03/28/25 08:00 O2 Flow Rate 2 03/27/25 16:22 BMI result Body Mass Index 26.1 GENERAL APPEARANCE: in no acute distress, pleasant. NECK: no carotid bruit, mild jugular venous distention. SKIN: no suspicious lesions, warm and dry. HEART: no murmurs, regular rate and rhythm. LUNGS: clear to auscultation bilaterally. ABDOMEN: soft, nontender. EXTREMITIES: no edema. PERIPHERAL PULSES: equal. NEUROLOGIC: No gross deficits, AAO X 3 Objective Labs and Meds 03/27/25 15:38 03/28/25 09:14 Lab results: Laboratory Results - last 24 hr 03/27/25 03/27/25 03/27/25 13:03 15:38 16:06 WBC 12.0 H RBC 3.48 L Hgb 8.7 L Hct 29.2 L MCV 83.9 MCH 25.0 L MCHC 29.8 L RDW 22.3 H Plt Count 285 MPV 9.9 Absolute Nucleated RBC 0.000 Nucleated RBC % (auto) 0.0 Sodium 139 Potassium 3.9 Chloride 108 Carbon Dioxide 26 Anion Gap 9 L BUN 7 L Creatinine 0.60 Estim Creat Clear Calc 95.0 Estimated GFR > 60 POC Glucose 143 H Random Glucose 161 H Calcium 7.6 L B-Natriuretic Peptide 2676 H Random Vancomycin 15.8 03/27/25 03/28/25 03/28/25 20:02 05:23 07:33 WBC RBC Hgb Hct MCV MCH MCHC RDW Plt Count MPV Absolute Nucleated RBC Nucleated RBC % (auto) Sodium Potassium Chloride Carbon Dioxide Anion Gap BUN Creatinine 0.61 Estim Creat Clear Calc 93.4 Estimated GFR > 60 POC Glucose 189 H 69 Random Glucose Calcium B-Natriuretic Peptide Random Vancomycin 03/28/25 03/28/25 03/28/25 09:14 09:45 10:07 WBC RBC Hgb Hct MCV MCH MCHC RDW Plt Count MPV Absolute Nucleated RBC Nucleated RBC % (auto) Sodium 143 Potassium 3.3 Chloride 106 Carbon Dioxide 29 Anion Gap 11 L BUN 6 L Creatinine 0.62 Estim Creat Clear Calc 91.9 Estimated GFR > 60 POC Glucose 48 L* 101 Random Glucose 57 L* Calcium 7.9 L B-Natriuretic Peptide 2483 H Random Vancomycin 03/28/25 03/28/25 10:27 11:30 WBC RBC Hgb Hct MCV MCH MCHC RDW Plt Count MPV Absolute Nucleated RBC Nucleated RBC % (auto) Sodium Potassium Chloride Carbon Dioxide Anion Gap BUN Creatinine Estim Creat Clear Calc Estimated GFR POC Glucose 95 93 Random Glucose Calcium B-Natriuretic Peptide Random Vancomycin Imaging Radiologist's impression: Impressions Chest Ultrasound 03/23/25 15:00 IMPRESSION: Complex right-sided pleural effusion, small to moderate volume. Partially collapsed right lower lung lobe. Electronically signed by: Tripp Martin MD 03/28/2025 07:59 AM EDT RP Assessment and Plan (1) Congestive heart failure: Status: Acute Plan Pleasant 79 year gentleman with Parkinson's disease, coronary artery bypass surgery in the past, permanent pacemaker, DVT and atrial fibrillation on anticoagulation presenting for pneumonia and concern for empyema. He has been on antibiotics. He has done well with antibiotics. His chest x-ray previously showed significant heart failure and he has been diuresed. Currently on 40 mg IV b.i.d. Lasix. I think they should be continued today. He also had anemia and received blood transfusion. It appears his back on Eliquis. Hemoglobin should be monitor closely. If he has any drop in hemoglobin again then Eliquis should be held. Overall clinically improving with diuretics. We will review echocardiography. Thank you for allowing me to participate in the care of your patient. Please feel free to contact me if you have any questions. Procedures Date of Service Date of Service: 03/28/25
--- NOTE | 2025-03-28 13:06 | MHC.CM.PN ---
Met with patient's and sister to discuss discharge planning. The patient has used his medicare days. Family will pay privately. Referra has been updated and resent to all facilities referred. T/W called [facility]. Patient had recently discharged from the facility. Spoke with [facility] liason corporate communications manager. They will accept the patient private pay. Spoke with Dianna from admissions. Contact info for patients was provided. Discharge is anticipated tomorrow. [facility] private pay via BLS.
--- NOTE | 2025-03-28 15:17 | MHC.SL.IMP ---
Date of Plan of Treatment: 03/28/25 Onset of Symptoms/Illness: 03/22/25 Date Treatment Started: 03/24/25 Admitting Diagnosis: PNA, acute metabolic encephalopathy Primary Speech & Language Diagnosis: R13.12 Oropharyngeal Phase Dysphagia Reason for Today's Visit: 75261 Modified Barium Swallow Study Pre-evaluation Dietary Consistencies: Grnd/Mech Altered (NDD2) Pre-evaluation Liquid Consistency: [place] Thick Pre-evaluation Medication Administration: Crushed with Puree Medical History: Modified Barium Swallow Study Fluoroscopic Evaluation of Swallowing Function CPT Code 09851 Evaluation Year: 2024 Reason for Study: Difficulty swallowing Referring Physician: Rachana Arguello NP Evaluating Clinician: Francesca Ordonez MA, CCC-LUMP INSPECTOR Study Number: 1 Patient Name: Eduardo Tracy Status: Inpatient, Stretcher Age: 79 Sex: Male Medical History Medical History Parkinsons Afib Abnormal EKG Deep vein thrombosis (DVT) of axillary vein of left upper extremity CHB (complete heart block) History of acute myocardial infarction Diabetes High cholesterol HTN (hypertension) Kidney disease, chronic, stage III (GFR 30-59 ml/min) Surgical History Hx of CABG S/P quadruple vessel bypass History of tonsillectomy Current (pre-evaluation) Intake/Diet: Route: PO Diet Grade: Mechanical Soft Liquid Consistencies: [place] Pre-Study Functional Oral Intake Scale (FOIS): 5- Total oral intake of multiple consistencies requiring special preparation Pain: None reported at time of study SUBJECTIVE: Patient is an 79 year-old male with Parkinson's, admitted to the hospital for acute metabolic encephalopathy in the setting of pneumonia with sepsis with parapneumonic effusion suspicious for empyema. Pulmonology is following and indicated concern for chronic aspiration. Patient was seen by LUMP INSPECTOR for clinical swallow evaluation and was started on a ground diet (NDD2) and nectar thick liquids, sent for MBSS this date to further evaluate extent of oropharyngeal dysphagia and to provide further feeding recommendations. Impressions and Recommendations OBJECTIVE: Time-out: performed at 11:00 Evaluation Start: 10:50; Stop: 10:55 Patient Positioning: Seated 70-90 degrees Viewing Planes: LATERAL ONLY Contrast: MBSImP? Standardized Protocol using commercially prepared, standardized Barium viscosities, including: Varibar? THIN LIQUID (40% w/v, <15 cps) , Varibar? NECTAR (40% w/v, <150-450 cps) , Varibar? THIN HONEY (40% w/v, <800-1800 cps) , Varibar? PUDDING (40% w/v, <4211-0893 cps) , 1/2 Shortbread Cookie (1 x1 x.25 ) [facility] ID: [id number] [facility] Results: Lip closure for intraoral bolus containment resulted in no labial escape. Tongue control during bolus hold allowed bolus escape to the lateral buccal cavity/floor of mouth. Bolus preparation and mastication demonstrated disorganized chewing/mashing with solid pieces of the bolus unchewed. Bolus transport/lingual motion demonstrated delayed initiation of tongue motion. Oral residue was a collection on oral structures. Initiation of the pharyngeal swallow occurred when the bolus head was in the valleculae. Soft palate elevation resulted in no bolus between the soft palate and the pharyngeal wall. Laryngeal elevation demonstrated complete superior movement of the thyroid cartilage with complete approximation of the arytenoids to the epiglottic petiole. Anterior hyoid excursion demonstrated partial anterior movement. Epiglottic movement resulted in partial inversion. Laryngeal vestibular closure was incomplete, with a narrow column of air/contrast noted within the laryngeal vestibule at the height of the swallow. Pharyngeal stripping wave was present and complete. Pharyngeal contraction could not be determined due to logistical reasons not related to physiologic impairment. Pharyngoesophageal segment opening demonstrated partial distension/partial duration, with partial obstruction of bolus flow. Tongue base retraction allowed a trace column of contrast or air between the retracted tongue base and the posterior pharyngeal wall. Pharyngeal residue was a collection of residue within or on pharyngeal structures. Esophageal clearance in the upright position could not be assessed due to logistical reasons not related to physiologic impairment. Oral Impairment Score: 7 Pharyngeal Impairment Score: 6 (absence of score, component 13) Esophageal Impairment Score: --- (absence of score, component 17) Laryngeal Penetration and Aspiration: Penetration was observed in today's study. [place]-thick, Thin Contrast entered the airway, remained above the vocal folds, and were ejected from the airway. Honey-thick Contrast entered the airway, remained above the vocal folds, and was not ejected from the airway. ASSESSMENT: This exam was performed by the radiologist and the speech pathologist. Patient was seated upright in a stretcher at approximately 90 degrees for lateral view only. He fed himself and trialed the following consistencies: Thin liquid (individual cup sips) [place] thick liquid (individual cup sips) Honey thick liquid (individual cup sips) Puree (mixture applesauce with barium pudding) Ground solid (mixture chicken salad with barium pudding) Good lip closure with no anterior spillage. Some escape of bolus to the floor of mouth, but no spilling posteriorly from the oral cavity. Mastication was slowed and disorganized. Patient preferred to chew using anterior teeth and force of the tongue. Delayed posterior lingual transport of bolus. There was mild to moderate degree of residue coating the tongue, cleared with multiple dry swallows, for which patient was cued most of the time. Pharyngeal swallow trigger initiated as the bolus head reached the valleculae. No evidence of nasopharyngeal reflux. Complete laryngeal elevation with partial epiglottic inversion and partial laryngeal vestibular closure, resulting in compromised airway protection. There was significant pharyngeal retention seen. Thin liquid: Trace penetration above the vocal folds, which cleared either spontaneously or with throat clearing. Mild to moderate pooling in the valleculae mostly cleared on dry swallows. [place] thick liquid: Increased penetration above the vocal folds, during the swallow or after the swallow on contrast which had spilled over from the pyriforms, but cleared from the airway with cued throat clear and repeat dry swallow. Note increased pharyngeal pooling on this consistency. Honey thick liquid: Trace penetration above the vocal folds which did not clear. Significant pooling (approximately 50% of bolus) in the valleculae and pyriforms. There was trace penetration to the vocal folds on mixed media which had pooled and spilled over from the pyriforms. Pureed solid: No evidence of aspiration or penetration. Significant retention in the valleculae (approximately 50% of bolus), reduced minimally with multiple dry swallows. Chin tuck had no effect in clearing residue. Ground solid: No evidence of aspiration or penetration. Patient exhibited more difficulty clearing this consistency from the pharynx. Multiple dry swallows minimally reduced residue. Chin tuck again had no effect. The following compensatory strategies have not been used until today's study, but when employed, improved swallowing function: Additional Swallow(s) per Bolus decreased Oral Residue, Pharyngeal Residue Throat Clear eliminated Penetration Liquid Intake Recommendation: Thin Liquid Intake Strategies: Small Sips No Straws Double Swallow Dietary Recommendations: Pureed (NDD1) Medication Administration: Crushed with Puree Please contact the pharmacy regarding appropriate crushable or liquid drug formulations that are available whenever modified delivery is recommended. Compensatory Strategies Recommended: Sitting Upright (90 deg) Double Swallow No Straw Liquids from Cup Liquids from Spoon Small Bites and Sips Rate of Ingestion Change Avoid Specific Foods Supervision during eating and or drinking: Direct Supervision (1:1) Recommended Treatments: Compens. Strategy Educat. Recommendation for Speech Therapy: Inpatient Speech Therapy Speech Therapy through [facility] Speech Therapy through Rehab Facility Text Comment: Intake Recommendations: Route: PO Diet Grade: Puree Liquid Consistencies: Thin Post-Study Functional Oral Intake Scale (FOIS): 5- Total oral intake of multiple consistencies requiring special preparation Patient presents with moderate oropharyngeal dysphagia in setting of underlying Parkinson?s Disease. MBSS revealed penetration on thin liquids, thickened liquids, and mixed consistencies. Significant pharyngeal retention, especially on harder solids or thicker consistencies. Multiple dry swallows minimally reduced residue, whereas chin tuck maneuver had no effect. Patient was cued for effortful swallow on PO intake as well. Recommend PUREED (NDD1) solids and THIN liquids, pills CRUSHED in PUREE. Patient attempts to feed himself, but will need assistance throughout meal. Following strategies are recommended to maximize safety: -Small sips via teaspoon or controlled cup -NO STRAWS -Position upright during all PO intake and for at least 30-60 minutes afterwards -Multiple dry swallows after each bite/sip -Take small bites, ensure oral cavity is clear before taking next bite -AVOID mixed consistencies, puree w/ separation of liquid, overly congealed or thick purees -Frequent oral care daily LUMP INSPECTOR will continue to follow during inpatient stay. Patient will need continued speech therapy at the next level of care. Therapy Recommendations: Therapy will be continued The following compensatory strategies and/or therapeutic exercises will be part of the upcoming therapy/management plan: Additional Swallow(s) per Bolus Throat Clear Coconut Jelly Roller Goals: ? The patient will tolerate the least restrictive diet with a safe/efficient swallow to maintain adequate nutrition and hydration. ? The patient and/or family will participate in further education for swallowing goals. Short Term Goals: ? Diet - The patient will tolerate a pureed diet with thin liquids without signs or symptoms of penetration/aspiration 100% of the time. - The patient will participate in therapeutic PO trials with the LUMP INSPECTOR. ? Guidelines - The patient will comply with/recall the following guidelines/strategies 100% of the time with moderate cuing: Bolus Volume Change, Rate of Ingestion Change, Additional Swallow(s) per Bolus, Effortful Swallow (used during PO intake), Throat Clear, No Straws. ? Education - The patient, family, caregiver, nurse will verbalize/demonstrate understanding of the results of this evaluation, the above recommendations, and the swallowing guidelines. Frequency/Duration: M-F Date Range for Service Requested: Timeline to reassess: PRN Clinician - Supplemental, Miscellaneous Communication: It is important to note MBSS objective studies are snapshots in time and Patient function might vary with factors such as time of day or concomitant medical conditions. For this reason, the final treatment plan for this patient should rest with their medical care team. Additional recommendations should be considered with the totality of the Patient in mind. Thank for the opportunity to participate in the care of this patient. If you have any questions about the content of this report, please contact the [facility] at [facility]. Education: Education regarding findings from today's study and plans for therapy were provided to Patient only through Verbal Instruction. Understanding was expressed by the Patient only. Brand Representative Clinician/Clinical Fellow: No Supervisory Statement: N/A Speech Language Pathologist: Francesca Ordonez M.A., [facility] INSPECTOR
[2025-03-28 15:42] VITALS: BP 115/65; PULSE 69; RESP 18; TEMP 36.5; O2SAT 94
[2025-03-28 16:29] LABS: Glucose, Whole Blood 60 mg/dL (60-115)
[2025-03-28 17:02] LABS: Glucose, Whole Blood 68 mg/dL (60-115)
[2025-03-28] MEDS: Dextrose 10 % 1,000 ML 50 ML IVCONT (17:40)
--- NOTE | 2025-03-28 18:01 | PC.NURSE ---
0914 critical blood sugar of 57 , Pt NPO , D50 given , Rachana Arguello aware , 10 am blood sugar 101. 1622 - pt blood sugar 60 , pt given orange juice and blood sugar to 68 , Rachana aware , new order for D 10 at 50mls hr. will cont to monitor , pt eating dinner with assistance of staff . pt noted to have coughing with thin liquids without straw and small sips , following recommendations of speech and swallow , provider aware .
[2025-03-28 19:12] LABS: Glucose, Whole Blood 81 mg/dL (60-115)
[2025-03-28 19:38] VITALS: BP 109/58; PULSE 67; RESP 16; TEMP 36.6; O2SAT 96
[2025-03-28 20:46] LABS: Glucose, Whole Blood 105 mg/dL (60-115)
[2025-03-29 03:26] VITALS: BP 128/61; PULSE 60; RESP 18; TEMP 36.2; O2SAT 92
[2025-03-29 07:29] LABS: Glucose, Whole Blood 64 mg/dL (60-115)
[2025-03-29 07:59] VITALS: BP 131/60; PULSE 61; RESP 16; TEMP 36.4; O2SAT 94
[2025-03-29] MEDS: Ferrous Sulfate 324 MG TABLET.DR PO (08:01)
[2025-03-29] MEDS: Furosemide 40 MG/4 ML VIAL IVPUSH ×2 (08:02→18:20)
[2025-03-29 08:08] LABS: Creatinine Clr Calc Pharmacy 89.0; Estimated Glomerular Filt Rate > 60
[2025-03-29 09:28] LABS: Glucose, Whole Blood 100 mg/dL (60-115)
--- NOTE | 2025-03-29 09:30 | MHC.CM.PN ---
Discharge to [facility] is cancelled today. Patient requires D10 for low Blood Glucose levels. Patients has been notified that discharge is on hold today. [facility] once medically cleared. Transport via BLS ay discharge.
--- NOTE | 2025-03-29 09:56 | MHC.CLN ---
NUTRITION PATIENT WITH VARIABLE PO INTAKE. SKIN WITH PINK SACRUM WITH PROTECTIVE FOAM. PER EDUCATIONAL FUNDRAISING DIRECTOR, PUREE CONSISTENCY WITH THIN LIQUIDS. CHANGING DIET FROM DIABETIC TO REGULAR TO PROMOTE PO INTAKE. ADDING ENSURE BID (700 KCALS, 40 G PROTEIN) TO IMPROVE NUTRITIONAL INTAKE. RD TO MONITOR WEEKLY.
[2025-03-29 11:13] LABS: Glucose, Whole Blood 112 mg/dL (60-115)
--- NOTE | 2025-03-29 11:28 | P.PNIM_ITS ---
Subjective Subjective Date of Service: 03/29/25 Interval History: Follow up fall, sepsis, pneumonia Improved SOB and cough Hypoglycemia and still on D10 Physical Exam 2 Vital Signs: Vital Signs: Last Vital Signs Temp 97.5 F 03/29/25 07:59 Pulse 61 03/29/25 07:59 Resp 16 03/29/25 07:59 BP 131/60 03/29/25 07:59 Pulse Ox 94 03/29/25 07:59 O2 Del Method Room Air 03/29/25 07:59 O2 Flow Rate 2 03/27/25 16:22 BMI result Body Mass Index 26.1 GENERAL APPEARANCE: in no acute distress, pleasant. NECK: no carotid bruit, mild jugular venous distention. SKIN: no suspicious lesions, warm and dry. HEART: no murmurs, regular rate and rhythm. LUNGS: clear to auscultation bilaterally. ABDOMEN: soft, nontender. EXTREMITIES: no edema. PERIPHERAL PULSES: equal. NEUROLOGIC: No gross deficits, AAO X 3 Objective Data Active Medications Acetaminophen (Acetaminophen 325 Mg Tablet) 975 mg PO Q6H PRN PRN Reason: Pain, Mild 1-3,fever,headache Apixaban (Apixaban 5 Mg Tablet) 5 mg PO BID [facility] Last Admin: 03/29/25 08:01 Dose: 5 mg Documented By: TRACEE Ascorbic Acid (Ascorbic Acid 500 Mg Tablet) 1,000 mg PO DAILY [facility] Last Admin: 03/29/25 08:01 Dose: 1,000 mg Documented By: TRACEE Atorvastatin Calcium (Atorvastatin Calcium 80 Mg Tablet) 80 mg PO DAILY [facility] Last Admin: 03/29/25 08:01 Dose: 80 mg Documented By: TRACEE Calcium Carbonate (Calcium Carbonate 750 Mg Tab.Chew) 750 mg PO Q4H PRN PRN Reason: Heartburn Dextrose (Dextrose 50 % 25 Gm/50 Ml Syringe) 25 gm IVPUSH Q15M PRN; Protocol PRN Reason: per Hypoglycemia Standing Ord. Last Admin: 03/28/25 09:49 Dose: 25 gm Documented By: TRACEE Ferrous Sulfate (Ferrous Sulfate 324 Mg Tablet.) 324 mg PO DAILY [facility] Last Admin: 03/29/25 08:01 Dose: 324 mg Documented By: TRACEE Finasteride (Finasteride 5 Mg Tablet) 5 mg PO DAILY [facility] Last Admin: 03/29/25 08:01 Dose: 5 mg Documented By: TRACEE Furosemide (Furosemide 40 Mg/4 Ml Vial) 40 mg IVPUSH BID@0900,1800 [facility]; Protocol Last Admin: 03/29/25 08:02 Dose: 40 mg Documented By: TRACEE Glucose (Glucose Gel 15 Gm Gel..Gram.) 15 gm PO Q15M PRN; Protocol PRN Reason: per Hypoglycemia Standing Ord. Vancomycin HCl 750 mg/ Sodium (Chloride) 265 mls @ 265 mls/hr IV Q12H [facility] Last Infusion: 03/29/25 04:18 Dose: Infused Documented By: SAMIR Piperacillin Sod/Tazobactam (Sod 4.5 gm/ Sodium Chloride) 100 mls @ 200 mls/hr IV Q6H [facility] Last Infusion: 03/29/25 06:45 Dose: Infused Documented By: TRACEE Dextrose (D10) 1,000 mls @ 50 mls/hr IVCONT .Q20H [facility] Last Admin: 03/28/25 17:40 Dose: 50 mls/hr Documented By: TRACEE Insulin Glargine (Insulin Glargine,Hum.Rec.Anlog 100 Unit/Ml 10 Ml Vial) 22 unit SUBCUT BEDTIME [facility] Last Admin: 03/28/25 20:56 Dose: Not Given Documented By: SAMIR Non-Admin Reason: No Insulin Coverage Insulin Human Lispro (Insulin Lispro 100 Unit/Ml 3 Ml Vial) 0 unit SUBCUT QIDACHS [facility]; Protocol Last Admin: 03/29/25 08:02 Dose: Not Given Documented By: TRACEE Non-Admin Reason: No Insulin Coverage Losartan Potassium (Losartan Potassium 25 Mg Tablet) 25 mg PO DAILY [facility]; Protocol Magnesium Hydroxide (Milk Of Magnesia 30 Ml Oral.Susp) 30 ml PO DAILY PRN PRN Reason: Constipation Melatonin (Melatonin 3 Mg Tablet) 6 mg PO BEDTIME PRN PRN Reason: Insomnia Last Admin: 03/25/25 20:22 Dose: 6 mg Documented By: BETH Metoprolol Tartrate (Metoprolol Tartrate 25 Mg Tablet) 25 mg PO BID [facility]; Protocol Last Admin: 03/29/25 08:01 Dose: 25 mg Documented By: TRACEE Pharmacy Consult (Consult Rx Vancomycin Dosing) 1 each MISCELLANE DAILY PRN PRN Reason: Consult order Sodium Chloride (0.9 % Sodium Chloride Flush 3 Ml Syringe) 3 ml IVFLUSH QSHIFT [facility] Last Admin: 03/29/25 06:45 Dose: Not Given Documented By: TRACEE Non-Admin Reason: IV Running Labs 03/27/25 15:38 03/29/25 07:46 Labs: Laboratory Results - last 24 hr 03/28/25 03/28/25 03/28/25 11:30 16:22 16:58 Hold Purple Top Estim Creat Clear Calc Estimated GFR POC Glucose 93 60 68 03/28/25 03/28/25 03/29/25 18:25 20:37 07:25 Hold Purple Top Estim Creat Clear Calc Estimated GFR POC Glucose 81 105 64 03/29/25 03/29/25 03/29/25 07:46 09:25 11:04 Hold Purple Top SEE NOTE Estim Creat Clear Calc 89.0 Estimated GFR > 60 POC Glucose 100 112 Assessment and Plan (1) Pneumonia: Status: Acute (2) Acute metabolic encephalopathy: Status: Acute Plan 79-year-old male with a past medical history significant for complete heart block s/p PPM, DVT, AFib on Eliquis, hypertension, CKD 3, s/p CABG, Parkinson's, type 2 diabetes on insulin, history of [place], who presented to the ED due to multiple falls yesterday, 2 times witnessed with 1 head strike. Pt is admitted to the hospital for acute metabolic encephalopathy in the setting of pneumonia with sepsis with parapneumonic effusion suspicious for empyema. Dysphagia Pt previously on pureed diet and nectar thick liquids MBBS: Laryngeal penetration with thin and thick barium. Mild retention of solid food in the valleculae and piriform sinuses which clears with subsequent swallowin Hypoglycemia d/t NPO, now on diet wean off d10 Fluid overload BNP 2676, 2483 Echocardiogram pending Continue Lasix 40 mg IV b.i.d. Sepsis with acute metabolic encephalopathy secondary to pneumonia with parapneumonic effusion suspicious for empyema Chest CT with partially loculated bilateral pleural effusions and multifocal bilateral atelectasis. vancomycin and Zosyn Pulmonology consult>Originally thoracentesis ordered, though pulmonology wanted chest tube placed, IR did bedside US and did not think pt had loculated effusion; suggested seeing how did with IV abx alone for now Repeat chest x-ray 03/27 showing cardiomegaly, pulmonary vascular congestion and small bilateral pleural effusions, we will treat for congestive heart failure Multiple falls Head CT and neck CT negative for acute findings Fall precautions PT evaluation> Rec STR Acute on chronic anemia Likely some element of dilution from IVF No evidence of acute bleeding Hem Improved to 8.7 after transfusion of 1 unit PRBCs Monitor CBC Hx DVT Eliquis resumed Paroxysmal a fib EKG with ventricular paced rhythm with occasional PVCs Continue BB Eliquis HTN BP soft, hold home meds CKD 3 Creatinine at baseline Parkinson's Continue home meds Type 2 diabetes Siding scale insulin lantus Full code VTE prophy: Eliquis Quality Stroke Does the patient have a stroke diagnosis?: No VTE Prior VTE?: Yes VTE Risk Level:: Medical - moderate - high VTE Device Contraindication: N/A - Device Ordered VTE Drug Contraindication: Treatment Not Indicated
[2025-03-29 11:43] VITALS: BP 113/55
[2025-03-29 12:49] VITALS: BP 130/69; PULSE 69; RESP 18; TEMP 36.7; O2SAT 98
--- NOTE | 2025-03-29 13:41 | P.PNCA_ITS ---
Subjective Subjective Date of Service: 03/29/25 Interval history: Seen examined at bedside. He is saying he is more short of breath today. Did not have any orthopnea overnight. Physical Exam Vital Signs: Last Vital Signs Temp 98.1 F 03/29/25 12:49 Pulse 69 03/29/25 12:49 Resp 18 03/29/25 12:49 BP 130/69 03/29/25 12:49 Pulse Ox 98 03/29/25 12:49 O2 Del Method Room Air 03/29/25 12:49 O2 Flow Rate 2 03/27/25 16:22 BMI result Body Mass Index 26.1 GENERAL APPEARANCE: in no acute distress, pleasant. Not on supplemental oxygen. NECK: no carotid bruit, mild jugular venous distention. SKIN: no suspicious lesions, warm and dry. HEART: no murmurs, regular rate and rhythm. LUNGS: Coarse crackles both bases. ABDOMEN: soft, nontender. EXTREMITIES: no edema. PERIPHERAL PULSES: equal. NEUROLOGIC: No gross deficits, AAO X 3 Objective Labs and Meds 03/27/25 15:38 03/29/25 07:46 Lab results: Laboratory Results - last 24 hr 03/28/25 03/28/25 03/28/25 16:22 16:58 18:25 Hold Purple Top Creatinine Estim Creat Clear Calc Estimated GFR POC Glucose 60 68 81 Random Vancomycin 03/28/25 03/29/25 03/29/25 20:37 07:25 07:46 Hold Purple Top SEE NOTE Creatinine 0.64 Estim Creat Clear Calc 89.0 Estimated GFR > 60 POC Glucose 105 64 Random Vancomycin 03/29/25 03/29/25 03/29/25 09:25 11:04 13:13 Hold Purple Top Creatinine Estim Creat Clear Calc Estimated GFR POC Glucose 100 112 Random Vancomycin 16.9 Imaging Radiologist's impression: Impressions Modified Barium Swallow 03/28/25 09:49 IMPRESSION: Laryngeal penetration with thin and thick barium. Mild retention of solid food in the valleculae and piriform sinuses which clears with subsequent swallowing. Electronically signed by: Vincent Cuevas MD 03/28/2025 03:51 PM EDT RP Progress Note: A&P Assessment and plan (1) Congestive heart failure: Status: Acute (2) Cardiomyopathy: Status: Acute Plan 79-year-old gentleman with previous history of dual-chamber pacemaker placement and coronary artery bypass surgery. He is presenting shortness of breath in the setting of congestive heart failure and pneumonia. There is concern for aspiration due to dysphagia related to Parkinson's disease. He also has anemia and is on Eliquis and aspirin. Eliquis is for previous DVT. I think aspirin can be discontinued. If hemoglobin stable then Eliquis can be continued with close monitoring. He has severe cardiomyopathy by echocardiography. He also has significantly elevated right atrial pressure and severe pulmonary hypertension. Added losartan which can be titrated depending on his blood pressure. Follow up with Dr. Bermudez at [facility]. Thank you for allowing me to participate in the care of your patient. Please feel free to contact me if you have any questions. Time Spent With Patient Time: Total time managing care of this patient today ____ minutes. Progress Note: Quality Stroke Does the patient have a stroke diagnosis?: No Procedures Date of Service Date of Service: 03/29/25
[2025-03-29] MEDS: 0.9 % Sodium Chloride Flush 3 ML SYRINGE IVFLUSH ×2 (14:29→20:04)
--- NOTE | 2025-03-29 15:36 | MHC.SL.SWA ---
Speech Pathologist Impression: Pt presents with moderate to significant pharyngeal dysphagia. Recc pt be downgraded from thins to NTL, remain on pureed diet. BUS AIDE tx indicated. Pt and verbalize understanding that he remains at elevated risk for recurrent aspiration PNAs. Risk of Aspiration Due to: Neurological Condition History of Pneumonia Dysphasia Diet Status: Pt was previously at [facility] for short term rehab from 09/10/2024-10/13/2024. Had had MBSS done while at [facility] during this time; based on MBSS he was recommended ground solids (NDD2) and thin liquids. Based on that information and observation during lunch on this date, ground solids is believed to be the safest and least restrictive solid consistency. Recommend GROUND/MECH ALTERED (NDD2) solids and NTL. Double swallow, small sips, requent breaks. Recommend continued dysphagia tx at next level of care. Liquid Consistency and Strategies for Safe Swallow: Liquid Intake Recommendation: [place] Thick Liquid Intake Strategies: Small Sips No Straws Double Swallow Solid Food Consistency: Dietary Recommendations: Pureed (NDD1) Additional Modifications to Solid Foods: Given underlying PD, concern for recurrent PNA, and worsening chest imaging, pt assessed via MBSS. See results below. Oral Medication Intake: Crushed with Puree Please contact the pharmacy regarding appropriate crushable or liquid drug formulations that are available whenever modified delivery is recommended. Compensatory Strategies and Precautions to be Taken for Safe Swallow: Sitting Upright (90 deg) Double Swallow No Straw Liquids from Cup Liquids from Spoon Small Bites and Sips Rate of Ingestion Change Avoid Specific Foods Supervision While Eating and Drinking for Safe Swallow: Direct Supervision (1:1) Foods to Avoid: Cue or assist patient to take SINGLE SIPS if using straw. Patient with upper extremity weakness/numbness, requires direct supervision at meals, with assistance as needed in order to access food. Pre-cut diet recommended for ease of access. Swallowing Recommended Treatments: Compens. Strategy Educat. Recommendation for Speech: Inpatient Speech Therapy Speech Therapy through [facility] Speech Therapy through Rehab Facility Comment: Intake Recommendations: Route: PO Diet Grade: Puree Liquid Consistencies: Thin Post-Study Functional Oral Intake Scale (FOIS): 5- Total oral intake of multiple consistencies requiring special preparation Patient presents with moderate oropharyngeal dysphagia in setting of underlying Parkinson?s Disease. MBSS revealed penetration on thin liquids, thickened liquids, and mixed consistencies. Significant pharyngeal retention, especially on harder solids or thicker consistencies. Multiple dry swallows minimally reduced residue, whereas chin tuck maneuver had no effect. Patient was cued for effortful swallow on PO intake as well. Recommend PUREED (NDD1) solids and THIN liquids, pills CRUSHED in PUREE. Patient attempts to feed himself, but will need assistance throughout meal. Following strategies are recommended to maximize safety: -Small sips via teaspoon or controlled cup -NO STRAWS -Position upright during all PO intake and for at least 30-60 minutes afterwards -Multiple dry swallows after each bite/sip -Take small bites, ensure oral cavity is clear before taking next bite -AVOID mixed consistencies, puree w/ separation of liquid, overly congealed or thick purees -Frequent oral care daily BUS AIDE will continue to follow during inpatient stay. Patient will need continued speech therapy at the next level of care. Therapy Recommendations: Therapy will be continued The following compensatory strategies and/or therapeutic exercises will be part of the upcoming therapy/management plan: Additional Swallow(s) per Bolus Throat Clear Striker Off Goals: ? The patient will tolerate the least restrictive diet with a safe/efficient swallow to maintain adequate nutrition and hydration. ? The patient and/or family will participate in further education for swallowing goals. Short Term Goals: ? Diet - The patient will tolerate a pureed diet with thin liquids without signs or symptoms of penetration/aspiration 100% of the time. - The patient will participate in therapeutic PO trials with the BUS AIDE. ? Guidelines - The patient will comply with/recall the following guidelines/strategies 100% of the time with moderate cuing: Bolus Volume Change, Rate of Ingestion Change, Additional Swallow(s) per Bolus, Effortful Swallow (used during PO intake), Throat Clear, No Straws. ? Education - The patient, family, caregiver, nurse will verbalize/demonstrate understanding of the results of this evaluation, the above recommendations, and the swallowing guidelines. Frequency/Duration: M-F Date Range for Service Req: Timeline to reassess: PRN Scholastic Aptitude Test Grader Clinican/Clinical Fellow: No Supervisory Statement: I have reviewed and agree with the student/clinical fellow's documentation: N/A Speech Language Pathologist: Lala Amaya M.S., [facility]-BUS AIDE
[2025-03-29 16:00] VITALS: BP 115/58; PULSE 75; RESP 24; TEMP 36.7; O2SAT 95
[2025-03-29 16:35] LABS: Glucose, Whole Blood 194 mg/dL (60-115)
[2025-03-29 19:48] VITALS: BP 139/63; PULSE 80; RESP 18; TEMP 37; O2SAT 93
[2025-03-29] MEDS: Insulin Glargine,Hum.rec.anlog 100 UNIT/ML 10 ML VIAL 22 UNIT SUBCUT (20:03)
[2025-03-29 20:47] LABS: Glucose, Whole Blood 207 mg/dL (60-115)
[2025-03-30 03:29] VITALS: BP 116/72; PULSE 76; RESP 18; TEMP 36.3; O2SAT 92
[2025-03-30 07:01] LABS: Anion Gap 11 (12-20); Blood Urea Nitrogen 7 mg/dL (9-16); Calcium 7.6 mg/dL (8.4-10.2); Carbon Dioxide 29 mmol/L (22-29); Chloride 101 mmol/L (96-108); Creatinine Clr Calc Pharmacy 101.7; Estimated Glomerular Filt Rate > 60; Potassium 2.9 mmol/L (3.3-5.1); Sodium 138 mmol/L (135-145)
[2025-03-30] MEDS: Glucose Gel 15 GM GEL..GRAM. PO (07:09)
[2025-03-30 07:14] LABS: Glucose, Whole Blood 36 mg/dL (60-115)
[2025-03-30 07:14] LABS: Glucose, Whole Blood 169 mg/dL (60-115)
[2025-03-30] MEDS: 0.9 % Sodium Chloride Flush 3 ML SYRINGE IVFLUSH ×2 (07:17→20:41)
[2025-03-30 07:44] LABS: Glucose, Whole Blood 109 mg/dL (60-115)
[2025-03-30 08:00] VITALS: BP 127/62; PULSE 72; RESP 18; TEMP 36.5; O2SAT 96
[2025-03-30] MEDS: Dextrose 10 % 1,000 ML 50 ML IVCONT (08:15)
[2025-03-30 08:32] LABS: Glucose, Whole Blood 120 mg/dL (60-115)
--- NOTE | 2025-03-30 08:32 | PC.NURSE ---
0656 this Rn received critical glucose text of 40 , this Rn took sugar with POC machine and it was 36 at 0659. rapid response called , IV glucose given and glucose gel , pt awake but slow to respond , slurring his words . 710 blood sugar 169 , vss . new iv access obtained , 0739 blood sugar 109 , new order for iv fluids D10 at 50 , blood sugar at 815 is 120. aware . pt awake and alert , slight confusion noted .
--- NOTE | 2025-03-30 09:34 | PC.NURSE ---
pt wakes up to name but quickly falls asleep, we attempted to give breakfast and pt unable to eat due to him falling asleep , aware will keep NPO
--- NOTE | 2025-03-30 09:46 | HO.PM.IMPN ---
Subjective Subjective Date of Service: 03/30/25 Interval History: Follow up fall, sepsis, pneumonia and hypoyglycemia hypoglycemia again this morning, sugar 36 no symptoms, back on D10 Still suffering from dysphagia Physical Exam Vital Signs: Vital Signs: Last Vital Signs Temp 97.7 F 03/30/25 08:00 Pulse 72 03/30/25 08:00 Resp 18 03/30/25 08:00 BP 127/62 03/30/25 08:00 Pulse Ox 96 03/30/25 08:00 O2 Del Method Room Air 03/30/25 08:00 O2 Flow Rate 2 03/27/25 16:22 BMI result Body Mass Index 26.1 General:alert but speech is garbled d/t secretion Resp: bilateral rhonchi CVS: S1,S2,RRR GI: +BS, NT, no distention Skin: No rash Neuro: motor grossly intact Psych: flat affect Objective Data Active Medications Acetaminophen (Acetaminophen 325 Mg Tablet) 975 mg PO Q6H PRN PRN Reason: Pain, Mild 1-3,fever,headache Apixaban (Apixaban 5 Mg Tablet) 5 mg PO BID [facility] Last Admin: 03/30/25 08:57 Dose: Not Given Documented By: TRACEE Non-Admin Reason: pt lethargic Ascorbic Acid (Ascorbic Acid 500 Mg Tablet) 1,000 mg PO DAILY [facility] Last Admin: 03/30/25 09:00 Dose: Not Given Documented By: TRACEE Non-Admin Reason: pt lethargic Atorvastatin Calcium (Atorvastatin Calcium 80 Mg Tablet) 80 mg PO DAILY [facility] Last Admin: 03/30/25 09:00 Dose: Not Given Documented By: TRACEE Non-Admin Reason: pt lethargic Calcium Carbonate (Calcium Carbonate 750 Mg Tab.Chew) 750 mg PO Q4H PRN PRN Reason: Heartburn Dextrose (Dextrose 50 % 25 Gm/50 Ml Syringe) 25 gm IVPUSH Q15M PRN; Protocol PRN Reason: per Hypoglycemia Standing Ord. Last Admin: 03/30/25 07:09 Dose: 25 gm Documented By: TRACEE Ferrous Sulfate (Ferrous Sulfate 324 Mg Tablet.) 324 mg PO DAILY [facility] Last Admin: 03/30/25 09:00 Dose: Not Given Documented By: TRACEE Non-Admin Reason: pt lethargic Finasteride (Finasteride 5 Mg Tablet) 5 mg PO DAILY [facility] Last Admin: 03/30/25 09:00 Dose: Not Given Documented By: TRACEE Non-Admin Reason: pt letargic Furosemide (Furosemide 40 Mg/4 Ml Vial) 40 mg IVPUSH BID@0900,1800 [facility]; Protocol Last Admin: 03/30/25 09:40 Dose: Not Given Documented By: TRACEE Non-Admin Reason: hold per md Glucose (Glucose Gel 15 Gm Gel..Gram.) 15 gm PO Q15M PRN; Protocol PRN Reason: per Hypoglycemia Standing Ord. Last Admin: 03/30/25 07:09 Dose: 15 gm Documented By: TRACEE Vancomycin HCl 750 mg/ Sodium (Chloride) 265 mls @ 265 mls/hr IV Q12H [facility] Last Infusion: 03/30/25 03:45 Dose: Infused Documented By: EDWARD Piperacillin Sod/Tazobactam (Sod 4.5 gm/ Sodium Chloride) 100 mls @ 200 mls/hr IV Q6H [facility] Last Infusion: 03/30/25 08:04 Dose: Infused Documented By: TRACEE Dextrose (D10) 1,000 mls @ 50 mls/hr IVCONT .Q20H [facility] Last Admin: 03/30/25 08:15 Dose: 50 mls/hr Documented By: TRACEE Potassium Chloride (Potassium Chloride/H20) 20 meq in 100 mls @ 100 mls/hr IV Q1H [facility] Stop: 03/30/25 11:44 Losartan Potassium (Losartan Potassium 25 Mg Tablet) 25 mg PO DAILY [facility]; Protocol Last Admin: 03/30/25 09:00 Dose: Not Given Documented By: TRACEE Non-Admin Reason: pt letargic Magnesium Hydroxide (Milk Of Magnesia 30 Ml Oral.Susp) 30 ml PO DAILY PRN PRN Reason: Constipation Melatonin (Melatonin 3 Mg Tablet) 6 mg PO BEDTIME PRN PRN Reason: Insomnia Last Admin: 03/25/25 20:22 Dose: 6 mg Documented By: BETH Metoprolol Succinate (Metoprolol Succinate Er 50 Mg Tab.Er.24h) 50 mg PO DAILY [facility]; Protocol Last Admin: 03/30/25 09:01 Dose: Not Given Documented By: TRACEE Non-Admin Reason: pt letargic Pharmacy Consult (Consult Rx Vancomycin Dosing) 1 each MISCELLANE DAILY PRN PRN Reason: Consult order Sodium Chloride (0.9 % Sodium Chloride Flush 3 Ml Syringe) 3 ml IVFLUSH QSHIFT [facility] Last Admin: 03/30/25 07:17 Dose: 3 ml Documented By: TRACEE Spironolactone (Spironolactone 25 Mg Tablet) 25 mg PO DAILY [facility]; Protocol Last Admin: 03/30/25 09:24 Dose: Not Given Documented By: TRACEE Non-Admin Reason: NPO Labs 03/27/25 15:38 03/30/25 06:25 Labs: Laboratory Results - last 24 hr 03/29/25 03/29/25 03/29/25 11:04 13:13 16:25 Anion Gap Estim Creat Clear Calc Estimated GFR POC Glucose 112 194 H Random Glucose Calcium Random Vancomycin 16.9 03/29/25 03/30/25 03/30/25 20:29 06:25 06:59 Anion Gap 11 L Estim Creat Clear Calc 101.7 Estimated GFR > 60 POC Glucose 207 H 36 L* Random Glucose 40 L* Calcium 7.6 L Random Vancomycin 03/30/25 03/30/25 03/30/25 07:10 07:39 08:28 Anion Gap Estim Creat Clear Calc Estimated GFR POC Glucose 169 H 109 120 H Random Glucose Calcium Random Vancomycin Assessment and Plan (1) Pneumonia: Status: Acute (2) Acute metabolic encephalopathy: Status: Acute Plan 79-year-old male with a past medical history significant for complete heart block s/p PPM, DVT, AFib on Eliquis, hypertension, CKD 3, s/p CABG, Parkinson's, type 2 diabetes on insulin, history of [place], who presented to the ED due to multiple falls yesterday, 2 times witnessed with 1 head strike. Pt is admitted to the hospital for acute metabolic encephalopathy in the setting of pneumonia with sepsis with parapneumonic effusion suspicious for empyema. Dysphagia MBBS: Laryngeal penetration with thin and thick barium. Mild retention of solid food in the valleculae and piriform sinuses which clears with subsequent swallowing -NPO and HIGH PRESSURE CLEANER follow up -need for TPN vs Tube feed, will disccus with HCP Hypoglycemia Stop all insulin IV D10 Monitor glucose closely Fluid overload BNP 2676, 2483 Echocardiogram pending Continue Lasix 40 mg IV b.i.d Hypokalemia, IV K replacement while NPO Sepsis with acute metabolic encephalopathy secondary to pneumonia with parapneumonic effusion suspicious for empyema Chest CT with partially loculated bilateral pleural effusions and multifocal bilateral atelectasis. vancomycin and Zosyn Pulmonology consult>Originally thoracentesis ordered, though pulmonology wanted chest tube placed, IR did bedside US and did not think pt had loculated effusion; suggested seeing how did with IV abx alone for now Repeat chest x-ray 03/27 showing cardiomegaly, pulmonary vascular congestion and small bilateral pleural effusions, we will treat for congestive heart failure Multiple falls Head CT and neck CT negative for acute findings Fall precautions PT evaluation> Rec STR Acute on chronic anemia Likely some element of dilution from IVF No evidence of acute bleeding Hem Improved to 8.7 after transfusion of 1 unit PRBCs Monitor CBC Hx DVT Eliquis resumed Paroxysmal a fib EKG with ventricular paced rhythm with occasional PVCs Continue BB Eliquis HTN BP soft, hold home meds CKD 3, Creatine 0.5 Parkinson's Continue home meds Type 2 diabetes, now hypoglycemia dc insulin Full code VTE prophy: Eliquis Frail, over all not doing well and will have goals of care conversation with HCp Quality Stroke Does the patient have a stroke diagnosis?: No VTE Prior VTE?: Yes VTE Risk Level:: Medical - moderate - high VTE Device Contraindication: N/A - Device Ordered VTE Drug Contraindication: Treatment Not Indicated
[2025-03-30] MEDS: Potassium Chloride/H20 10 MEQ/100 ML PIGGYBACK 100 MEQ IV ×4 (09:59→13:20)
[2025-03-30 10:27] LABS: Hematocrit 28.9 % (42.0-52.0); Hemoglobin 8.8 g/dl (14.0-18.0); Mean Corpuscular HGB Conc 30.4 g/dl (31.0-36.0); Mean Corpuscular Hemoglobin 24.8 pg (27.0-33.0); Mean Corpuscular Volume 81.4 fL (80.0-98.0); NRBC Abs Auto 0.000 X10*3/uL (0.0-0.012); NRBC Pct Auto 0.0 /100WBC (0.0-0.2); Platelet Count 235 X10*3/uL (160-400); Red Blood Count 3.55 X10*6/uL (4.60-5.80); White Blood Count 11.6 X10*3/uL (4.8-10.8)
[2025-03-30 10:54] LABS: Glucose, Whole Blood 95 mg/dL (60-115)
[2025-03-30 11:36] LABS: Glucose, Whole Blood 75 mg/dL (60-115)
[2025-03-30 12:32] LABS: Glucose, Whole Blood 73 mg/dL (60-115)
--- NOTE | 2025-03-30 13:45 | HE.PHANOTE ---
Re: Vanco Renal function improving. Trough returned at 17.9. Pt is therapeutic, but running higher than predictions (14.6). Continue current dose of 750mg q12h with predicted AUC of 420, predicted trough of 14. Next trough to be drawn 03/31 @ 1300.
[2025-03-30 14:03] LABS: Glucose, Whole Blood 86 mg/dL (60-115)
--- NOTE | 2025-03-30 14:38 | MHC.SL.SWA ---
Speech Pathologist Impression: Risk of Aspiration Due to: Neurological Condition History of Pneumonia Dysphasia Diet Status: Recommendation is patient resume diet of PUREE (NDD1) with THIN liquids (by tsp or controlled cup sip in small sips), pills crushed in puree. Patient may cough at times, dry cough is encouraged. Discontinue if wet or spasmodic coughing noted, wet voice or upper airway noise noted (clinical signs of aspiration), or if patient is not adequately awake and alert for meal. Liquid Consistency and Strategies for Safe Swallow: Liquid Intake Recommendation: Thin Liquid Intake Strategies: Small Sips by tsp or controlled cup sip No Straws dry cough o.k. Solid Food Consistency: Dietary Recommendations: Pureed (NDD1) Additional Modifications to Solid Foods: Oral Medication Intake: Crushed with Puree Please contact the pharmacy regarding appropriate crushable or liquid drug formulations that are available whenever modified delivery is recommended. Compensatory Strategies and Precautions to be Taken for Safe Swallow: Sitting Upright (90 deg) Double Swallow No Straw Liquids from Cup Liquids from Spoon Small Bites and Sips Rate of Ingestion Change Avoid Specific Foods Supervision While Eating and Drinking for Safe Swallow: Total Assistance (1:1) Foods to Avoid: Patient with upper extremity weakness/numbness, requires full assistance Swallowing Recommended Treatments: Compens. Strategy Educat. Recommendation for Speech: Inpatient Speech Therapy Speech Therapy through [facility] Speech Therapy through Rehab Facility Comment: Patient had been made NPO by RN this morning due to severe hypoglycemia and reduced responsiveness. RN reported needing to suction medication attempted from mouth. RN/MD requested re-assessment to determine if PO is still considered safe. Patient seen early PM today, was awake and alert and feeling better, and sister in law were present in room. SPARE FIXER yesterday had recommended downgrade of liquids to nectar thick, due to observed coughing on thin liquids (per her note, and 's report). Patient was positioned to be seated up right in bed, and was initially given tsp amounts of water by spoon. Patient produced timely oral phase, mild delay initiating swallow, reduced laryngeal elevation on swallow. SPARE FIXER continued with presentations of water by tsp then by controlled cup sip. Patient noted to periodically cough after swallow(after a delay), cough is audibly dry v. wet, when vocalizing, voice is also dry after swallow, coughing had been noted on MBSS study to aid in clearing pharynx. Patient also give apple sauce, presented by tsp, and observed for a full container. Patient again produced timely oral phase, mild delay initiating swallow, but tolerated this consistency well with no clinical signs of aspiration. MBSS study again reviewed with patient, , RN, recommendation is patient resume diet of PUREE (NDD1) with THIN liquids (by tsp or controlled cup sip in small sips), pills crushed in puree. Dry cough behavior also reviewed/contrasted with wet, spasmodic coughing as clinical sign of aspiration. JEANNE CHAIREZ notified of recommendation by secure text. was encouraged to continue lunch meal which had been delivered but was held for this evaluation. Frequency/Duration: M-F Date Range for Service Req: Timeline to reassess: PRN Associate Professor Of Radiology Clinican/Clinical Fellow: No Supervisory Statement: I have reviewed and agree with the student/clinical fellow's documentation: N/A Speech Language Pathologist: Kelly Kang M.A., CCC-SPARE FIXER
[2025-03-30 15:07] VITALS: BP 124/58; PULSE 82; RESP 18; TEMP 37; O2SAT 97
--- NOTE | 2025-03-30 15:26 | P.CDIM_ITS ---
PROVIDER RESPONSE TEXT: To clarify, the appropriate diagnosis supported by the clinical indicators: Systolic: Acute QUERY TEXT: PHYSICIAN'S DOCUMENTATION REQUEST Date of Query: 03/30/2025 11:35 AM EDT Patient Name: Eduardo Tracy Admit Date: 03/23/2025 Dear Uday Leon MD, A review of the medical record indicates additional documentation may be needed. Please review below and update the documentation accordingly. Clinical Indicators: short of breath, coarse crackles both bases, oxygen at 2L, BNP 2676, 2483 fluid overload ECHO pending will treat for congestive heart failure Lasix 40 mg IV b.i.d Please provide further specificity regarding the most likely type and acuity of CHF you are evaluating, treating, or monitoring. Systolic Please specify if Acute, Chronic, or Acute on chronic, or Unable to determine Diastolic Please specify if Acute, Chronic, or Acute on chronic, or Unable to determine Combined Systolic/Diastolic Please specify if Acute, Chronic, or Acute on chronic, or Unable to determine Other (explain) Clinically unable to determine (explain) Thank you, Tanya Leiva RN Use of terms such as suspected, likely, concern for, or probable (associated with a specific diagnosis that is being evaluated, monitored, or treated as if it exists) are acceptable and can be coded in the inpatient setting, when documented at the time of discharge. Please use your independent medical judgment in providing your response. THIS QUERY IS PART OF THE PERMANENT MEDICAL RECORD
[2025-03-30 16:13] LABS: Glucose, Whole Blood 160 mg/dL (60-115)
[2025-03-30 19:45] VITALS: BP 109/53; PULSE 70; RESP 18; TEMP 36.8; O2SAT 96
[2025-03-30 20:01] LABS: Glucose, Whole Blood 230 mg/dL (60-115)
[2025-03-30 23:20] VITALS: BP 107/57; PULSE 73; RESP 18; TEMP 37.1; O2SAT 97
[2025-03-30 23:30] LABS: Glucose, Whole Blood 167 mg/dL (60-115)
[2025-03-31] VITALS (7 sets, daily range): BP systolic 108–129; BP diastolic 54–63; PULSE 62–82; RESP 17–22; TEMP 36.5–37.4; O2SAT 91–96
[2025-03-31] MEDS: Dextrose 10 % 1,000 ML 50 ML IVCONT (03:12)
[2025-03-31 03:35] LABS: Glucose, Whole Blood 118 mg/dL (60-115)
--- NOTE | 2025-03-31 03:55 | PC.NURSE ---
HS [id number], Dr. Corral was made aware, sliding scale ordered, present IVF to cont.
[2025-03-31 06:49] LABS: Creatinine Clr Calc Pharmacy 107.5; Estimated Glomerular Filt Rate > 60
[2025-03-31 07:50] LABS: Glucose, Whole Blood 123 mg/dL (60-115)
[2025-03-31] MEDS: Ferrous Sulfate 324 MG TABLET.DR PO (07:54)
[2025-03-31] MEDS: Metoprolol Succinate ER 50 MG TAB.ER.24H PO (07:54)
[2025-03-31 10:16] LABS: Glucose, Whole Blood 165 mg/dL (60-115)
[2025-03-31 11:38] LABS: Anion Gap 7 (12-20); Blood Urea Nitrogen 8 mg/dL (9-16); Calcium 7.5 mg/dL (8.4-10.2); Carbon Dioxide 30 mmol/L (22-29); Chloride 102 mmol/L (96-108); Creatinine Clr Calc Pharmacy 91.9; Estimated Glomerular Filt Rate > 60; Potassium 3.4 mmol/L (3.3-5.1); Sodium 136 mmol/L (135-145)
[2025-03-31 11:39] LABS: Glucose, Whole Blood 148 mg/dL (60-115)
--- NOTE | 2025-03-31 11:41 | MHC.SL.SWA ---
Speech Pathologist Impression: Risk of Aspiration, Oropharyngeal Dysphagia Risk of Aspiration Due to: Neurological Condition History of Pneumonia Dysphasia Diet Status: Recommendation is patient resume diet of PUREE (NDD1) with THIN liquids (by tsp or controlled cup sip in small sips), pills crushed in puree. Patient may cough at times, dry cough is encouraged. Discontinue if wet or spasmodic coughing noted, wet voice or upper airway noise noted (clinical signs of aspiration), or if patient is not adequately awake and alert for meal. Liquid Consistency and Strategies for Safe Swallow: Liquid Intake Recommendation: Thin Liquid Intake Strategies: Small Sips No Straws Double Swallow Solid Food Consistency: Dietary Recommendations: Pureed (NDD1) Additional Modifications to Solid Foods: MBSS 03/28: Patient presents with moderate oropharyngeal dysphagia in setting of underlying Parkinson?s Disease. MBSS revealed penetration on thin liquids, thickened liquids, and mixed consistencies. Significant pharyngeal retention, especially on harder solids or thicker consistencies. Multiple dry swallows minimally reduced residue, whereas chin tuck maneuver had no effect. Patient was cued for effortful swallow on PO intake as well. Recommend PUREED (NDD1) solids and THIN liquids, pills CRUSHED in PUREE. Patient attempts to feed himself, but will need assistance throughout meal. Following strategies are recommended to maximize safety: -Small sips via teaspoon or controlled cup -NO STRAWS -Position upright during all PO intake and for at least 30-60 minutes afterwards -Multiple dry swallows after each bite/sip -Take small bites, ensure oral cavity is clear before taking next bite -AVOID mixed consistencies, puree w/ separation of liquid, overly congealed or thick purees -Frequent oral care daily Oral Medication Intake: Crushed with Puree Please contact the pharmacy regarding appropriate crushable or liquid drug formulations that are available whenever modified delivery is recommended. Compensatory Strategies and Precautions to be Taken for Safe Swallow: Sitting Upright (90 deg) Double Swallow No Straw Liquids from Cup Liquids from Spoon Small Bites and Sips Rate of Ingestion Change Avoid Specific Foods Supervision While Eating and Drinking for Safe Swallow: Total Assistance (1:1) Foods to Avoid: Cue or assist patient to take SINGLE SIPS if using straw. Patient with upper extremity weakness/numbness, requires direct supervision at meals, with assistance as needed in order to access food. Pre-cut diet recommended for ease of access. Swallowing Recommended Treatments: Compens. Strategy Educat. Recommendation for Speech: Inpatient Speech Therapy Speech Therapy through [facility] Therapy through Rehab Facility CANAL BOAT OPERATOR will continue to follow during inpatient stay. Patient will need continued speech therapy at the next level of care. The following compensatory strategies and/or therapeutic exercises will be part of the upcoming therapy/management plan: Additional Swallow(s) per Bolus Throat Clear Usp Goals: ? The patient will tolerate the least restrictive diet with a safe/efficient swallow to maintain adequate nutrition and hydration. ? The patient and/or family will participate in further education for swallowing goals. Short Term Goals: ? Diet - The patient will tolerate a pureed diet with thin liquids without signs or symptoms of penetration/aspiration 100% of the time. - The patient will participate in therapeutic PO trials with the CANAL BOAT OPERATOR. ? Guidelines - The patient will comply with/recall the following guidelines/strategies 100% of the time with moderate cuing: Bolus Volume Change, Rate of Ingestion Change, Additional Swallow(s) per Bolus, Effortful Swallow (used during PO intake), Throat Clear, No Straws. ? Education - The patient, family, caregiver, nurse will verbalize/demonstrate understanding of the results of this evaluation, the above recommendations, and the swallowing guidelines. Frequency/Duration: M-F Date Range for Service Req: Timeline to reassess: PRN In Service Coordinator Clinican/Clinical Fellow: No Supervisory Statement: I have reviewed and agree with the student/clinical fellow's documentation: N/A Speech Language Pathologist: Francesca Ordonez M.A., [facility]-CANAL BOAT OPERATOR
--- NOTE | 2025-03-31 12:19 | P.PNCA_ITS ---
Subjective Subjective Date of Service: 03/31/25 Interval history: Seen examined at bedside. Saying his breathing is stable today. Physical Exam Vital Signs: Last Vital Signs Temp 98.0 F 03/31/25 12:00 Pulse 71 03/31/25 12:00 Resp 18 03/31/25 12:00 BP 108/58 L 03/31/25 12:00 Pulse Ox 92 03/31/25 12:00 O2 Del Method Room Air 03/31/25 12:00 O2 Flow Rate 2 03/27/25 16:22 BMI result Body Mass Index 26.1 GENERAL APPEARANCE: in no acute distress, pleasant. Not on supplemental oxygen. NECK: no carotid bruit, no jugular venous distention. SKIN: no suspicious lesions, warm and dry. HEART: no murmurs, regular rate and rhythm. LUNGS: Clear to auscultation anteriorly. ABDOMEN: soft, nontender. EXTREMITIES: no edema. PERIPHERAL PULSES: equal. NEUROLOGIC: No gross deficits, AAO X 3 Objective Labs and Meds 03/30/25 10:16 03/31/25 11:16 Lab results: Laboratory Results - last 24 hr 03/30/25 03/30/25 03/30/25 12:27 13:05 13:59 Hold Purple Top Sodium Potassium Chloride Carbon Dioxide Anion Gap BUN Creatinine Estim Creat Clear Calc Estimated GFR POC Glucose 73 86 Random Glucose Calcium Random Vancomycin 17.9 03/30/25 03/30/25 03/30/25 15:57 19:47 23:23 Hold Purple Top Sodium Potassium Chloride Carbon Dioxide Anion Gap BUN Creatinine Estim Creat Clear Calc Estimated GFR POC Glucose 160 H 230 H 167 H Random Glucose Calcium Random Vancomycin 03/31/25 03/31/25 03/31/25 03:09 06:12 07:33 Hold Purple Top SEE NOTE Sodium Potassium Chloride Carbon Dioxide Anion Gap BUN Creatinine 0.53 Estim Creat Clear Calc 107.5 Estimated GFR > 60 POC Glucose 118 H 123 H Random Glucose Calcium Random Vancomycin 03/31/25 03/31/25 10:13 11:16 Hold Purple Top Sodium 136 Potassium 3.4 Chloride 102 Carbon Dioxide 30 H Anion Gap 7 L BUN 8 L Creatinine 0.62 Estim Creat Clear Calc 91.9 Estimated GFR > 60 POC Glucose 165 H 148 H Random Glucose 159 H Calcium 7.5 L Random Vancomycin Progress Note: A&P Assessment and plan (1) Congestive heart failure: Status: Acute (2) Cardiomyopathy: Status: Acute Plan 79-year-old gentleman with previous history of dual-chamber pacemaker placement and coronary artery bypass surgery. He is presenting shortness of breath in the setting of congestive heart failure and pneumonia. There is concern for aspiration due to dysphagia related to Parkinson's disease. He also has anemia and is on Eliquis and aspirin. Eliquis is for previous DVT. I think aspirin can be discontinued. If hemoglobin stable then Eliquis can be continued with close monitoring. He has severe cardiomyopathy by echocardiography. He also has significantly elevated right atrial pressure and severe pulmonary hypertension. Added losartan which can be titrated depending on his blood pressure. Follow up with Dr. Bermudez at [facility]. Breathing status waxes and wanes due to aspiration events unfortunately. Thank you for allowing me to participate in the care of your patient. Please feel free to contact me if you have any questions. Time Spent With Patient Time: Total time managing care of this patient today ____ minutes. Progress Note: Quality Stroke Does the patient have a stroke diagnosis?: No Procedures Date of Service Date of Service: 03/31/25
--- NOTE | 2025-03-31 12:29 | MHC.CM.PN ---
Per MD rounds may be able to dischargelater today pending lab result. DBV via BLS.
--- NOTE | 2025-03-31 15:24 | MHC.CM.PN ---
Per MD, patient will be cleared for dc tomorrow 04/01. CM discussed dc plan for private pay LTC with /sister in law at bedside. They are in agreement and have accepted a bed at [facility]. Deposit has been paid. BLS prebooked for tomorrow at 11am. Facility, patient, family, RN and MD aware.
--- NOTE | 2025-03-31 15:28 | P.PNIM_ITS ---
Subjective Subjective Date of Service: 03/31/25 Interval History: Follow up fall, sepsis, pneumonia and hypoyglycemia Hypoglycemia has resolved, he is more awake Physical Exam 2 Vital Signs: Vital Signs: Last Vital Signs Temp 98.3 F 03/31/25 15:21 Pulse 78 03/31/25 15:21 Resp 18 03/31/25 15:21 BP 122/58 L 03/31/25 15:21 Pulse Ox 93 03/31/25 15:21 O2 Del Method Room Air 03/31/25 15:21 O2 Flow Rate 2 03/27/25 16:22 BMI result Body Mass Index 26.1 General:alert, speech is more audible Resp: bilateral rhonchi CVS: S1,S2,RRR GI: +BS, NT, no distention Skin: No rash Neuro: motor grossly intact Psych: flat affect Objective Data Active Medications Acetaminophen (Acetaminophen 325 Mg Tablet) 975 mg PO Q6H PRN PRN Reason: Pain, Mild 1-3,fever,headache Apixaban (Apixaban 5 Mg Tablet) 5 mg PO BID [facility] Last Admin: 03/31/25 07:53 Dose: 5 mg Documented By: MAT Ascorbic Acid (Ascorbic Acid 500 Mg Tablet) 1,000 mg PO DAILY [facility] Last Admin: 03/31/25 07:54 Dose: 1,000 mg Documented By: MAT Atorvastatin Calcium (Atorvastatin Calcium 80 Mg Tablet) 80 mg PO DAILY [facility] Last Admin: 03/31/25 07:53 Dose: 80 mg Documented By: MAT Calcium Carbonate (Calcium Carbonate 750 Mg Tab.Chew) 750 mg PO Q4H PRN PRN Reason: Heartburn Dextrose (Dextrose 50 % 25 Gm/50 Ml Syringe) 25 gm IVPUSH Q15M PRN; Protocol PRN Reason: per Hypoglycemia Standing Ord. Last Admin: 03/30/25 07:09 Dose: 25 gm Documented By: DABA Dextrose (Dextrose 50 % 25 Gm/50 Ml Syringe) 25 gm IVPUSH Q15M PRN; Protocol PRN Reason: per Hypoglycemia Standing Ord. Ferrous Sulfate (Ferrous Sulfate 324 Mg Tablet.) 324 mg PO DAILY [facility] Last Admin: 03/31/25 07:54 Dose: 324 mg Documented By: MAT Finasteride (Finasteride 5 Mg Tablet) 5 mg PO DAILY [facility] Last Admin: 03/31/25 07:53 Dose: 5 mg Documented By: MAT Furosemide (Furosemide 40 Mg Tablet) 40 mg PO DAILY M[facility]; Protocol Last Admin: 03/31/25 07:54 Dose: 40 mg Documented By: MAT Glucose (Glucose Gel 15 Gm Gel..Gram.) 15 gm PO Q15M PRN; Protocol PRN Reason: per Hypoglycemia Standing Ord. Last Admin: 03/30/25 07:09 Dose: 15 gm Documented By: TRACEE Glucose (Glucose Gel 15 Gm Gel..Gram.) 15 gm PO Q15M PRN; Protocol PRN Reason: per Hypoglycemia Standing Ord. Vancomycin HCl 750 mg/ Sodium (Chloride) 265 mls @ 265 mls/hr IV Q12H [facility] Last Admin: 03/31/25 14:24 Dose: 265 mls/hr Documented By: MAT Piperacillin Sod/Tazobactam (Sod 4.5 gm/ Sodium Chloride) 100 mls @ 200 mls/hr IV Q6H [facility] Last Infusion: 03/31/25 12:49 Dose: Infused Documented By: MAT Dextrose (D10) 1,000 mls @ 50 mls/hr IVCONT .Q20H [facility] Last Admin: 03/31/25 03:12 Dose: 50 mls/hr Documented By: ELLIOT Insulin Human Lispro (Insulin Lispro 100 Unit/Ml 3 Ml Vial) 0 unit SUBCUT Q4H MISTY; Protocol Last Admin: 03/31/25 11:42 Dose: Not Given Documented By: MAT Non-Admin Reason: No Insulin Coverage Losartan Potassium (Losartan Potassium 25 Mg Tablet) 25 mg PO DAILY MISTY; Protocol Last Admin: 03/31/25 07:54 Dose: 25 mg Documented By: MAT Magnesium Hydroxide (Milk Of Magnesia 30 Ml Oral.Susp) 30 ml PO DAILY PRN PRN Reason: Constipation Melatonin (Melatonin 3 Mg Tablet) 6 mg PO BEDTIME PRN PRN Reason: Insomnia Last Admin: 03/25/25 20:22 Dose: 6 mg Documented By: BETH Metoprolol Succinate (Metoprolol Succinate Er 50 Mg Tab.Er.24h) 50 mg PO DAILY MISTY; Protocol Last Admin: 03/31/25 07:54 Dose: 50 mg Documented By: MAT Pharmacy Consult (Consult Rx Vancomycin Dosing) 1 each MISCELLANE DAILY PRN PRN Reason: Consult order Sodium Chloride (0.9 % Sodium Chloride Flush 3 Ml Syringe) 3 ml IVFLUSH QSHIFT MISTY Last Admin: 03/31/25 07:34 Dose: Not Given Documented By: MAT Non-Admin Reason: IV Running Spironolactone (Spironolactone 25 Mg Tablet) 25 mg PO DAILY MISTY; Protocol Last Admin: 03/31/25 07:54 Dose: 25 mg Documented By: MAT Labs 03/30/25 10:16 03/31/25 11:16 Labs: Laboratory Results - last 24 hr 03/30/25 03/30/25 03/30/25 15:57 19:47 23:23 Hold Purple Top Anion Gap Estim Creat Clear Calc Estimated GFR POC Glucose 160 H 230 H 167 H Random Glucose Calcium Random Vancomycin 03/31/25 03/31/25 03/31/25 03:09 06:12 07:33 Hold Purple Top SEE NOTE Anion Gap Estim Creat Clear Calc 107.5 Estimated GFR > 60 POC Glucose 118 H 123 H Random Glucose Calcium Random Vancomycin 03/31/25 03/31/25 03/31/25 10:13 11:16 13:04 Hold Purple Top Anion Gap 7 L Estim Creat Clear Calc 91.9 Estimated GFR > 60 POC Glucose 165 H 148 H Random Glucose 159 H Calcium 7.5 L Random Vancomycin 16.8 Assessment and Plan (1) Pneumonia: Status: Acute (2) Acute metabolic encephalopathy: Status: Acute Plan 79-year-old male with a past medical history significant for complete heart block s/p PPM, DVT, AFib on Eliquis, hypertension, CKD 3, s/p CABG, Parkinson's, type 2 diabetes on insulin, history of AL, who presented to the ED due to multiple falls yesterday, 2 times witnessed with 1 head strike. Pt is admitted to the hospital for acute metabolic encephalopathy in the setting of pneumonia with sepsis with parapneumonic effusion suspicious for empyema. Dysphagia MBBS: Laryngeal penetration with thin and thick barium. Mild retention of solid food in the valleculae and piriform sinuses which clears with subsequent swallowing AUTOMATION TECHNOLOGIST recommens Puree and thin liquid Hypoglycemia from not eating Off insulin, now eating add sliding scle back. Hold Lantus Fluid overload BNP 2676, 2483 Echocardiogram EF 20 to 25% Continue Lasix 40 mg IV b.i.d, change to PO today HypOkalemia, replaced and normal today Sepsis with acute metabolic encephalopathy secondary to pneumonia with parapneumonic effusion suspicious for empyema Chest CT with partially loculated bilateral pleural effusions and multifocal bilateral atelectasis. vancomycin and Zosyn Pulmonology consult>Originally thoracentesis ordered, though pulmonology wanted chest tube placed, IR did bedside US and did not think pt had loculated effusion; suggested seeing how did with IV abx alone for now Repeat chest x-ray 03/27 showing cardiomegaly, pulmonary vascular congestion and small bilateral pleural effusions, we will treat for congestive heart failure as above Multiple falls Head CT and neck CT negative for acute findings Fall precautions PT evaluation> Rec STR Acute on chronic anemia Likely some element of dilution from IVF No evidence of acute bleeding Hem Improved to 8.7 after transfusion of 1 unit PRBCs Monitor CBC Hx DVT Eliquis resumed Paroxysmal a fib EKG with ventricular paced rhythm with occasional PVCs Continue BB Eliquis HTN BP soft, hold home meds CKD 3, Creatine 0.5 Parkinson's Continue home meds Type 2 diabetes, now hypoglycemia Sliding scale insulin Full code VTE prophy: Eliquis Dispo: DC tomorrow if blood sugars stay stable. Quality Stroke Does the patient have a stroke diagnosis?: No VTE Prior VTE?: Yes VTE Risk Level:: Medical - moderate - high VTE Device Contraindication: N/A - Device Ordered VTE Drug Contraindication: Treatment Not Indicated
[2025-03-31 16:12] LABS: Glucose, Whole Blood 165 mg/dL (60-115)
[2025-03-31 20:01] LABS: Glucose, Whole Blood 173 mg/dL (60-115)
[2025-03-31] MEDS: 0.9 % Sodium Chloride Flush 3 ML SYRINGE IVFLUSH (20:05)
[2025-04-01 03:14] VITALS: BP 121/59; PULSE 77; RESP 20; TEMP 37.3; O2SAT 92
[2025-04-01 07:23] LABS: Glucose, Whole Blood 106 mg/dL (60-115)
[2025-04-01 07:34] LABS: Creatinine Clr Calc Pharmacy 73.0; Estimated Glomerular Filt Rate > 60
[2025-04-01 07:35] VITALS: BP 131/61; PULSE 82; RESP 18; TEMP 37.2; O2SAT 96
[2025-04-01] MEDS: Metoprolol Succinate ER 50 MG TAB.ER.24H PO (07:56)
[2025-04-01] MEDS: Ferrous Sulfate 324 MG TABLET.DR PO (07:56)
[2025-04-01] MEDS: 0.9 % Sodium Chloride Flush 3 ML SYRINGE IVFLUSH (07:57)
--- NOTE | 2025-04-01 09:01 | P.DS_ITS ---
DS: Providers Provider Date of Service: 04/01/25 Date of admission: 03/22/25 23:27 Date of discharge: 04/01/25 Primary care physician: Candido Good III, MD Consults: 03/23/25 02:12 Consult to Pulmonology Routine Consulting Provider: [facility] Reason for consultation: loculated pleural effusion 03/28/25 07:26 Consult to Cardiology Routine Consulting Provider: [facility] Reason for consultation: chf DS: Diagnosis Discharge Diagnosis (1) Pneumonia: Status: Acute (2) Acute metabolic encephalopathy: Status: Acute DS: Summary Hospital Course Hospital Course: Chief Complaint: falls Patient is an 79-year-old male with a past medical history significant for complete heart block s/p PPM, DVT, AFib on Eliquis, hypertension, CKD 3, s/p CABG, Parkinson's, DVT, type 2 diabetes on insulin, history of DC, who presented to the ED due to multiple falls yesterday, 2 times witnessed with 1 head strike. The patient was discharged from rehab today after going there short-term from his recent hospitalization with aspiration pneumonia. The patient is a very poor historian and is unable to provide much history for me. Per ED note the patient told principal technical writer that he was not SC slipped on ice and hit his head. He came from [facility]. The patient fell earlier yesterday while he was in his driveway and hit his head on the car around noon time. His recent hospitalization was from 02/09/2025 until 02/14/2025 for sepsis secondary to UTI pneumonia. He was treated with ceftriaxone and doxycycline and also found to have iron-deficiency anemia, transfused 2 units. The history obtained from the patient's in the ED included that he had a fever and developed pneumonia while in short-term rehab and has been off of antibiotics for approximately 1 week. He has been on thickened liquids and pureed food. When he did fall and hit his head he did not lose consciousness. Hospital course 79-year-old male with a past medical history significant for complete heart block s/p PPM, DVT, AFib on Eliquis, hypertension, CKD 3, s/p CABG, Parkinson's, type 2 diabetes on insulin, history of DC, who presented to the ED due to multiple falls the day prior to admission, 2 times witnessed with 1 head strike. He was admitted to the hospital for management of acute metabolic encephalopathy in the setting of aspiration pneumonia with sepsis with parapneumonic effusion suspicious for empyema. Hospital course was further complicated heart failure related to cardiolmyopathy, hypoglycemia due to malnutrition, hypokalemia and generalized deconditoned as well noted dysphagia. Course by problem Sepsis due aspiration pneumonia likely from underlying dysphagia and some cognitive impairment. CT of the chest showed partially loculated bilateral pleural effusions and multifocal bilateral atelectasis. Pulmonology recommended a chest tube place by IR, however, IR did US before the procedure and did not think there was loculated effusion or empayema and therefore the procedure was not performed. Patient is rather deeemed to have a parapneumonic effusion for which he has been on Abx with Zosyn and Vanco since 03/22, making it now 10 days of antibiotics. He is presently afebrile, WBC within normal and no hypoxia. Sepsis resolved. He will be treated for 4 more days with Augmentin and should have a repeat CXR after that Metabolic Encephalopathy d/t above on top of base like cognitive impairment likely dementia, ? Alzheimer type. Sees to be back his baseline. Cardiomyopathy/HFrEF, EF 20 to 25%. He has severe cardiomyopathy by echocardiography. He also has significantly elevated right atrial pressure and severe pulmonary hypertension He had sings of fluid overload Fluid BNP 2676, 2483, CXR show pulmonary vascular congestion. He was treated with IV Lasix under the guidance of cardiology who further recommend Losartan, Aldactone and outpatient follow up with his repairing calibrator with Dr. Bermudez at [facility]. . Will discharge with Lasix 40 mg daily Dysphagia likely from underlying parkinson causing underlying aspiration pneumonia MBBS: Laryngeal penetration with thin and thick barium. Mild retention of solid food in the valleculae and piriform sinuses which clears with subsequent swallowing FOREIGN LANGUAGE TEACHER recommens Puree and thin liquid Type 2 diabetes with Hypoglycemia from not eating, previously on jardiance, metformin and Lantus. He had severe hypoglycemia into 30s and 40s probably from not eating, and was on D10 drip and now off. For now holding off Metformin, Jardiance and Lantus and will keep on sliding scale and diabetic diet. Should sugar go persitently high, can reintroduce Januvia 100 m daily was on 22 at home Jardiance 100 mg and Metfromin 1000 bid HypOkalemia due to Lasix, replaced and resolved. Multiple falls Head CT and neck CT negative for acute findings Fall precautions PT recommend STR Acute on chronic anemia Likely some element of dilution from IVF No evidence of acute bleeding Hem Improved to 8.7 after transfusion of 1 unit PRBCs Monitor CBC Hx DVT Eliquis Paroxysmal afib EKG with ventricular paced rhythm with occasional PVCs Continue metoprolol Eliquis for stroke prevention, DC ASA to minimize bleeding risk HTN Continue Losartan and metoprol, BP ok presently 131/61 CKD 3, Creatine has been nor al 0.5 Parkinson's Continue home meds Goals of care conversation took place with his and his status is changed to DNR/DNI, MOLST form completed 04/01/25 Time Attestation Discharge Coordination Time (in mins): 45 Quality: Safe Use of Opioids Does Pt have an Active Cancer Diagnosis on the Problem List?: No Quality: Stroke Does the patient have a stroke diagnosis?: No Physical Exam Vital Signs: Vital Signs: Last Vital Signs Temp 98.9 F 04/01/25 07:35 Pulse 82 04/01/25 07:35 Resp 18 04/01/25 07:35 BP 131/61 04/01/25 07:35 Pulse Ox 96 04/01/25 07:35 O2 Del Method Room Air 04/01/25 07:35 O2 Flow Rate 2 03/27/25 16:22 BMI result Body Mass Index 26.1 DS: Data Data Completed and Pending Completed studies during hospitalization [Text1]: Procedures Insertion of Pacemaker Lead into Right Atrium, Percutaneous Approach (01/10/21) Insertion of Pacemaker Lead into Right Ventricle, Percutaneous Approach (01/10/21) Insertion of Pacemaker, Dual Chamber into Chest Subcutaneous Tissue and Fascia, Open Approach (01/10/21) Transfusion of Nonautologous Red Blood Cells into Peripheral Vein, Percutaneous Approach (02/09/25) Labs on day of discharge: Laboratory Results - last 24 hr 03/31/25 03/31/25 03/31/25 10:13 11:16 13:04 Hold Purple Top Sodium 136 Potassium 3.4 Chloride 102 Carbon Dioxide 30 H Anion Gap 7 L BUN 8 L Creatinine 0.62 Estim Creat Clear Calc 91.9 Estimated GFR > 60 POC Glucose 165 H 148 H Random Glucose 159 H Calcium 7.5 L Random Vancomycin 16.8 03/31/25 03/31/25 04/01/25 16:08 19:57 06:44 Hold Purple Top SEE NOTE Sodium Potassium Chloride Carbon Dioxide Anion Gap BUN Creatinine 0.78 Estim Creat Clear Calc 73.0 Estimated GFR > 60 POC Glucose 165 H 173 H Random Glucose Calcium Random Vancomycin 04/01/25 07:10 Hold Purple Top Sodium Potassium Chloride Carbon Dioxide Anion Gap BUN Creatinine Estim Creat Clear Calc Estimated GFR POC Glucose 106 Random Glucose Calcium Random Vancomycin Discharge Plan Discharge Anticipated Discharge Date/Time: 04/01/25 09:02 Patient Disposition: Xfer SNF Discharge Diagnosis: Aspiration pneumonia, cardiomyopathy heart failure, m etabolic encephalopathy, hypoglycemia Referrals: [facility] [Outside] Candido Good III, MD [Primary Care Provider, Medical] - 1 Week Discharge Medications: New spironolactone 25 mg Tablet 25 mg PO DAILY Qty: 30 0RF Protocol: Hold for SBP< HOLD for SBP < : 90 furosemide 40 mg Tablet 40 mg PO DAILY Qty: 30 0RF Protocol: Hold for SBP< HOLD for SBP < : 90 insulin lispro [Admelog U-100 Insulin lispro] 100 unit/mL Solution See Protocol subcut QIDACHS Qty: 10 0RF Protocol: Insulin Correction Scale Less than or equal to 110 ---- Give (units): 0 111 to 150 Give (units): 0 151 to 200 Give (units): 2 201 to 250 Give (units): 4 251 to 300 Give (units): 6 301 to 350 Give (units): 8 Greater than 350 Give (units): 10 Call MD if Blood Glucose > : 350 losartan 25 mg Tablet 25 mg PO DAILY Qty: 30 0RF Protocol: Hold for SBP< HOLD for SBP < : 90 metoprolol succinate 50 mg Tablet Extended Release 24 Hr 50 mg PO DAILY Qty: 30 0RF Protocol: Hold for SBP/HR < HOLD for SBP < : 90 HOLD for HR < : 60 amoxicillin-pot clavulanate 875-125 mg Tablet 1 tab PO BID Qty: 8 0RF Continued atorvastatin 80 mg tablet 80 mg PO DAILY finasteride 5 mg tablet 5 mg PO DAILY Eliquis 5 mg tablet 5 mg PO BID aspirin 81 mg Tablet,Chewable 81 mg PO DAILY Qty: 30 0RF tamsulosin 0.4 mg capsule 0.4 mg PO DAILY ferrous sulfate [Slow Release Iron] 142 mg (45 mg iron) tablet extended release 142 mg PO DAILY ascorbic acid (vitamin C) [Vitamin C] 1,000 mg Tablet 1,000 mg PO DAILY Discontinued Januvia 100 mg tablet 100 mg PO DAILY metoprolol tartrate 25 mg tablet 25 mg PO BID metformin 500 mg tablet 1,000 mg PO BID insulin glargine 100 unit/mL (3 mL) insulin pen 22 unit subcut BEDTIME Discharge Orders: Discharge Order (Routine); Ordered 04/01/25 Ordered By: Uday Leon Diet: Advance to usual diet Activity on Discharge: As tolerated Stand Alone Forms: Patient Portal Discharge page Print Language: Japanese Other Ambulatory Orders: XR chest 2V (Routine) Timeframe: 1 Week Facility: [facility] - Location: Radiology Ordered By: Uday Leon Care Plan Goals: recovery from sepsis, aspiraton, heart failure, hypoglycemia, metabolic encephalopathy, hypokalemia Health Concerns: sepsis, aspiraton, heart failure, hypoglycemia, metabolic encephalopathy, hypokalemia Plan of Treatment: To short term rehab see above for managment of problem Diet: Dysphasia Diet Status: Recommendation is patient resume diet of PUREE (NDD1) with THIN liquids (by tsp or controlled cup sip in small sips), pills crushed in puree. Patient may cough at times, dry cough is encouraged. Discontinue if wet or spasmodic coughing noted, wet voice or upper airway noise noted (clinical signs of aspiration), or if patient is not adequately awake and alert for meal. Liquid Consistency and Strategies for Safe Swallow: Liquid Intake Recommendation: Thin Liquid Intake Strategies: Small SipsNo Straws Double Swallow Assessment: see above
[2025-04-01 09:36] LABS: Hematocrit 27.7 % (42.0-52.0); Hemoglobin 8.2 g/dl (14.0-18.0); Imm Gran Abs Auto 0.09 X10*3/uL (0.00-0.03); Imm Gran Pct Auto 0.9 % (0.0-0.4); Lymphocytes Absolute Auto 2.8 X10*3/uL (1.2-4.9); MANUAL DIFF FLAG SCAN; Mean Corpuscular HGB Conc 29.6 g/dl (31.0-36.0); Mean Corpuscular Hemoglobin 24.9 pg (27.0-33.0); Mean Corpuscular Volume 84.2 fL (80.0-98.0); NRBC Abs Auto 0.000 X10*3/uL (0.0-0.012); NRBC Pct Auto 0.0 /100WBC (0.0-0.2); Platelet Count 256 X10*3/uL (160-400); Red Blood Count 3.29 X10*6/uL (4.60-5.80); SCAN SMEAR FLAG 1; White Blood Count 10.2 X10*3/uL (4.8-10.8)
--- NOTE | 2025-04-01 09:39 | MHC.CM.PN ---
PT WILL DC TO [facility] AT 1100 HOURS TODAY FAMILY AWARE
[2025-04-01 09:49] LABS: Anion Gap 10 (12-20)
[2025-04-01 09:51] LABS: Carbon Dioxide 27 mmol/L (22-29); Chloride 106 mmol/L (96-108); Magnesium 1.8 mg/dL (1.6-2.6); Potassium 3.3 mmol/L (3.3-5.1); Sodium 140 mmol/L (135-145)
[2025-04-01 09:53] LABS: Hemoglobin A1C 80.4785 umol/L; Total Hemoglobin (HGBA1C) 2216.1377 umol/L
--- NOTE | 2025-04-01 11:04 | W.MHC.ACPN ---
Advanced Care Planning Note Advanced Care Planning Note Time spent (in minutes): 17 Narrative: Goals of care discussion with in light of declining condition in setting of parkinson, advanced severe cardiomyopathy and multiple comorbididies and his status changed to DNR/DNI and MOLST form signed Problems Discussed (1) Pneumonia: (2) Acute metabolic encephalopathy:
[2025-04-01 11:44] LABS: Glucose, Whole Blood 194 mg/dL (60-115)
[2025-04-01 12:00] VITALS: BP 112/56; PULSE 67; RESP 18; TEMP 36.9; O2SAT 97
== END 2025-04-01 12:32 | disposition skilled nursing facility (03) | DRG 720 ==
LOC: HO.ED 22:06 → HO.EDOVER 03-23 02:23 → HO.IMC 03-23 15:35 → HO.S3 03-26 10:54
PROVIDERS: Emergency Medicine; Nurse Practitioner Acute Care; Physician Assistant; Student in an Organized Health Care Education/Training Program; Admitting Provider Student in an Organized Health Care Education/Training Program; Emergency Provider Emergency Medicine Emergency Medical Services; PCP Internal Medicine; Visit Provider Internal Medicine
DX: A41.9 Sepsis, unspecified organism (principal); J86.9 Pyothorax without fistula; J69.0 Pneumonitis due to inhalation of food and vomit; G93.41 Metabolic encephalopathy; I44.2 Atrioventricular block, complete; D63.1 Anemia in chronic kidney disease; E11.649 Type 2 diabetes mellitus with hypoglycemia without coma; I50.21 Acute systolic (congestive) heart failure; I27.20 Pulmonary hypertension, unspecified; I13.0 Hypertensive heart and chronic kidney disease with heart failure and stage 1 through stage 4 chronic kidney disease, or unspecified chronic kidney disease; I42.9 Cardiomyopathy, unspecified; R29.6 Repeated falls; N18.30 Chronic kidney disease, stage 3 unspecified; G20.A1 Parkinson's disease without dyskinesia, without mention of fluctuations; I48.0 Paroxysmal atrial fibrillation; R13.10 Dysphagia, unspecified; I25.10 Atherosclerotic heart disease of native coronary artery without angina pectoris; J98.11 Atelectasis; E11.22 Type 2 diabetes mellitus with diabetic chronic kidney disease; E87.6 Hypokalemia; Z20.822 Contact with and (suspected) exposure to COVID-19; Z95.1 Presence of aortocoronary bypass graft; Z95.0 Presence of cardiac pacemaker; Z86.718 Personal history of other venous thrombosis and embolism; Z79.4 Long term (current) use of insulin; Z79.01 Long term (current) use of anticoagulants; Z79.899 Other long term (current) drug therapy
CPT/HCPCS: 36415; 70450; 71045; 71250; 72125; 74230; 76604; 80048; 80051; 80053; 80202; 80307; 81001; 82550; 82565; 82803; 82947; 83036; 83605; 83615; 83690; 83735; 83880; 84484; 85025; 85027; 85610; 85730; 86850; 86900; 86901; 86923; 87040; 87637; 92526; 92610; 92611; 93005; 93306; 97110; 97162; 97530; 99285; J0456; J0696; J1938; J2543; J3374; J3480; P9016; Q9957

== ENCOUNTER → 2025-03-22 17:57 | Outpatient (BNV) | payer BC, SELFPAY | PROVIDERS: Admitting Provider Student in an Organized Health Care Education/Training Program; Emergency Provider Emergency Medicine Emergency Medical Services; PCP Internal Medicine; Visit Provider Internal Medicine | DX: I49.3 Ventricular premature depolarization (principal); Z95.0 Presence of cardiac pacemaker | CPT/HCPCS: 93010 ==

== ENCOUNTER → 2025-03-22 17:58 | Outpatient (BNV) | payer BC, SELFPAY | PROVIDERS: Emergency Provider Emergency Medicine Emergency Medical Services; Visit Provider Radiology Diagnostic Radiology | DX: M50.30 Other cervical disc degeneration, unspecified cervical region (principal); G31.9 Degenerative disease of nervous system, unspecified; R50.9 Fever, unspecified | CPT/HCPCS: 70450; 71045; 72125 ==

== ENCOUNTER → 2025-03-22 20:19 | Outpatient (BNV) | payer BC, SELFPAY | PROVIDERS: Emergency Provider Emergency Medicine Emergency Medical Services; PCP Internal Medicine; Visit Provider Physician Assistant | DX: J69.0 Pneumonitis due to inhalation of food and vomit (principal); G93.41 Metabolic encephalopathy | CPT/HCPCS: 99223; 99232; 99233; 99239; 99497 ==

== ENCOUNTER 2025-03-22 23:27 | Outpatient (BNV) | payer BC, SELFPAY | END 2025-03-23 15:00 | PROVIDERS: Admitting Provider Student in an Organized Health Care Education/Training Program; Emergency Provider Emergency Medicine Emergency Medical Services; PCP Internal Medicine; Visit Provider Radiology Diagnostic Radiology | DX: J90 Pleural effusion, not elsewhere classified (principal) | CPT/HCPCS: 76604 ==

== ENCOUNTER 2025-03-22 23:27 | Outpatient (BNV) | payer BC, SELFPAY | END 2025-03-28 07:00 | PROVIDERS: Admitting Provider Student in an Organized Health Care Education/Training Program; Emergency Provider Emergency Medicine Emergency Medical Services; PCP Internal Medicine; Visit Provider Internal Medicine Cardiovascular Disease | DX: I27.20 Pulmonary hypertension, unspecified (principal); I42.2 Other hypertrophic cardiomyopathy; I34.0 Nonrheumatic mitral (valve) insufficiency; I51.7 Cardiomegaly | CPT/HCPCS: 93306 ==

== ENCOUNTER 2025-03-22 23:27 | Outpatient (BNV) | payer BC, SELFPAY | END 2025-03-29 14:21 | PROVIDERS: Admitting Provider Student in an Organized Health Care Education/Training Program; Emergency Provider Emergency Medicine Emergency Medical Services; PCP Internal Medicine; Visit Provider Radiology Diagnostic Radiology | DX: R06.02 Shortness of breath (principal) | CPT/HCPCS: 71045 ==

== ENCOUNTER 2025-03-22 23:27 | Outpatient (BNV) | payer BC, SELFPAY | END 2025-03-27 08:50 | PROVIDERS: Admitting Provider Student in an Organized Health Care Education/Training Program; Emergency Provider Emergency Medicine Emergency Medical Services; PCP Internal Medicine; Visit Provider Radiology Diagnostic Radiology | DX: J90 Pleural effusion, not elsewhere classified (principal) | CPT/HCPCS: 71045 ==

== ENCOUNTER 2025-03-22 23:27 | Outpatient (BNV) | payer BC, SELFPAY | END 2025-03-28 10:30 | PROVIDERS: Admitting Provider Student in an Organized Health Care Education/Training Program; Emergency Provider Emergency Medicine Emergency Medical Services; PCP Internal Medicine; Visit Provider Radiology Diagnostic Radiology | DX: R13.10 Dysphagia, unspecified (principal) | CPT/HCPCS: 74230 ==

== ENCOUNTER → 2025-03-22 23:27 | Outpatient (BNV) | payer BC, SELFPAY | PROVIDERS: Admitting Provider Student in an Organized Health Care Education/Training Program; Emergency Provider Emergency Medicine Emergency Medical Services; PCP Internal Medicine; Visit Provider Internal Medicine Pulmonary Disease | DX: J90 Pleural effusion, not elsewhere classified (principal); T17.900A Unspecified foreign body in respiratory tract, part unspecified causing asphyxiation, initial encounter | CPT/HCPCS: 99255 ==

== ENCOUNTER → 2025-03-22 23:27 | Outpatient (BNV) | payer BC, SELFPAY | PROVIDERS: Admitting Provider Student in an Organized Health Care Education/Training Program; Emergency Provider Emergency Medicine Emergency Medical Services; PCP Internal Medicine; Visit Provider Internal Medicine Cardiovascular Disease | DX: I50.9 Heart failure, unspecified (principal) | CPT/HCPCS: 99232 ==